=== PATIENT | male | born 1945 | race Caucasian/White ===

== ENCOUNTER → 2017-06-28 06:02 | Outpatient (CLI) | payer MEDICARE, SELFPAY ==
--- NOTE | 2017-06-28 | NM_ITS ---
History and Indications: Hypertension, family history, chest pain, shortness of breath and fatigue. Procedure: Patient exercised on Henri protocol 6 metastases and 30 seconds, resting heart rate was 65 beats per resting blood pressure 156/83, with exercise maximum heart achieved was 1 29 bpm which is equal to 88% of the maximum] heart rate and a blood pressure was 186/75. Test was started due to shortness of breath patient denied any complained of chest pain. Patient has adequate exercise capacity achieved 7mets of workload on treadmill, the blood pressure response to exercise was adequate. Electrocardiogram: Resting echocardiogram showed sinus is is nonspecific ST-T changes, with exercise there is less than 1.[address] segment depression noted from the baseline EKG. The EKG portion of the exercise Myoview is nondiagnostic secondary to baseline abnormal EKG. Cardiac stress and resting SPECT images: Cardiac stress and resting SPECT images were obtained using technetium 99 Myoview 30.9 mCi at stress gated 10.5 mCi at stress, gated SPECT further analysis of segmental wall motion and calculation of the ejection fraction also done. Cardiac stress and resting SPECT images show uniform myocardial activity without segmental perfusion abnormality, computer derived ejection fraction 59% with no obvious regional wall motion abnormality, right ventricle is normal size and contractility. Conclusion: 1. The EKG portion of the exercise Myoview is negative for ischemia. Patient has adequate exercise capacity achieved 7mets of workload on treadmill, the blood pressure response to exercise was adequate, there was no exercise-induced chest discomfort. 2. No obvious scintigraphic evidence of reversible ischemia seen, computer derived ejection fraction is 59% with no obvious regional wall motion abnormality, right ventricle is normal size and contractility. 3. Normal exercise Myoview study.
== END ==
PROVIDERS: Family Provider Family Medicine; PCP Family Medicine; Visit Provider Family Medicine
DX: R07.9 Chest pain, unspecified (principal); R06.02 Shortness of breath
CPT/HCPCS: 78452; 93017; A9502

== ENCOUNTER → 2017-11-12 08:03 | Outpatient (CLI) | payer MEDICARE, SELFPAY ==
--- NOTE | 2017-11-12 08:09 | XR_ITS ---
XR shoulder RT min 2V HISTORY: ITS.REASON: RT SHOULDER PAIN ORDERING PHYSICIAN: Lalito Yepez MD PATIENT AGE: 72 years Comparison: None FINDINGS: There are osteoarthritic changes of the acromioclavicular joint with calcification along the superior aspect of the AC joint. Mild hypertrophic changes are present along the inferior aspect of the AC joint which could be causing some impingement. Glenohumeral joint has an unremarkable appearance. No fracture or dislocation. IMPRESSION: Osteoarthritis of the acromioclavicular joint with mild subacromial stenosis
== END ==
PROVIDERS: PCP Family Medicine; Visit Provider Family Medicine
DX: M25.511 Pain in right shoulder (principal)
CPT/HCPCS: 73030

== ENCOUNTER 2017-11-22 09:00 | Outpatient (RCR) | payer MEDICARE, SELFPAY ==
--- NOTE | 2017-11-16 13:57 | HMH.OTOPEV ---
OT Inpatient Evaluation Rehab OT Outpatient Eval Start: 11/16/17 13:34 Freq: Status: Active Protocol: Document 11/16/17 13:35 TFRY (Rec: 11/16/17 13:57 TFRY [id number]) Electronically Signed By Deidra Welch, OT 11/16/17 13:35 Outpatient Therapy Subjective History Subjective History THIS IS A 72 YEAR OLD RIGHT HANDED MALE REFERRED TO OCCUPATIONAL THERAPY FOR IMPINGEMENT SYNDROME RIGHT SHOULDER. PATIENT REPORTS THAT HIS SHOULDER STARTED HURTING ON 10/04/17 BUT DOESN'T KNOW EXACTLY WHAT HE DID. PMHX: GOUT, ARTHRITIS, HIGH BLOOD PRESSURE. Chief Complaint Pain Symptom Type Sharp Symptoms Relieved By Rest/Positioning Symptoms Aggravated By Physical Activity Prior Functional Limitations None Current Functional Limitations Lifting Sleeping Symptom Description Activity Dependent Level of pain today (0-10) 2 Pain scale - at its best (0-10) 0 Pain scale - at its worst (0-10) 4 Shoulder/Elbow Eval Shoulder Objective Measurements Palpation Tenderness tenderness shoulder exam standard right Shoulder Palpation Findings Tenderness Shoulder Palpation Overall Comment TENDERNESS POSTERIOR RTC Shoulder ROM Right Shoulder ROM Limitations Pain Shoulder Abduction Active Range of 70 Motion (degrees) Shoulder Flexion Active Range of Motion 110 (degrees) Query Text: Shoulder External Rotation Active Range 45 of Motion (degrees) Shoulder Internal Rotation Active Range 45 of Motion (degrees) Shoulder Extension Active Range of 30 Motion (degrees) pain with active ROM shoulder exam right standard decreased ROM shoulder exam standard right Shoulder MMT Shoulder Abduction Strength Grade 3+ Fair+ Shoulder Extension Strength Grade 3+ Fair+ Shoulder Flexion Strength Grade 4- Good- Shoulder External Rotation Strength 3 Fair Grade Shoulder Internal Rotation Strength 3 Fair Grade Shoulder Special Tests impingement sign present shoulder exam right standard Shoulder Empty Can (Supraspinatus) Test Positive Right Shoulder Curtis-Hima Impingement Negative Right Test Elbow Objective Measurements OT Outpatient Assessment Impairments Problems/Impairments Palpation Tenderness Impaired Range of Motion Impaired S
== END 2017-11-22 09:01 | disposition home or self-care (01) ==
LOC: OT 09:00
PROVIDERS: Visit Provider Family Medicine
DX: M75.41 Impingement syndrome of right shoulder (principal)
CPT/HCPCS: 97014; 97033; 97110; 97165; G0283

== ENCOUNTER → 2018-07-31 13:40 | Outpatient (CLI) | payer MEDICARE, SELFPAY ==
[2018-07-31 14:39] LABS: Erythrocyte Sedimentation Rate 14 mm/hr (0-20)
[2018-07-31 16:16] LABS: Uric Acid 6.6 mg/dL (2.6-7.2)
== END ==
PROVIDERS: Visit Provider Family Medicine
DX: E79.0 Hyperuricemia without signs of inflammatory arthritis and tophaceous disease (principal)
CPT/HCPCS: 36415; 84550; 85651

== ENCOUNTER → 2019-02-12 14:02 | Outpatient (CLI) | payer MEDICARE, SELFPAY ==
--- NOTE | 2019-02-12 14:03 | MR_ITS ---
PROCEDURE: MR LUMBAR SPINE WO CON CLINICAL INDICATION: SPINAL STENOSIS OF LUMBAR REGION, UNSPECIFIED WHETHER NEUROG Low back pain, left leg pain numbness and tingling COMPARISON: AUTOMATIC CENTRIFUGAL STATION OPERATOR/O MRI-L-SPINE W/O from 10/01/2014 ENDOCRINOLOGIST/O MRI-C-SPINE W/O from 10/01/2014 TECHNIQUE: Standard multiplanar multiecho sequences are performed without contrast. 3-D MIP and myelographic images are also rendered and reviewed FINDINGS: There is normal alignment. The spinal cord ends at the L1-L2 level. T11-T12: Mild degenerative disc disease. T12-L1: Mild degenerative disc disease. L1-L2: Mild degenerative disc disease with minimal bulging disc and tiny central disc protrusion very slightly eccentric toward the left without impingement. There is facet and ligamentum hypertrophy with mild bilateral lateral recess and foraminal narrowing. L2-L3: Degenerate disc disease with bulging disc along with severe facet and ligamentum hypertrophy with severe bilateral lateral recess narrowing and moderate right foraminal narrowing and moderate to severe left foraminal narrowing for there is canal stenosis at this level at 10 mm. L3-L4: Postsurgical changes with posterior fusion. There canal stenosis at 10 mm. There is 3 mm anterolisthesis of L3 and there is severe facet and ligamentum hypertrophy with severe bilateral foraminal narrowing there is moderate bilateral lateral recess narrowing. L4-5: Bulging disc with degenerative disc disease along with facet and ligamentum hypertrophy with severe bilateral foraminal narrowing. L5-S1: Facet ligamentum hypertrophy with mild bilateral foraminal narrowing. No disc herniation evident. IMPRESSION: 1. There is multilevel degenerative disc disease with facet and ligamentum hypertrophy with lateral recess and foraminal narrowing.. Please see above for detailed description at each level 2. L1-L2: Mild degenerative disc disease with minimal bulging disc and tiny central disc protrusion very slightly eccentric toward the left without impingement. There is facet and ligamentum hypertrophy with mild bilateral lateral recess and foraminal narrowing. 3. L2-L3: Degenerate disc disease with bulging disc along with severe facet and ligamentum hypertrophy with severe bilateral lateral recess narrowing and moderate right foraminal narrowing and moderate to severe left foraminal narrowing for there is canal stenosis at this level at 10 mm. 4. L3-L4: Postsurgical changes with posterior fusion. There canal stenosis at 10 mm. There is 3 mm anterolisthesis of L3 and there is severe facet and ligamentum hypertrophy with severe bilateral foraminal narrowing there is moderate bilateral lateral recess narrowing. 5. L4-5: Bulging disc with degenerative disc disease along with facet and ligamentum hypertrophy with severe bilateral foraminal narrowing. 6. L5-S1: Facet ligamentum hypertrophy with mild bilateral foraminal narrowing. 7. No disc herniation evident. Dictated by: Dayron Ortiz MD 02/13/2019 09:35 Electronically signed by Dayron Ortiz MD in [facility] 02/13/2019 09:35
== END ==
PROVIDERS: PCP Family Medicine; Visit Provider Family Medicine
DX: M48.061 Spinal stenosis, lumbar region without neurogenic claudication (principal)
CPT/HCPCS: 72148; 76376

== ENCOUNTER → 2019-08-14 13:01 | Outpatient (CLI) | payer MEDICARE, SELFPAY ==
--- NOTE | 2019-08-14 13:06 | CT_ITS ---
PROCEDURE: CT LUMBAR SPINE WO CON CLINICAL HISTORY: LOW BACK PAIN Low back pain radiating down left hip and left leg, prior lumbar fusion COMPARISON: MR LUMBAR SPINE WO CON from 02/12/2019 TECHNIQUE: Axial images obtained with sagittal and coronal reformats. All CT scans at the facility use one or more dose reduction, viz: automated exposure control, ma/kV adjustment per patient size (including targeted exams where dose is matched to indication, i.e. head), or iterative reconstruction technique. FINDINGS: There is normal alignment. No fracture or dislocation is evident. There is multilevel lumbar spondylosis. T10-T11: Small right paracentral ventral osteophyte. T11-T12: Degenerate disc disease with ventral osteophyte. T12-L1: Degenerate disc disease. L1-L2: Ventral osteophytes. Degenerative disc disease with small right paracentral disc osteophyte complex and mild right lateral recess narrowing. L2-L3: Degenerative disc disease with bulging disc along with facet ligamentum hypertrophy with bilateral lateral recess and foraminal narrowing L3-L4: Degenerative disc disease with bulging disc. Postsurgical changes with 2 mm anterolisthesis of L3. Prominent facet hypertrophic changes are present with oblique screws directed through the facet joints at L3-L4 on both right and left side. There is bony hypertrophy with lateral recess and foraminal narrowing with borderline narrowing of the canal. L4-5: Degenerative disc disease with broad-based bulging disc with facet ligamentum hypertrophy with bilateral foraminal narrowing. L5-S1: Degenerative disc disease with bulging disc with facet and ligamentum hypertrophy. There may be a small central disc protrusion. Bilateral foraminal narrowing. IMPRESSION: Abnormal CT of the lumbosacral spine. Multilevel lumbar spondylosis with degenerative disc disease, bulging disc, facet ligamentum hypertrophy with lateral recess and foraminal narrowing. Postsurgical changes at L3-L4. Please see above for detailed description at each level. Dictated by: Dayron Ortiz MD 08/15/2019 12:46 Electronically signed by Dayron Ortiz MD in [place] 08/15/2019 12:46
== END ==
PROVIDERS: PCP Family Medicine; Visit Provider Neurological Surgery
DX: M54.5 Low back pain (principal)
CPT/HCPCS: 72131

== ENCOUNTER → 2019-08-20 10:45 | Outpatient (CLI) | payer MEDICARE, SELFPAY ==
--- NOTE | 2019-08-20 10:48 | US_ITS ---
PROCEDURE: US KIDNEY CLINICAL INDICATION: HYPERTENSION COMPARISON: No exams were available for comparison FINDINGS: Both kidneys are of normal size and echogenicity. The right kidney measures 10 centimeters x 4.9 centimeters. The left kidney measures 11 centimeters X 5.5 centimeters and displays an upper pole 10 millimeter cyst. There is normal bilateral renal doppler signal. The spleen measures 12.4 centimeters x 4.7 centimeters x 11.5 centimeters IMPRESSION: Small right renal cyst Dictated by: Kuldip Stewart 08/20/2019 12:11 Electronically signed by Kuldip Stewart in [facility] 08/20/2019 12:11
== END ==
PROVIDERS: PCP Family Medicine; Visit Provider Family Medicine
DX: I10 Essential (primary) hypertension (principal)
CPT/HCPCS: 76770

== ENCOUNTER 2019-12-21 06:53 | Emergency (ER) | payer MEDICARE, SELFPAY ==
[2019-12-21 06:55] VITALS: BP 151/66; PULSE 104; RESP 16; TEMP 36.7; O2SAT 98; BMI 27.3
[2019-12-21 07:27] LABS: Microscopic, Urine URINE MICROSCOPIC (MICROSCOPIC)
--- NOTE | 2019-12-21 07:29 | CA_ITS ---
APPROVED REPORT Left Lower Extremity Venous Study for Venous Competence. Ed Transporter: CT Indications pain, lle burning Vein Imaging CFV (L): compressive, spontaneous, phasic, augmentation SFJ (L): compressive, spontaneous, phasic, augmentation FEM (L): compressive, spontaneous, phasic, augmentation POP (L): compressive, spontaneous, phasic, augmentation DFV (L): compressive, spontaneous, phasic, augmentation PTV (L): compressive, spontaneous, phasic, augmentation GSV (L): compressive, spontaneous, phasic, augmentation SSV (L): compressive, spontaneous, phasic, augmentation Peroneals (L):compressive, spontaneous, phasic, augmentation GAS (L): compressive, spontaneous, phasic, augmentation Findings LLE negative for DVT/SVT. Vessels fully compressible. Conclusion LLE negative for DVT/SVT. Vessels fully compressible. Electronically signed by : Dayron Ortiz MD 12/22/2019 13:35:49
--- NOTE | 2019-12-21 07:30 | PC.NURSE ---
call placed to resp. to call in cardiovascular specialist
--- NOTE | 2019-12-21 07:31 | HMH.EDGENADL ---
ED Disposition Condition on Discharge: Good - Critical Care Critical Care Time: No <Jewel Angel Filed: 12/21/19 07:58> Condition on Discharge: Good - Critical Care Critical Care Time: No <Jewel Benjamin Filed: 12/21/19 10:42> Clinical Impression: Acute urinary retention, Left leg pain Disposition: Still a Patient Instructions: DI for Urinary Retention in Men Referrals: Ta Santiago MD [Primary Care Provider] - Timothy Nguyen MD [Staff Physician] - Attestation: On 12/21/19, the high probability of a clinically significant, sudden or life threatening deterioration of the following system(s) required my full and direct attention, intervention and personal management. The time I documented below is in addition to time spent performing reported procedures but includes the following listed in this critical care notation. Medical Decision Making - Louis Inquiry Pt receiving controlled substance: No - Lab Data Result diagrams: 12/21/19 07:33 12/21/19 07:33 <Jewel Angel Last Filed: 12/21/19 07:58> - Medical Records Medical records reviewed: Yes: I reviewed the patient's medical records. - Lab Data Result diagrams: 12/21/19 07:33 12/21/19 07:33 - US Data US Images: Lower Extremity ED US Reviewed: Yes: I have reviewed the patient's US results, I have viewed radiologist's interpretation - Reevaluation(s) Time: 10:40 <Jewel Benjamin - Last Filed: 12/21/19 10:42> Vital Signs: 12/21/19 06:55 12/21/19 08:06 12/21/19 09:00 Temperature 98.1 F Temperature Source Oral Pulse Rate [Radial] 104 H 83 92 H Respiratory Rate 16 Blood Pressure [Right Arm] 151/66 H 134/76 163/76 H Blood Pressure Mean [Right Arm] 94 95 105 Blood Pressure Position [Right Arm] Sitting Sitting Sitting 02 Sat by Pulse Oximetry 98 Oxygen Delivery Method Room Air - Lab Data Lab Results 12/21/19 07:20: Urine Color Yellow, Urine Appearance Clear, Urine pH 6.5, Ur Specific [place] 1.015, Urine Protein Negative, Urine Glucose (UA) Negative, Urine Ketones Negative, Urine Blood Trace-l, Urine Nitrate Negative, Urine Bilirubin Negative, Urine Urobilinogen 0.2, Ur Leukocyte Esterase Negative, Urine RBC 3-5, Urine WBC Occasional, Ur Squamous Epith Cells Occasional, Urine Bacteria None 12/21/19 07:33: WBC 9.5, RBC 3.77 L, Hgb 11.5 L, Hct 34.8 L, MCV 92.5, MCH 30.6, MCHC 33.1, RDW 13.8, Plt Count 318, MPV 7.8, Neut % (Auto) 78.4, Lymph % (Auto) 14.4, [place] % (Auto) 5.6, Eos % (Auto) 1.1, Baso % (Auto) 0.4, Neut # (Auto) 7.4, Lymph # (Auto) 1.4, [place] # (Auto) 0.5, Eos # (Auto) 0.1, Baso # (Auto) 0.0 12/21/19 07:33: Sodium 135 L, Potassium 4.5, Chloride 99, Carbon Dioxide 26, Anion Gap 14.5, BUN 24 H, Creatinine 1.20, Estimated Creat Clear 67, Estimated GFR 59, Est GFR ( Amer) 71, Glucose 108 H, Calcium 9.3, Total Bilirubin 0.5, AST 22, ALT 14, Alkaline Phosphatase 111, Total Protein 7.3, Albumin 4.2, Globulin 3.1, Albumin/Globulin Ratio 1.4 Orders (Tests/Meds): ED MEDICATIONS Discontinued Medications Generic Name Dose Route Start Last Admin Trade Name Freq PRN Reason Stop Dose Admin Cyclobenzaprine HCl 10 mg 12/21/19 08:27 12/21/19 08:28 Cyclobenzaprine 10mg Tablet PO 12/21/19 08:28 10 mg ONCE ONE Administration Oxycodone/Acetaminophen 1 each 12/21/19 08:27 12/21/19 08:28 Oxycodone 7.5mg W/Apap 325mg Tablet PO 12/21/19 08:28 1 each ONCE ONE Administration - US Data Findings Narrative: no evidence of DVT (Jewel Benjamin) - Reevaluation(s) Reevaluation #1: Patient has no evidence of DVT. On reevaluation he is feeling better. Repeat examination is normal. There is no evidence of spinal cord compression. I do believe symptoms are consistent with paresthesias. Patient needs to follow-up with surgeon as prescribed. Given strict return precautions. Verbalized understanding. (Jewel Benjamin) Medical Decision Narrative: 8:00 PM: A
[2019-12-21 07:34] LABS: Appearance,Urine CLEAR (Clear); Bilirubin,Urine Negative (Negative); Blood, Urine TRACE-L (Negative); Color,Urine YELLOW (Yellow); Glucose,Urine (UA) Negative (Negative); Ketones,Urine Negative (Negative); Leukocyte Esterase,Urine Negative (Negative); Nitrate,Urine Negative (Negative); PH,Urine 6.5 (5.0-8.5); Protein,Urine Negative (Negative); Specific Gravity, Urine 1.015 (1.005-1.030); Urobilinogen,Urine 0.2 EU/dl (0.2)
[2019-12-21 07:42] LABS: Squamous Epithelial Cell,Urine Occasional #/hpf (0-5); WBC,Urine Occasional #/hpf (0-3)
[2019-12-21 07:45] LABS: Basophils % 0.4 % (0.1-2.0); Eosinophils # 0.1 K/mm3 (0.0-0.4); Eosinophils % 1.1 % (0.1-12.0); Hematocrit 34.8 % (42.0-52.0); Hemoglobin 11.5 g/dL (14.1-18.0); Lymphocytes # 1.4 K/mm3 (0.7-4.5); Lymphocytes % 14.4 % (10-50); Mean Corpuscular HGB Conc 33.1 g/dL (31.8-35.4); Mean Corpuscular Hemoglobin 30.6 pg (27.0-31.2); Mean Corpuscular Volume 92.5 fl (80-94); Mean Platelet Volume 7.8 fl (7.4-10.4); Monocytes # 0.5 K/mm3 (0.1-1.0); Monocytes % 5.6 % (1.7-9.3); Neutrophils # 7.4 K/mm3 (1.8-7.8); Neutrophils % 78.4 % (37.0-80.0); Platelet Count 318 K/mm3 (142-424); Red Blood Count 3.77 M/mm3 (4.60-6.20); Red Cell Distribution Width 13.8 % (11.5-17.5); White Blood Count 9.5 K/mm3 (4.8-10.8)
[2019-12-21 07:46] LABS: Chloride 99 mmol/L (98-107); Sodium 135 mmol/L (136-145)
[2019-12-21 07:49] LABS: Alanine Aminotransferase 14 U/L (12-78); Albumin Level 4.2 g/dl (3.5-5.0); Albumin/Globulin Ratio 1.4 (1.1-1.8); Alkaline Phosphatase 111 U/L (38-126); Aspartate Amino Transferase 22 U/L (17-59); Bilirubin,Total 0.5 mg/dl (0.2-1.3); Blood Urea Nitrogen 24 mg/dl (9-20); Calcium 9.3 mg/dl (8.4-10.2); Carbon Dioxide 26 mmol/L (22.0-30.0); Creatinine Clearance Estimated 67 mL/min (50-200); Estimated Glomerular Filt Rate 59 ml/min (>60); GFR (African American) 71 ML/MIN (>60); Globulin 3.1 g/dL (1.3-3.2); Glucose 108 mg/dl (74-100); Total Protein,Serum 7.3 g/dl (6.3-8.2)
[2019-12-21 07:52] LABS: Anion Gap 14.5 mEq/L (5-15); Potassium 4.5 mmoL/L (3.5-5.1)
--- NOTE | 2019-12-21 08:00 | PC.NURSE ---
pt and updated on plan of care
[2019-12-21 08:06] VITALS: BP 134/76; PULSE 83
[2019-12-21 09:00] VITALS: BP 163/76; PULSE 92
--- NOTE | 2019-12-21 09:30 | PC.NURSE ---
called resp regarding status of vascular surgery physician. states I'm going to call them again
--- NOTE | 2019-12-21 09:41 | PC.NURSE ---
house builder called regarding master automotive glass technician and possible time when they will come in for pt exam
--- NOTE | 2019-12-21 09:43 | PC.NURSE ---
[employer] called to page sharepoint solutions architect for Respiratory to do a venous doppler, they stated no one is sharepoint solutions architect. I spoke with respiratory who stated Eliza has been called and is on her way. Yumiko in ER notified.
--- NOTE | 2019-12-21 09:46 | PC.NURSE ---
return call from boiler house operator states tech is on their way
[2019-12-21 10:00] VITALS: BP 155/80; PULSE 75; RESP 20; O2SAT 96
--- NOTE | 2019-12-21 10:16 | PC.NURSE ---
fernandez bag changed to leg bag. instructions given on cath care and draining urinary bag. pt and updated on plan for vascular. pt continues to c/o pain back and lt lower leg. fernandez output 1200cc
--- NOTE | 2019-12-21 10:19 | PC.NURSE ---
vascular at bedside
[2019-12-21 11:01] VITALS: BP 122/74; PULSE 88; RESP 16; TEMP 36.6; O2SAT 98
== END 2019-12-21 11:03 | disposition still patient (30) ==
PROVIDERS: Emergency Provider Emergency Medicine; PCP Family Medicine
DX: R33.0 Drug induced retention of urine (principal); M79.605 Pain in left leg; I10 Essential (primary) hypertension; Z79.899 Other long term (current) drug therapy
CPT/HCPCS: 80053; 81001; 85025; 93971; 99283

== ENCOUNTER → 2020-02-03 09:52 | Outpatient (CLI) | payer MEDICARE, SELFPAY ==
[2020-02-03 11:19] LABS: Prostate Specific Ag Screen 0.8 ng/ml (0.0-4.0)
== END ==
PROVIDERS: Visit Provider Urology
DX: Z12.5 Encounter for screening for malignant neoplasm of prostate (principal)
CPT/HCPCS: 36415; G0103

== ENCOUNTER 2020-03-26 12:52 | Outpatient (RCR) | payer MEDICARE, SELFPAY | END 2020-03-26 12:55 | disposition home or self-care (01) | LOC: PT 12:52 | PROVIDERS: PCP Family Medicine; Visit Provider Family Medicine | DX: M54.5 Low back pain (principal); Z98.1 Arthrodesis status | CPT/HCPCS: 97010; 97014; 97033; 97035; 97110; 97163; G0283 ==

== ENCOUNTER → 2020-07-30 15:14 | Outpatient (CLI) | payer MEDICARE, SELFPAY ==
[2020-07-30 15:22] LABS: Adenovirus F 40/41, stool Not Detected (NotDetected); Astrovirus Not Detected (NotDetected); Campylobacter Not Detected (NotDetected); Clostridium Difficile A/B, PCR Not Detected (NotDetected); Cryptosporidium Not Detected (NotDetected); Cyclospora Cayetanesis Not Detected (NotDetected); Entamoeba histolytica Not Detected (NotDetected); Enteroaggregative E coli Not Detected (NotDetected); Enteropathogenic E coli Not Detected (NotDetected); Enterotoxigenic E coli Not Detected (NotDetected); Giardia lamblia Not Detected (NotDetected); Norovirus Not Detected (NotDetected); Plesimonas Shigalloides, PCR Not Detected (NotDetected); Rotavirus A Not Detected (NotDetected); Salmonella, PCR Not Detected (NotDetected); Sapovirus Not Detected (NotDetected); Shiga-like toxin E coli Not Detected (NotDetected); Shigella Enterovasive E coli Not Detected (NotDetected); Vibrio Cholerae Not Detected (NotDetected); Vibrio, PCR Not Detected (NotDetected); Yersinia Entercolitica, PCR Not Detected (NotDetected)
== END ==
PROVIDERS: Visit Provider Family Medicine
DX: R19.7 Diarrhea, unspecified (principal)
CPT/HCPCS: 87506

== ENCOUNTER 2020-08-04 10:00 | Outpatient (RCR) | payer MEDICARE, SELFPAY | END 2020-08-04 10:05 | disposition home or self-care (01) | LOC: PT 10:00 | PROVIDERS: PCP Family Medicine; Visit Provider Orthopaedic Surgery | DX: M25.562 Pain in left knee (principal); Z96.652 Presence of left artificial knee joint | CPT/HCPCS: 97010; 97014; 97016; 97110; 97140; 97163; 97164; 97760; G0283 ==

== ENCOUNTER → 2020-08-05 10:27 | Outpatient (CLI) | payer MEDICARE, SELFPAY ==
--- NOTE | 2020-08-05 | CA_ITS ---
APPROVED REPORT Accounts Receivable Accountant: ENRIQUE Laterality: Bilateral Study Quality: Good Risk Factors Hypertension: Hyperlipidemia previous smoker Doppler Spectral Velocity Analysis ECA (R) 211.40/14.10 cm/s ECA (L) 125.10/16.30 cm/s dICA (R) 90.50/32.20 cm/s dICA (L) 93.70/32.10 cm/s Emanuel (R) 90.50/30.70 cm/s Emanuel (L) 95.00/25.70 cm/s pICA (R) 84.50/26.20 cm/s pICA (L) 61.60/18.00 cm/s dCCA (R) 83.10/17.20 cm/s dCCA (L) 88.30/18.70 cm/s pCCA (R) 119.10/12.00 cm/s pCCA (L) 88.30/18.70 cm/s Vert (R) 68.80/21.70 cm/s Vert (L) 70.60/9.00 cm/s ICA/CCA 1.09 ICA/CCA 1.08 Findings Duplex evaluation demonstrates stenosis of the right proximal internal carotid artery <20% with PSV <140 cm/sec, EDV <100 cm/sec, and IC/CC Ratio <4.0. Duplex evaluation demonstrates stenosis of the left proximal internal carotid artery <20% with PSV <140 cm/sec, EDV <100 cm/sec, and IC/CC Ratio <4.0. Duplex evaluation demonstrates antegrade flow of the bilateral Vertebral Arteries. Conclusion Duplex evaluation demonstrates stenosis of the right proximal internal carotid artery <20% with PSV <140 cm/sec, EDV <100 cm/sec, and IC/CC Ratio <4.0. Duplex evaluation demonstrates stenosis of the left proximal internal carotid artery <20% with PSV <140 cm/sec, EDV <100 cm/sec, and IC/CC Ratio <4.0. Duplex evaluation demonstrates antegrade flow of the bilateral Vertebral Arteries. Electronically signed by : Dayron Ortiz MD 08/05/2020 15:19:07
== END ==
PROVIDERS: PCP Family Medicine; Visit Provider Family Medicine
DX: R42 Dizziness and giddiness (principal)
CPT/HCPCS: 93880

== ENCOUNTER → 2020-09-01 07:42 | Outpatient (CLI) | payer MEDICARE, SELFPAY ==
--- NOTE | 2020-09-01 07:43 | CA_ITS ---
APPROVED REPORT Podiatry Teacher: Sharon Haywood RVT Study Quality: Good Indications: HTN Risk Factors Hypertension Hyperlipidemia Renal Artery Doppler Origin (R) 105.5/ cm/sec Proximal (R) 131.5/ cm/sec Mid (R) 122.3/ cm/sec Distal (R) 158.2/ cm/sec Renal Aorta Ratio (R) 0.95 Segmental A. (R) 49.9/12.5 cm/sec RI: 0.74 Segmental A. Sup (R) 43.7/8.0 cm/sec Segmental A. Mid (R) 43.7/14.3 cm/sec Segmental A. Inf (R) 49.9/12.5 cm/sec Origin (L) 154.6/ cm/sec Proximal (L) 127.1/ cm/sec Mid (L) 148.2/ cm/sec Distal (L) 165.0/ cm/sec Renal Aorta Ratio (L) 0.99 Segmental A. (L) 62.1/20.0 cm/sec RI: 0.67 Segmental A. Sup (L) 52.5/17.2 cm/sec Segmental A. Mid (L) 25.8/8.6 cm/sec Segmental A. Inf (L) 62.1/20.0 cm/sec Renal Measurements Kidney Size (R) 10.9x7.5 cm Cortical Thickness (R) 1.5 cm Kidney Size (L) 11.2x7.9 cm Cortical Thickness (L) 1.7 cm Findings Study suggests no evidence of stenosis of the bilateral renal arteries. Conclusion Study suggests no evidence of stenosis of the bilateral renal arteries. Electronically signed by : Dayron Ortiz MD 09/01/2020 11:49:23
== END ==
PROVIDERS: PCP Family Medicine; Visit Provider Physician Assistant
DX: G47.33 Obstructive sleep apnea (adult) (pediatric) (principal); I10 Essential (primary) hypertension; R06.00 Dyspnea, unspecified; R07.89 Other chest pain; R40.0 Somnolence; R94.31 Abnormal electrocardiogram [ECG] [EKG]; Z87.891 Personal history of nicotine dependence
CPT/HCPCS: 93976

== ENCOUNTER → 2020-09-03 06:47 | Outpatient (CLI) | payer MEDICARE, SELFPAY ==
--- NOTE | 2020-09-03 06:47 | CA_ITS ---
APPROVED REPORT Exam: Pharmacologic Technologist: Anabel Harvey, Ht: 5 ft 11 in Wt: 186 lbs BSA: 2.04 m2 HR: 61 bpm BP: 146/74 mmHg Rhythm: Sinus rhythm Medical History Medical History: HTN Medications: Amlodipine,,,,, Gabapentin,,,,, Allopurinol,,,,, Vit D3,,,,, Magnesium,,,,, Cardiac Risk Factors: HTN Stress Test Details Test: LEXISCAN HR Resting HR: 61 bpm Max Heart Rate (APMHR): 144.146166 bpm Max HR Achieved: 77 bpm Target HR (85% APMHR): 122.427874 bpm % of APMHR: 53.47 Recovery HR: 69 bpm BP Resting BP: 146/74 mmHg Max BP: 146/74 mmHg Recovery BP: 124.0/74.0 mmHg ECG Resting ECG: Sinus rhythm Clinical Exercise duration: 04:00 min Highest Stage Achieved: Stress ECG Conclusion During lexiscan pt experinced shortness of breath during recovery, resolved during recovery. Occasional PAC and occasional PVC noted. Less than 1.5mm ST depression. Images to follow. Electronically signed by : Mark Padgett, 09/03/2020 10:54:16
--- NOTE | 2020-09-03 06:47 | NM_ITS ---
APPROVED REPORT Exam: Nuclear Stress Test Indication: HTN, C.P., SOB, FATIGUE Patient Location: Outpatient Stress Tech: Dianne Keenan [place] Tech:Karly AmadoKEO RT(R)(N) Ht: 5 ft 11 in Wt: 190 lbs HR: 61 bpm BP: 146/74 mmHg BSA: 2.06 m2 BMI: 26.4 History: HTN, C.P., SOB, FATIGUE Procedure: Patient received a 0.4 mg of intravenous Lexiscan, resting heart rate 61 bpm, resting blood pressure 146/74 mmHg, with Lexiscan maximum heart rate achived was 76 bpm which is % of the maximum predicted heart rate and blood pressure was 135/66 mmHg. With Lexiscan, patient denied any complaint of chest pain. Cardiac Stress and Resting SPECT Images: Cardiac Stress and Resting SPECT images were obtained using technetium 99m Myoview 31.2 mCi stress and 10.54 mCi at rest. Ejection fraction: 53% Normal wall motion. No fixed or reversible defects. Conclusion: EF 53%, lower limits of normal No evidence of ischemia or infarction. Electronically signed by : Dayron Ortiz MD 09/03/2020 14:38:32
== END ==
PROVIDERS: PCP Family Medicine; Visit Provider Physician Assistant
DX: G47.33 Obstructive sleep apnea (adult) (pediatric) (principal); I10 Essential (primary) hypertension; R06.00 Dyspnea, unspecified; R07.89 Other chest pain; R40.0 Somnolence; R94.31 Abnormal electrocardiogram [ECG] [EKG]; Z87.891 Personal history of nicotine dependence
CPT/HCPCS: 78452; 93017; 93306; A9502; J2785

== ENCOUNTER → 2020-10-04 08:40 | Outpatient (CLI) | payer MEDICARE, SELFPAY | PROVIDERS: PCP Family Medicine; Visit Provider Family Medicine | DX: Z20.822 Contact with and (suspected) exposure to COVID-19 (principal) | CPT/HCPCS: U0003 ==

== ENCOUNTER → 2020-12-07 10:14 | Outpatient (CLI) | payer MEDICARE, SELFPAY | PROVIDERS: PCP Family Medicine; Visit Provider Family Medicine | DX: I49.9 Cardiac arrhythmia, unspecified (principal) | CPT/HCPCS: 93225; 93226 ==

== ENCOUNTER → 2021-02-03 09:28 | Outpatient (CLI) | payer MEDICARE, SELFPAY ==
[2021-02-03 11:16] LABS: Prostate Specific Ag Screen 0.8 ng/ml (0.0-4.0)
== END ==
PROVIDERS: Visit Provider Urology
DX: Z12.5 Encounter for screening for malignant neoplasm of prostate (principal)
CPT/HCPCS: 36415; G0103

== ENCOUNTER → 2021-06-06 10:46 | Outpatient (CLI) | payer MEDICARE, SELFPAY ==
--- NOTE | 2021-06-06 11:01 | ECG_ITS ---
APPROVED REPORT Exam: Resting ECG HR:60 bpm ECG Measurements Heart Rate 60 AXES NV 129 P 34 QRSd 94 QRS 31 QT 394 T 33 QTc 395 Conclusion SINUS RHYTHM WITH OCCASIONAL ECTOPIC PREMATURE COMPLEXES BORDERLINE ECG UNCONFIRMED REPORT Electronically signed by : Karl Monet MD 06/06/2021 15:57:39
== END ==
PROVIDERS: PCP Family Medicine; Visit Provider Family Medicine
DX: I49.9 Cardiac arrhythmia, unspecified (principal)
CPT/HCPCS: 93005

== ENCOUNTER → 2021-09-13 09:31 | Outpatient (CLI) | payer MEDICARE, SELFPAY ==
[2021-09-13 10:01] LABS: Basophils # 0.1 K/mm3 (0-0.2); Basophils % 0.9 % (0.1-2.0); Eosinophils # 0.1 K/mm3 (0.0-0.4); Eosinophils % 1.8 % (0.1-12.0); Hemoglobin 14.4 g/dL (14.1-18.0); Lymphocytes # 2.1 K/mm3 (0.7-4.5); Lymphocytes % 26.7 % (10-50); Mean Corpuscular HGB Conc 33.4 g/dL (31.8-35.4); Mean Corpuscular Volume 89.7 fl (80-94); Mean Platelet Volume 8.1 fl (7.4-10.4); Monocytes # 0.7 K/mm3 (0.1-1.0); Monocytes % 8.4 % (1.7-9.3); Neutrophils # 4.8 K/mm3 (1.8-7.8); Neutrophils % 62.2 % (37.0-80.0); Platelet Count 214 K/mm3 (142-424); Red Blood Count 4.79 M/mm3 (4.60-6.20); Red Cell Distribution Width 13.9 % (11.5-17.5); White Blood Count 7.8 K/mm3 (4.8-10.8)
[2021-09-13 10:38] LABS: Chloride 107 mmol/L (98-107); Potassium 4.7 mmoL/L (3.5-5.1); Sodium 140 mmol/L (136-145)
[2021-09-13 10:40] LABS: Alanine Aminotransferase 29 U/L (12-78); Bilirubin,Unconjugated 0.2 mg/dL (0.0-1.1); Blood Urea Nitrogen 23 mg/dl (9-20); Estimated Glomerular Filt Rate 54 ml/min (>60); GFR (African American) 65 ML/MIN (>60)
[2021-09-13 10:41] LABS: Albumin Level 4.7 g/dl (3.5-5.0); Alkaline Phosphatase 77 U/L (38-126); Anion Gap 13.7 mEq/L (5-15); Aspartate Amino Transferase 33 U/L (17-59); Bilirubin,Direct 0.4 mg/dl (0.0-0.4); Bilirubin,Indirect 0.1 mg/dL (0.0-0.9); Bilirubin,Total 0.5 mg/dl (0.2-1.3); Calcium 9.5 mg/dl (8.4-10.2); Carbon Dioxide 24 mmol/L (22.0-30.0); Chol/HDL Ratio 4.6 (1-3.5); Cholesterol 218 mg/dl (140-200); Glucose 103 mg/dl (74-100); HDL Cholesterol 47 mg/dl (40-60); Total Protein,Serum 7.5 g/dl (6.3-8.2); Triglycerides 131 mg/dl (30-150); VLDL Cholesterol 26 mg/dL (0-40)
[2021-09-13 10:52] LABS: Direct LDL Cholesterol 132.39 mg/dL (100-129)
[2021-09-13 11:10] LABS: Thyroid Stimulating Hormone 2.95 uIU/mL (0.465-4.68)
[2021-09-13 11:20] LABS: Free T4 (Free Thyroxine) 0.81 ng/dl (0.78-2.19)
== END ==
PROVIDERS: PCP Family Medicine; Visit Provider Nurse Practitioner Family
DX: E78.5 Hyperlipidemia, unspecified (principal); I10 Essential (primary) hypertension; I49.1 Atrial premature depolarization; R07.89 Other chest pain
CPT/HCPCS: 36415; 80048; 80061; 80076; 84439; 84443; 85025

== ENCOUNTER → 2022-09-27 12:26 | Outpatient (CLI) | payer MEDICARE, SELFPAY ==
--- NOTE | 2022-09-27 | CA_ITS ---
APPROVED REPORT Exam: Pharmacologic Technologist: Anabel Harvey, Ht: 5 ft 11 in Wt: 199 lbs BSA: 2.10 m2 HR: 55 bpm BP: 147/66 mmHg Rhythm: SINUS BRADYCARDIA Medical History Medical History: HTN, Smoking Medications: Amlodipine,,,,, Omeprazole,,,,, Allopurinol,,,,, TAMSULOSIN,,,,, Allergies: TOLMETIN Cardiac Risk Factors: HTN, Smoking Stress Test Details Test: LEXISCAN HR Resting HR: 54 bpm Max Heart Rate (APMHR): 142 bpm Max HR Achieved: 87 bpm Target HR (85% APMHR): 121 bpm % of APMHR: 61 Recovery HR: 72 bpm BP Resting BP: 147/66 mmHg Max BP: 147/66 mmHg Recovery BP: 142.0/75.0 mmHg ECG Resting ECG: SINUS BRADYCARDIA, T WAVE ABN IN INFERIOR LEADS Stress ECG: NO CHANGE Arrhythmia: PACs, PVCs Clinical Exercise duration: 04:01 min Highest Stage Achieved: Stress ECG Conclusion PT HAD SOA, HEAD DISCOMFORT, MILD STOMACH DISCOMFORT, AND MILD LEG DISCOMFORT NO CP FREQUENT PACS RARE PVC NO SIGNIFICANT ST CHANGES CONCLUSION NON-DIAGNOSTIC LEXISCAN STRESS DUE TO BASELINE ABNORMALITIES MYOVIEW IMAGES REPORTED SEPARATELY Test Summary REST 06:08 . . 54 . 147/ 66 . . Stage 1 01:00 . . 73 . . . . Stage 2 01:00 . . 80 . 145/ 57 . . Stage 3 01:00 . . 74 . 141/ 66 . . Stage 4 01:00 . . 65 . 139/ 65 . . Stage 4 01:01 . . 65 . 139/ 65 . Stop exercise at 04:01 RECOVERY 01:00 . . 72 . . . . RECOVERY 02:00 . . 66 . . . . RECOVERY 03:00 . . 69 . 135/ 71 . . RECOVERY 04:00 . . 75 . 142/ 75 . . RECOVERY 04:07 . . 67 . 142/ 75 . . Electronically signed by : Swapna Fitzpatrick, 09/30/2022 15:17:47
--- NOTE | 2022-09-27 12:27 | NM_ITS ---
APPROVED REPORT Exam: Nuclear Stress Test Indication: DYSRHYTHMIA, HYPERLIPIDEMIA, FM HX, C.P., SOB Patient Location: Outpatient Stress Tech: Anabel Harvey [place] Tech:KEO Guardado RT(R)(N) Ht: 5 ft 10 in Wt: 200 lbs HR: 54 bpm BP: 147/66 mmHg BSA: 2.09 m2 Rhythm: NSR TID: 0.91 BMI: 28.6 History: DYSRHYTHMIA, HYPERLIPIDEMIA, FM HX, C.P., SOB Procedure: Patient received 0.4 mg of intravenous Lexiscan, resting heart rate 54 bpm, resting blood pressure 147/66 mmHg, with Lexiscan maximum heart rate achieved was 80 bpm which is % of the maximum predicted heart rate and blood pressure was 145/77 mmHg. With Lexiscan, patient denied any complaint of chest pain. Cardiac Stress and Resting SPECT Images: Cardiac Stress and Resting SPECT images were obtained using technetium 99m Myoview 32.6 mCi stress and 10.46 mCi at rest. This is a technically difficult study due to body habitus and significant soft tissue overlap with the cardiac border. This is especially noted in the supine stress imaging. This may significantly affect the diagnostic interpretation of the study findings. Resting and stress imaging in supine position demonstrate a large-sized, moderate, predominantly reversible perfusion defect in the anterior, inferior, and inferolateral LV tapia, as well as in the LV apical region. These findings are no longer visualized with prone stress imaging. Findings are suggestive of soft tissue and diaphragmatic attenuation, but true perfusion defects cannot be entirely ruled out due to the above-mentioned technical limitations. Gated imaging demonstrates low-normal global LV systolic function. There is mild hypokinesis of the inferior LV wall. LVEF is calculated at 51%. Conclusion: Technically difficult study due to body habitus and significant soft tissue overlap with the cardiac border. This is especially noted in the supine stress imaging. This may significantly affect the diagnostic interpretation of the study findings. Resting and stress imaging in supine position demonstrate a large-sized, moderate, predominantly reversible perfusion defect in the anterior, inferior, and inferolateral LV tapia, as well as in the LV apical region. These findings are no longer visualized with prone stress imaging. Findings are suggestive of soft tissue and diaphragmatic attenuation, but true perfusion defects cannot be entirely ruled out due to the above-mentioned technical limitations. Gated imaging demonstrates low-normal global LV systolic function. There is mild hypokinesis of the inferior LV wall. LVEF is calculated at 51%. Due to technically limited evaluation, further testing is recommended if clinical suspicion for coronary ischemia is still present. Electronically signed by : Swapna Fitzpatrick, 09/30/2022 15:24:59
== END ==
PROVIDERS: PCP Family Medicine; Visit Provider Nurse Practitioner
DX: R07.89 Other chest pain (principal)
CPT/HCPCS: 78452; 93017; A9502; J2785

== ENCOUNTER → 2022-10-05 14:18 | Outpatient (CLI) | payer MEDICARE, SELFPAY ==
--- NOTE | 2022-10-05 14:20 | CA_ITS ---
APPROVED REPORT EXAM: Comprehensive 2D, Doppler, and color-flow Echocardiogram Battery Container Inspector: Kirsten Pavon RDCS Ht: 5 ft 11 in Wt: 199lbs BSA: 2.10 BP: 143/61 mmHg Indications: SOA ABN EKG PAC CP 2D Dimensions LVOT 2.08 cm (M/F) 1.5-2.5 M-Mode Dimensions RVDd 2.59 cm (0.9-2.6) LA Diam 3.99 cm (1.9-4.0) LVDd 4.48 cm (3.5-5.7) Ao Diam 3.50 cm (2.0-3.7) LVDs 3.37 cm (3.5-5.7) IVSd 1.29 cm (0.6-1.1) PWd 1.00 cm (0.6-1.1) EF (Teich) 49.30% FS 24.80% EDV (Teich) 91.50 mL ESV (Teich) 46.40 mL LV Diastology E Decel Time 260.00 (160-240 msec) E/A Ratio 0.8 MED E' 5.50 (< 7 cm/sec) E'/MED E' Ratio 13.35 (>14) LAT E' 6.80 (<10 cm/sec) E/LAT E' Ratio 10.79 (>14) Aortic Valve LVOT Max 130.00 (70-110 cm/s) LVOT VTI 26.35 cm AoV Peak Pardeep. 204.00 (50-130 cm/s) AO Peak GR. 16.60 mmHg AO Mean GR. 8.30 (<5 mmHg) AO VTI 37.72 (18-25 cm) COLLINS (VTI) 2.37 (2.5-4.5 cm2) Mitral Valve MV E Max Pardeep. 73.00 (40-130 cm/s) MV A Velocity 97.00 (40-130 cm/s) E/A Ratio 0.76 MV Decel. Time 260.00 (160-240 ms) MV PHT 76.00 ms Left Ventricle The left ventricle is normal size. The left ventricular systolic function is normal. The left ventricular ejection fraction is within the normal range. There is increased LV wall thickness. There is normal LV segmental wall motion. The left ventricular diastolic function is normal. LVEF is 55%. Right Ventricle The right ventricle is normal size. The right ventricular systolic function is normal. Atria Left atrium is mildly dilated. Right atrium is mildly dilated. There is no Doppler evidence of interatrial shunt. Aortic Valve The aortic valve is mildly thickened. There is no aortic valvular stenosis. Trace aortic regurgitation. Mitral Valve The mitral valve is mildly thickened. No evidence of mitral valve stenosis. Mild mitral regurgitation. Tricuspid Valve The tricuspid valve leaflets are thin and pliable. Trace tricuspid regurgitation. TR spectral Doppler is not performed to evaluate RVSP. Pulmonic Valve The pulmonary valve is normal in structure. Trace pulmonic regurgitation. Great Vessels The aortic root is normal in size. IVC is normal in size and collapses >50% with inspiration. Pericardium There is no pericardial effusion. Conclusion Normal biventricular systolic function. No significant valvular disease. Electronically signed by : Swapna Fitzpatrick, 10/07/2022 16:11:33
== END ==
PROVIDERS: PCP Internal Medicine; Visit Provider Nurse Practitioner
DX: I49.1 Atrial premature depolarization (principal)
CPT/HCPCS: 93306

== ENCOUNTER 2022-11-06 07:44 | Day surgery (SDC) | payer MEDICARE, SELFPAY ==
[2022-11-06] VITALS (11 sets, daily range): BP systolic 138–176; BP diastolic 75–92; PULSE 53–65; RESP 17–20; O2SAT 90–100; BMI 28.3
--- NOTE | 2022-11-06 07:08 | IR_ITS ---
APPROVED REPORT Patient Location: Outpatient News Librarian: KEO Diehl RT (R) PROCEDURES Selective coronary angiogram Drug-eluting stent deployment to the proximal mid and distal dominant right coronary in a contiguous manner INDICATION High risk abnormal Myoview, Coronary artery disease, Angina pectoris Informed consent was obtained prior to the procedure. COMPLICATIONS None Estimated Blood Loss: Less than 10 mls TECHNIQUE One percent lidocaine used to anesthetize the right anterior aspect of the wrist. The right radial artery was accessed via the Seldinger technique. A 6 Georgian sheath was placed in the right radial artery. 2.5 mg of Verapamil, 800 mcg of nitroglycerin, 1mg Lidocaine and 5000 U Heparin were given through the arterial sheath. The papa catheter was also used to perform selective coronary angiogram. At the end of the diagnostic angiogram therapeutic heparin was administered giving a therapeutic ACT and the guide catheter was placed in the right coronary followed by Choice PT extra-support wire. A 4 mm x 38 mm [place] frontier stent was deployed at 14 jonathon reducing the stenosis. I was not satisfied with the distal stepdown therefore an additional 3.5 x 26 mm Mitch frontier stent was then deployed at 18 jonathon with the balloon pulled back and deployed at 24 jonathon to mesh the 2 stents. This also had a significant stepdown which did not respond to 800 mcg of intracoronary nitroglycerin. A 3 mm x 22 mm Mitch frontier stent was placed distal to the second stent yet still overlapping the stent and deployed at 18 jonathon. The balloon was brought back and deployed at 24 jonahton to mesh the 2 stents together. RODRICK-3 flow was present before and after the procedure. Within the procedure the apparatus was removed the sheath was removed and hemostasis was achieved using TR banding patient was transferred to the postop holding in stable condition ANGIOGRAPHIC RESULTS The left main artery Has an ostial 30 to 40% stenosis and a distal 30% stenosis The left anterior descending artery Has proximal 20 and 30% stenoses with a mid vessel 70% stenosis along a tortuous bend and a 2.5 mm segment. The circumflex artery Is a nondominant vessel and has proximal 30% stenoses with mid vessel tandem 50% stenoses supplying a large obtuse marginal artery The right coronary artery Is a large dominant vessel and has proximal 40 to 50% stenoses with a mid vessel concentric 70 to 80% stenosis with distal 30 and 40% stenoses The MALDONADO ventriculogram reveals Not performed The left ventricular end-diastolic pressure Not measured IMPRESSION Severe dominant right coronary disease as described above Successful stenting of the proximal mid and distal dominant right coronary artery reducing severe disease to less than 10% with 3 contiguous drug-eluting stents Persistent moderate disease in the left main artery Persistent moderate to severe disease in the mid LAD Persistent moderate disease in the circumflex artery PLAN 1. Plavix 75 mg daily plus aspirin 81 mg daily 2. LDL less than 55 to be achieved with high intensity statin 3. Avoidance of tobacco products 4. Cardiac rehabilitation 5. May be reasonable to repeat Myoview in 6 weeks to determine if anterior ischemia persist. Should patient continue to experience angina pectoris he can be brought back to the Database Administration Project Manager and undergo stenting of the mid LAD. I believe the circumflex artery and left main artery can be managed medically at this point Electronically signed by : Mark Padgett MD 11/06/2022 10:05:01
[2022-11-06 08:43] LABS: Basophils % 0.6 % (0.1-2.0); Eosinophils # 0.2 K/mm3 (0.0-0.4); Eosinophils % 2.8 % (0.1-12.0); Hematocrit 42.5 % (42.0-52.0); Hemoglobin 13.5 g/dL (14.1-18.0); Lymphocytes # 1.7 K/mm3 (0.7-4.5); Lymphocytes % 25.1 % (10-50); Mean Corpuscular HGB Conc 31.6 g/dL (31.8-35.4); Mean Corpuscular Hemoglobin 25.9 pg (27.0-31.2); Mean Corpuscular Volume 81.8 fl (80-94); Mean Platelet Volume 9.1 fl (7.4-10.4); Monocytes # 0.5 K/mm3 (0.1-1.0); Monocytes % 7.8 % (1.7-9.3); Neutrophils # 4.3 K/mm3 (1.8-7.8); Neutrophils % 63.8 % (37.0-80.0); Platelet Count 188 K/mm3 (142-424); Red Cell Distribution Width 16.6 % (11.5-17.5); White Blood Count 6.8 K/mm3 (4.8-10.8)
[2022-11-06 08:48] LABS: Anion Gap 16.3 mEq/L (5-15); Blood Urea Nitrogen 18 mg/dl (9-20); Calcium 8.8 mg/dl (8.4-10.2); Carbon Dioxide 25 mmol/L (22.0-30.0); Chloride 106 mmol/L (98-107); Creatinine Clearance Estimated 55 mL/min (50-200); Estimated Glomerular Filt Rate 49 ml/min (>60); GFR (African American) 59 ML/MIN (>60); Glucose 99 mg/dl (74-100); Potassium 4.3 mmoL/L (3.5-5.1); Sodium 143 mmol/L (136-145)
--- NOTE | 2022-11-06 13:06 | HMH.PHACL ---
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: Derick Figueroa has received discharge medication counseling on the following medications: -ASPIRIN (ANTIPLATELET, BLEED/BRUISE RISK/LOCATION/APPEARANCE, DAILY, CAN TAKE WITH FOOD FOR UPSET STOMACH, BUMP HEAD = GO TO ER TO RULE OUT HEAD BLEED) -ATORVASTATIN (FOR CHOLESTEROL, TAKE AT BEDTIME, WATCH FOR MUSCLE PAIN/WEAKNESS) -BISOPROLOL (FOR BLOOD PRESSURE, DAILY DIZZINESS, LIGHTHEADEDNESS, SLOWED HEART RATE, LOW BP, FATIGUE POSSIBLE) -PLAVIX (ANTIPLATELET, BLEED/BRUISE RISK/LOCATION/APPEARANCE, DAILY, BUMP HEAD = GO TO ER TO RULE OUT HEAD BLEED) -NO CECIL/ARB PER MD PER ADILIA IN JUNIOR PROJECT MANAGER. PATIENT VERBALIZED NO QUESTIONS AT THIS TIME.
[2022-11-06 13:10] LABS: CATHL Activated Clotting Time 394 SEC (74-125)
== END 2022-11-06 13:19 | disposition home or self-care (01) ==
PROVIDERS: PCP Family Medicine; Visit Provider Internal Medicine
DX: I10 Essential (primary) hypertension (principal); I25.118 Atherosclerotic heart disease of native coronary artery with other forms of angina pectoris; I49.3 Ventricular premature depolarization; R06.00 Dyspnea, unspecified; R07.89 Other chest pain; R94.31 Abnormal electrocardiogram [ECG] [EKG]; R94.39 Abnormal result of other cardiovascular function study
CPT/HCPCS: 80048; 85025; 85347; 92928; 93454; 99152; C1725; C1769; C1876; C9600; J1644; Q9967

== ENCOUNTER 2022-12-05 19:04 | Emergency (ER) | payer MEDICARE, SELFPAY ==
[2022-12-05 19:10] VITALS: BP 141/87; PULSE 61; RESP 17; TEMP 36.6; O2SAT 98; BMI 27.9
--- NOTE | 2022-12-05 19:42 | EXP.UTC ---
Discharge Plan Disposition Patient Disposition: Home, Self-Care Condition: Good Prescriptions Prescriptions: New benzonatate 100 mg capsule 100 mg PO TID PRN (Reason: cough) Qty: 30 0RF azithromycin [Zithromax Z-Asif] 250 mg tablet See Rx Instructions .ROUTE .COMPLEX 5 Days Qty: 6 0RF Rx Instructions: For 250 mg dose pack: take 500 mg today (day 1), then 250 mg for 4 days (days 2-5) guaifenesin [Mucinex] 600 mg tablet extended release 12hr 600 mg PO BID PRN (Reason: cough/congestion) Qty: 20 0RF methylprednisolone [Medrol (Asif)] 4 mg tablets,dose pack See Rx Instructions .Route .COMPLEX 6 Days Qty: 21 0RF Rx Instructions: taper pack; No Action omeprazole 40 mg capsule,delayed release(DR/EC) 40 mg PO DAILY tamsulosin 0.4 mg capsule 0.4 mg PO DAILY amlodipine 5 mg tablet 5 mg PO QDAY bisoprolol fumarate 10 mg tablet 10 mg PO DAILY Qty: 90 3RF atorvastatin 40 mg Tablet 40 mg PO HS Qty: 30 6RF clopidogrel [Plavix] 75 mg Tablet 75 mg PO DAILY Qty: 30 6RF aspirin 81 mg Tablet,Chewable 81 mg PO DAILY Qty: 30 6RF Referrals Follow up/Referrals: Ta Santiago MD [Primary Care Provider] - See instructions Activity Restrictions/Add. Instructions Additional Instructions/Restrictions: *Monitor Temp, Over the counter Motrin or Tylenol as directed/as needed Tylenol every 4 hours and Motrin every 6 hours (as long as your family doctor has told you that you can take it) for fever or pain. and straight to ER if unable to lower temp less than 101.0 after medication given *Warm salt water gargles may help to soothe the throat *Throat Lozenges? *Warm fluids like tea with honey may help to soothe the throat? *Sleep elevated *Humidifier/Vaporizer Start antibiotic today. Be sure to complete entire prescription even if feeling better Monitor temp. Tylenol every 4 hours as needed and / or ibuprofen every 6 hours as needed ( As long as your primary care physician has told you that it ok to take both. For fever/aches/pains ER if no less than 101 despite Tylenol or Motrin Humidifier/vaporizer or hot steamy shower Mucinex during the day for your cough and cough suppressant only at night. Be sure to drink lots of water. it *Tessalon Perles will not cause drowsiness but use at bedtime to help stop cough so that you may get some rest. Your throat swab was sent for culture. Those results are typically sent to your primary care. Be sure to follow up in 2-3 days with your family doctor/primary care physician if no improvement so they can review those result and treat if necessary. If you don?t have a primary care doctor, I recommend you get one but in the mean time, you will have to return to a walk in clinic Follow up IMMEDIATELY for new or worsening symptoms or no Noticeable improvement over the next 48-72 hours. 911 for difficulty breathing or swallowing Clinical Impressions Clinical Impression: Pharyngitis Qualifiers: Pharyngitis/tonsillitis etiology: unspecified etiology Qualified Code(s): J02.9 - Acute pharyngitis, unspecified Instructions Patient Instructions: Sore Throat, Cough Discharge ED Provider: Marcia Juarez [facility] General Stated complaint: nadira, cough Mode of Arrival: Ambulatory Source of Information: Patient Limitations: No Limitations Time Seen by Provider: 12/05/22 19:42 Description of Symptoms (Recalled from Triage Doc. by RN): PATIENT C/O COUGH AND CONGESTION X 3 DAYS HEENT Symptoms (Recalled from RN notes): Yes Resp Symptoms (Recalled from RN notes): Yes Skin Symptoms (Recalled from RN notes): No MS Symptoms (Recalled from RN notes): No Functional Status (Recalled from RN notes): WNL History of Present Illness Provider Complaint: Patient states that he has been having sore throat, cough, nasal congestion and drainage in the back of his throat for the last
[2022-12-05 19:57] LABS: UTC Strep Screen (Rapid) Negative (Negative)
[2022-12-05 20:05] VITALS: BP 141/87; PULSE 61; RESP 17; TEMP 36.6; O2SAT 98
== END 2022-12-05 20:07 | disposition home or self-care (01) ==
PROVIDERS: Emergency Provider Nurse Practitioner; PCP Family Medicine
DX: J02.9 Acute pharyngitis, unspecified (principal); R05.9 Cough, unspecified; R09.81 Nasal congestion; I25.10 Atherosclerotic heart disease of native coronary artery without angina pectoris; I10 Essential (primary) hypertension; G47.33 Obstructive sleep apnea (adult) (pediatric); Z87.891 Personal history of nicotine dependence
CPT/HCPCS: 87880; 99204; 99212; G0463

== ENCOUNTER → 2022-12-25 06:24 | Outpatient (CLI) | payer MEDICARE, SELFPAY ==
--- NOTE | 2022-12-25 06:52 | NM_ITS ---
APPROVED REPORT Exam: Nuclear Stress Test Indication: CAD, 3 STENTS, HTN, HYPERLIPIDEMIA, FM HX, C.P., SOB Patient Location: Outpatient Stress Tech: Magaly Garcia [place] Tech:Agustina Arroyo KEO RT (R)(N)(M) Ht: 5 ft 11 in Wt: 198 lbs HR: 49 bpm BP: 159/61 mmHg BSA: 2.10 m2 Rhythm: NSR TID: 0.95 BMI: 27.6 History: CAD, 3 STENTS, HTN, HYPERLIPIDEMIA, FM HX, C.P., SOB Procedure: Patient received 0.4 mg of intravenous Lexiscan, resting heart rate 49 bpm, resting blood pressure 159/61 mmHg, with Lexiscan maximum heart rate achieved was 69 bpm which is % of the maximum predicted heart rate and blood pressure was 130/65 mmHg. With Lexiscan, patient denied any complaint of chest pain. Cardiac Stress and Resting SPECT Images: Cardiac Stress and Resting SPECT images were obtained using technetium 99m Myoview 31.8 mCi stress and 10.68 mCi at rest. Raw images demonstrate diaphragmatic overlap with the inferior border of the LV wall. Resting and stress imaging in supine and prone positions demonstrate a medium sized, moderate, reversible perfusion defect in the mid to distal anterior LV wall involving the LV apex. Gated imaging demonstrates low-normal V global and regional LV systolic function. LVEF is calculated at 51%. Conclusion: Diaphragmatic attenuation is present. Medium sized, moderate, reversible perfusion defect in the mid to distal anterior LV wall involving the LV apex. Findings are suggestive of reversible ischemia. Gated imaging demonstrates low-normal V global and regional LV systolic function. LVEF is calculated at 51%. Electronically signed by : Swapna Fitzpatrick MD 12/28/2022 12:24:26
--- NOTE | 2022-12-25 10:08 | CA_ITS ---
APPROVED REPORT Exam: Pharmacologic Technologist: Magaly Garcia Ht: 5 ft 10 in Wt: 198 lbs BSA: 2.08 m2 HR: 48 bpm BP: 159/61 mmHg Rhythm: NSR Indications: Chest pain, Shortness of Breath Medical History Medications: Amlodipine,,,,, Omeprazole,,,,, Aspirin,,,,, Atorvastatin,,,,, TAMSULOSIN,,,,, CloPIdogrel,,,,, BisOPROLOL,,,,, Stress Test Details Test: LEXISCAN HR Resting HR: 50 bpm Max Heart Rate (APMHR): 142 bpm Max HR Achieved: 74 bpm Target HR (85% APMHR): 121 bpm % of APMHR: 52 Recovery HR: 73 bpm BP Resting BP: 159.0/61.0 mmHg Max BP: 159.0/61.0 mmHg Recovery BP: 144.0/63.0 mmHg ECG Resting ECG: Sinus bradycardia, PACs Stress ECG: No significant ST changes Arrhythmia: PACs Clinical Exercise duration: 04:04 min Highest Stage Achieved: Exercise capacity: 1.0 METs Stress ECG Conclusion Symptoms: Lightheaded, dyspnea, stomach cramps Arrjythmias/Ectopy: PAC's ST-T Changes: No significant ST changes Conclusion: Unremarkable Lexiscan stress test. Myoview images are reported separately. Test Summary REST . . . . . . . Resting REST 24:41 . . 50 . 159/ 61 . . Stage 1 . . . . . . . Myoview Injected Stage 1 01:00 . . 51 . . . . Stage 2 01:00 . . 64 . 130/ 65 . . Stage 3 01:00 . . 56 . 136/ 70 . . Stage 4 01:00 . . 52 . 141/ 64 . . Stage 4 01:04 . . 62 . 141/ 64 . Stop exercise at 04:04 RECOVERY 01:00 . . 61 . 139/ 65 . . RECOVERY 02:00 . . 62 . 139/ 65 . . RECOVERY 03:00 . . 57 . 139/ 63 . . RECOVERY 04:00 . . 56 . 139/ 63 . . RECOVERY 05:00 . . 50 . 144/ 63 . . RECOVERY 05:26 . . 55 . 144/ 63 . . Electronically signed by : Swapna Fitzpatrick MD 12/28/2022 12:21:27
== END ==
PROVIDERS: PCP Family Medicine; Visit Provider Nurse Practitioner
DX: I25.10 Atherosclerotic heart disease of native coronary artery without angina pectoris (principal); R06.00 Dyspnea, unspecified
CPT/HCPCS: 78452; 93017; A9502; J2785

== ENCOUNTER 2023-01-05 07:51 | Day surgery (SDC) | payer MEDICARE, SELFPAY ==
[2023-01-05] VITALS (14 sets, daily range): BP systolic 145–176; BP diastolic 74–92; PULSE 54–75; RESP 16–20; O2SAT 92–99; BMI 28.8
--- NOTE | 2023-01-05 07:04 | IR_ITS ---
APPROVED REPORT Patient Location: Outpatient PROCEDURES Selective coronary angiogram Intravascular ultrasound to the LAD and left main artery Drug-eluting stent deployment to the ostial proximal mid left main artery Drug-eluting stent deployment to the proximal and mid LAD INDICATION Coronary artery disease, High risk abnormal Myoview, IVUS guidance for complex intervention Informed consent was obtained prior to the procedure. COMPLICATIONS None Estimated Blood Loss: Less than 10 mls TECHNIQUE One percent lidocaine used to anesthetize the right anterior aspect of the wrist. The right radial artery was accessed via the Seldinger technique. A 6 Macedonian sheath was placed in the right radial artery. 2.5 mg of Verapamil, 800 mcg of nitroglycerin, 1mg Lidocaine and 5000 U Heparin were given through the arterial sheath. The papa catheter was also used to perform selective coronary angiography. At the end the diagnostic angiogram therapeutic heparin was administered giving a therapeutic ACT and the guide catheter was placed in the left main artery followed by Choice PT extra-support wire being placed on the LAD. Intravascular ultrasound probe was advanced which demonstrated an MLA less than 6.5 in the ostial left main artery as well as an MLA less than 4 mm??? in the proximal LAD. The IVUS catheter would not advance beyond the proximal LAD due to stenosis and severe calcification. At this point the IVUS catheter was removed and a 3.5 x 38 mm Mitch frontier stent was placed in the ostial left main artery extending into the proximal to mid LAD. This was deployed at 16 jonathon. Following this an additional 3 mm x 12 mm Mitch frontier stent was then placed distal to the LAD stent and deployed at 20 jonathon. The balloon was brought back deployed at 24 jonathon to mesh the 2 stents together. Intravascular ultrasound probe was advanced which demonstrated undersizing of the left main artery with excellent apposition and stent expansion throughout the proximal LAD. The tip of the Choice PT wire was bent and would not accept an additional balloon therefore a BMW wire was placed into the left main artery and LAD. 4 mm balloon was used to dilate the ostial left main artery out of the concern of the wire going through a side strut. Following this a 4 mm x 12 mm [place] frontier stent was deployed at 24 jonathon in the ostial proximal left main artery further post dilating and reducing the stenosis. There were excellent angiographic results. Within the procedure the apparatus was removed the sheath was removed and hemostasis was achieved using TR banding patient was transferred to the postop putting a stable addition ANGIOGRAPHIC RESULTS The left main artery Has an ostial 50% stenosis The left anterior descending artery Has a proximal calcified greater than 70% stenosis which extends throughout the entire proximal segment and into the midportion where there is an additional 70% calcified stenosis. The circumflex artery Is nondominant and has an ostial 30 to 40% stenosis followed by an additional proximal 20 to 30% stenosis with a 40% tandem stenosis in the large second obtuse marginal artery The right coronary artery Large and dominant and has a 10 to 20% stenosis in the proximal segment immediately proximal to the stent. Proximal mid and distal stent is widely patent with excellent sizing and excellent distal transitioning into the vessel. The MALDONADO ventriculogram reveals Not performed The left ventricular end-diastolic pressure Not measured IMPRESSION Severe ostial left main disease as described above Severe stenosis in the proximal mid LAD as described above Successful stenting the ostial proximal mid distal left main artery which extended into the proximal and mid LAD reducing multiple stenoses to less th
[2023-01-05 08:15] LABS: Basophils # 0.1 K/mm3 (0-0.2); Basophils % 0.7 % (0.1-2.0); Eosinophils # 0.3 K/mm3 (0.0-0.4); Eosinophils % 3.5 % (0.1-12.0); Hematocrit 40.5 % (42.0-52.0); Hemoglobin 13.7 g/dL (14.1-18.0); Lymphocytes # 2.3 K/mm3 (0.7-4.5); Lymphocytes % 27.1 % (10-50); Mean Corpuscular HGB Conc 33.9 g/dL (31.8-35.4); Mean Corpuscular Volume 82.7 fl (80-94); Monocytes # 0.6 K/mm3 (0.1-1.0); Monocytes % 7.6 % (1.7-9.3); Neutrophils # 5.1 K/mm3 (1.8-7.8); Platelet Count 198 K/mm3 (142-424); Red Cell Distribution Width 15.3 % (11.5-17.5); White Blood Count 8.4 K/mm3 (4.8-10.8)
[2023-01-05 08:28] LABS: Anion Gap 14.3 mEq/L (5-15); Blood Urea Nitrogen 17 mg/dl (9-20); Calcium 8.7 mg/dl (8.4-10.2); Carbon Dioxide 25 mmol/L (22.0-30.0); Chloride 106 mmol/L (98-107); Creatinine Clearance Estimated 56 mL/min (50-200); Estimated Glomerular Filt Rate 49 ml/min (>60); GFR (African American) 59 ML/MIN (>60); Glucose 99 mg/dl (74-100); Potassium 4.3 mmoL/L (3.5-5.1); Sodium 141 mmol/L (136-145)
[2023-01-05 12:15] LABS: CATHL Activated Clotting Time 297 SEC (74-125)
== END 2023-01-05 13:55 | disposition home or self-care (01) ==
PROVIDERS: PCP Family Medicine; Visit Provider Internal Medicine
DX: I25.10 Atherosclerotic heart disease of native coronary artery without angina pectoris (principal); I49.3 Ventricular premature depolarization; R94.30 Abnormal result of cardiovascular function study, unspecified; R94.31 Abnormal electrocardiogram [ECG] [EKG]; Z79.899 Other long term (current) drug therapy; Z79.01 Long term (current) use of anticoagulants; I10 Essential (primary) hypertension; Z87.891 Personal history of nicotine dependence
CPT/HCPCS: 80048; 85025; 85347; 92928; 92978; 92979; 93454; 99152; 99153; C1725; C1769; C1876; C9600; J1644; Q9967

== ENCOUNTER → 2023-01-08 09:31 | Outpatient (CLI) | payer MEDICARE, SELFPAY ==
[2023-01-08 09:51] LABS: Basophils # 0.1 K/mm3 (0-0.2); Basophils % 0.7 % (0.1-2.0); Eosinophils # 0.2 K/mm3 (0.0-0.4); Eosinophils % 2.3 % (0.1-12.0); Hematocrit 41.9 % (42.0-52.0); Hemoglobin 13.8 g/dL (14.1-18.0); Lymphocytes % 21.7 % (10-50); Mean Corpuscular Hemoglobin 27.7 pg (27.0-31.2); Mean Platelet Volume 8.8 fl (7.4-10.4); Monocytes # 0.9 K/mm3 (0.1-1.0); Monocytes % 9.3 % (1.7-9.3); Neutrophils # 6.1 K/mm3 (1.8-7.8); Platelet Count 201 K/mm3 (142-424); Red Blood Count 4.98 M/mm3 (4.60-6.20); Red Cell Distribution Width 15.3 % (11.5-17.5); White Blood Count 9.3 K/mm3 (4.8-10.8)
[2023-01-08 10:49] LABS: Chloride 105 mmol/L (98-107)
[2023-01-08 10:50] LABS: Potassium 4.8 mmoL/L (3.5-5.1); Sodium 141 mmol/L (136-145)
[2023-01-08 10:53] LABS: Anion Gap 12.8 mEq/L (5-15); Blood Urea Nitrogen 18 mg/dl (9-20); Carbon Dioxide 28 mmol/L (22.0-30.0); Estimated Glomerular Filt Rate 45 ml/min (>60); GFR (African American) 55 ML/MIN (>60); Glucose 98 mg/dl (74-100)
== END ==
PROVIDERS: PCP Family Medicine; Visit Provider Internal Medicine
DX: I25.10 Atherosclerotic heart disease of native coronary artery without angina pectoris (principal); Z95.5 Presence of coronary angioplasty implant and graft
CPT/HCPCS: 36415; 80048; 85025

== ENCOUNTER → 2023-01-11 09:53 | Outpatient (CLI) | payer MEDICARE, SELFPAY | PROVIDERS: PCP Family Medicine; Visit Provider Physician Assistant | DX: I25.10 Atherosclerotic heart disease of native coronary artery without angina pectoris (principal); I49.3 Ventricular premature depolarization; R00.2 Palpitations; R42 Dizziness and giddiness; R94.31 Abnormal electrocardiogram [ECG] [EKG]; Z87.891 Personal history of nicotine dependence | CPT/HCPCS: 93270 ==

== ENCOUNTER 2023-05-06 14:16 | Emergency (ER) | payer MEDICARE, SELFPAY ==
--- NOTE | 2023-05-06 15:41 | EXP.UTC ---
Discharge Plan Disposition Patient Disposition: Home, Self-Care Condition: Good Prescriptions Prescriptions: New azithromycin [Zithromax] 250 mg tablet 250 mg PO UD DOSE PK Qty: 6 0RF Rx Instructions: Take two (2) tablets today, then one (1) tablet days #2 thru #5 benzonatate 100 mg capsule 100 mg PO TIDP PRN (Reason: Cough) Qty: 30 0RF methylprednisolone 4 mg Tablets,Dose Pack 4 mg PO DIRECTED 6 Days Qty: 21 0RF Rx Instructions: Take 1 pack as directed for 6 days No Action omeprazole 40 mg capsule,delayed release(DR/EC) 40 mg PO DAILY tamsulosin 0.4 mg capsule 0.4 mg PO DAILY Eliquis 2.5 mg tablet 2.5 mg PO BID Qty: 60 3RF amlodipine 5 mg tablet 5 mg PO BID Qty: 60 11RF bisoprolol fumarate 10 mg tablet 10 mg PO DAILY Qty: 90 3RF atorvastatin 40 mg tablet 40 mg PO HS Qty: 90 3RF clopidogrel [Plavix] 75 mg tablet 75 mg PO DAILY Qty: 90 3RF aspirin 81 mg Tablet,Chewable 81 mg PO DAILY Qty: 30 6RF Referrals Follow up/Referrals: Ta Santiago MD [Primary Care Provider] - See instructions Activity Restrictions/Add. Instructions Additional Instructions/Restrictions: Drink plenty of fluids. Take tylenol or ibuprofen for pain or fever. Take the medications as directed. Follow up with your regular doctor. GO TO THE ER FOR ANY WORSENING SYMPTOMS Clinical Impressions Clinical Impression: Sinusitis Instructions Patient Instructions: Sinusitis, DI for Sinusitis Discharge ED Provider: Allen Mckeon [facility] General Stated complaint: sinus pressure, cough, body aches Time Seen by Provider: 05/06/23 15:41 History of Present Illness Provider Complaint: He states that for the past 2 days he has had worsening sinus congestion, sinus drainage, cough and malaise. He gets sinus infections this time of year and that is what he thinks is going on now. He denies any known sick contacts. Related Data Home Medications Medication Instructions Recorded Confirmed omeprazole 40 mg capsule,delayed 40 mg PO DAILY STOMACH 09/21/22 03/05/23 release tamsulosin 0.4 mg capsule 0.4 mg PO DAILY PROSTATE 07/27/23 01/08/24 Previous Rx's Medication Instructions Recorded aspirin 81 mg chewable tablet 81 mg PO DAILY #30 tabs 11/06/22 bisoprolol fumarate 10 mg tablet 10 mg PO DAILY #90 tabs 12/06/22 amlodipine 5 mg tablet 5 mg PO BID #60 tabs 01/11/23 atorvastatin 40 mg tablet 40 mg PO HS #90 tabs 02/27/23 apixaban 2.5 mg tablet (Eliquis) 2.5 mg PO BID #60 tabs 03/05/23 clopidogrel 75 mg tablet (Plavix) 75 mg PO DAILY #90 tabs 03/15/23 azithromycin 250 mg tablet 250 mg PO UD DOSE PK #6 tabs 05/06/23 (Zithromax) benzonatate 100 mg capsule 100 mg PO TIDP PRN Cough #30 caps 05/06/23 methylprednisolone 4 mg tablets in 4 mg PO DIRECTED 6 days #21 tabs 05/06/23 a dose pack Allergies Allergy/AdvReac Type Severity Reaction Status Date / Time tolmetin [TOLMETIN] Allergy Intermediate Verified 05/06/23 16:05 [facility] Disclaimer: The information contained in this section may have been updated after the patient was seen, as this information can be updated by other users. 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 Smoking Status: Former smoker tobacco type: cigarettes alcohol intake: never counseling provided: none substance use type: denies use current occupational status: disabled Travel in the last 8 weeks: Inside the [facility] [facility] household members: spouse and other housing: house caffeine: Yes ROS Obtained: Yes All systems reviewed & no additional complaints except as documented Constitutional Constitutional: Reports poor appetite Eyes Eyes: Reports system reviewed and no additional complaints, except as documented ENT Ears, Nose, Mouth, and Throat: Reports as per HPI Cardiovascular Cardiovascular: Reports system reviewed and no additional complaints, except as documented and Denies chest pain Respiratory Respiratory: Denies shortness of breath, Reports chest congestion, Reports cough, Denies stridor and Denies wheezing Gastrointestinal Gastrointestingal: Reports system reviewed and no additional complaints, except as documented; Denies abdominal pain, diarrhea or vomiting Musculoskeletal Musculoskeletal: Reports system reviewed and no additional complaints, except as documented and Denies arthralgias Integumentary/Breasts Skin/Breast: Reports system reviewed and no additional complaints, except as documented and Denies rash Neurologic Neurologic: Denies paresthesias Allergic/Immunologic Allergic/Immunologic: Denies wheezing Physical Exam General General appearance: alert and in no apparent distress Eye Eye exam: Present normal appearance, PERRL and EOMI ENT ENT exam: Present mucous membranes moist and normal external ear exam Expanded ENT Exam External ear exam: Present normal external inspection TM/Canal exam: Bilateral TM: erythema and bulging Nose exam: Absent sinus tenderness Nasal speculum exam: Bilateral: normal Mouth exam: Present normal external inspection; Absent drooling Teeth exam: Present normal inspection Throat exam: Present tonsillar erythema and tonsillomegaly Neck Neck exam: Present normal inspection, full ROM and trachea midline; Absent tenderness, lymphadenopathy or thyromegaly Chest Chest inspection: Present normal inspection and symmetric chest wall rise; Absent tenderness or rash Respiratory Respiratory exam: Present normal lung sounds bilaterally; Absent respiratory distress, wheezes, stridor or accessory muscle use Cardiovascular Cardiovascular exam: Present regular rate, normal rhythm and normal heart sounds Abdominal Exam Abdominal exam: Present soft; Absent distention, tenderness, guarding, rebound or rigidity Extremities Exam Extremities exam: Present normal inspection, full ROM and normal capillary refill; Absent tenderness or calf tenderness Back Exam Back exam: Present normal inspection and full ROM; Absent tenderness Neurological Exam Neurological exam: Present alert and oriented X3 Psychiatric Psychiatric exam: Present normal affect and normal mood Skin Skin exam: Present warm, dry, intact and normal color Lymphatic Lymphatic Findings: no adenopathy Medical Decision Making Medical Records Medical records reviewed: No I reviewed the patient's medical records. Louis Inquiry Pt receiving controlled substance: No
[2023-05-06 15:50] VITALS: BP 156/78; PULSE 65; RESP 18; TEMP 36.4; O2SAT 95; BMI 29.1
[2023-05-06 16:05] LABS: UTC Strep Screen (Rapid) Negative (Negative)
[2023-05-06 16:06] LABS: UTC Influenza A Antigen Negative (Negative); UTC Influenza B Antigen Negative (Negative)
[2023-05-06 16:41] VITALS: BP 156/78; PULSE 65; RESP 18; TEMP 36.4; O2SAT 94
== END 2023-05-06 16:40 | disposition home or self-care (01) ==
PROVIDERS: Emergency Provider Nurse Practitioner Family; PCP Family Medicine
DX: J01.90 Acute sinusitis, unspecified (principal); R05.9 Cough, unspecified; R53.81 Other malaise; E78.5 Hyperlipidemia, unspecified; I48.0 Paroxysmal atrial fibrillation; I25.10 Atherosclerotic heart disease of native coronary artery without angina pectoris; G47.33 Obstructive sleep apnea (adult) (pediatric); I10 Essential (primary) hypertension; Z87.891 Personal history of nicotine dependence
CPT/HCPCS: 87804; 87880; 99212; 99214; G0463

== ENCOUNTER 2023-07-03 08:05 | Emergency (ER) | payer MEDICARE, SELFPAY ==
[2023-07-03 08:15] VITALS: BP 164/79; PULSE 65; RESP 18; TEMP 36.8; O2SAT 97; BMI 27.9
--- NOTE | 2023-07-03 08:25 | ED_ITS ---
Discharge Plan Disposition Patient Disposition: Home, Self-Care Condition: Good Prescriptions Prescriptions: New colchicine 0.6 mg capsule 0.6 mg PO DIRECTED Qty: 3 0RF Rx Instructions: Take 2 Capsules (1.2mg) now and wait one hour and take take 1 capsule (0.6mg) cephalexin 500 mg tablet 500 mg PO QID 7 Days Qty: 28 0RF No Action omeprazole 40 mg capsule,delayed release(DR/EC) 40 mg PO DAILY tamsulosin 0.4 mg capsule 0.4 mg PO DAILY Eliquis 2.5 mg tablet 2.5 mg PO BID Qty: 60 3RF nitroglycerin 0.4 mg tablet, sublingual 0.4 mg sublingual Q5-15M PRN (Reason: chest pain) Qty: 30 1RF Rx Instructions: do not exceed 3 doses per episode amlodipine 5 mg tablet 5 mg PO BID Qty: 60 11RF atorvastatin 40 mg tablet 40 mg PO HS Qty: 90 3RF clopidogrel [Plavix] 75 mg tablet 75 mg PO DAILY Qty: 90 3RF Referrals Follow up/Referrals: Ta Santiago MD [Primary Care Provider] - See instructions Activity Restrictions/Add. Instructions Additional Instructions/Restrictions: Follow up with your Family Doctor if no improvement or any worsening of symptoms Take medication as prescribed Over the counter Motrin if you can take it for pain and if you need something else you can take Tylenol Straight to ER if any life threatening symptoms Clinical Impressions Clinical Impression: Pain in wrist Qualifiers: Laterality: right Qualified Code(s): M25.531 - Pain in right wrist Instructions Patient Instructions: DI for Cellulitis -- Adult, DI for Pseudogout, Colchicine, Cephalexin Discharge ED Provider: Marcia Juarez [facility] General Stated complaint: bee sting in right hand Mode of Arrival: Ambulatory Source of Information: Patient Limitations: No Limitations Time Seen by Provider: 07/03/23 08:26 Description of Symptoms (Recalled from Triage Doc. by RN): Pt has a bee sting on right hand that happened sunday. HEENT Symptoms (Recalled from RN notes): No Resp Symptoms (Recalled from RN notes): No Skin Symptoms (Recalled from RN notes): Yes MS Symptoms (Recalled from RN notes): No Functional Status (Recalled from RN notes): n/a History of Present Illness Provider Complaint: Patient states that he was stung by something last Sunday on his right middle finger States it has been sore and yesterday he had a Colonoscopy and they put an IV in the top of his hand but today his right wrist is sore and hurts when he moves it and it is swollen Related Data Home Medications Medication Instructions Recorded Confirmed omeprazole 40 mg capsule,delayed 40 mg PO DAILY STOMACH 09/21/22 07/03/23 release tamsulosin 0.4 mg capsule 0.4 mg PO DAILY PROSTATE 09/21/22 07/03/23 Previous Rx's Medication Instructions Recorded amlodipine 5 mg tablet 5 mg PO BID #60 tabs 01/11/23 atorvastatin 40 mg tablet 40 mg PO HS #90 tabs 02/27/23 apixaban 2.5 mg tablet (Eliquis) 2.5 mg PO BID #60 tabs 03/05/23 clopidogrel 75 mg tablet (Plavix) 75 mg PO DAILY #90 tabs 03/15/23 nitroglycerin 0.4 mg sublingual 0.4 mg sublingual Q5-15M PRN chest 06/04/23 tablet pain #30 tabs cephalexin 500 mg tablet 500 mg PO QID 7 days #28 tabs 07/03/23 colchicine 0.6 mg capsule 0.6 mg PO DIRECTED #3 caps 07/03/23 Allergies Allergy/AdvReac Type Severity Reaction Status Date / Time tolmetin [TOLMETIN] Allergy Intermediate Verified 07/03/23 08:23 Worker's Comp Is this a Worker's Comp case?: No [facility] Disclaimer: The information contained in this section may have been updated after the patient was seen, as this information can be updated by other users. 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 Smoking Status: Former smoker tobacco type: cigarettes alcohol intake: never counseling provided: none substance use type: denies use current occupational status: disabled Travel in the last 8 weeks: [place] the [place] household members: spouse and other housing: house caffeine: Yes ROS Obtained: Yes All systems reviewed & no additional complaints except as documented and Yes Systems reviewed as appropriate & no additional complaints except as documented Constitutional Constitutional: Reports system reviewed and no additional complaints, except as documented and Reports as per HPI Cardiovascular Cardiovascular: Reports system reviewed and no additional complaints, except as documented and Reports as per HPI Respiratory Respiratory: Reports system reviewed and no additional complaints, except as documented and Reports as per HPI Gastrointestinal Gastrointestingal: Reports system reviewed and no additional complaints, except as documented and as per HPI Musculoskeletal Musculoskeletal: Reports system reviewed and no additional complaints, except as documented, Reports as per HPI and Reports other (pain and swelling in right wrist and hand was stung by something last week) Physical Exam General General appearance: alert and in no apparent distress Respiratory Respiratory exam: Present normal lung sounds bilaterally; Absent respiratory distress or wheezes Cardiovascular Cardiovascular exam: Present regular rate, normal rhythm and normal heart sounds Abdominal Exam Abdominal exam: Present soft and normal bowel sounds; Absent distention or tenderness Expanded Upper Extremity Exam Right: Hand L/R back image: 2 1. reports stung by something last week, pain with movement and swelling L/R Arms Top View: 2 1. swelling noted with mild redness and warmth noted on wrist area, pain with movement Neurological Exam Neurological exam: Present alert, oriented X3 and normal gait Medical Decision Making Louis Inquiry Pt receiving controlled substance: No Louis was queried for this patient: No Vital Signs: 07/03/23 08:15 Temperature 98.2 F Temperature Source Oral Pulse Rate [Right Radial] 65 Respiratory Rate 18 Blood Pressure [Right Arm] 164/79 H Blood Pressure Mean [Right Arm] 107 Blood Pressure Source [Right Arm] Automatic Cuff Blood Pressure Position [Right Arm] Sitting 02 Sat by Pulse Oximetry 97 Oxygen Delivery Method Room Air Medical Decision Narrative: Patient had xray ordered patient uric back and 7.5 recommended waiting for xray and patient declined states he doesnt want to wait to get xray he is just wanting to go home Patient refused xray Patient not wanting to have any more labwork or xrays done will cover for Pseudogout and cellulitis and have him follow up with PCP
--- NOTE | 2023-07-03 08:36 | PC.NURSE ---
sent blood to lab
[2023-07-03 09:05] LABS: Uric Acid 7.5 mg/dl (3.5-8.5)
--- NOTE | 2023-07-03 09:15 | PC.NURSE ---
Pt didn't want to wait so we cancelled xray.
[2023-07-03 09:33] VITALS: BP 164/79; PULSE 65; RESP 18; TEMP 36.8; O2SAT 97
== END 2023-07-03 09:33 | disposition home or self-care (01) ==
PROVIDERS: Emergency Provider Nurse Practitioner; PCP Family Medicine
DX: M25.531 Pain in right wrist (principal); R22.31 Localized swelling, mass and lump, right upper limb
CPT/HCPCS: 84550; 99212; 99214; G0463

== ENCOUNTER 2023-10-26 11:40 | Outpatient (CLI) | payer MEDICARE, SELFPAY ==
--- NOTE | 2023-10-26 12:01 | ECG_ITS ---
APPROVED REPORT Exam: Resting ECG HR:57 bpm ECG Measurements Heart Rate 57 AXES [place] 132 P 57 QRSd 95 QRS 53 QT 426 T 16 QTc 419 Conclusion SINUS BRADYCARDIA WITH MARKED SINUS ARRHYTHMIA BORDERLINE ECG UNCONFIRMED REPORT Electronically signed by : Karl Monet MD 10/26/2023 16:27:17
--- OUTSIDE RECORDS SUMMARY | 2023-10-30 12:00 | XMS_ITS ---
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 Name Role Phone Maikol Santiago Primary Care Provider ALLERGIES Allergen (clinical drug ingredient) Drug/Non Drug Allergy documented on EMR Reaction Allergy Type Onset Date Status tolmetin Tolmetin rash, itchy Drug Allergy Activ e RESULTS Component Value Reference Range Notes P-Comprehensive Metabolic Pa nayeli (CMP) (Not yet reviewed by provider) Interpretation: Performing Lab: Notes/Report: Test performed by [facility], [address] , [address], [place] [address] Sy Calderon MD, Drapery Operator CLIA: [id number] Sodium 139 135-145 mmol/L Potassium 4.5 3.5-5.3 mmol/L Chloride 107 97-108 mmol/L CO2 22 22-32 mmol/L Glucose 98 65-99 mg/dL BUN 20 8-23 mg/dL Creatinine 1.51 0.70-1.30 mg/dL Calcium 8.5 8.6-10.4 mg/dL eGFR by Creatinine 47 >59 mL/min/1.73m2 Protein 6.6 6.0-8.3 g/dL Albumin 4.2 3.5-5.3 g/dL Alkaline Phosphatase 80 40-129 IU/L ALT (SGPT) 16 <5-55 IU/L AST (SGOT) 17 <5-46 IU/L Bilirubin, Total 0.4 <0.2-1.2 mg/dL A/G Ratio 1.8 1.1-2.5 EKG (Not yet reviewed by pro vider) Interpretation: Performing Lab: Notes/Report: REASON FOR VISIT 4 month checkup, Needs labs MEDICATIONS Medication SIG (Take, Route, Frequency, Duration) Notes Start Date End Date Status Bisoprolol Fumarate 10 MG 1 tablet Orall y Once a day Active Clopidogrel Bisulfate 75 MG 1 tablet Orally Once a day for 30 day(s) Not-Taking Atorvastatin Calcium 40 MG 1 tab(s) Orally once a day Active Tamsulosin HCl 0.4 MG 1 cap(s) orally on ce a day for 30 day(s) Active Omeprazole 40 MG 1 cap(s) orally once a day for 90 days Active traMADol HCl 50 MG 1 tab(s) orally thre e times a day as needed 03/01/2022 Active Aspirin 81 81 MG 1 tablet Orally Once a day for 30 day(s) Active amLODIPine Besylate 5 MG 1 tablet Orally Two times a day Active VITAL SIGNS Weight 201.0 lbs 10/26/2023 Blood pressure systolic 132 mm Hg 10/26/19 24 Blood pressure diastolic 72 mm Hg 024 Heart Rate 56 /min 10/26/2023 Height 71 in 10/26/2023 BMI 28.03 kg/m2 10/26/2023 Encounters Encounter Location Date Provider Diagnosis [facility] [facility] [facility] [address] [place] [id number] 10/26/2023 Maikol Santiago Cardiac dysrhythmia, unspecified I49.9 ; Benign prostatic hyperplasia with lower urinary tract symptoms N40.1 and Coronary artery disease involving chitina coronary artery of chitina heart without angina pectoris I25.10 ASSESSMENTS Encounter Date Diagnosis Assessment Notes Treatment Notes Treatment Clinical Notes 10/26/2023 Cardiac dysrhythmia, unspecified (ICD-10 - I49.9) 10/26/2023 Benign prostatic hyperplasia with lower urinary tract symptoms (ICD-10 - N40.1) 10/26/2023 Coronary artery disease involving chitina coronary artery of chitina heart without angina pectoris (ICD-10 - I25.10) PLAN OF TREATMENT Medication Medication Name Sig Start Date Stop Date Notes Aspirin 81 81 MG 1 tablet Orally Once a day for 30 day(s) Pending Test Test Name Order Date EKG 10/26/2023 P-Comprehensive Metabolic Panel (CMP) Next Appt Details Follow Up: 3 Months, Reason: Provider Name:Maikol Meyer , 01/18/2024 10:45:00 AM, [address] [facility], [address], [place], [phone], Progress Notes * Examination Category Sub-Category Detail Notes General Examination HEENT: unremarkable Heart: irreg, frequent ecto pics, 68 Lungs: clear to auscultatio n Abdomen: soft and nontender, no organomegaly or masses Extremities: trace leg edema General Appearance: NAD Skin: normal, no rash Neurologic Exam: No change in exam Neck: supple, no lymphaden opathy Oral cavity: no lesions, mucosa m oist and WNL, no erythema Peripheral pulses: normal Back: mild dorsal kyphosis , surgical scar LS Chest: normal shape and exp ansion History and Physical Notes * HPI (History of Present Illness) Category Sub-Category Detail Notes Cardiology Short of Breath Chest Pain Palpitations Dizziness
--- OUTSIDE RECORDS SUMMARY | 2023-10-30 12:00 | XMS_ITS ---
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
--- OUTSIDE RECORDS SUMMARY | 2023-10-30 12:01 | XMS_ITS | Patient Health Record ---
Author Organization [facility] Address [address] [place] [id number] Care Team Providers Care Branch Billing Payroll Clerk Name Role Phone Maikol Santiago Primary Care Provider Kailey Eleanor Unavailable [phone] ALLERGIES Allergen (clinical drug ingredient) Drug/Non Drug Allergy documented on EMR Reaction Allergy Type Onset Date Status tolmetin Tolmetin rash, itchy Drug Allergy Activ e RESULTS Component Value Reference Range Notes P-Comprehensive Metabolic Pa nayeli (CMP) Reviewed date:11/20/2022 01:30:58 PM Interpretation:Cr 1.36, gfr 53 Performing Lab: Notes/Report: Test performed by [facility] [address] [place] [address] , [address], [place] [address] Sy Calderon MD, Isotope Technician CLIA: [id number] Sodium 143 135-145 mEq/L Potassium 3.9 3.5-5.3 mEq/L Chloride 108 97-108 mEq/L CO2 25 22-32 mEq/L Glucose 82 65-99 mg/dL BUN 15 8-23 mg/dL Creatinine 1.36 0.70-1.30 mg/dL Calcium 8.6 8.6-10.4 mg/dL eGFR by Creatinine 53 >59 mL/min/1.73m2 Protein 6.9 6.0-8.3 g/dL Albumin 4.6 3.5-5.3 g/dL Alkaline Phosphatase 83 40-129 IU/L ALT (SGPT) 17 <5-55 IU/L AST (SGOT) 14 <5-46 IU/L Bilirubin, Total 0.5 <0.2-1.2 mg/dL A/G Ratio 2.0 1.1-2.5 mg/dL P-Basic Metabolic Panel (BMP ) Reviewed date:02/13/2023 08:58:08 AM Interpretation:Egfr 59 Performing Lab: Notes/Report: Test performed by [facility] [address] [place] [address] , [address], [place] [address] Sy Calderon MD, Isotope Technician CLIA: [id number] Sodium 143 135-145 mEq/L Potassium 4.5 3.5-5.3 mEq/L Chloride 106 97-108 mEq/L CO2 28 22-32 mEq/L Glucose 94 65-99 mg/dL BUN 16 8-23 mg/dL Creatinine 1.24 0.70-1.30 mg/dL Calcium 9.0 8.6-10.4 mg/dL eGFR by Creatinine 59 >59 mL/min/1.73m2 P-Surgical Pathology Reviewed date:04/20/2023 08:37:00 AM Interpretation:Regressing keratoacanthoma, margins free Performing Lab: Notes/Report: Surgical Pathology View Report Patient Name: NILSON LONGORIA Age-Sex-: 78y M 1945 Procedure Date: 04/16/2023 Accession Date: 04/17/2023 Pt Acct#: Report Date: 04/18/2023 Location: OFFICE Physician(s): Juan Santiago MD P A T H O L O G Y R E P O R T DIAGNOSIS: Skin, left ear, shave biopsy: Regressing keratoacanthoma, margins free. Melissa Malik MD electronically signed 04/18/2023 03:29 PM Gross Description: Received in formalin labeled Nilson Longoria L ear lesion and consists of a white- scott skin shave measuring 1.3 x 0.8 x 0.7 cm. Centrally located on the skin surface is a scott-haro, raised and irregular lesion measuring 0.9 cm in greatest dimension. The lesion is at the margin. Eccentrically located on the lesion is a dark brown, raised, scaly area measuring 0.4 cm in greatest dimension. The base is inked blue. The specimen is sectioned and totally submitted in cassettes 1A-1B. 1A, 04/26; 1B, 03/29. ([id number],[id number]) Grossing services provided by [facility], [facility], d/b/a [address] [place], [address] Robin Manzo MD, Isotope Technician. Microscopic Description: There is a crateriform lesion filled with keratin. The epithelium is atrophic and inflamed, consistent with a regressing keratoacanthoma. Clinical History: Unsp malig neoplasm skin/ left ear and external auric canal (C44.209); suspicious skin lesion left ear Time of Collection of Tissue: 9:00 Time of Immersion of Tissue in Fixative: 9:00 Specimen List: Left ear Unless specified otherwise above, the quality of the H and E and any other stains performed is satisfactory, and any internal or external positive and negative controls react appropriately. End of Report Technical services provided by [facility], [facility], d/b/a [address] , [place] [address] Robin Manzo MD, Isotope Technician. Case reviewed and diagnosis rendered at [facility], [facility], d/b/a [address] , [place] [address] Robin Manzo MD, Isotope Technician. CONFIDENTIAL P-Comprehensive Metabolic Pa nayeli (CMP) Reviewed date:06/26/2023 09:16:53 AM Interpretation:creat 1.47, Ca 8.4, gfr 48 Performing Lab: Notes/Report: Test performed by [facility], [address] , [address], [place] [address] Sy Calderon MD, Isotope Technician CLIA: [id number] Sodium 140 135-145 mEq/L Potassium 4.4 3.5-5.3 mEq/L Chloride 106 97-108 mEq/L CO2 23 22-32 mEq/L Glucose 93 65-99 mg/dL BUN 18 8-23 mg/dL Creatinine 1.47 0.70-1.30 mg/dL Calcium 8.4 8.6-10.4 mg/dL eGFR by Creatinine 48 >59 mL/min/1.73m2 Protein 7.0 6.0-8.3 g/dL Albumin 4.4 3.5-5.3 g/dL Alkaline Phosphatase 93 40-129 IU/L ALT (SGPT) 17 <5-55 IU/L AST (SGOT) 23 <5-46 IU/L Bilirubin, Total 0.4 <0.2-1.2 mg/dL A/G Ratio 1.7 1.1-2.5 mg/dL P-Comprehensive Metabolic Pa nayeli (CMP) (Not yet reviewed by provider) Interpretation: Performing Lab: Notes/Report: Test performed by [facility], [address] , [address], [place] [address] Sy Calderon MD, Isotope Technician CLIA: [id number] Sodium 139 135-145 mmol/L Potassium 4.5 3.5-5.3 [...] by pro vider) Interpretation: Performing Lab: Notes/Report: MEDICATIONS Medication SIG (Take, Route, Frequency, Duration) Notes Start Date End Date Status Bisoprolol Fumarate 10 MG 1 tablet Orall y Once a day Active Clopidogrel Bisulfate 75 MG 1 tablet Orally Once a day for 30 day(s) Not-Taking Atorvastatin Calcium 40 MG 1 tab(s) Orally once a day Active traMADol HCl 50 MG 1 tab(s) orally thre e times a day as needed 03/01/2022 Active Tamsulosin HCl 0.4 MG 1 cap(s) orally on ce a day for 30 day(s) Active Omeprazole 40 MG 1 cap(s) orally once a day for 90 days Active Aspirin 81 81 MG 1 tablet Orally Once a day for 30 day(s) Active amLODIPine Besylate 5 MG 1 tablet Orally Two times a day Active IMMUNIZATIONS Vaccine Route Administration Date Status Comme nts COVID 19 Pfizer IM Intramuscular 03/30/2020 Administered COVID 19 Pfizer IM Intramuscular 04/28/2020 Administered Fluzone High Dose (65yr and older) IM Intramuscular 11/19/2019 Administered Fluzone High Dose (65yr and older) Unknown 12/02/2020 Administered Fluzone High Dose (65yr and older) IM Intramuscular 11/16/2022 Administered Fluzone PF Quad (6-35 months) Unknown 11/11/2021 Administered Hep A- Pediatric Unknown 07/05/2017 Administered Hepatitis A (adult) IM Intramuscular 01/23/2018 Administer ed PNEUMOVAX 23 VACCINE Unknown 12/21/2016 Administered PNEUMOVAX 23 VACCINE IM Intramuscular 06/18/2017 Administe red Prevnar (PCV13) Unknown 12/16/2015 Administered Shingrix IM Intramuscular 11/19/2019 Administered Tetanus Tdap-Adacel (over 7yrs) IM Intramuscular 08/28/2007 Administered xAdministration of injection SC Subcutaneous 06/23/2008 Administered this was faxed to the office on 06-23-08 by the [facility] will have scaned in pt. docs. xAdministration of injection Unknown 11/19/2019 Administered xFlu shot-36 months and older Unknown 12/27/2015 Administered SOCIAL HISTORY Sex Assigned At : Social History Observation Description Sex Assigned At Unknown PROBLEMS Problem Type ICD Code Onset Dates Problem Status W/U Status Risk SNOMED Code Notes Problem Essential hypertension (I10) Active confirmed 42564517 Problem Degenerative disc disease, lumbar (M51.36) Active confirmed 03320107 Problem Hyperuricemia (E79.0) Active confirmed 95495105 Problem Mixed hyperlipidemia (E78.2) Active confirmed 275867221 Problem Other chronic pain (G89.29) Active confirmed 07484413 Problem Renal insufficiency (N28.9) Active confirmed 512963670 Problem Chronic GERD (K21.9) Active confirmed 230806443 Problem 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) Active confirmed 14912195 Problem Status post lumbar spinal fusion (Z98.1) Active confirmed 47333813877134 Problem Cardiac dysrhythmia, unspecified (I49.9) Active confirmed 252512406 Problem Benign prostatic hyperplasia with lower urinary tract symptoms (N40.1) Active confirmed 340613107 Problem 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) Active confirmed 4695245927075 Problem Spinal stenosis of lumbar region, unspecified whether neurogenic claudication present (M48.061) Active confirmed 66785373 Problem Foot drop, left (M21.372) Active confirmed 695461406617112 Problem 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) Active confirmed 745592906164946 Problem Gastroesophageal reflux disease with esophagitis without hemorrhage (K21.00) Active confirmed 807478980 Problem Low back pain, unspecified (M54.50) Active confirmed Low back pain (427942167) Problem Basal cell carcinoma (BCC) of left pinna (C44.219) Active confirmed 497628093 Problem 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) Active confirmed 101355498 VITAL SIGNS Heart Rate 56 /min 10/26/2023 Blood pressure diastolic 72 mm Hg 10/26/2023 Height 71 in 10/26/2023 Blood pressure systolic 132 mm Hg 10/26/2023 Weight 201.0 lbs 10/26/2023 BMI 28.03 kg/m2 10/26/2023 Encounters Encounter Location Date Provider Diagnosis [facility] [address] [place], [place] [id number] 11/06/2022 Maikol Santiago [facility] [address] [facility] [address] [place], [place] [id number] 11/16/2022 Maikol Santiago Encounter for immunization Z23 ; Coronary artery disease involving sycuan coronary artery of sycuan heart without angina pectoris I25.10 ; Low back pain, unspecified M54.50 and Status post lumbar spinal fusion Z98.1 [facility] [address] [facility] [address] [place], [place] [id number] 11/20/2022 Maikol Santiago [facility] [address] [facility] [address] [place], [place] [id number] 02/12/2023 Maikol Santiago Essential hypertensi on I10 ; Renal insufficiency N28.9 ; Other chronic pain G89.29 ; Status post lumbar spinal fusion Z98.1 and Status post left knee replacement Z96.652 [facility] [address] [facility] [address] [place], [place] [id number] 02/13/2023 Maikol Santiago [facility] [address] [facility] [address] [place], [place] [id number] 03/26/2023 Maikol Santiago Essential hypertensi on I10 ; Coronary artery disease involving sycuan coronary artery of sycuan heart without angina pectoris I25.10 ; Low back pain, unspecified M54.50 ; Spinal stenosis of lumbar region, unspecified whether neurogenic claudication present M48.061 ; Cardiac dysrhythmia, unspecified I49.9 ; Basal cell carcinoma (BCC) of left pinna C44.219 and Chronic GERD K21.9 [facility] [address] [facility] [address] [place], [place] [id number] 04/16/2023 Makiol Santiago Keratoacanthoma L85. 8 [facility] [address] [place], [place] [id number] 04/19/2023 Eleanor Bonner Keratoacanthoma L85. 8 [facility] [address] [facility] [address] [place] [id number] 04/20/2023 Maikol Santiago [facility] [address] [place] [id number] 04/23/2023 Maikol Santiago Keratoacanthoma L85. 8 [facility] [address] [place], [place] [id number] 06/25/2023 Maikol Santiago Essential hypertensi on I10 ; Renal insufficiency N28.9 ; Other chronic pain G89.29 ; Spinal stenosis of lumbar region, unspecified whether neurogenic claudication present M48.061 ; Radiculopathy due to lumbar intervertebral disc disorder M51.16 and Chronic GERD K21.9 [facility] [address] [facility] [address] [place] [id number] 06/26/2023 Maikol Santiago [facility] [address] [facility] [address] [place], [place] [id number] 10/26/2023 Maikol Santiago Cardiac dysrhythmia, unspecified I49.9 ; Benign prostatic hyperplasia with lower urinary tract symptoms N40.1 and Coronary artery disease involving sycuan coronary artery of sycuan heart without angina pectoris I25.10 ASSESSMENTS Encounter Date Diagnosis Assessment Notes Treatment Notes Treatment Clinical Notes 11/16/2022 Encounter for immunization (ICD-10 - Z23) 11/16/2022 Coronary artery disease involving sycuan coronary artery of sycuan heart without angina pectoris (ICD-10 - I25.10) 02/12/2023 Essential hypertensi on (ICD-10 - I10) 02/12/2023 Renal insufficiency (ICD-10 - N28.9) 03/26/2023 Essential hypertensi on (ICD-10 - I10) 03/26/2023 Coronary artery disease involving sycuan coronary artery of sycuan heart without angina pectoris (ICD-10 - I25.10) 04/19/2023 Keratoacanthoma (ICD-10 - L85.8) Sutures were not removed today. Dr. Yepez examined as well and wound is still not healed. Will have him come back on Sunday for suture removal. 04/23/2023 Keratoacanthoma (ICD-10 - L85.8) 06/25/2023 Essential hypertensi on (ICD-10 - I10) continue current therapy 06/25/2023 Renal insufficiency (ICD-10 - N28.9) 10/26/2023 Cardiac dysrhythmia, unspecified (ICD-10 - I49.9) 10/26/2023 Benign prostatic hyperplasia with lower urinary tract symptoms (ICD-10 - N40.1) 04/16/2023 Keratoacanthoma (ICD-10 - L85.8) 10/26/2023 Coronary artery disease involving sycuan coronary artery of sycuan heart without angina pectoris (ICD-10 - I25.10) 06/25/2023 Other chronic pain (ICD-10 - G89.29) 11/16/2022 Low back pain, unspecified (ICD-10 - M54.50) 03/26/2023 Low back pain, unspecified (ICD-10 - M54.50) 02/12/2023 Other chronic pain (ICD-10 - G89.29) 11/16/2022 Status post lumbar spinal fusion (ICD-10 - Z98.1) 02/12/2023 Status post lumbar spinal fusion (ICD-10 - Z98.1) 03/26/2023 Spinal stenosis of lumbar region, unspecified whether neurogenic claudication present (ICD-10 - M48.061) 06/25/2023 Spinal stenosis of lumbar region, unspecified whether neurogenic claudication present (ICD-10 - M48.061) 06/25/2023 Radiculopathy due to lumbar intervertebral disc disorder (ICD-10 - M51.16) 02/12/2023 Status post left kne e replacement (ICD-10 - Z96.652) 03/26/2023 Cardiac dysrhythmia, unspecified (ICD-10 - I49.9) 06/25/2023 Chronic GERD (ICD-10 - K21.9) 03/26/2023 Basal cell carcinoma (BCC) of left pinna (ICD-10 - C44.219) 03/26/2023 Chronic GERD (ICD-10 - K21.9) PLAN OF TREATMENT Pending Test Test Name Order Date EKG 10/26/2023 P-Comprehensive Metabolic Panel (CMP) Next Appt Details Provider Name:Maikol Forman Mitch er, 01/18/2024 10:45:00 AM, [address], [address], [place], [place], [id number], Insurance Providers Payer Name Payer Address Payer Phone Subscriber Number Group Number Insured Name Patient Relationship to Insured Coverage Start Date Coverage End Date MEDICARE PART B [address] [address] [place] [address] [id number] Nilson LONGORIA Self - patient is the insured [facility] [employer] [address] [place] [id number] Nilson LONGORIA Self - patient is the insured MEDICATIONS ADMINISTERED Medication Instructions Date of Administration Dosage Notes Dexamethasone 08/16/2016 1 mL MEDICAL (GENERAL) HISTORY Medical History History ICD Code Esophageal reflux 06/28/17 [facility]te GXT, neg Hepatitis A, 06/2017 [employer] Gout COVID #1 vaccine 03/30/2020 covid vaccine x2 - april 2020 < 20% carotid stenosis bilaterally 09/01/2020 < 20% bilateral carotid stenosi s 09/01/2020 No renal artery stenosis COVID 19 Booster, Pfizer 2020 Flu shot 12/02/2020 Surgical History Surgery Date(Month/Year) EGD, Dr. Arita 06/05/22 Right Eye Cataract/Lens Removal 06/09/19 Left Eye Cataract Removal 06/22/2022 Right eye cataract removal Dr Munroe Left Knee replacement 04/2020 back surgery- scar tissue removed 03/2020 back surgery - 11/2019 Colonoscopy, Dr. Arita. Tubular adenom a 07/05/2018 Carpal tunnel release, left, Dr. Jayde roque 08/30/2017 kidney stone removal - Dr. Damian cook 10/20/14 Carpal tunnel release - R wrist - Dr. Milly Neff 05/2016 knee surgery 11/09/10 back surgery 01/29/08 right ear drum neck surgery- disc Hospitalization History Reason Date(Month/Year) neck surgery [facility] scalp laceration 08-20-07 [facility] dehydration 03/24 to 03/25/08 L2 to iliac fusion, Dr. Mark Kumar
--- OUTSIDE RECORDS SUMMARY | 2023-10-30 12:01 | XMS_ITS ---
Author Organization [facility] Address [address] [place] [phone] Care Team Providers Care Ditch Digger Name Role Phone Maikol Santiago Primary Care Provider [phone] ALLERGIES Allergen (clinical drug ingredient) Drug/Non Drug Allergy documented on EMR Reaction Allergy Type Onset Date Status tolmetin Tolmetin rash, itchy Drug Allergy Activ e RESULTS Component Value Reference Range Notes P-Comprehensive Metabolic Pa nayeli (CMP) Reviewed date:06/26/2023 09:16:53 AM Interpretation:creat 1.47, Ca 8.4, gfr 48 Performing Lab: Notes/Report: Test performed by [facility] [address] [place] [address] , [address], [place] [address] Sy Calderon MD, Cargo Service Supervisor CLIA: [id number] Sodium 140 135-145 mEq/L Potassium 4.4 3.5-5.3 [...] <0.2-1.2 mg/dL A/G Ratio 1.7 1.1-2.5 mg/dL REASON FOR VISIT 2 Month Follow Up, Needs labs MEDICATIONS Medication SIG (Take, Route, Frequency, Duration) Notes Start Date End Date Status Omeprazole 40 MG 1 cap(s) orally once a day for 90 days Active Bisoprolol Fumarate 10 MG 1 tablet Orall y Once a day Active Atorvastatin Calcium 40 MG 1 tab(s) Oral ly once a day Active Tamsulosin HCl 0.4 MG 1 cap(s) orally on ce a day for 30 day(s) Active traMADol HCl 50 MG 1 tab(s) orally thre e times a day as needed 03/01/2022 Active amLODIPine Besylate 5 MG 1 tablet Orally Two times a day Active Aspirin 81 81 MG 1 tablet Orally Once a day for 30 day(s) Active Clopidogrel Bisulfate 75 MG 1 tablet Ora lly Once a day for 30 day(s) Active VITAL SIGNS Weight 205.0 lbs 06/25/2023 Blood pressure systolic 140 mm Hg 06/25/19 24 Blood pressure diastolic 72 mm Hg 024 Heart Rate 50 /min 06/25/2023 Height 71 in 06/25/2023 BMI 28.59 kg/m2 06/25/2023 Encounters Encounter Location Date Provider Diagnosis [facility] [address] [facility] [address] [id number] 06/25/2023 Maikol Santiago Essential hypertensi on I10 ; Renal insufficiency N28.9 ; Other chronic pain G89.29 ; Spinal stenosis of lumbar region, unspecified whether neurogenic claudication present M48.061 ; Radiculopathy due to lumbar intervertebral disc disorder M51.16 and Chronic GERD K21.9 ASSESSMENTS Encounter Date Diagnosis Assessment Notes Treatment Notes Treatment Clinical Notes 06/25/2023 Essential hypertension (ICD-10 - I10) continue current therapy 06/25/2023 Renal insufficiency (ICD-10 - N28.9) 06/25/2023 Other chronic pain (ICD-10 - G89.29) 06/25/2023 Spinal stenosis of lumbar region, unspecified whether neurogenic claudication present (ICD-10 - M48.061) 06/25/2023 Radiculopathy due to lumbar intervertebral disc disorder (ICD-10 - M51.16) 06/25/2023 Chronic GERD (ICD-10 - K21.9) PLAN OF TREATMENT Treatment Notes Assessment Notes Essential hypertension continue current therapy Next Appt Details Follow Up: 4 Months, Reason: Provider Name:Maikol Dickson Mitch er, 01/18/2024 10:45:00 AM, [address], [address], [place], [place], [id number], Progress Notes * Examination Category Sub-Category Detail Notes General Examination HEENT: unremarkable Heart: RSR, frequent ectopi cs, 60 Lungs: clear to auscultatio n Abdomen: soft [...] Sub-Category Detail Notes Cardiology Short of Breath with exertion Chest Pain Palpitations skipped heart beat Dizziness Fatigue
== END 2023-10-26 23:59 | disposition home or self-care (01) ==
PROVIDERS: PCP Family Medicine; Visit Provider Family Medicine
DX: I49.9 Cardiac arrhythmia, unspecified (principal)
CPT/HCPCS: 93005

== ENCOUNTER 2023-12-04 09:51 | Outpatient (CLI) | payer MEDICARE, SELFPAY ==
[2023-12-04 10:27] LABS: Basophils # 0.1 K/mm3 (0-0.2); Basophils % 0.9 % (0.1-2.0); Eosinophils # 0.2 K/mm3 (0.0-0.4); Eosinophils % 2.7 % (0.1-12.0); Hematocrit 32.7 % (42.0-52.0); Hemoglobin 10.4 g/dL (14.1-18.0); Lymphocytes # 1.6 K/mm3 (0.7-4.5); Lymphocytes % 24.2 % (10-50); Mean Corpuscular HGB Conc 31.7 g/dL (31.8-35.4); Mean Corpuscular Hemoglobin 23.4 pg (27.0-31.2); Mean Corpuscular Volume 73.9 fl (80-94); Monocytes # 0.6 K/mm3 (0.1-1.0); Monocytes % 9.4 % (1.7-9.3); Neutrophils # 4.2 K/mm3 (1.8-7.8); Neutrophils % 62.8 % (37.0-80.0); Platelet Count 222 K/mm3 (142-424); Red Blood Count 4.42 M/mm3 (4.60-6.20); Red Cell Distribution Width 17.1 % (11.5-17.5); White Blood Count 6.6 K/mm3 (4.8-10.8)
[2023-12-04 10:38] LABS: Albumin Level 4.3 g/dl (3.5-5.0); Chloride 106 mmol/L (98-107); Potassium 4.4 mmoL/L (3.5-5.1); Sodium 140 mmol/L (136-145)
[2023-12-04 10:41] LABS: Alanine Aminotransferase 30 U/L (12-78); Alkaline Phosphatase 77 U/L (38-126); Anion Gap 13.4 mEq/L (5-15); Aspartate Amino Transferase 28 U/L (17-59); Bilirubin,Direct 0.1 mg/dl (0.0-0.4); Bilirubin,Indirect 0.6 mg/dL (0.0-0.9); Bilirubin,Total 0.7 mg/dl (0.2-1.3); Bilirubin,Unconjugated 0.5 mg/dL (0.0-1.1); Blood Urea Nitrogen 18 mg/dl (9-20); Carbon Dioxide 25 mmol/L (22.0-30.0); Estimated Glomerular Filt Rate 49 ml/min (>60); GFR (African American) 59 ML/MIN (>60); Total Protein,Serum 6.9 g/dl (6.3-8.2)
[2023-12-04 10:42] LABS: Calcium 8.9 mg/dl (8.4-10.2); Glucose 97 mg/dl (74-100)
[2023-12-04 10:59] LABS: Free T4 (Free Thyroxine) 0.87 ng/dl (0.78-2.19)
[2023-12-04 11:12] LABS: Thyroid Stimulating Hormone 2.58 uIU/mL (0.465-4.68)
== END 2023-12-04 23:59 | disposition home or self-care (01) ==
LOC: LAB 09:53
PROVIDERS: PCP Family Medicine; Visit Provider Nurse Practitioner
DX: K21.9 Gastro-esophageal reflux disease without esophagitis (principal); E78.2 Mixed hyperlipidemia; I48.0 Paroxysmal atrial fibrillation; I25.10 Atherosclerotic heart disease of native coronary artery without angina pectoris; I49.3 Ventricular premature depolarization; R06.00 Dyspnea, unspecified; R07.89 Other chest pain; R94.31 Abnormal electrocardiogram [ECG] [EKG]; G47.33 Obstructive sleep apnea (adult) (pediatric); I10 Essential (primary) hypertension; Z87.891 Personal history of nicotine dependence
CPT/HCPCS: 36415; 80048; 80076; 84439; 84443; 85025; 93270

== ENCOUNTER 2023-12-12 08:17 | Outpatient (CLI) | payer MEDICARE, SELFPAY ==
[2023-12-12 14:31] LABS: PHA INR Fingerstick 1.8 (0.9-1.1)
== END 2023-12-13 08:29 | disposition home or self-care (01) ==
LOC: ACC 08:19
PROVIDERS: PCP Family Medicine; Visit Provider Nurse Practitioner
DX: Z79.01 Long term (current) use of anticoagulants (principal); I48.91 Unspecified atrial fibrillation
CPT/HCPCS: 85610; 99211; G0463

== ENCOUNTER 2023-12-17 07:15 | Outpatient (CLI) | payer MEDICARE, SELFPAY ==
--- NOTE | 2023-12-17 | CA_ITS ---
APPROVED REPORT Exam: Pharmacologic Technologist: Magaly Garcia Ht: 5 ft 10 in Wt: 203 lbs BSA: 2.10 m2 HR: 58 bpm BP: 145/49 mmHg Indications: Chest pain, dyspnea Medical History Medications: Amlodipine,,,,, Omeprazole,,,,, Aspirin,,,,, Allopurinol,,,,, TAMSULOSIN,,,,, Nitroglycerin,,,,, Stress Test Details Test: LEXISCAN HR Resting HR: 57 bpm Max Heart Rate (APMHR): 141 bpm Max HR Achieved: 88 bpm Target HR (85% APMHR): 120 bpm % of APMHR: 62 Recovery HR: 68 bpm BP Resting BP: 145.0/49.0 mmHg Max BP: 146.0/45.0 mmHg Recovery BP: 135.0/74.0 mmHg ECG Resting ECG: NSR, T-wave changes Stress ECG: No significant ST changes Arrhythmia: PACs, PVCs Clinical Exercise duration: 04:00 min Highest Stage Achieved: Exercise capacity: 1.0 METs Stress ECG Conclusion Symptoms: Dizzy, nausea Arrhythmias/Ectopy: Occasional PAC/PVC. ST changes: None Conclusion: Unremarkable Lexiscan stress test. Myoview images are reported separately. Test Summary REST . . . . . . . Resting REST 10:02 . . 57 . 145/ 49 . . Stage 1 . . . . . . . Myoview Injected Stage 1 01:00 . . 79 . . . . Stage 2 01:00 . . 72 . 142/ 41 . . Stage 3 01:00 . . 70 . 146/ 45 . . Stage 4 01:00 . . 65 . 144/ 62 . Stop exercise at 04:00 RECOVERY 01:00 . . 68 . 142/ 66 . . RECOVERY 02:00 . . 63 . 142/ 66 . . RECOVERY 02:53 . . 65 . 135/ 74 . . Electronically signed by : Swapna Fitzpatrick MD 12/17/2023 13:28:30
--- NOTE | 2023-12-17 07:15 | CA_ITS ---
APPROVED REPORT EXAM: Comprehensive 2D, Doppler, and color-flow Echocardiogram Powder Room Attendant: Holly Olson, ALYSON, RVS Ht: 5 ft 10 in Wt: 203lbs BSA: 2.10 BP: 154/67 mmHg Indications: Afib, CAD, CP, ROQUE, HTN, HLD, Smoker, MAHAJAN 2D Dimensions IVSd 1.28 cm LVEF (Visual) 52.90 % PWd 1.31 cm LA Volume 71.50 mL LVDd 5.29 cm LA Volume Index 34.00 mL/m2 (M/F) 16-34 LVDs 3.84 cm EF AP4 53.30 % Aortic Root 3.74 cm GL Strain -19.6 % Left Atrium 3.11 cm RVID Base (AP4) 3.05 cm (M/F) 2.5-4.1 LVOT 2.06 cm (M/F) 1.5-2.5 M-Mode Dimensions RVDd 1.40 cm (0.9-2.6) LVDd 5.29 cm (3.5-5.7) Ao Diam 3.09 cm (2.0-3.7) LVDs 3.67 cm (3.5-5.7) IVSd 1.48 cm (0.6-1.1) PWd 1.02 cm (0.6-1.1) EF (Teich) 55.60% EPSs 0.80 cm FS 28.60% EDV (Teich) 128.40 mL ESV (Teich) 57.00 mL LV Diastology E Decel Time 222 (160-240 msec) E/A Ratio 1.16 MED E' 8.0 (>= 7 cm/sec) MED A' 9.60 cm/s E'/MED E' Ratio 13.75 (<= 14) LAT E' 7.2 (>= 10 cm/sec) LAT A' 10.20 cm/s E/LAT E' Ratio 15.28 (<= 14) Aortic Valve LVOT Max 90.0 (70-110 cm/s) COLLINS Index 0.79 cm2/m2 LVOT VTI 20.62 cm AoV Peak Pardeep. 183.0 (50-130 cm/s) AO Peak GR. 13.20 mmHg AO Mean GR. 6.70 (<5 mmHg) AO VTI 41.8 (18-25 cm) COLLINS (VTI) 1.65 (2.5-4.5 cm2) Mitral Valve MV E Max Pardeep. 110.0 (40-130 cm/s) MV A Velocity 95.0 (40-130 cm/s) E/A Ratio 1.16 MV Decel. Time 222 (160-240 ms) MV Mean Gr. 1.50 (<2mmHg) Tricuspid Valve TR P. Velocity 273.00 cm/s RAP Estimate 10.00 mmHg RVSP 39.80 mmHg Left Ventricle The left ventricle is normal size. The left ventricular systolic function is normal. The left ventricular ejection fraction is within the normal range. There is increased LV wall thickness. There is normal LV segmental wall motion. The left ventricular diastolic function is normal. LVEF is 55%. Right Ventricle The right ventricle is normal size. The right ventricular systolic function is normal. Atria Left atrium is mildly dilated. Right atrium is mildly dilated. There is no Doppler evidence of interatrial shunt. Aortic Valve The aortic valve is mildly thickened. There is no aortic valvular stenosis. No aortic regurgitation is present. Mitral Valve The mitral valve leaflets are mildly thickened. No evidence of mitral valve stenosis. Mild mitral regurgitation. Tricuspid Valve Tricuspid valve is grossly normal in structure and function. Mild tricuspid regurgitation. RVSP is 30-35 mmHg. Pulmonic Valve The pulmonary valve is normal in structure. Trace pulmonic regurgitation. Great Vessels The aortic root is normal in size. The ascending aorta is not well-visualized. IVC is normal in size and collapses >50% with inspiration. Pericardium There is no pericardial effusion. Other Information Study Quality: Fair Conclusion Normal biventricular systolic function. Mild biatrial dilation. Mild MR, mild TR. Electronically signed by : Swapna Fitzpatrick MD 12/23/2023 00:03:16
--- NOTE | 2023-12-17 07:15 | NM_ITS ---
APPROVED REPORT Exam: Nuclear Stress Test Indication: Chest pain, SOB, Palpitations, Fatigue, HTN, Family history, CAD Patient Location: Outpatient Stress Tech: Magaly Garcia [place] Tech:Margarita Travis, ARRT, RT (R)(N) Ht: 5 ft 10 in Wt: 200 lbs HR: 57 bpm BP: 145/59 mmHg BSA: 2.09 m2 Rhythm: NSR TID: 1.10 BMI: 28.6 History: Chest pain, SOB, Palpitations, Fatigue, HTN, Family history, CAD Procedure: Patient received 0.4 mg of intravenous Lexiscan, resting heart rate 57 bpm, resting blood pressure 145/49 mmHg, with Lexiscan maximum heart rate achieved was 88 bpm which is % of the maximum predicted heart rate and blood pressure was 146/45 mmHg. With Lexiscan, patient denied any complaint of chest pain. Cardiac Stress and Resting SPECT Images: Cardiac Stress and Resting SPECT images were obtained using technetium 99m Myoview 25.2 mCi stress and 8.42 mCi at rest. Resting and stress imaging in supine and prone positions demonstrate a small sized, moderate, reversible perfusion defect in the basal inferior and lateral LV tapia. Gated imaging demonstrates normal global and regional LV systolic function. LVEF is calculated at 53%. Conclusion: Small sized, moderate, reversible perfusion defect in the basal inferior and lateral LV tapia. Findings are suggestive of reversible ischemia. Gated imaging demonstrates normal global and regional LV systolic function. LVEF is calculated at 53%. Electronically signed by : Swapna Fitzpatrick MD 12/17/2023 13:31:31
[2023-12-17] MEDS: REGADENOSON 0.4MG/5ML SYRINGE 0.4 MG IV (09:14)
[2023-12-17] MEDS: SODIUM CHLORIDE 0.9% 10ML SYR (RAD ONLY) 10 ML IV ×2 (09:14)
[2023-12-17] MEDS: ISOTOPE MYOVIEW (PER STUDY) 1 DOSE IV (09:14)
[2023-12-17 13:10] LABS: PHA INR Fingerstick 2.6 (0.9-1.1)
== END 2023-12-17 14:41 ==
LOC: RAD 07:15
PROVIDERS: PCP Family Medicine; Visit Provider Nurse Practitioner
DX: I25.10 Atherosclerotic heart disease of native coronary artery without angina pectoris (principal); R07.89 Other chest pain; R94.31 Abnormal electrocardiogram [ECG] [EKG]; R06.00 Dyspnea, unspecified
CPT/HCPCS: 78452; 85610; 93017; 93018; 93306; A9502; G0463; J2785

== ENCOUNTER 2023-12-19 08:53 | Emergency (ER) | payer MEDICARE, SELFPAY ==
[2023-12-19 09:09] VITALS: BP 154/73; PULSE 65; RESP 20; TEMP 36.6; O2SAT 98; BMI 29.1
--- NOTE | 2023-12-19 09:13 | ED_ITS ---
Discharge Plan Disposition Patient Disposition: Home, Self-Care Condition: Good Prescriptions Prescriptions: New azithromycin 250 mg tablet 250 mg PO DIRECTED Qty: 6 0RF Rx Instructions: Take two (2) tablets on day #1, then one (1) tablet day #2 thru #5 No Action omeprazole 40 mg capsule,delayed release(DR/EC) 40 mg PO DAILY tamsulosin 0.4 mg capsule 0.4 mg PO DAILY nitroglycerin 0.4 mg tablet, sublingual 0.4 mg sublingual Q5-15M PRN (Reason: chest pain) Qty: 30 1RF Rx Instructions: do not exceed 3 doses per episode amlodipine 5 mg tablet 5 mg PO DAILY allopurinol 300 mg tablet 300 mg PO DAILY aspirin [Adult Low Dose Aspirin] 81 mg tablet,delayed release (DR/EC) 81 mg PO DAILY Qty: 30 2RF Referrals Follow up/Referrals: Ta Santiago MD [Primary Care Provider] - See instructions Activity Restrictions/Add. Instructions Additional Instructions/Restrictions: Start antibiotic today. Be sure to complete entire prescription even if feeling better Tylenol and ibuprofen as needed for pain or fever Humidifier/vaporizer/hot steamy shower Follow-up with primary care tomorrow. Follow-up immediately in the ER of the [facility] for new or worsening symptoms or no noticeable improvement over the next 48-72 hours. Stop smoking Clinical Impressions Clinical Impression: Pneumonia Instructions Patient Instructions: Pneumonia-Adult Print Language Print Language: [place] Discharge ED Provider: Trish ([facility] [place] General Stated complaint: chest congestion, cough Mode of Arrival: Ambulatory Source of Information: Patient Time Seen by Provider: 12/19/23 09:06 Description of Symptoms (Recalled from Triage Doc. by RN): HACKING COUGH/CONGESTION HEENT Symptoms (Recalled from RN notes): Yes Resp Symptoms (Recalled from RN notes): Yes Skin Symptoms (Recalled from RN notes): No MS Symptoms (Recalled from RN notes): No Functional Status (Recalled from RN notes): WNL History of Present Illness Provider Complaint: 78-year-old male presents for complaints of coughing up thick chunky green/brown sputum and chest congestion for over 3 weeks and not getting any better. Related Data Home Medications ?Medication ?Instructions ?Recorded ?Confirmed omeprazole 40 mg capsule,delayed 40 mg PO DAILY STOMACH 09/21/22 12/04/23 release tamsulosin 0.4 mg capsule 0.4 mg PO DAILY PROSTATE 09/21/22 12/04/23 allopurinol 300 mg tablet 300 mg PO DAILY 12/04/23 12/04/23 amlodipine 5 mg tablet 5 mg PO DAILY 12/04/23 12/04/23 Previous Rx's ?Medication ?Instructions ?Recorded nitroglycerin 0.4 mg sublingual 0.4 mg sublingual Q5-15M PRN chest 06/04/23 tablet pain #30 tabs aspirin 81 mg tablet,delayed 81 mg PO DAILY #30 tabs 12/04/23 release (Adult Low Dose Aspirin) azithromycin 250 mg tablet 250 mg PO DIRECTED #6 tabs 12/19/23 Allergies Allergy/AdvReac Type Severity Reaction Status Date / Time tolmetin [TOLMETIN] Allergy Intermediate Verified 12/04/23 08:57 Worker's Comp Is this a Worker's Comp case?: No [facility] Disclaimer: The information contained in this section may have been updated after the patient was seen, as this information can be updated by other users. 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) Smoking Status: Former smoker tobacco type: cigarettes alcohol intake: never counseling provided: none substance use type: denies use current occupational status: disabled Travel in the last 8 weeks: Inside the [place] household members: spouse and other housing: house caffeine: Yes ROS Obtained: Yes Systems reviewed as appropriate & no additional complaints except as documented Cardiovascular Cardiovascular: Reports dyspnea Respiratory Respiratory: Reports system reviewed and no additional complaints, except as documented, Reports as per HPI, Reports shortness of breath, Reports change in phlegm color, Reports chest congestion, Reports cough, Reports dyspnea and Reports cough with sputum production Physical Exam General General appearance: alert and in no apparent distress ENT ENT exam: Present normal exam, normal oropharynx and mucous membranes moist Respiratory Respiratory exam: Present other Expanded Respiratory Exam Location: Right: rhonchi and decreased breath sounds Cardiovascular Cardiovascular exam: Present regular rate and normal rhythm Neurological Exam Neurological exam: Present alert and oriented X3 Medical Decision Making Medical Records Medical records reviewed: Yes I reviewed the patient's medical records. Screening: Per USPSTF and CDC recommendations, given the [facility], it is our hospital?s policy to screen for HIV and viral Hepatitis for all patients aged 18 and over and those with ongoing risk factors. Louis Inquiry Pt receiving controlled substance: No Louis was queried for this patient: No Vital Signs: 12/19/23 09:09 Temperature 97.9 F Temperature Source Oral Pulse Rate [Left Brachial] 65 Respiratory Rate 20 Blood Pressure [Left Arm] 154/73 H Blood Pressure Mean [Left Arm] 100 02 Sat by Pulse Oximetry 98
[2023-12-19 09:26] VITALS: BP 154/73; PULSE 65; RESP 20; TEMP 36.6
== END 2023-12-19 09:27 | disposition home or self-care (01) ==
PROVIDERS: Emergency Provider Nurse Practitioner Family; PCP Family Medicine
DX: J18.9 Pneumonia, unspecified organism (principal)
CPT/HCPCS: 99213; G0381

== ENCOUNTER 2023-12-27 11:01 | Inpatient (IN) | payer MEDICARE, SELFPAY ==
[2023-12-27] VITALS (27 sets, daily range): BP systolic 103–145; BP diastolic 47–76; PULSE 65–88; RESP 12–20; TEMP 36.1–37.1; O2SAT 91–100; BMI 28.7; BMI 28.5
--- NOTE | 2023-12-27 11:04 | ECG_ITS ---
APPROVED REPORT Exam: Resting ECG HR:61 bpm ECG Measurements Heart Rate 61 AXES OK 152 P 64 QRSd 90 QRS 57 QT 413 T 68 QTc 417 Conclusion SINUS RHYTHM MODERATE ST DEPRESSION [0.05+ mV ST DEPRESSION] ABNORMAL ECG UNCONFIRMED REPORT Electronically signed by : NANCY COTTER, 12/29/2023 00:48:13
--- NOTE | 2023-12-27 11:08 | PC.NURSE ---
Dr. Durbin at [facility] for pt eval
--- NOTE | 2023-12-27 11:20 | CT_ITS ---
PROCEDURE INFORMATION: Exam: CTA Abdomen and Pelvis With Contrast Exam date and time: 12/27/2023 12:12 PM Age: 78 years old Clinical indication: Other: Melena; Additional info: Gib, melena, history of ulcer TECHNIQUE: Imaging protocol: Computed tomographic angiography of the abdomen and pelvis with contrast. Exam focused on the arteries. 3D rendering (Not supervised by radiologist): MIP and/or 3D reconstructed images were created by the technologist. Radiation optimization: All CT scans at this facility use at least one of these dose optimization techniques: automated exposure control; mA and/or kV adjustment per patient size (includes targeted exams where dose is matched to clinical indication); or iterative reconstruction. Contrast material: [id number]; Contrast volume: 80 ml; Contrast route: INTRAVENOUS (IV); COMPARISON: US CA RENAL ARTERY DUPLEX 09/01/2020 7:53 AM FINDINGS: Lungs: Emphysematous change is noted and streaky atelectasis is noted at the lung bases. Aorta: The abdominal aorta is normal in course and caliber, fairly heavily calcified. Celiac trunk and mesenteric arteries: No occlusion or significant stenosis. Renal arteries: There is heavy atheromatous calcification at the origin of the left renal artery a likely modicum of stenosis. The right renal artery is duplicated. Right iliac arteries: No occlusion or significant stenosis. Left iliac arteries: No occlusion or significant stenosis. Liver: There is a 4 mm vague enhancing lesion in the right hepatic dome. Suggest MRI of the abdomen with and without intravenous contrast further assess. Gallbladder and biliary ducts: The gallbladder is partially contracted. Pancreas: Unremarkable. No mass. No ductal dilation. Spleen: A small calcified granuloma is noted in the spleen. Adrenal glands: Unremarkable. No mass. Kidneys and ureters: The kidneys enhance symmetrically and there is no hydronephrosis. Multifocal renal cortical scarring is present. A 3 mm nonobstructing calculus is noted in the lateral right renal midportion. An 11 mm cortical cystic lesion is noted in the anterior left midportion. Stomach and bowel: There is no evidence for small bowel obstruction. Stool and gas are scattered throughout the colon. In Appendix: No evidence of appendicitis. Intraperitoneal space: Unremarkable. No free air. No significant fluid collection. Lymph nodes: Precaval/peripancreatic lymphadenopathy measuring up to 11 mm in maximum short axis dimension is noted, nonspecific. Urinary bladder: Unremarkable. No mass. Reproductive: Unremarkable as visualized. Bones/joints: Degenerative and postsurgical changes are noted lumbar spine extensive fixation hardware including pedicle screws and vertical rods as well as sacroiliac fixation screws. Soft tissues: Unremarkable. Other findings: No extravasation of contrast is identified to indicate active hemorrhage. IMPRESSION: No evidence for active gastrointestinal hemorrhage. 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 Suspect left renal artery stenosis at the origin. Vague 4 mm enhancing lesion near the right hepatic dome for which MRI of the abdomen with and without intravenous contrast is suggested to further assess. Renal cortical scarring and nonobstructing right nephrolithiasis. Left renal cyst which no further imaging follow-up is necessary. Nonspecific/indeterminate mild precaval/peripancreatic lymphadenopathy requiring clinical correlation. COPD.
--- NOTE | 2023-12-27 11:22 | XR_ITS ---
PROCEDURE INFORMATION: Exam: XR Chest Exam date and time: 12/27/2023 11:24 AM Age: 78 years old Clinical indication: Shortness of breath; Other: Chest pain, not specified; Additional info: briana HILARIO TECHNIQUE: Imaging protocol: Radiologic exam of the chest. Views: 1 view. COMPARISON: CR SHOULDCMRT XR shoulder RT min 2V 11/12/2017 8:11 AM FINDINGS: Lungs: No consolidation. Pleural spaces: Unremarkable. No pleural effusion. No pneumothorax. Heart/Mediastinum: Unremarkable. No cardiomegaly. Diaphragm: There is elevation of the left hemidiaphragm. Bones/joints: Degenerative changes are noted in the bones. Cervical fixation hardware is partially imaged. IMPRESSION: No acute cardiopulmonary disease.
--- NOTE | 2023-12-27 11:28 | ED_ITS ---
Discharge Plan Disposition Patient Disposition: Admitted Chief Complaint: GI Bleed Clinical Impressions Clinical Impression: ABLA (acute blood loss anemia), Gastrointestinal hemorrhage Discharge ED Provider: Melchor Durbin General Adult HPI General Chief complaint: GI Bleed Stated complaint: Chest Pain Time Seen by Provider: 12/27/23 11:05 Mode of Arrival: Wheelchair Source of Information: Patient and Spouse Limitations: No Limitations Description of Symptoms (Recalled from ER Triage Doc. by RN): pt reports black stools x1wk. He also c/o weakness, nausea, near syncope, shakiness and chest pain last night. pt denies any pain at this time. pt states the pain was around 1930, stabbing going all the way accross his chest into his shoulder blades. pt reports taking plavix and coumadin for stents/a fib. pt also reports a hx of 4 polyps removed and an ulcer last year. History of Present Illness HPI narrative: Please note that above description of symptoms, in this electronic medical record under categorization of recalled from ER triage doctor by RN are reflective of an initial nursing assessment, however, is not reflective of my full history and physical exam that was personally taken and clarified. Consequentially, this preceding description of symptoms, which may include the patient's categorized chief complaint in the EMR, do not reflect my personal clinical impression, and the ultimate description of history of present illness and patient stated complaints should be deferred to this section of the note. Unless stated otherwise or congruent with this section of the note, additional signs, symptoms, or incongruence should be interpreted as inaccurate with my clinical impression. Related Data Home Medications ?Medication ?Instructions ?Recorded ?Confirmed omeprazole 40 mg capsule,delayed 40 mg PO DAILY STOMACH 09/21/22 12/04/23 release tamsulosin 0.4 mg capsule 0.4 mg PO DAILY PROSTATE 09/21/22 12/04/23 allopurinol 300 mg tablet 300 mg PO DAILY 12/04/23 12/04/23 amlodipine 5 mg tablet 5 mg PO DAILY 12/04/23 12/04/23 warfarin 5 mg tablet 2.5 mg PO MOWEFR 12/27/23 12/27/23 warfarin 5 mg tablet 5 mg PO SUTUTHSA 12/27/23 12/27/23 Previous Rx's ?Medication ?Instructions ?Recorded nitroglycerin 0.4 mg sublingual 0.4 mg sublingual Q5-15M PRN chest 04/08/24 tablet pain #30 tabs aspirin 81 mg tablet,delayed 81 mg PO DAILY #30 tabs 12/04/23 release (Adult Low Dose Aspirin) azithromycin 250 mg tablet 250 mg PO DIRECTED #6 tabs 12/19/23 Allergies Allergy/AdvReac Type Severity Reaction Status Date / Time tolmetin [TOLMETIN] Allergy Intermediate Unknown Verified 12/27/23 11:35 [facility] Disclaimer: The information contained in this section may have been updated after the patient was seen, as this information can be updated by other users. 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) Smoking Status: Former smoker tobacco type: cigarettes alcohol intake: never counseling provided: none substance use type: denies use current occupational status: disabled Travel in the last 8 weeks: Inside the [place] household members: spouse and other housing: house caffeine: Yes Other Medical History Have you received the Flu Vaccine for this season: Yes Have you received the Pneumonia Vaccine: Yes ROS Obtained: Yes All systems reviewed & no additional complaints except as documented Physical Exam General General appearance: alert Head Head exam: atraumatic and normocephalic Eye Eye exam: Present normal appearance, PERRL and EOMI Neck Neck exam: Present normal inspection, full ROM and trachea midline Respiratory Respiratory exam: Absent respiratory distress, wheezes, stridor, accessory muscle use or prolonged expiratory phase Cardiovascular Cardiovascular exam: Present other (Pulses equal symmetric in upper and lower extremities) Abdominal Exam Abdominal exam: Present soft; Absent distention, tenderness or pulsatile mass Extremities Exam Extremities exam: Absent edema Neurological Exam Neurological exam: Present alert, oriented X3 and CN II-XII intact; Absent motor sensory deficit Skin Skin exam: Present warm and dry; Absent diaphoresis or erythema Medical Decision Making Medical Records Medical records reviewed: Yes I reviewed the patient's medical records. Screening: Per USPSTF and CDC recommendations, given the prevalence of disease in our region, it is our hospital?s policy to screen for HIV and viral Hepatitis for all patients aged 18 and over and those with ongoing risk factors. Louis Inquiry Pt receiving controlled substance: No Louis was queried for this patient: No Vital Signs: 12/27/23 11:15 12/27/23 11:30 12/27/23 12:31 Temperature 97.8 F Temperature Source Oral Pulse Rate 66 82 Pulse Rate [Left] 65 Respiratory Rate 12 12 12 Blood Pressure 103/51 L 127/47 L Blood Pressure [Right Arm] 116/47 L Blood Pressure Mean 66 Blood Pressure Mean [Right Arm] 70 Blood Pressure Source [Right Arm] Automatic Cuff Blood Pressure Position [Right Arm] Sitting 02 Sat by Pulse Oximetry 100 97 99 Oxygen Delivery Method Room Air Room Air Room Air Lab Data Lab Results 12/27/23 11:04: WBC 10.8, RBC 2.66 L, Hgb 6.1 L*, Hct 19.3 L*, MCV 72.6 L, MCH 23.0 L, MCHC 31.6 L, RDW 17.8 H, Plt Count 299, MPV 8.2, Neut % (Auto) 73.7, Lymph % (Auto) 18.9, [place] % (Auto) 6.3, Eos % (Auto) 0.8, Baso % (Auto) 0.4, N eut # (Auto) 7.9 H, Lymph # (Auto) 2.1, [place] # (Auto) 0.7, Eos # (Auto) 0.1, Baso # (Auto) 0.0, PT 40.6 H, INR 4.18 H, APTT 47.5 H, Sodium 141, Potassium 4.3, Chloride 111 H, Carbon Dioxide 20 L, Anion Gap 14.3, BUN 38 H, Creatinine 1.40 H, Estimated Creat Clear 55, Estimated GFR 49 L, Est GFR ( Amer) 59, Glucose 132 H, Calcium 8.1 L, Total Bilirubin 0.5, AST 26, ALT 22, Alkaline Phosphatase 57, Troponin I < 0.01, NT-Pro-B Natriuret Pep 231, Total Protein 5.7 L, Albumin 3.5, Globulin 2.2, Albumin/Globulin Ratio 1.6, Lipase 78, TSH 2.74, Thyroxine (T4) 7.1 12/27/23 11:34: Lactate 1.2, Blood Type A Positive, Antibody Screen Negative 12/27/23 11:04 12/27/23 11:04 Orders (Tests/Meds): ED MEDICATIONS Generic Name Dose Route Start Last Admin Trade Name Deepak PRN Reason Stop Dose Admin Prothrombin Complex Concent ( 200 mls @ 504 mls/hr 12/27/23 13:00 Human) 3,000 unit/ Prothrombin IV 12/27/23 13:23 Complex Concent (Human) 150 ONCE ONE unit/ Miscellaneous Calcium Gluconate/Sodium Chloride 2 gm in 100 mls @ 50 mls/hr 12/27/23 12:55 Calcium Gluconate 2,000mg/100ml Nacl Premix IV 12/27/23 14:54 ONCE ONE Sodium Chloride 250 mls @ 25 mls/hr 12/27/23 13:00 Sod Chlor 0.9% 250ml Bag IV 12/28/23 12:59 .Q10H CEDRICK Sodium Chloride 250 mls @ 25 mls/hr 12/27/23 13:15 Sod Chlor 0.9% 250ml Bag IV 12/28/23 13:14 .Q10H CEDRICK Phytonadione 10 mg/ Sodium 51 mls @ 102 mls/hr 12/27/23 13:15 Chloride IV 12/27/23 13:44 ONCE ONE Sodium Chloride 10 ml 12/27/23 11:35 Sodium Chloride 0.9% 10ml Vial IV 01/26/24 11:34 NEEDED PRN dilute protonix Discontinued Medications Generic Name Dose Route Start Last Admin Trade Name Deepak PRN Reason Stop Dose Admin Phytonadione 10 mg/ Sodium 51 mls @ 102 mls/hr 12/27/23 13:15 Chloride SUBCUT 12/27/23 13:44 ONCE ONE Iopamidol 80 ml 12/27/23 12:28 12/27/23 12:35 Iopamidol-370 (76%);100ml Bottle IV 12/27/23 12:29 80 ml ONCE ONE Administration Ondansetron HCl 4 mg 12/27/23 12:14 12/27/23 12:15 Ondansetron 4mg/2ml Vial IV 12/27/23 12:15 4 mg ONCE ONE Administration Pantoprazole Sodium 40 mg 12/27/23 11:35 12/27/23 11:42 Pantoprazole 40mg Vial IV 12/27/23 11:36 40 mg ONCE ONE Administration Sodium Chloride 50 ml 12/27/23 12:28 12/27/23 12:34 0.9 % Sodium Chloride 50 Ml Vial IV 12/27/23 12:29 50 ml ONCE ONE Administration Sodium Chloride 10 ml 12/27/23 12:28 12/27/23 12:35 Sodium Chloride 0.9% 10ml Syr (Rad Only) IV 12/27/23 12:29 10 ml ONCE ONE Administration ORDERS Category Date Time Status Transfuse RBC's [Red Blood Cells] Stat BBK 12/27/23 11:34 Results Type and Screen Stat BBK 12/27/23 11:[address] angio abdomen pelvis Stat Cat Scan 12/27/23 11:20 Completed CXR --portable [XR chest portable] Stat Exams 12/27/23 11:22 Completed Complete Blood Count Auto Diff Stat Lab 12/27/23 11:04 Completed Comprehensive Metabolic Panel Stat Lab 12/27/23 11:04 Completed HIV (1&2) Antibody Rapid Stat Lab 12/27/23 11:04 Received Hep C Ab with Reflex to RNA Stat Lab 12/27/23 11:04 Received Lactic Acid Stat Lab 12/27/23 11:34 Completed Lipase Stat Lab 12/27/23 11:04 Completed NT Pro Brain Natriuretic Pep. Stat Lab 12/27/23 11:04 Completed PT INR [Prothrombin Time INR] Stat Lab 12/27/23 11:04 Completed PTT [Activated Partial Thrombo Time] Stat Lab 12/27/23 11:04 Completed T4 (Thyroxine) Stat Lab 12/27/23 11:04 Completed TSH [Thyroid Stimulating Hormone] Stat Lab 12/27/23 11:04 Completed Troponin I Q3H Lab 12/27/23 14:30 Ordered Troponin I Q3H Lab 12/27/23 17:30 Ordered Troponin I Stat Lab 12/27/23 11:04 Completed Medical Decision Narrative: 78-year-old male history of hypertension, hyperlipidemia, paroxysmal A-fib on Coumadin, CAD status post stenting on clopidogrel presenting with weakness, intermittent chest pains with exertion and dark stools. Patient states this has been going on for about a week. Had an abnormal colonoscopy about a year ago, also has a history of gastric ulcer disease. Taking omeprazole daily. States that he has been short of breath with exertion. Exertion also brings on intermittent chest pains that are left of sternum, do not radiate. No diaphoresis, syncope, but he does feel lightheaded when exerting himself and has had times where he thought he was going to syncopized, but was able to sit down. History was obtained via conversation with patient. On arrival, patient hemodynamically stable, alert, oriented x4, appropriate, GCS 15, moving all extremities spontaneously, pupils equal and reactive to light. Full physical exam performed and significant for 78-year-old male who appears pale. In no acute distress. He is nontachycardic, but his blood pressure is relatively low for someone with a history of hypertension at 116/47. Abdomen is soft, nontender, nondistended. No flank tenderness. Cardiac exam without murmurs gallops or rubs, lungs are clear bilaterally. Differential includes acute blood loss anemia/symptomatic anemia, peptic ulcer disease, AVM, malignancy, polyp, ACS, [place], among others. Patient placed on continuous cardiac monitoring and continuous pulse ox with initial blood pressure 116/47, heart rate 65, saturation 100% on room air. Independent interpretation of EKG shows sinus rhythm 61 beats a minute with ST depressions in V3 and V4, no reciprocal change. [place] 152, QRS 90, QTc 417 with normal axis. Patient was given anticoagulation reversal with PCC given 4 g hemoglobin drop in about 3 weeks, fluids, Zofran, Protonix for symptomatic management and correction of underlying abnormalities. Workup independently interpreted and significant for hemoglobin 6.1 down from 10.4. Normal white count and platelet count. Coags concerning for elevated PTT 47 and INR 4.2. While getting patient into CT scanner, he syncopized, vomited. Maintained pulses the entire time. Within a minute he was speaking, following commands. I feel this was likely outbound sales representative of vasovagal versus orthostatic syncope given patient's current clinical condition. On independent interpretation of imaging, large volume gastric contents, average 15 Hounsfield units. Based on this, unlikely to be blood. See radiology read for full review of final results. 4 units of blood were crossed, 2 to be transfused here. Patient also received 2 g of calcium gluconate given borderline low calcium on labs. Gastroenterology consulted and case was discussed, recommended admission, reversal, transfusion, and urgent scope. These interventions already ordered and pending. Given patient presentation, workup, history, this most likely represents acute blood loss anemia in the setting of anticoagulation. Because patient high risk for clinical decompensation, deemed appropriate for inpatient admission. Results were relayed to patient who voiced understanding and patient was agreeable to inpatient admission and management. Patient was admitted to the hospital for further definitive management. Machine Bookkeeper disclaimer Much of this encounter note is an electronic shipping weigher spoken language to printed text. Electronic shipping weigher of the spoken language may permit errors. Although I have reviewed the note, some errors may still exist. Critical Care Critical Care Time Critical Care Time: Yes (GI) Attestation: On 12/27/23, the high probability of a clinically significant, sudden or life threatening deterioration of the following system(s) required my full and direct attention, intervention and personal management. The time I documented below is in addition to time spent performing reported procedures but includes the following listed in this critical care notation. Total Time Total Critical Care Time: 60
[2023-12-27 11:35] LABS: Basophils % 0.4 % (0.1-2.0); Eosinophils # 0.1 K/mm3 (0.0-0.4); Eosinophils % 0.8 % (0.1-12.0); Lymphocytes # 2.1 K/mm3 (0.7-4.5); Lymphocytes % 18.9 % (10-50); Mean Corpuscular HGB Conc 31.6 g/dL (31.8-35.4); Mean Corpuscular Volume 72.6 fl (80-94); Mean Platelet Volume 8.2 fl (7.4-10.4); Monocytes # 0.7 K/mm3 (0.1-1.0); Monocytes % 6.3 % (1.7-9.3); Neutrophils # 7.9 K/mm3 (1.8-7.8); Neutrophils % 73.7 % (37.0-80.0); Platelet Count 299 K/mm3 (142-424); Red Blood Count 2.66 M/mm3 (4.60-6.20); Red Cell Distribution Width 17.8 % (11.5-17.5); White Blood Count 10.8 K/mm3 (4.8-10.8)
[2023-12-27 11:37] LABS: Hemoglobin 6.1 g/dL (14.1-18.0)
--- NOTE | 2023-12-27 11:37 | PC.NURSE ---
CRITICAL H&H RECEIVED FROM [facility] IN LAB 6.03/16.3. PT NAME AND R/V. DR LÓPEZ NOTIFIED
[2023-12-27 11:38] LABS: Alanine Aminotransferase 22 U/L (12-78); Albumin Level 3.5 g/dl (3.5-5.0); Albumin/Globulin Ratio 1.6 (1.1-1.8); Alkaline Phosphatase 57 U/L (38-126); Anion Gap 14.3 mEq/L (5-15); Aspartate Amino Transferase 26 U/L (17-59); Bilirubin,Total 0.5 mg/dl (0.2-1.3); Blood Urea Nitrogen 38 mg/dl (9-20); Calcium 8.1 mg/dl (8.4-10.2); Carbon Dioxide 20 mmol/L (22.0-30.0); Chloride 111 mmol/L (98-107); Creatinine Clearance Estimated 55 mL/min (50-200); Estimated Glomerular Filt Rate 49 ml/min (>60); GFR (African American) 59 ML/MIN (>60); Globulin 2.2 g/dL (1.3-3.2); Glucose 132 mg/dl (74-100); Hematocrit 19.3 % (42.0-52.0); Lipase 78 U/L (23-300); Potassium 4.3 mmoL/L (3.5-5.1); Sodium 141 mmol/L (136-145); Total Protein,Serum 5.7 g/dl (6.3-8.2)
[2023-12-27] MEDS: PANTOPRAZOLE 40MG VIAL 40 MG IV (11:42)
[2023-12-27 11:48] LABS: Activated Partial Thrombo Time 47.5 seconds (22.8-30.6); INR 4.18 (0.9-1.1); Prothrombin Time 40.6 seconds (10.1-12.5)
[2023-12-27 11:51] LABS: NT Pro Brain Natriuretic Pep. 231 pg/mL (0-450)
[2023-12-27 11:54] LABS: Lactic Acid 1.2 mmol/L (0.7-2.1)
--- NOTE | 2023-12-27 11:54 | PC.NURSE ---
PT TO CT
--- NOTE | 2023-12-27 11:54 | PC.NURSE ---
PT gone to CT via [facility]
[2023-12-27 11:55] LABS: T4 (Thyroxine) 7.1 ug/dl (5.53-11.0)
[2023-12-27 11:57] LABS: Troponin I < 0.01 ng/ml (0.00-0.034)
[2023-12-27 12:09] LABS: Thyroid Stimulating Hormone 2.74 uIU/mL (0.465-4.68)
[2023-12-27] MEDS: ONDANSETRON 4MG/2ML VIAL 4 MG IV (12:15)
[2023-12-27] MEDS: 0.9 % SODIUM CHLORIDE 50 ML VIAL IV (12:34)
[2023-12-27] MEDS: SODIUM CHLORIDE 0.9% 10ML SYR (RAD ONLY) 10 ML IV (12:35)
[2023-12-27] MEDS: IOPAMIDOL-370 (76%);100ML BOTTLE 80 ML IV (12:35)
--- NOTE | 2023-12-27 12:49 | PC.NURSE ---
Dr. Santos pagemimi
--- NOTE | 2023-12-27 12:59 | PC.NURSE ---
DR LÓPEZ SPEAKING WITH DR BISHOP FOR ADMISSION
--- NOTE | 2023-12-27 13:09 | PC.NURSE ---
Report called to Jose ALTAMIRANO
--- NOTE | 2023-12-27 13:09 | PC.NURSE ---
REEL HOOKER NOTIFIED OF ADMISSION
[2023-12-27] MEDS: PHYTONADIONE 10 MG in 0.9 % SODIUM CHLORIDE 50 ML 102 MG IV (13:55)
[2023-12-27] MEDS: CALCIUM GLUC IN NACL, ISO-OSM 2 GM/100 ML BAG IV (14:14)
--- NOTE | 2023-12-27 14:50 | EXP.HP ---
History of Present Illness *Admission Date: 12/27/23 *Reason for visit:: GI bleed *History of present illness: 78-year-old male history of hypertension, hyperlipidemia, paroxysmal A-fib on Coumadin, CAD status post stenting on clopidogrel presenting with weakness, intermittent chest pains with exertion and dark stools. Patient states this has been going on for about a week. Had an abnormal colonoscopy about a year ago, also has a history of gastric ulcer disease. Taking omeprazole daily. States that he has been short of breath with exertion. Exertion also brings on intermittent chest pains that are left of sternum, do not radiate. No diaphoresis, syncope, but he does feel lightheaded when exerting himself and has had times where he thought he was going to syncopized, but was able to sit down. History was obtained via conversation with patient. On arrival, patient hemodynamically stable, alert, oriented x4, appropriate, GCS 15, moving all extremities spontaneously, pupils equal and reactive to light. Full physical exam performed and significant for 78-year-old male who appears pale. In no acute distress. He is nontachycardic, but his blood pressure is relatively low for someone with a history of hypertension at 116/47. Abdomen is soft, nontender, nondistended. No flank tenderness. Cardiac exam without murmurs gallops or rubs, lungs are clear bilaterally. Differential includes acute blood loss anemia/symptomatic anemia, peptic ulcer disease, AVM, malignancy, polyp, ACS, [place], among others. Patient placed on continuous cardiac monitoring and continuous pulse ox with initial blood pressure 116/47, heart rate 65, saturation 100% on room air. Independent interpretation of EKG shows sinus rhythm 61 beats a minute with ST depressions in V3 and V4, no reciprocal change. OH 152, QRS 90, QTc 417 with normal axis. Patient was given anticoagulation reversal with PCC given 4 g hemoglobin drop in about 3 weeks, fluids, Zofran, Protonix for symptomatic management and correction of underlying abnormalities. Workup independently interpreted and significant for hemoglobin 6.1 down from 10.4. Normal white count and platelet count. Coags concerning for elevated PTT 47 and INR 4.2. While getting patient into CT scanner, he syncopized, vomited. Maintained pulses the entire time. Within a minute he was speaking, following commands. 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 On independent interpretation of imaging, large volume gastric contents, average 15 Hounsfield units. Based on this, unlikely to be blood. See radiology read for full review of final results. 4 units of blood were crossed, 2 to be transfused here. Patient also received 2 g of calcium gluconate given borderline low calcium on labs. Gastroenterology consulted and case was discussed, recommended admission, reversal, transfusion, and urgent scope. These interventions already ordered and pending. Given patient presentation, workup, history, this most likely represents acute blood loss anemia in the setting of anticoagulation. Because patient high risk for clinical decompensation, deemed appropriate for inpatient admission. Results were relayed to patient who voiced understanding and patient was agreeable to inpatient admission and management. Patient was admitted to the hospital for further definitive management. (above as per ER physician) Further to above, patient states he has noticed dark stool for the past 1.5 - [address] [facility] Disclaimer: The information contained in this section may have been updated after the patient was seen, as this information can be updated by other users. Medical History HLD (hyperlipidemia) PAF (paroxysmal atrial fibrillation) Palpitations Abnormal result of cardiovascular function study CAD (coronary artery disease) Equivocal stress test Dizziness Daytime somnolence Dyspnea Chest pain ROQUE (obstructive sleep apnea) HTN (hypertension) Ex-smoker Surgical History History of cataract surgery History of esophagogastroduodenoscopy (EGD) History of colonoscopy History of carpal tunnel release H/O cardiac catheterization H/O neck surgery History of back surgery History of knee replacement Family History Other Cancer Social History Smoking Status: Former smoker tobacco type: cigarettes alcohol intake: never counseling provided: none substance use type: denies use current occupational status: disabled Travel in the last 8 weeks: Inside the [place] household members: spouse and other housing: house caffeine: Yes Other Medical History Have you received the Flu Vaccine for this season: Yes Have you received the Pneumonia Vaccine: Yes Review of Systems Constitutional Constitutional: Reports fatigue, Reports headache(s), Reports poor appetite, Reports lethargy, Reports malaise and Reports weakness Eyes Eyes: Denies blurry vision and Denies diplopia ENT Ears, Nose, Mouth, and Throat: Reports headache(s), Denies nasal congestion, Denies sore throat and Reports vertigo *Cardiovascular Cardiovascular: Reports chest pain, Reports dyspnea and Denies leg edema *Respiratory Respiratory: Denies cough, Reports dyspnea and Denies wheezing *Gastrointestinal Gastrointestinal: Reports abdominal pain, Reports melena, Reports nausea and Reports vomiting *Genitourinary Genitourinary: Denies difficulty urinating and Denies dysuria *Musculoskeletal Musculoskeletal: Denies arthralgias and Reports muscle weakness *Neurologic Neurologic: Reports headache(s), Reports vertigo and Reports weakness Endocrine Endocrine: Reports fatigue Allergic/Immunologic Allergic/Immunologic: Denies wheezing Meds Home Medications and Allergies Home Medications ?Medication ?Instructions ?Recorded ?Confirmed ?Type omeprazole 40 mg capsule,delayed 40 mg PO DAILY 09/21/22 12/27/23 History release tamsulosin 0.4 mg capsule 0.4 mg PO HS 09/21/22 12/27/23 History nitroglycerin 0.4 mg sublingual 0.4 mg sublingual Q5-15M PRN chest 06/04/23 12/27/23 Rx tablet pain #30 tabs allopurinol 300 mg tablet 300 mg PO DAILY 12/04/23 12/27/23 History amlodipine 5 mg tablet 5 mg PO BID 12/04/23 12/27/23 History aspirin 81 mg tablet,delayed 81 mg PO DAILY #30 tabs 12/04/23 12/27/23 Rx release (Adult Low Dose Aspirin) warfarin 5 mg tablet 2.5 mg PO MOWEFR 12/27/23 12/27/23 History warfarin 5 mg tablet 5 mg PO SUTUTHSA 12/27/23 12/27/23 History New Prescriptions to Start Prescriptions: Allergies Allergy/AdvReac Type Severity Reaction Status Date / Time tolmetin [TOLMETIN] Allergy Intermediate Unknown Verified 12/27/23 11:35 allergy reaction Exam Data for Last 24 hours Vital signs and Labs for Last 24 Hours: Temp Pulse Resp BP Pulse Ox O2 Del Method 97 F L 81 20 122/63 97 Room Air 12/27/23 13:51 12/27/23 13:51 12/27/23 13:51 12/27/23 13:51 12/27/23 13:51 12/27/23 14:07 Laboratory Results - last 24 hr 12/27/23 11:04: WBC 10.8, RBC 2.66 L, Hgb 6.1 L*, Hct 19.3 L*, MCV 72.6 L, MCH 23.0 L, MCHC 31.6 L, RDW 17.8 H, Plt Count 299, MPV 8.2, Neut % (Auto) 73.7, Lymph % (Auto) 18.9, [place] % (Auto) 6.3, Eos % (Auto) 0.8, Baso % (Auto) 0.4, Neut # (Auto) 7.9 H, Lymph # (Auto) 2.1, [place] # (Auto) 0.7, Eos # (Auto) 0.1, Baso # (Auto) 0.0, PT 40.6 H, INR 4.18 H, APTT 47.5 H, Sodium 141, Potassium 4.3, Chloride 111 H, Carbon Dioxide 20 L, Anion Gap 14.3, BUN 38 H, Creatinine 1.40 H, Estimated Creat Clear 55, Estimated GFR 49 L, Est GFR ( Amer) 59, Glucose 132 H, Calcium 8.1 L, Total Bilirubin 0.5, AST 26, ALT 22, Alkaline Phosphatase 57, Troponin I < 0.01, NT-Pro-B Natriuret Pep 231, Total Protein 5.7 L, Albumin 3.5, Globulin 2.2, Albumin/Globulin Ratio 1.6, Lipase 78, TSH 2.74, Thyroxine (T4) 7.1 12/27/23 11:34: Lactate 1.2, Blood Type A Positive, Antibody Screen Negative, Crossmatch (AHG) See Detail 12/27/23 14:24: Blood Type Confirm A Positive I & O for Last 24 hours: Intake & Output 12/25/23 12/26/23 12/27/23 12/28/23 11:59 11:59 11:59 11:59 Weight 200 lb 199 lb 5 oz Constitutional Constitutional: no acute distress *Routine HEENT Exam Head: Present normocephalic and atraumatic Eye: Present EOMI and PERRL ENT: Present mucous membranes dry *Routine Neck Exam Neck: Present supple and full ROM *Routine Respiratory Exam Respiratory: Present CTA bilaterally *Routine Cardiovascular Exam Cardiovascular: Present RRR *Routine Abdominal Exam Abdominal: Present soft, normoactive bowel sounds and tenderness (diffuse tenderness but worse in the bilateral lower quadrants, there are multiple ecchymotic areas on the abdomen) *Routine Rectal Exam Rectal:: deferred *Routine Genitalia Exam Genitalia:: deferred *Routine Extremities Exam Extremities: Absent cyanosis, clubbing or edema *Routine Skin Exam Skin: Present intact and pallor; Absent erythema *Routine Neurological Exam Neurological: Present alert and oriented X3 H&P: Result Impressions Abdominal/Pelvic CT No evidence for active gastrointestinal hemorrhage. 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 Suspect left renal artery stenosis at the origin. Vague 4 mm enhancing lesion near the right hepatic dome for which MRI of the abdomen with and without intravenous contrast is suggested to further assess. Renal cortical scarring and nonobstructing right nephrolithiasis. Left renal cyst which no further imaging follow-up is necessary. Nonspecific/indeterminate mild precaval/peripancreatic lymphadenopathy requiring clinical correlation. COPD. CXR - nothing acute Assessment and Plan *Assessment and plan (1) ABLA (acute blood loss anemia): Status: Acute Category: Medical Code(s): D62 - Acute posthemorrhagic anemia (2) GI bleed: Status: Acute Category: Medical Code(s): K92.2 - Gastrointestinal hemorrhage, unspecified (3) Atypical chest pain: Status: Acute Category: Medical Code(s): R07.89 - Other chest pain (4) HLD (hyperlipidemia): Status: Acute Qualifiers: Hyperlipidemia type: mixed hyperlipidemia Qualified Code(s): E78.2 - Mixed hyperlipidemia Category: Medical Code(s): E78.5 - Hyperlipidemia, unspecified (5) PAF (paroxysmal atrial fibrillation): Status: Acute Category: Medical Code(s): I48.0 - Paroxysmal atrial fibrillation (6) CAD (coronary artery disease): Status: Acute Qualifiers: Associated angina: without angina Coronary Disease-Associated Artery/Lesion type: [place] artery [place] vs. transplanted heart: [place] heart Qualified Code(s): I25.10 - Atherosclerotic heart disease of [place] coronary artery without angina pectoris Category: Medical Code(s): I25.10 - Atherosclerotic heart disease of [place] coronary artery without angina pectoris (7) Dizziness: Status: Chronic Category: Medical Code(s): R42 - Dizziness and giddiness (8) HTN (hypertension): Status: Chronic Qualifiers: Hypertension type: primary hypertension Qualified Code(s): I10 - Essential (primary) hypertension Category: Medical Code(s): I10 - Essential (primary) hypertension (9) ROQUE (obstructive sleep apnea): Status: Chronic Category: Medical Code(s): G47.33 - Obstructive sleep apnea (adult) (pediatric) Plan Patient has had type and cross for blood transfusion. GI and cardiology have been consulted. Will discuss further care with Dr. Santiago.
--- NOTE | 2023-12-27 14:58 | P.CONCA_ITS ---
History of Present Illness History of Present Illness Consult date: 12/27/23 Requesting physician: Ta Santiago Consult reason: known to you Chief complaint: weakness, diarrhea History of present illness: 78-year-old white male established patient of our office with history of multivessel CAD and atrial fibrillation on DAPT and recently started on Coumadin 2 weeks ago. Presented to the ED with worsening weakness shortness of breath and syncopal episodes associated with dark black diarrhea. Patient diagnosed with GI bleed, hemoglobin down from 10-6. In the ER he was given vitamin K and has 2 unit transfusion ordered. Recent stress test shows small mild area of reversible ischemia and ECHO was unremarkable. [facility] Disclaimer: The information contained in this section may have been updated after the patient was seen, as this information can be updated by other users. Medical History HLD (hyperlipidemia) PAF (paroxysmal atrial fibrillation) Palpitations Abnormal result of cardiovascular function study CAD (coronary artery disease) Equivocal stress test Dizziness Daytime somnolence Dyspnea Chest pain ROQUE (obstructive sleep apnea) HTN (hypertension) Ex-smoker Surgical History History of cataract surgery History of esophagogastroduodenoscopy (EGD) History of colonoscopy History of carpal tunnel release H/O cardiac catheterization H/O neck surgery History of back surgery History of knee replacement Family History Other Cancer Social History Smoking Status: Former smoker tobacco type: cigarettes alcohol intake: never counseling provided: none substance use type: denies use current occupational status: disabled Travel in the last 8 weeks: Inside the [place] household members: spouse and other housing: house caffeine: Yes Review of Systems Constitutional Constitutional: Reports fatigue and Reports weakness Eyes Eyes: Denies loss of vision ENT Ears, Nose, Mouth, and Throat: Denies hearing loss and Denies vertigo *Cardiovascular Cardiovascular: Denies chest pain, Denies dyspnea and Denies syncope *Respiratory Respiratory: Denies cough and Denies dyspnea *Gastrointestinal Gastrointestinal: Reports change in stool character, Denies nausea and Denies vomiting *Genitourinary Genitourinary: Denies difficulty urinating *Musculoskeletal Musculoskeletal: Denies muscle weakness Integumentary/Breasts Skin/Breast: Denies changing lesions *Neurologic Neurologic: Denies loss of vision, Denies syncope, Denies vertigo and Reports weakness Endocrine Endocrine: Reports fatigue Exam Data for Last 24 hours Vital signs and Labs for Last 24 Hours: Temp Pulse Resp BP Pulse Ox O2 Del Method 97 F L 81 20 122/63 97 Room Air 12/27/23 13:51 12/27/23 13:51 12/27/23 13:51 12/27/23 13:51 12/27/23 13:51 12/27/23 14:07 Laboratory Results - last 24 hr 12/27/23 11:04: WBC 10.8, RBC 2.66 L, Hgb 6.1 L*, Hct 19.3 L*, MCV 72.6 L, MCH 23.0 L, MCHC 31.6 L, RDW 17.8 H, Plt Count 299, MPV 8.2, Neut % (Auto) 73.7, Lymph % (Auto) 18.9, [place] % (Auto) 6.3, Eos % (Auto) 0.8, Baso % (Auto) 0.4, Neut # (Auto) 7.9 H, Lymph # (Auto) 2.1, [place] # (Auto) 0.7, Eos # (Auto) 0.1, Baso # (Auto) 0.0, PT 40.6 H, INR 4.18 H, APTT 47.5 H, Sodium 141, Potassium 4.3, Chloride 111 H, Carbon Dioxide 20 L, Anion Gap 14.3, BUN 38 H, Creatinine 1.40 H, Estimated Creat Clear 55, Estimated GFR 49 L, Est GFR ( Amer) 59, Glucose 132 H, Calcium 8.1 L, Total Bilirubin 0.5, AST 26, ALT 22, Alkaline Phosphatase 57, Troponin I < 0.01, NT-Pro-B Natriuret Pep 231, Total Protein 5.7 L, Albumin 3.5, Globulin 2.2, Albumin/Globulin Ratio 1.6, Lipase 78, TSH 2.74, Thyroxine (T4) 7.1 12/27/23 11:34: Lactate 1.2, Blood Type A Positive, Antibody Screen Negative, Crossmatch (AHG) See Detail 12/27/23 14:24: Blood Type Confirm A Positive I & O for Last 24 hours: Intake & Output 12/24/23 12/25/23 12/26/23 12/27/23 23:59 23:59 23:59 23:59 Weight 199 lb 5 oz Constitutional Constitutional: no acute distress and cooperative Comments: pale *Routine HEENT Exam Eye: Present PERRL *Routine Respiratory Exam Respiratory: Present CTA bilaterally; Absent accessory muscle use, wheezes or crackles *Routine Cardiovascular Exam Cardiovascular: Present RRR, Normal S1 and Normal S2; Absent murmur, gallop or rubs *Routine Abdominal Exam Abdominal: Present soft; Absent tenderness *Routine Extremities Exam Extremities: Present pulses intact; Absent cyanosis or edema *Routine Skin Exam Skin: Present intact; Absent erythema or wounds *Routine Neurological Exam Neurological: Present alert and oriented X3 Routine Psychiatric Exam Psychiatric: Present cooperative Meds Home Medications and Allergies Home Medications ?Medication ?Instructions ?Recorded ?Confirmed ?Type omeprazole 40 mg capsule,delayed 40 mg PO DAILY 09/21/22 12/27/23 History release tamsulosin 0.4 mg capsule 0.4 mg PO HS 09/21/22 12/27/23 History nitroglycerin 0.4 mg sublingual 0.4 mg sublingual Q5-15M PRN chest 06/04/23 12/27/23 Rx tablet pain #30 tabs allopurinol 300 mg tablet 300 mg PO DAILY 12/04/23 12/27/23 History amlodipine 5 mg tablet 5 mg PO BID 12/04/23 12/27/23 History aspirin 81 mg tablet,delayed 81 mg PO DAILY #30 tabs 12/04/23 12/27/23 Rx release (Adult Low Dose Aspirin) warfarin 5 mg tablet 2.5 mg PO MOWEFR 12/27/23 12/27/23 History warfarin 5 mg tablet 5 mg PO SUTUTHSA 12/27/23 12/27/23 History New Prescriptions to Start Prescriptions: Allergies Allergy/AdvReac Type Severity Reaction Status Date / Time tolmetin [TOLMETIN] Allergy Intermediate Unknown Verified 12/27/23 11:35 allergy reaction Assessment and Plan *Assessment and plan (1) ABLA (acute blood loss anemia): Status: Acute Category: Medical Code(s): D62 - Acute posthemorrhagic anemia (2) PAF (paroxysmal atrial fibrillation): Status: Acute Category: Medical Code(s): I48.0 - Paroxysmal atrial fibrillation (3) CAD (coronary artery disease): Status: Acute Qualifiers: Coronary Disease-Associated Artery/Lesion type: [place] artery [place] vs. transplanted heart: [place] heart Associated angina: without angina Qualified Code(s): I25.10 - Atherosclerotic heart disease of [place] coronary artery without angina pectoris Category: Medical Code(s): I25.10 - Atherosclerotic heart disease of [place] coronary artery without angina pectoris Plan Acute blood loss anemia -Complicated by recent addition of warfarin for atrial fibrillation -Vitamin K reversal given -Transfusion ordered -GI consult pending CAD -Status post drug-eluting stents to RCA, LAD, left circumflex 1 year ago - CCS = 0 -Continue aspirin, beta-pasha, statin -Recent stress test showed small mild area of reversible ischemia -Recent echo showed normal LV function Paroxysmal atrial fibrillation -Rare and mild on prior heart monitor patient is predominantly sinus rhythm -Hold OAC secondary to acute GI bleed -resume per GI recommendation
[2023-12-27 14:59] LABS: HIV (1&2) Antibody Rapid NONREACTIVE (NONREACTIVE)
--- NOTE | 2023-12-27 15:11 | HMH.PHAINT1 ---
Pharmacy Intervention Comments: Home medication list verified using list from outpatient pharmacy, office and pt interview
[2023-12-27 15:29] LABS: Troponin I < 0.01 ng/ml (0.00-0.034)
--- NOTE | 2023-12-27 15:46 | PC.NURSE ---
[employer] mixed by ADARSH Berg and delivered to ADARSH Altamirano by ADARSH Bolaños
[2023-12-27] MEDS: HUM PROTHROMBIN CPLX IV (15:54)
[2023-12-27] MEDS: [UNRECOGNIZED DRUG - OTHER] IV (15:54)
--- NOTE | 2023-12-27 17:05 | P.CONS_ITS ---
History of Present Illness *Admission Date: 12/27/23 *History of present illness: Mr. Khalil is a 78-year-old gentleman who presents with acute GI bleed on warfarin. Spoke with ED Dr. Durbin and Coumadin reversed because of melanotic stools. He does have a history of gastric ulcers. He does take omeprazole daily. Hemoglobin and hematocrit were 6.1 and 19.3. Warfarin was reversed. Patient also had large amount of old bloody emesis. He reports no abdominal pain or use of NSAIDs. The patient is on Coumadin because of the paroxysmal atrial fibrillation. He also has coronary stents. 78-year-old male history of hypertension, hyperlipidemia, paroxysmal A-fib on Coumadin, CAD status post stenting on clopidogrel presenting with weakness, intermittent chest pains with exertion and dark stools. Patient states this has been going on for about a week. Had an abnormal colonoscopy about a year ago, also has a history of gastric ulcer disease. Taking omeprazole daily. States that he has been short of breath with exertion. Exertion also brings on intermittent chest pains that are left of sternum, do not radiate. No diaphoresis, syncope, but he does feel lightheaded when exerting himself and has had times where he thought he was going to syncopized, but was able to sit down. History was obtained via conversation with patient. On arrival, patient hemodynamically stable, alert, oriented x4, appropriate, GCS 15, moving all extremities spontaneously, pupils equal and reactive to light. Full physical exam performed and significant for 78-year-old male who appears pale. In no acute distress. He is nontachycardic, but his blood pressure is relatively low for someone with a history of hypertension at 116/47. Abdomen is soft, nontender, nondistended. No flank tenderness. Cardiac exam without murmurs gallops or rubs, lungs are clear bilaterally. Differential includes acute blood loss anemia/symptomatic anemia, peptic ulcer disease, AVM, malignancy, polyp, ACS, ND, among others. Patient placed on continuous cardiac monitoring and continuous pulse ox with initial blood pressure 116/47, heart rate 65, saturation 100% on room air. Independent interpretation of EKG shows sinus rhythm 61 beats a minute with ST depressions in V3 and V4, no reciprocal change. IN 152, QRS 90, QTc 417 with normal axis. Patient was given anticoagulation reversal with PCC given 4 g hemoglobin drop in about 3 weeks, fluids, Zofran, Protonix for symptomatic management and correction of underlying abnormalities. Workup independently interpreted and significant for hemoglobin 6.1 down from 10.4. Normal white count and platelet count. Coags concerning for elevated PTT 47 and INR 4.2. While getting patient into CT scanner, he syncopized, vomited. Maintained pulses the entire time. Within a minute he was speaking, following commands. I feel this was likely signs sales representative of vasovagal versus orthostatic syncope given patient's current clinical condition. On independent interpretation of imaging, large volume gastric contents, average 15 Hounsfield units. Based on this, unlikely to be blood. See radiology read for full review of final results. 4 units of blood were crossed, 2 to be transfused here. Patient also received 2 g of calcium gluconate given borderline low calcium on labs. Gastroenterology consulted and case was discussed, recommended admission, reversal, transfusion, and urgent scope. These interventions already ordered and pending. Given patient presentation, workup, history, this most likely represents acute blood loss anemia in the setting of anticoagulation. Because patient high risk for clinical decompensation, deemed appropriate for inpatient admission. Results were relayed to patient who voiced understanding and patient was agreeable to inpatient admission and management. Patient was admitted to the hospital for further definitive management. (above as per ER physician) Further to above, patient states he has noticed dark stool for the past 1.5 - 2 weeks. [facility] Disclaimer: The information contained in this section may have been updated after the patient was seen, as this information can be updated by other users. Medical History HLD (hyperlipidemia) PAF (paroxysmal atrial fibrillation) Palpitations Abnormal result of cardiovascular function study CAD (coronary artery disease) Equivocal stress test Dizziness Daytime somnolence Dyspnea Chest pain ROQUE (obstructive sleep apnea) HTN (hypertension) Ex-smoker Surgical History History of cataract surgery History of esophagogastroduodenoscopy (EGD) History of colonoscopy History of carpal tunnel release H/O cardiac catheterization H/O neck surgery History of back surgery History of knee replacement Family History Other Cancer Social History Smoking Status: Former smoker tobacco type: cigarettes alcohol intake: never counseling provided: none substance use type: denies use current occupational status: disabled Travel in the last 8 weeks: [place] the [place] household members: spouse and other housing: house caffeine: Yes Review of Systems Constitutional Constitutional: Reports headache(s) and Reports weakness Eyes Eyes: Denies loss of vision ENT Ears, Nose, Mouth, and Throat: Reports headache(s) and Denies vertigo *Cardiovascular Cardiovascular: Denies syncope *Neurologic Neurologic: Reports headache(s), Denies loss of vision, Denies syncope, Denies vertigo and Reports weakness Meds Home Medications and Allergies Home Medications ?Medication ?Instructions ?Recorded ?Confirmed ?Type omeprazole 40 mg capsule,delayed 40 mg PO DAILY 09/21/22 12/27/23 History release tamsulosin 0.4 mg capsule 0.4 mg PO HS 09/21/22 12/27/23 History nitroglycerin 0.4 mg sublingual 0.4 mg sublingual Q5-15M PRN chest 06/04/23 12/27/23 Rx tablet pain #30 tabs allopurinol 300 mg tablet 300 mg PO DAILY 12/04/23 12/27/23 History amlodipine 5 mg tablet 5 mg PO BID 12/04/23 12/27/23 History aspirin 81 mg tablet,delayed 81 mg PO DAILY #30 tabs 12/04/23 12/27/23 Rx release (Adult Low Dose Aspirin) warfarin 5 mg tablet 2.5 mg PO MOWEFR 12/27/23 12/27/23 History warfarin 5 mg tablet 5 mg PO SUTUTHSA 12/27/23 12/27/23 History New Prescriptions to Start Prescriptions: Allergies Allergy/AdvReac Type Severity Reaction Status Date / Time tolmetin [TOLMETIN] Allergy Intermediate Unknown Verified 12/27/23 11:35 allergy reaction Exam (Inpt) Vital signs and Labs for Last 24 Hours: Temp Pulse Resp BP Pulse Ox O2 Del Method 97.9 F 83 16 139/66 98 Room Air 12/27/23 16:55 12/27/23 16:55 12/27/23 16:55 12/27/23 16:55 12/27/23 16:55 12/27/23 16:09 Laboratory Results - last 24 hr 12/27/23 11:04: WBC 10.8, RBC 2.66 L, Hgb 6.1 L*, Hct 19.3 L*, MCV 72.6 L, MCH 23.0 L, MCHC 31.6 L, RDW 17.8 H, Plt Count 299, MPV 8.2, Neut % (Auto) 73.7, Lymph % (Auto) 18.9, [place] % (Auto) 6.3, Eos % (Auto) 0.8, Baso % (Auto) 0.4, N eut # (Auto) 7.9 H, Lymph # (Auto) 2.1, [place] # (Auto) 0.7, Eos # (Auto) 0.1, Baso # (Auto) 0.0, PT 40.6 H, INR 4.18 H, APTT 47.5 H, Sodium 141, Potassium 4.3, Chloride 111 H, Carbon Dioxide 20 L, Anion Gap 14.3, BUN 38 H, Creatinine 1.40 H, Estimated Creat Clear 55, Estimated GFR 49 L, Est GFR ( Amer) 59, Glucose 132 H, Calcium 8.1 L, Total Bilirubin 0.5, AST 26, ALT 22, Alkaline Phosphatase 57, Troponin I < 0.01, NT-Pro-B Natriuret Pep 231, Total Protein 5.7 L, Albumin 3.5, Globulin 2.2, Albumin/Globulin Ratio 1.6, Lipase 78, TSH 2.74, Thyroxine (T4) 7.1, HIV 1&2 Antibody Rapid Nonreactive 12/27/23 11:34: Lactate 1.2, Blood Type A Positive, Antibody Screen Negative, Crossmatch (AHG) See Detail 12/27/23 14:24: Troponin I < 0.01, Blood Type Confirm A Positive I & O for Labs for Last 24 Hours: Intake & Output 12/24/23 12/25/23 12/26/23 12/27/23 23:59 23:59 23:59 23:59 Intake Total 0 / 0 Balance 0 / 0 Weight 199 lb 5 oz Results Labs 12/27/23 11:04 12/27/23 11:04 Labs: Laboratory Results - last 24 hr 12/27/23 11:04: WBC 10.8, RBC 2.66 L, Hgb 6.1 L*, Hct 19.3 L*, MCV 72.6 L, MCH 23.0 L, MCHC 31.6 L, RDW 17.8 H, Plt Count 299, MPV 8.2, Neut % (Auto) 73.7, Lymph % (Auto) 18.9, [place] % (Auto) 6.3, Eos % (Auto) 0.8, Baso % (Auto) 0.4, N eut # (Auto) 7.9 H, Lymph # (Auto) 2.1, [place] # (Auto) 0.7, Eos # (Auto) 0.1, Baso # (Auto) 0.0, PT 40.6 H, INR 4.18 H, APTT 47.5 H, Sodium 141, Potassium 4.3, Chloride 111 H, Carbon Dioxide 20 L, Anion Gap 14.3, BUN 38 H, Creatinine 1.40 H, Estimated Creat Clear 55, Estimated GFR 49 L, Est GFR ( Amer) 59, Glucose 132 H, Calcium 8.1 L, Total Bilirubin 0.5, AST 26, ALT 22, Alkaline Phosphatase 57, Troponin I < 0.01, NT-Pro-B Natriuret Pep 231, Total Protein 5.7 L, Albumin 3.5, Globulin 2.2, Albumin/Globulin Ratio 1.6, Lipase 78, TSH 2.74, Thyroxine (T4) 7.1, HIV 1&2 Antibody Rapid Nonreactive 12/27/23 11:34: Lactate 1.2, Blood Type A Positive, Antibody Screen Negative, Crossmatch (AHG) See Detail 12/27/23 14:24: Troponin I < 0.01, Blood Type Confirm A Positive Assessment and Plan *Assessment and plan (1) Acute upper GI bleed: Status: Acute Category: Medical Code(s): K92.2 - Gastrointestinal hemorrhage, unspecified (2) Profound anemia: Status: Acute Category: Medical Code(s): D64.9 - Anemia, unspecified (3) Atrial fibrillation: Status: Acute Category: Medical Code(s): I48.91 - Unspecified atrial fibrillation Plan 1. Profound upper GI bleed. The patient is stable. I did discuss reversing Coumadin and stabilizing patient with blood products now prior to endoscopy. As long as he remains stable, will plan EGD in the morning. In terms of anticoagulation in the future and his risk, I would strongly consider the Watchman procedure for this patient. The Watchman Left Atrial Appendage Closure provides a new option for patients with non-valvular atrial fibrillation who may require an alternative to long-term use of blood thinners. This is especially important in persons that have acute or chronic GI bleeding which is greatly exacerbated by the use of blood thinners (anticoagulation).
[2023-12-27 18:32] LABS: Troponin I < 0.01 ng/ml (0.00-0.034)
[2023-12-27] MEDS: TAMSULOSIN 0.4MG CAPSULE 0.4 MG PO (21:32)
[2023-12-28] VITALS (34 sets, daily range): BP systolic 94–157; BP diastolic 36–88; PULSE 58–95; RESP 14–18; TEMP 36.3–37.1; O2SAT 91–100; BMI 28.5
[2023-12-28 02:00] LABS: Hematocrit 22.6 % (42.0-52.0)
[2023-12-28 02:02] LABS: Hemoglobin 7.3 g/dL (14.1-18.0)
--- NOTE | 2023-12-28 05:29 | PC.NURSE ---
Pt A&OX4 and has tolerated room air. Lung sounds clear and bowel sounds active. Pt received two units of PRBC and tolerated well. H/h rechecked at 0330. HGB was 7.3 and provider was notified. He stated he would hold off on given more blood at this time. Pt has been npo since midnight. Family has remained at bedside throughout the night. No complaints at this time, call light within reach.
[2023-12-28 06:43] LABS: Basophils # 0.1 K/mm3 (0-0.2); Basophils % 0.6 % (0.1-2.0); Eosinophils # 0.1 K/mm3 (0.0-0.4); Eosinophils % 1.3 % (0.1-12.0); Hematocrit 23.1 % (42.0-52.0); Hemoglobin 7.5 g/dL (14.1-18.0); Lymphocytes # 1.5 K/mm3 (0.7-4.5); Lymphocytes % 16.9 % (10-50); Mean Corpuscular HGB Conc 32.5 g/dL (31.8-35.4); Mean Corpuscular Hemoglobin 25.1 pg (27.0-31.2); Mean Corpuscular Volume 77.2 fl (80-94); Mean Platelet Volume 8.4 fl (7.4-10.4); Monocytes # 0.6 K/mm3 (0.1-1.0); Monocytes % 6.8 % (1.7-9.3); Neutrophils # 6.6 K/mm3 (1.8-7.8); Neutrophils % 74.4 % (37.0-80.0); Platelet Count 229 K/mm3 (142-424); Red Blood Count 2.99 M/mm3 (4.60-6.20); Red Cell Distribution Width 18.8 % (11.5-17.5); White Blood Count 8.9 K/mm3 (4.8-10.8)
[2023-12-28 07:02] LABS: Alanine Aminotransferase 22 U/L (12-78); Albumin Level 3.2 g/dl (3.5-5.0); Albumin/Globulin Ratio 1.5 (1.1-1.8); Alkaline Phosphatase 48 U/L (38-126); Anion Gap 9.3 mEq/L (5-15); Aspartate Amino Transferase 25 U/L (17-59); Bilirubin,Total 0.8 mg/dl (0.2-1.3); Blood Urea Nitrogen 29 mg/dl (9-20); Carbon Dioxide 21 mmol/L (22.0-30.0); Chloride 112 mmol/L (98-107); Creatinine Clearance Estimated 59 mL/min (50-200); Estimated Glomerular Filt Rate 53 ml/min (>60); GFR (African American) 64 ML/MIN (>60); Globulin 2.2 g/dL (1.3-3.2); Glucose 89 mg/dl (74-100); Potassium 4.3 mmoL/L (3.5-5.1); Sodium 138 mmol/L (136-145); Total Protein,Serum 5.4 g/dl (6.3-8.2)
--- NOTE | 2023-12-28 07:40 | HMH.PROCNOTE ---
[facility] Procedure Note Date: 12/28/23 Time: 07:40 Procedure Note:: Upper Endoscopy Procedure Report: Esophagogastroduodenoscopy with cold biopsies and Endo Clip placement Endoscopost: Natanael Arita II, MD Referring Physician: Dickson Santiago MD Date of Procedure: December 28, 2023 Equipment: Olympus GIF 190 standard upper endoscope Sedation: MAC sedation Indications: Mr. Figueroa is a 78-year-old gentleman with melanotic stools and upper GI bleed. He does have a prior history of gastric ulcers. Yesterday he had a large amount of old bloody emesis. His hemoglobin and hematocrit were 6.1 and 19.3. He is on warfarin that was reversed. He is on this Coumadin for paroxysmal atrial fibrillation (and coronary stents). He reports no abdominal pain or use of NSAIDs. He has had no heartburn or reflux and does take omeprazole daily. Procedure: Prior to the procedure, a history and physical exam was performed, and patient's medications and allergies were reviewed. The risks, benefits and alternatives of the sedation and procedure were discussed with the patient. All questions were answered and informed consent was obtained. The patient was brought to the procedure room. Patient identification and proposed procedure were verified by the physician and the nurse. The patient was placed in a left lateral decubitus position and the scope was passed under direct vision. Throughout the procedure, the patient's blood pressure, pulse, and oxygen saturations were monitored continuously. The upper GI endoscopy was accomplished without difficulty. The patient tolerated the procedure well. Findings: The scope was passed directly into the upper esophagus and advanced to the third portion of the duodenum. The post bulbar duodenum and duodenal bulb were normal with normal mucosa and conniventes. The scope was withdrawn through a normal duodenal bulb and pylorus into the stomach. There was very mild linear reactive gastropathy of the prepyloric antrum. The body and fundus were grossly normal. Careful inspection showed no ulcerations, erosions, AVMs or other etiology of bleeding. Cold biopsies were taken from the incisura. Upon retroflexion there was a very small 1 to 2 cm hiatal hernia. The scope was then withdrawn into the esophagus. There was an ulcerated lesion just proximal to the GE junction that was carefully inspected. There was some moderate surrounding edema with some mucosal sloughing and brown pigmentation in the base of the ulcer and this was approximately 9 to 10 mm in diameter. The appearance is most consistent with pill induced esophagitis (rather than reflux esophagitis) because of depth and surrounding edema. I did close this ulceration with a single Endo Clip to provide hemostasis. There was no evidence of reflux esophagitis or Koch's. The remainder of the esophageal mucosa was normal. Impression: 1. Distal esophageal ulceration (1 to 2 cm proximal to squamocolumnar junction) status post single Endo Clip placement for closure of ulcer 2. Very small sliding hiatal hernia 3. Minimal prepyloric reactive gastropathy Plan: I would continue PPI therapy. This distal esophageal ulcer could be pill induced but there is nothing on his list (i.e. potassium chloride, doxycycline, NSAIDs or Fosamax) which would cause pill induced esophagitis. Because of the risk of inciting bleeding, I did not biopsy the ulcer because of potential risk of bleeding and rather closed the ulcer with a single Endo Clip. I will likely bring him back in 8 weeks to examine area for healing but also take biopsies. Additionally, I would consider the Watchman procedure because of the potential of future risk of acute or chronic gastrointestinal bleeding. The Watchman Left Atrial Appendage Closure provides a new option for patients with non-valvular atrial fibrillation who may require an alternative to long-term use of blood thinners. This is especially important in persons that have acute or chronic GI bleeding which is greatly exacerbated by the use of blood thinners (anticoagulation). He will discuss this with Dr. Mark Padgett M.D.
--- NOTE | 2023-12-28 08:35 | EXP.ACUTE.PN ---
Subjective *Date: 12/28/23 *Time: 09:41 Interval history: Patient had EGD this am. He had an esophageal ulcer with endoclip placement. He is awake and wants to try to eat. He states his abdominal pain has improved. He is still having dark stools. Medical Exam Vital signs and Labs for Last 24 Hours: Vital Signs Temp Pulse Pulse Resp BP BP Pulse Ox 12/28/23 08:10 97.6 F 63 16 148/67 H 91 L 12/28/23 07:55 97.6 F 73 16 134/70 93 L 12/28/23 07:51 71 18 102/51 L 92 L 12/28/23 07:31 64 18 100/48 L 92 L 12/28/23 07:31 97.4 F L 64 18 94/51 L 91 L 12/28/23 07:15 12/28/23 07:00 12/28/23 05:00 12/28/23 04:00 98.0 F 85 18 138/81 98 12/28/23 03:00 12/28/23 01:00 12/28/23 00:22 70 16 128/57 L 93 L 12/27/23 23:22 97.6 F 72 18 125/66 96 12/27/23 23:10 98.1 F 69 14 129/60 97 12/27/23 23:00 12/27/23 22:10 69 16 131/60 98 12/27/23 21:55 97.3 F L 66 18 133/54 L 95 12/27/23 21:40 97.6 F 71 16 126/59 L 95 12/27/23 21:21 97.9 F 75 18 126/59 L 97 12/27/23 21:16 97.9 F 76 16 121/60 96 12/27/23 21:15 98.1 F 72 16 124/58 L 97 12/27/23 21:10 98.3 F 18 119/50 L 98 12/27/23 21:00 12/27/23 20:44 98.3 F 68 16 118/59 L 99 12/27/23 20:00 12/27/23 20:00 98.8 F 70 18 134/61 97 12/27/23 19:45 97.4 F L 71 16 134/76 99 12/27/23 19:05 97.9 F 86 18 134/76 92 L 12/27/23 18:05 97.8 F 77 17 145/58 H 96 12/27/23 17:50 97.8 F 88 17 135/67 99 12/27/23 17:35 97.8 F 83 16 135/61 99 12/27/23 17:28 12/27/23 17:20 97.8 F 79 16 125/60 98 12/27/23 17:15 97.8 F 76 16 132/59 L 91 L 12/27/23 17:10 97.8 F 82 16 122/74 94 L 12/27/23 17:05 97.9 F 83 16 126/51 L 98 12/27/23 16:55 97.9 F 83 16 139/66 98 12/27/23 16:09 12/27/23 16:00 97.9 F 78 19 134/68 98 12/27/23 14:07 12/27/23 13:51 97 F L 81 20 122/63 97 12/27/23 13:50 12/27/23 13:22 97.9 F 80 18 122/63 12/27/23 12:31 82 12 127/47 L 99 12/27/23 11:30 66 12 103/51 L 97 12/27/23 11:15 97.8 F 65 12 116/47 L 100 O2 Del Method O2 Flow Rate 12/28/23 08:10 Room Air 12/28/23 07:55 Room Air 12/28/23 07:51 Room Air 12/28/23 07:31 Room Air 12/28/23 07:31 Room Air 12/28/23 07:15 Nasal Cannula 5 12/28/23 07:00 Room Air 12/28/23 05:00 Room Air 12/28/23 04:00 Room Air 12/28/23 03:00 Room Air 12/28/23 01:00 Room Air 12/28/23 00:22 12/27/23 23:22 12/27/23 23:10 12/27/23 23:00 Room Air 12/27/23 22:10 12/27/23 21:55 12/27/23 21:40 12/27/23 21:21 12/27/23 21:16 12/27/23 21:15 12/27/23 21:10 12/27/23 21:00 Room Air 12/27/23 20:44 12/27/23 20:00 Room Air 12/27/23 20:00 Room Air 12/27/23 19:45 12/27/23 19:05 12/27/23 18:05 12/27/23 17:50 12/27/23 17:35 12/27/23 17:28 Room Air 12/27/23 17:20 12/27/23 17:15 12/27/23 17:10 12/27/23 17:05 12/27/23 16:55 12/27/23 16:09 Room Air 12/27/23 16:00 12/27/23 14:07 Room Air 12/27/23 13:51 Room Air 12/27/23 13:50 Room Air 12/27/23 13:22 Room Air 12/27/23 12:31 Room Air 12/27/23 11:30 Room Air 12/27/23 11:15 Room Air Intake and Output 12/27/23 12/28/23 12/28/23 19:59 03:59 11:59 Intake Total 790 / 1240 450 / 1240 Output Total 0 / 0 0 / 0 Balance 790 / 1240 450 / 1240 0 / 1240 Intake: Intake, Oral Amount 540 / 740 200 / 740 Intake (Blood Product) Amt 250 / 500 250 / 500 Red Blood Cells Unit 250 / 250 [id number] Red Blood Cells Unit 250 / 250 [id number] Output: Output, Urine Amount 0 / 0 0 / 0 Other: Number of Voids 0 Number of Unmeasured Voids 1 1 Number of Bowel Movements 1 Weight 199 lb 5 oz 199 lb 5.013 oz Patient Weight 12/28/23 11:59 Weight 199 lb 5.013 oz Laboratory Results - last 24 hr 12/27/23 11:04: WBC 10.8, RBC 2.66 L, Hgb 6.1 L*, Hct 19.3 L*, MCV 72.6 L, MCH 23.0 L, MCHC 31.6 L, RDW 17.8 H, Plt Count 299, MPV 8.2, Neut % (Auto) 73.7, Lymph % (Auto) 18.9, [place] % (Auto) 6.3, Eos % (Auto) 0.8, Baso % (Auto) 0.4, Neut # (Auto) 7.9 H, Lymph # (Auto) 2.1, [place] # (Auto) 0.7, Eos # (Auto) 0.1, Baso # (Auto) 0.0, PT 40.6 H, INR 4.18 H, APTT 47.5 H, Sodium 141, Potassium 4.3, Chloride 111 H, Carbon Dioxide 20 L, Anion Gap 14.3, BUN 38 H, Creatinine 1.40 H, Estimated Creat Clear 55, Estimated GFR 49 L, Est GFR ( Amer) 59, Glucose 132 H, Calcium 8.1 L, Total Bilirubin 0.5, AST 26, ALT 22, Alkaline Phosphatase 57, Troponin I < 0.01, NT-Pro-B Natriuret Pep 231, Total Protein 5.7 L, Albumin 3.5, Globulin 2.2, Albumin/Globulin Ratio 1.6, Lipase 78, TSH 2.74, Thyroxine (T4) 7.1, HIV 1&2 Antibody Rapid Nonreactive 12/27/23 11:34: Lactate 1.2, Blood Type A Positive, Antibody Screen Negative, Crossmatch (AHG) See Detail 12/27/23 14:24: Troponin I < 0.01, Blood Type Confirm A Positive 12/27/23 17:26: Troponin I < 0.01 12/28/23 01:35: Hgb 7.3 L D, Hct 22.6 L 12/28/23 06:03: WBC 8.9, RBC 2.99 L, Hgb 7.5 L, Hct 23.1 L, MCV 77.2 L, MCH 25.1 L, MCHC 32.5, RDW 18.8 H, Plt Count 229, MPV 8.4, Neut % (Auto) 74.4, Lymph % (Auto) 16.9, [place] % (Auto) 6.8, Eos % (Auto) 1.3, Baso % (Auto) 0.6, Neut # (Auto) 6.6, Lymph # (Auto) 1.5, [place] # (Auto) 0.6, Eos # (Auto) 0.1, Baso # (Auto) 0.1, Sodium 138, Potassium 4.3, Chloride 112 H, Carbon Dioxide 21 L, Anion Gap 9.3, BUN 29 H, Creatinine 1.30 H, Estimated Creat Clear 59, Estimated GFR 53 L, Est GFR ( Amer) 64, Glucose 89 D, Calcium 8.0 L, Total Bilirubin 0.8, AST 25, ALT 22, Alkaline Phosphatase 48, Total Protein 5.4 L, Albumin 3.2 L, Globulin 2.2, Albumin/Globulin Ratio 1.5 I & O for Labs for Last 24 Hours: Intake & Output 12/25/23 12/26/23 12/27/23 12/28/23 11:59 11:59 11:59 11:59 Intake Total 1240 / 1240 Output Total 0 / 0 Balance 1240 / 1240 Weight 200 lb 199 lb 5.013 oz Constitutional: Present no acute distress Respiratory: Present CTA bilaterally Cardiac: Present Reg Rate and Rhythm GI: Present soft; Absent distention or tenderness Extremities: Present edema (trace LE) Skin: Present intact and ecchymosis (on abdomen) Neuro: Present alert, awake and oriented x 3 Assessment and Plan *Assessment and plan (1) ABLA (acute blood loss anemia): Status: Acute Category: Medical Code(s): D62 - Acute posthemorrhagic anemia (2) GI bleed: Status: Acute Category: Medical Code(s): K92.2 - Gastrointestinal hemorrhage, unspecified (3) Esophageal ulcer: Status: Acute Category: Medical Code(s): K22.10 - Ulcer of esophagus without bleeding (4) Atypical chest pain: Status: Acute Category: Medical Code(s): R07.89 - Other chest pain (5) HLD (hyperlipidemia): Status: Acute Qualifiers: Hyperlipidemia type: mixed hyperlipidemia Qualified Code(s): E78.2 - Mixed hyperlipidemia Category: Medical Code(s): E78.5 - Hyperlipidemia, unspecified (6) PAF (paroxysmal atrial fibrillation): Status: Acute Category: Medical Code(s): I48.0 - Paroxysmal atrial fibrillation (7) CAD (coronary artery disease): Status: Acute Qualifiers: Associated angina: without angina Coronary Disease-Associated Artery/Lesion type: [place] artery [place] vs. transplanted heart: [place] heart Qualified Code(s): I25.10 - Atherosclerotic heart disease of [place] coronary artery without angina pectoris Category: Medical Code(s): I25.10 - Atherosclerotic heart disease of [place] coronary artery without angina pectoris (8) Dizziness: Status: Chronic Category: Medical Code(s): R42 - Dizziness and giddiness (9) HTN (hypertension): Status: Chronic Qualifiers: Hypertension type: primary hypertension Qualified Code(s): I10 - Essential (primary) hypertension Category: Medical Code(s): I10 - Essential (primary) hypertension (10) ROQUE (obstructive sleep apnea): Status: Chronic Category: Medical Code(s): G47.33 - Obstructive sleep apnea (adult) (pediatric) Plan Has received 2 units of blood. H&H is still low. GI recommends a PPI, advance diet as tolerated, and to consider the Watchman procedure because of the potential of future risk of acute or chronic gastrointestinal bleeding. Will discuss this with cardiology.
[2023-12-28] MEDS: AMLODIPINE 5MG TABLET 5 MG PO (08:56)
[2023-12-28 09:15] LABS: HCV Ab Non Reactive (Non Reactive)
[2023-12-28] MEDS: PANTOPRAZOLE 40MG TABLET 40 MG PO (10:49)
[2023-12-28] MEDS: SUCRALFATE 1GM/10ML SUSP UDC 1 GM PO ×3 (10:49→20:21)
--- NOTE | 2023-12-28 11:22 | EXP.ANES.CKL ---
[facility] Disclaimer: The information contained in this section may have been updated after the patient was seen, as this information can be updated by other users. Medical History HLD (hyperlipidemia) PAF (paroxysmal atrial fibrillation) Palpitations Abnormal result of cardiovascular function study CAD (coronary artery disease) Equivocal stress test Dizziness Daytime somnolence Dyspnea Chest pain ROQUE (obstructive sleep apnea) HTN (hypertension) Ex-smoker Surgical History History of cataract surgery History of esophagogastroduodenoscopy (EGD) History of colonoscopy History of carpal tunnel release H/O cardiac catheterization H/O neck surgery History of back surgery History of knee replacement Family History Other Cancer Social History Smoking Status: Former smoker tobacco type: cigarettes alcohol intake: never counseling provided: none substance use type: denies use current occupational status: disabled Travel in the last 8 weeks: [place] the [place] household members: spouse and other housing: house caffeine: Yes [facility] Anesthesia Checklist Patient Identification Patient Identification: Arm Band Structural Data Admitted From: Inpatient Planned Operative Procedure/s: EGD Consent for Planned Operative Procedure(s) Verified: Yes Verified Documents: Surgical Consent and History and Physical NPO Status Verified Time NPO: 00:00 Additional verifications Anesthesia Reactions: No Hx Blood Transfusions: No Blood Transfusion Reaction: No Airway Assessment Mallampati Score:: Class II C-Spine Mobility Assessed: Yes TMJ Mobility Assessed: Yes Neurological Assessment Level of Consciousness: Awake, Alert and Appropriate Anesthesia Plan Anesthesia Risk discussed: Yes Anesthesia Plan: Verified ASA Class: III Anesthesia Type: MAC
--- NOTE | 2023-12-28 13:35 | P.PN_ITS ---
Subjective Subjective Date: 12/28/23 Time: 09:30 Interval history: EGD revealed esophageal ulcer with Endo Clip placement. Will need repeat scope in 8 weeks. Patient reports improvement in his symptoms. Exam Data for Last 24 hours Vital signs and Labs for Last 24 Hours: Temp Pulse Resp BP Pulse Ox O2 Del Method O2 Flow Rate 97.9 F 66 17 119/80 95 Room Air 5 12/28/23 13:10 12/28/23 13:10 12/28/23 13:10 12/28/23 13:10 12/28/23 13:10 12/28/23 12:17 12/28/23 07:15 Laboratory Results - last 24 hr 12/27/23 11:04: Hepatitis C Antibody Non reactive, HIV 1&2 Antibody Rapid Nonreactive 12/27/23 11:34: Blood Type A Positive, Antibody Screen Negative, Crossmatch (AHG) See Detail 12/27/23 14:24: Troponin I < 0.01, Blood Type Confirm A Positive 12/27/23 17:26: Troponin I < 0.01 12/28/23 01:35: Hgb 7.3 L D, Hct 22.6 L 12/28/23 06:03: WBC 8.9, RBC 2.99 L, Hgb 7.5 L, Hct 23.1 L, MCV 77.2 L, MCH 25.1 L, MCHC 32.5, RDW 18.8 H, Plt Count 229, MPV 8.4, Neut % (Auto) 74.4, Lymph % (Auto) 16.9, [place] % (Auto) 6.8, Eos % (Auto) 1.3, Baso % (Auto) 0.6, Neut # (Auto) 6.6, Lymph # (Auto) 1.5, [place] # (Auto) 0.6, Eos # (Auto) 0.1, Baso # (Auto) 0.1, Sodium 138, Potassium 4.3, Chloride 112 H, Carbon Dioxide 21 L, Anion Gap 9.3, BUN 29 H, Creatinine 1.30 H, Estimated Creat Clear 59, Estimated GFR 53 L, Est GFR ( Amer) 64, Glucose 89 D, Calcium 8.0 L, Total Bilirubin 0.8, AST 25, ALT 22, Alkaline Phosphatase 48, Total Protein 5.4 L, Albumin 3.2 L, Globulin 2.2, Albumin/Globulin Ratio 1.5 Temp Pulse Resp BP Pulse Ox O2 Del Method 97 F L 81 20 122/63 97 Room Air 12/27/23 13:51 12/27/23 13:51 12/27/23 13:51 12/27/23 13:51 12/27/23 13:51 12/27/23 14:07 Laboratory Results - last 24 hr 12/27/23 11:04: WBC 10.8, RBC 2.66 L, Hgb 6.1 L*, Hct 19.3 L*, MCV 72.6 L, MCH 23.0 L, MCHC 31.6 L, RDW 17.8 H, Plt Count 299, MPV 8.2, Neut % (Auto) 73.7, Lymph % (Auto) 18.9, [place] % (Auto) 6.3, Eos % (Auto) 0.8, Baso % (Auto) 0.4, Neut # (Auto) 7.9 H, Lymph # (Auto) 2.1, [place] # (Auto) 0.7, Eos # (Auto) 0.1, Baso # (Auto) 0.0, PT 40.6 H, INR 4.18 H, APTT 47.5 H, Sodium 141, Potassium 4.3, Chloride 111 H, Carbon Dioxide 20 L, Anion Gap 14.3, BUN 38 H, Creatinine 1.40 H, Estimated Creat Clear 55, Estimated GFR 49 L, Est GFR ( Amer) 59, Glucose 132 H, Calcium 8.1 L, Total Bilirubin 0.5, AST 26, ALT 22, Alkaline Phosphatase 57, Troponin I < 0.01, NT-Pro-B Natriuret Pep 231, Total Protein 5.7 L, Albumin 3.5, Globulin 2.2, Albumin/Globulin Ratio 1.6, Lipase 78, TSH 2.74, Thyroxine (T4) 7.1 12/27/23 11:34: Lactate 1.2, Blood Type A Positive, Antibody Screen Negative, Crossmatch (AHG) See Detail 12/27/23 14:24: Blood Type Confirm A Positive I & O for Last 24 hours: Intake & Output 12/25/23 12/26/23 12/27/23 12/28/23 23:59 23:59 23:59 23:59 Intake Total 1040 / 1240 690 / 690 Output Total 0 / 0 0 / 0 Balance 1040 / 1240 690 / 690 Weight 199 lb 5 oz 199 lb 5.013 oz Intake & Output 12/24/23 12/25/23 12/26/23 12/27/23 23:59 23:59 23:59 23:59 Weight 199 lb 5 oz Constitutional Constitutional: no acute distress and cooperative Comments: pale *Routine HEENT Exam Eye: Present PERRL *Routine Respiratory Exam Respiratory: Present CTA bilaterally; Absent accessory muscle use, wheezes or crackles *Routine Cardiovascular Exam Cardiovascular: Present RRR, Normal S1 and Normal S2; Absent murmur, gallop or rubs *Routine Abdominal Exam Abdominal: Present soft; Absent tenderness *Routine Extremities Exam Extremities: Present pulses intact; Absent cyanosis or edema *Routine Skin Exam Skin: Present intact; Absent erythema or wounds *Routine Neurological Exam Neurological: Present alert and oriented X3 Routine Psychiatric Exam Psychiatric: Present cooperative Progress Note: A&P Assessment and plan (1) ABLA (acute blood loss anemia): Status: Acute (2) GI bleed: Status: Acute (3) Esophageal ulcer: Status: Acute (4) Atypical chest pain: Status: Acute (5) HLD (hyperlipidemia): Status: Acute (6) PAF (paroxysmal atrial fibrillation): Status: Acute (7) CAD (coronary artery disease): Status: Acute (8) Dizziness: Status: Chronic (9) HTN (hypertension): Status: Chronic (10) ROQUE (obstructive sleep apnea): Status: Chronic Assessment and Plan Assessment and Plan for All Diagnoses:: Acute blood loss anemia -Complicated by recent addition of warfarin for atrial fibrillation -Vitamin K reversal given -Transfusion ordered -EGD -esophageal ulcer, Endo Clip placed. Patient needs to remain off anticoagulation. Repeat scope in 8 weeks. Outpatient referral for Watchman procedure. CAD -Status post drug-eluting stents to RCA, LAD, left circumflex 1 year ago - CCS = 0 -Continue aspirin, beta-pasha, statin -Recent stress test showed small mild area of reversible ischemia -Recent echo showed normal LV function Paroxysmal atrial fibrillation -Rare and mild on prior heart monitor patient is predominantly sinus rhythm -Hold OAC secondary to acute GI bleed. -Patient will remain off Coumadin at this time. We discussed risk benefit and stroke prophylaxis versus GI bleeding. He is agreeable to referral for watchman placement at as an outpatient. *Pt is CV stable for DC home. Only med changes is DC of Coumadin. Pt needs OP referral to Dr. Hogan at for Watchman procedure. Pt already has appt to see us in office next week on 01/02. Will sign off, thank you.
[2023-12-28 17:09] LABS: Hematocrit 28.3 % (42.0-52.0)
[2023-12-28 17:11] LABS: Hemoglobin 9.5 g/dL (14.1-18.0)
[2023-12-28] MEDS: TAMSULOSIN 0.4MG CAPSULE 0.4 MG PO (20:21)
[2023-12-29 04:00] VITALS: BP 141/71; PULSE 70; RESP 16; TEMP 36.7; O2SAT 97; BMI 28.5
[2023-12-29] MEDS: SUCRALFATE 1GM/10ML SUSP UDC 1 GM PO ×2 (05:50→10:54)
[2023-12-29 06:51] LABS: Prothrombin Time 11.2 seconds (10.1-12.5)
[2023-12-29 08:00] VITALS: BP 148/59; PULSE 70; RESP 18; TEMP 36.6; O2SAT 96
[2023-12-29] MEDS: PANTOPRAZOLE 40MG TABLET 40 MG PO (08:01)
[2023-12-29] MEDS: AMLODIPINE 5MG TABLET 5 MG PO (08:01)
[2023-12-29 09:31] LABS: Hematocrit 29.5 % (42.0-52.0); Hemoglobin 9.5 g/dL (14.1-18.0)
--- NOTE | 2023-12-29 11:34 | EXP.ACUTE.PN ---
Subjective *Date: 12/29/23 *Time: 11:34 Interval history: Clinically stable. Received 2 units PRBC for a total of 4 units this admission. Hgb is 9.5 and same as yesterday. Will discharge to home. No aspirin or warfarin at this time. Follow-up with Dr. Santiago, Dr. Arita, Cardiology. He is to notify us odf any evidence of blood in stool or vomitus. Medical Exam Vital signs and Labs for Last 24 Hours: Vital Signs Temp Pulse Pulse Resp BP BP Pulse Ox 12/29/23 10:48 12/29/23 08:39 12/29/23 08:00 12/29/23 08:00 97.9 F 70 18 148/59 H 96 12/29/23 06:53 12/29/23 05:00 12/29/23 04:00 98.0 F 70 16 141/71 H 97 12/29/23 03:00 12/29/23 01:00 12/28/23 23:49 98.7 F 68 14 114/60 97 12/28/23 23:00 12/28/23 21:00 12/28/23 20:00 12/28/23 20:00 98.0 F 66 14 142/48 H 97 12/28/23 17:49 12/28/23 16:05 98 F 62 17 141/62 H 95 12/28/23 16:05 98 F 62 17 141/62 H 95 12/28/23 16:00 98.3 F 64 15 128/72 95 12/28/23 15:05 98 F 58 L 17 139/61 92 L 12/28/23 14:05 97.8 F 63 17 140/71 98 12/28/23 13:45 97.8 F 64 17 157/61 H 96 12/28/23 13:38 12/28/23 13:30 97.5 F L 67 17 140/67 94 L 12/28/23 13:15 97.5 F L 69 17 141/76 H 96 12/28/23 13:10 97.9 F 66 17 119/80 95 12/28/23 13:05 97.9 F 65 17 134/77 96 12/28/23 13:00 97.5 F L 58 L 17 132/63 94 L 12/28/23 12:50 97.5 F L 68 17 144/88 H 96 12/28/23 12:25 97.8 F 61 17 122/70 95 12/28/23 12:17 O2 Del Method 12/29/23 10:48 Room Air 12/29/23 08:39 Room Air 12/29/23 08:00 Room Air 12/29/23 08:00 Room Air 12/29/23 06:53 Room Air 12/29/23 05:00 Room Air 12/29/23 04:00 Room Air 12/29/23 03:00 Room Air 12/29/23 01:00 Room Air 12/28/23 23:49 Room Air 12/28/23 23:00 Room Air 12/28/23 21:00 Room Air 12/28/23 20:00 Room Air 12/28/23 20:00 Room Air 12/28/23 17:49 Room Air 12/28/23 16:05 12/28/23 16:05 12/28/23 16:00 Room Air 12/28/23 15:05 12/28/23 14:05 12/28/23 13:45 12/28/23 13:38 Room Air 12/28/23 13:30 12/28/23 13:15 12/28/23 13:10 12/28/23 13:05 12/28/23 13:00 12/28/23 12:50 12/28/23 12:25 12/28/23 12:17 Room Air Intake and Output 12/28/23 12/29/23 12/29/23 19:59 03:59 11:59 Intake Total 1530 / 2100 300 / 2100 270 / 2100 Output Total 0 / 0 0 / 0 0 / 0 Balance 1530 / 2100 300 / 2100 270 / 2100 Intake: Intake, Oral Amount 1030 / 1600 300 / 1600 270 / 1600 Intake (Blood Product) Amt 500 / 500 Red Blood Cells Unit 250 / 250 [id number] Red Blood Cells Unit 250 / 250 [id number] Output: Output, Urine Amount 0 / 0 0 / 0 0 / 0 Other: Number of Unmeasured Voids 1 1 1 Number of Bowel Movements 1 1 Weight 199 lb 5.013 oz Patient Weight 12/29/23 11:59 Weight 199 lb 5.013 oz Laboratory Results - last 24 hr 12/27/23 11:34: Blood Type A Positive, Antibody Screen Negative, Crossmatch (AHG) See Detail 12/28/23 16:56: Hgb 9.5 L D, Hct 28.3 L 12/29/23 06:28: Hgb 9.5 L, Hct 29.5 L, PT 11.2, INR 1.00 I & O for Labs for Last 24 Hours: Intake & Output 12/26/23 12/27/23 12/28/23 12/29/23 11:59 11:59 11:59 11:59 Intake Total 1480 / 1480 2099 Output Total 0 / 0 0 / 0 Balance 1480 / 1480 2099 Weight 200 lb 199 lb 5.013 oz 199 lb 5.013 oz Head: Present atraumatic Eyes: Present as per HPI ENT: Present normal exam Neck: Present normal inspection Respiratory: Present CTA bilaterally; Absent respiratory distress Cardiac: Present Reg Rate and Rhythm (ectopics are noted) GI: Present soft and normal bowel sounds; Absent distention, tenderness, guarding, rebound or rigidity Rectal (male): Present deferred (male): Present deferred Extremities: Present edema (trace) Skin: Present intact; Absent pallor Neuro: Present alert, awake and oriented x 3 Assessment and Plan *Assessment and plan (1) Esophageal ulcer: Status: Acute Category: Medical Code(s): K22.10 - Ulcer of esophagus without bleeding (2) Acute upper GI bleed: Status: Acute Category: Medical Code(s): K92.2 - Gastrointestinal hemorrhage, unspecified (3) Profound anemia: Status: Acute Category: Medical Code(s): D64.9 - Anemia, unspecified (4) PVCs (premature ventricular contractions): Status: Acute Category: Medical Code(s): I49.3 - Ventricular premature depolarization (5) Premature atrial contractions: Status: Acute Category: Medical Code(s): I49.1 - Atrial premature depolarization (6) Abnormal EKG: Status: Chronic Category: Medical Code(s): R94.31 - Abnormal electrocardiogram [ECG] [EKG] (7) PAF (paroxysmal atrial fibrillation): Status: Acute Category: Medical Code(s): I48.0 - Paroxysmal atrial fibrillation (8) Palpitations: Status: Acute Category: Medical Code(s): R00.2 - Palpitations (9) CAD (coronary artery disease): Status: Acute Qualifiers: Coronary Disease-Associated Artery/Lesion type: [place] artery [place] vs. transplanted heart: [place] heart Associated angina: without angina Qualified Code(s): I25.10 - Atherosclerotic heart disease of [place] coronary artery without angina pectoris Category: Medical Code(s): I25.10 - Atherosclerotic heart disease of [place] coronary artery without angina pectoris (10) ROQUE (obstructive sleep apnea): Status: Chronic Category: Medical Code(s): G47.33 - Obstructive sleep apnea (adult) (pediatric) (11) HTN (hypertension): Status: Chronic Qualifiers: Hypertension type: primary hypertension Qualified Code(s): I10 - Essential (primary) hypertension Category: Medical Code(s): I10 - Essential (primary) hypertension (12) Ex-smoker: Status: Acute Category: Social Hx Code(s): Z87.891 - Personal history of nicotine dependence Plan See medication list. Schedule follow-ups. GI plans follow-up EGD with possible biopsy. Watchman procedure is recommended in lieu of anticoagulants.
--- NOTE | 2023-12-31 14:19 | CARE MANAGER ---
Contacted patient related to hospital discharge. He states he feels better. He has called and made his follow up appointments and has his medications. Denies questions or concerns at this time.
--- NOTE | 2023-12-31 21:37 | P.DS_ITS ---
General Admission date:: 12/27/23 Discharge date: 12/29/23 HPI HPI HPI: 78-year-old male history of hypertension, hyperlipidemia, paroxysmal A-fib on Coumadin, CAD status post stenting on clopidogrel presenting with weakness, intermittent chest pains with exertion and dark stools. Patient states this has been going on for about a week. Had an abnormal colonoscopy about a year ago, also has a history of gastric ulcer disease. Taking omeprazole daily. States that he has been short of breath with exertion. Exertion also brings on intermittent chest pains that are left of sternum, do not radiate. No diap horesis, syncope, but he does feel lightheaded when exerting himself and has had times where he thought he was going to syncopized, but was able to sit down. History was obtained via conversation with patient. On arrival, patient hemodynamically stable, alert, oriented x4, appropriate, GCS 15, moving all extremities spontaneously, pupils equal and reactive to light. Full physical exam performed and significant for 78-year-old male who appears pale. In no acute distress. He is nontachycardic, but his blood pressure is relatively low for someone with a history of hypertension at 116/47. Abdomen is soft, nontender, nondistended. No flank tenderness. Cardiac exam without murmurs gallops or rubs, lungs are clear bilaterally. Differential includes acute blood loss anemia/symptomatic anemia, peptic ulcer disease, AVM, malignancy, polyp, ACS, OR, among others. Patient placed on continuous cardiac monitoring and continuous pulse ox with initial blood pressure 116/47, heart rate 65, saturation 100% on room air. Independent interpretation of EKG shows sinus rhythm 61 beats a minute with ST depressions in V3 and V4, no reciprocal change. SD 152, QRS 90, QTc 417 with normal axis. Patient was given anticoagulation reversal with PCC given 4 g hemoglobin drop in about 3 weeks, fluids, Zofran, Protonix for symptomatic management and correction of underlying abnormalities. Workup independently interpreted and significant for hemoglobin 6.1 down from 10.4. Normal white count and platelet count. Coags concerning for elevated PTT 47 and INR 4.2. While getting patient into CT scanner, he syncopized, vomited. Maintained pulses the entire time. Within a minute he was speaking, following commands. 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 On independent interpretation of imaging, large volume gastric contents, average 15 Hounsfield units. Based on this, unlikely to be blood. See radiology read for full review of final results. 4 units of blood were crossed, 2 to be transfused here. Patient also received 2 g of calcium gluconate given borderline low calcium on labs. Gastroenterology consulted and case was discussed, recommended admission, reversal, transfusion, and urgent scope. These interventions already ordered and pending. Given patient presentation, workup, history, this most likely represents acute blood loss anemia in the setting of anticoagulation. Because patient high risk for clinical decompensation, deemed appropriate for inpatient admission. Results were relayed to patient who voiced understanding and patient was agreeable to inpatient admission and management. Patient was admitted to the hospital for further definitive management. (above as per ER physician) Further to above, patient states he has noticed dark stool for the past 1.5 - 2 weeks. Hospital Course Hospital Course Hospital Course: The patient's abdominal and pelvic CT showed possible left renal artery stenosis, a vague 4 mm enhancing lesion near the right hepatic dome for which an MRI of the abdomen with and without contrast is suggested, renal cortical scarring and nonobstructing right nephrolithiasis, and nonspecific mild precaval/peripancreatic lymphadenopathy. His chest x-ray showed nothing acute. The patient was typed and crossed for blood transfusion and GI and cardiology were both consulted. He was initially transfused with 2 units of packed red blood cells. He was given vitamin K for reversal of his Coumadin. He was seen by GI who wanted to perform an EGD. The EGD revealed a distal esophageal ulceration and Dr. Arita placed a single Endo Clip for closure of the ulcer. It also showed a very small sliding hiatal hernia and minimal prepyloric reactive gastropathy. Dr. Arita recommended PPI therapy. Because of the risk of inciting bleeding, he did not biopsy the ulcer and will likely bring the patient back in 8 weeks to examine the area for healing and also take biopsies. He also recommended considering a Watchman procedure because of the potential future risk of acute or chronic gastrointestinal bleeding with anticoagulants. The patient tolerated the procedure well. He was able to eat, but did have to be transfused with 2 more units of packed red blood cells. Cardiology will make the patient an outpatient referral for Watchman procedure. He will remain off of his Coumadin. His H&H improved and he was stable to be discharged home. Exam Data for Last 24 hours Vital signs and Labs for Last 24 Hours: Temp Pulse Resp BP Pulse Ox O2 Del Method O2 Flow Rate 97.9 F 70 18 148/59 H 96 Room Air 5 12/29/23 08:00 12/29/23 08:00 12/29/23 08:00 12/29/23 08:00 12/29/23 08:00 12/29/23 12:59 12/28/23 07:15 I & O for Last 24 hours: Intake & Output 12/29/23 12/30/23 12/31/23 01/01/24 11:59 10:59 11:59 11:59 Intake Total 2099 Output Total 0 / 0 Balance 2099 Weight 199 lb 5.013 oz Narrative: Constitutional Constitutional: no acute distress *Routine HEENT Exam Head: Present normocephalic and atraumatic Eye: Present EOMI and PERRL ENT: Present mucous membranes dry *Routine Neck Exam Neck: Present supple and full ROM *Routine Respiratory Exam Respiratory: Present CTA bilaterally *Routine Cardiovascular Exam Cardiovascular: Present RRR *Routine Abdominal Exam Abdominal: Present soft, normoactive bowel sounds and tenderness (diffuse tenderness but worse in the bilateral lower quadrants, there are multiple ecchymotic areas on the abdomen) *Routine Rectal Exam Rectal:: deferred *Routine Genitalia Exam Genitalia:: deferred *Routine Extremities Exam Extremities: Absent cyanosis, clubbing or edema *Routine Skin Exam Skin: Present intact and pallor; Absent erythema *Routine Neurological Exam Neurological: Present alert and oriented X3 DS: Diagnosis Discharge Diagnosis (1) Esophageal ulcer: Status: Acute Code(s): K22.10 - Ulcer of esophagus without bleeding (2) Acute upper GI bleed: Status: Acute Code(s): K92.2 - Gastrointestinal hemorrhage, unspecified (3) Profound anemia: Status: Acute Code(s): D64.9 - Anemia, unspecified (4) PVCs (premature ventricular contractions): Status: Acute Code(s): I49.3 - Ventricular premature depolarization (5) Premature atrial contractions: Status: Acute Code(s): I49.1 - Atrial premature depolarization (6) Abnormal EKG: Status: Chronic Code(s): R94.31 - Abnormal electrocardiogram [ECG] [EKG] (7) PAF (paroxysmal atrial fibrillation): Status: Acute Code(s): I48.0 - Paroxysmal atrial fibrillation (8) Palpitations: Status: Acute Code(s): R00.2 - Palpitations (9) CAD (coronary artery disease): Status: Acute Code(s): I25.10 - Atherosclerotic heart disease of [place] coronary artery without angina pectoris Qualifiers: Coronary Disease-Associated Artery/Lesion type: [place] artery [place] vs. transplanted heart: [place] heart Associated angina: without angina Qualified Code(s): I25.10 - Atherosclerotic heart disease of [place] coronary artery without angina pectoris (10) ROQUE (obstructive sleep apnea): Status: Chronic Code(s): G47.33 - Obstructive sleep apnea (adult) (pediatric) (11) HTN (hypertension): Status: Chronic Code(s): I10 - Essential (primary) hypertension Qualifiers: Hypertension type: primary hypertension Qualified Code(s): I10 - Essential (primary) hypertension (12) Ex-smoker: Status: Acute Code(s): Z87.891 - Personal history of nicotine dependence Meds Home Medications and Allergies Home Medications ?Medication ?Instructions ?Recorded ?Confirmed ?Type omeprazole 40 mg capsule,delayed 40 mg PO DAILY 09/21/22 12/27/23 History release tamsulosin 0.4 mg capsule 0.4 mg PO HS 09/21/22 12/27/23 History nitroglycerin 0.4 mg sublingual 0.4 mg sublingual Q5-15M PRN chest 06/04/23 12/27/23 Rx tablet pain #30 tabs allopurinol 300 mg tablet 300 mg PO DAILY 12/04/23 12/27/23 History amlodipine 5 mg tablet 5 mg PO BID 12/04/23 12/27/23 History ferrous gluconate 324 mg (37.5 mg 324 mg PO DAILY #100 tabs 12/29/23 Rx iron) tablet sucralfate 100 mg/mL oral 1 g (10 mL) PO ACHS GI ulcer #500 12/29/23 Rx suspension mL New Prescriptions to Start Prescriptions: ferrous gluconate Ta Santiago sucralfate Ta Santiago Allergies Allergy/AdvReac Type Severity Reaction Status Date / Time tolmetin [TOLMETIN] Allergy Intermediate Unknown Verified 12/27/23 11:35 allergy reaction Discharge Plan Disposition Patient Disposition: Home, Self-Care Discharge Order Discharge Orders: Discharge Order (Routine); Ordered 12/29/23 Ordered By: Ta Santiago Follow up Plan Follow up with: Natanael Arita II, MD [Staff Physician] - Enter time for follow up (Repeat EGD in 8 weeks) Ta Santiago MD [Primary Care Provider] - 01/10/24 Prescriptions/Medication Reconciliation: New sucralfate 100 mg/mL Suspension 1 g PO ACHS Qty: 500 2RF ferrous gluconate 324 mg (37.5 mg iron) tablet 324 mg PO DAILY Qty: 100 3RF Continued omeprazole 40 mg capsule,delayed release(DR/EC) 40 mg PO DAILY tamsulosin 0.4 mg capsule 0.4 mg PO HS nitroglycerin 0.4 mg tablet, sublingual 0.4 mg sublingual Q5-15M PRN (Reason: chest pain) Qty: 30 1RF Rx Instructions: do not exceed 3 doses per episode amlodipine 5 mg tablet 5 mg PO BID allopurinol 300 mg tablet 300 mg PO DAILY Discontinued aspirin [Adult Low Dose Aspirin] 81 mg tablet,delayed release (DR/EC) 81 mg PO DAILY Qty: 30 2RF warfarin 5 mg Tablet 2.5 mg PO MOWEFR warfarin 5 mg Table[facility] Problem Reconciliation Problems Reviewed?: Yes Patient Discharge Instructions ACTIVITY: Limited activity DIET: advance to your usual diet Patient Instructions: Anemia, Gastrointestinal Bleeding, DI for Esophageal Ulcer Print Language: [place] Providers Primary Care Provider: Ta Santiago Admit Provider: Ta Santiago Attending Provider: Ta Santiago
== END 2023-12-29 14:08 | disposition home or self-care (01) | DRG 381 ==
LOC: ER 11:16 → 2ND 13:06
PROVIDERS: Internal Medicine Gastroenterology; Admitting Provider Family Medicine; Emergency Provider Emergency Medicine; PCP Family Medicine; Visit Provider Family Medicine
PROC: 0DJ08ZZ Inspection of Upper Intestinal Tract, Via Natural or Artificial Opening Endoscopic (ICD-10-PCS; CPT 43235; principal; 2023-12-28 07:00)
DX: K22.11 Ulcer of esophagus with bleeding (principal); D62 Acute posthemorrhagic anemia; I48.91 Unspecified atrial fibrillation; R07.89 Other chest pain; E78.2 Mixed hyperlipidemia; I48.0 Paroxysmal atrial fibrillation; I25.10 Atherosclerotic heart disease of native coronary artery without angina pectoris; R42 Dizziness and giddiness; I10 Essential (primary) hypertension; I49.3 Ventricular premature depolarization; I49.1 Atrial premature depolarization; G47.33 Obstructive sleep apnea (adult) (pediatric)
CPT/HCPCS: 43255; 43239; 36415; 71045; 74174; 80053; 83605; 83690; 83880; 84436; 84443; 84484; 85014; 85018; 85025; 85610; 85730; 86803; 86850; 87389; 88305; 93005; 99291; J2405; J3430; J7168; P9016; Q9967

== ENCOUNTER 2024-01-03 09:08 | Outpatient (CLI) | payer MEDICARE, SELFPAY ==
[2024-01-03 09:33] LABS: Basophils # 0.1 K/mm3 (0-0.2); Basophils % 1.1 % (0.1-2.0); Eosinophils # 0.2 K/mm3 (0.0-0.4); Eosinophils % 2.7 % (0.1-12.0); Hematocrit 31.5 % (42.0-52.0); Hemoglobin 10.4 g/dL (14.1-18.0); Lymphocytes # 1.5 K/mm3 (0.7-4.5); Lymphocytes % 20.9 % (10-50); Mean Corpuscular Hemoglobin 26.6 pg (27.0-31.2); Mean Corpuscular Volume 80.7 fl (80-94); Mean Platelet Volume 8.1 fl (7.4-10.4); Monocytes # 0.6 K/mm3 (0.1-1.0); Monocytes % 8.7 % (1.7-9.3); Neutrophils # 4.8 K/mm3 (1.8-7.8); Neutrophils % 66.7 % (37.0-80.0); Platelet Count 276 K/mm3 (142-424); Red Cell Distribution Width 18.4 % (11.5-17.5); White Blood Count 7.3 K/mm3 (4.8-10.8)
[2024-01-03 10:01] LABS: Anion Gap 12.1 mEq/L (5-15); Blood Urea Nitrogen 17 mg/dl (9-20); Calcium 8.4 mg/dl (8.4-10.2); Carbon Dioxide 23 mmol/L (22.0-30.0); Chloride 109 mmol/L (98-107); Estimated Glomerular Filt Rate 49 ml/min (>60); GFR (African American) 59 ML/MIN (>60); Glucose 86 mg/dl (74-100); Potassium 4.1 mmoL/L (3.5-5.1); Sodium 140 mmol/L (136-145)
[2024-01-03 17:06] LABS: Alanine Aminotransferase 25 U/L (12-78); Albumin Level 3.9 g/dl (3.5-5.0); Alkaline Phosphatase 63 U/L (38-126); Aspartate Amino Transferase 28 U/L (17-59); Bilirubin,Direct 0.3 mg/dl (0.0-0.4); Bilirubin,Indirect 0.5 mg/dL (0.0-0.9); Bilirubin,Total 0.8 mg/dl (0.2-1.3); Bilirubin,Unconjugated 0.4 mg/dL (0.0-1.1); Chol/HDL Ratio 3.7 (1-3.5); Cholesterol 154 mg/dl (140-200); HDL Cholesterol 42 mg/dl (40-60); Total Protein,Serum 6.1 g/dl (6.3-8.2); Triglycerides 85 mg/dl (30-150); VLDL Cholesterol 17 mg/dL (0-40)
[2024-01-03 17:17] LABS: Direct LDL Cholesterol 102.17 mg/dL (100-129)
== END 2024-01-03 23:59 | disposition home or self-care (01) ==
PROVIDERS: PCP Family Medicine; Visit Provider Nurse Practitioner
DX: E78.2 Mixed hyperlipidemia (principal); I10 Essential (primary) hypertension; E78.5 Hyperlipidemia, unspecified
CPT/HCPCS: 36415; 80048; 80061; 80076; 85025

== ENCOUNTER 2024-02-21 12:22 | Emergency (ER) | payer MEDICARE, SELFPAY ==
[2024-02-21 13:45] VITALS: BP 163/62; PULSE 68; RESP 18; TEMP 36.6; O2SAT 95; BMI 28.7
--- NOTE | 2024-02-21 14:12 | EXP.UTC ---
Discharge Plan Disposition Patient Disposition: Home, Self-Care Condition: Good Prescriptions Prescriptions: New benzonatate 100 mg capsule 100 mg PO TID PRN (Reason: cough) Qty: 30 0RF azithromycin [Zithromax Z-Asif] 250 mg tablet See Rx Instructions .ROUTE .COMPLEX 5 Days Qty: 6 0RF Rx Instructions: For 250 mg dose pack: take 500 mg today (day 1), then 250 mg for 4 days (days 2-5) No Action omeprazole 40 mg capsule,delayed release(DR/EC) 40 mg PO DAILY tamsulosin 0.4 mg capsule 0.4 mg PO HS nitroglycerin 0.4 mg tablet, sublingual 0.4 mg sublingual Q5-15M PRN (Reason: chest pain) Qty: 30 1RF Rx Instructions: do not exceed 3 doses per episode allopurinol 300 mg tablet 300 mg PO DAILY amlodipine 5 mg tablet 5 mg PO ONCE sucralfate 100 mg/mL Suspension 1 g PO ACHS Qty: 500 2RF ferrous gluconate 324 mg (37.5 mg iron) tablet 324 mg PO DAILY Qty: 100 3RF Referrals Follow up/Referrals: Ta Santiago MD [Primary Care Provider] - See instructions Activity Restrictions/Add. Instructions Additional Instructions/Restrictions: *Monitor Temp, Over the counter Motrin or Tylenol as directed/as needed Tylenol every 4 hours and Motrin every 6 hours (as long as your family doctor has told you that you can take it) for fever or pain. and straight to ER if unable to lower temp less than 101.0 after medication given *Warm salt water gargles may help to soothe the throat *Throat Lozenges? *Warm fluids like tea with honey may help to soothe the throat? *Sleep elevated *Humidifier/Vaporizer Take medication as prescribed Follow up IMMEDIATELY for new or worsening symptoms or no Noticeable improvement over the next 48-72 hours. 911 for difficulty breathing or swallowing Clinical Impressions Clinical Impression: Sinusitis Instructions Patient Instructions: DI for Sinusitis, Sinusitis Print Language Print Language: Turkmen Discharge ED Provider: Marcia Juarez [facility] [place] HPI General Stated complaint: congestion cough Mode of Arrival: Ambulatory Source of Information: Patient Limitations: No Limitations Time Seen by Provider: 02/21/24 14:12 Description of Symptoms (Recalled from Triage Doc. by RN): PATIENT C/O CONGESTION AND COUGH X 3 DAYS HEENT Symptoms (Recalled from RN notes): Yes Resp Symptoms (Recalled from RN notes): Yes Skin Symptoms (Recalled from RN notes): No MS Symptoms (Recalled from RN notes): No Functional Status (Recalled from RN notes): WNL History of Present Illness Provider Complaint: Patient states that he has been having sinus congestion and cough for over a week States that today the pressure behind his eyes felt worse so he came in to get checked Related Data Home Medications ?Medication ?Instructions ?Recorded ?Confirmed omeprazole 40 mg capsule,delayed 40 mg PO DAILY 09/21/22 01/03/24 release tamsulosin 0.4 mg capsule 0.4 mg PO HS 09/21/22 01/03/24 allopurinol 300 mg tablet 300 mg PO DAILY 12/04/23 01/03/24 amlodipine 5 mg tablet 5 mg PO ONCE 01/03/24 01/03/24 Previous Rx's ?Medication ?Instructions ?Recorded nitroglycerin 0.4 mg sublingual 0.4 mg sublingual Q5-15M PRN chest 06/04/23 tablet pain #30 tabs ferrous gluconate 324 mg (37.5 mg 324 mg PO DAILY #100 tabs 12/29/23 iron) tablet sucralfate 100 mg/mL oral 1 g (10 mL) PO ACHS GI ulcer #500 12/29/23 suspension mL azithromycin 250 mg tablet See Rx Instructions PO .COMPLEX 5 02/21/24 (Zithromax Z-Asif) days #6 tabs benzonatate 100 mg capsule 100 mg PO TID PRN cough #30 caps 02/21/24 Allergies Allergy/AdvReac Type Severity Reaction Status Date / Time tolmetin (TOLMETIN) Allergy Intermediate Unknown Verified 01/03/24 08:33 allergy reaction Worker's Comp Is this a Worker's Comp case?: No [facility] Disclaimer: The information contained in this section may have been updated after the patient was seen, as this information can be updated by other users. Medical History Atrial fibrillation Pneumonia Pain in wrist Sinusitis Typical angina Atypical chest pain Left leg pain Acute urinary retention HLD (hyperlipidemia) PAF (paroxysmal atrial fibrillation) Palpitations Abnormal result of cardiovascular function study CAD (coronary artery disease) Dizziness Daytime somnolence Dyspnea Chest pain ROQUE (obstructive sleep apnea) HTN (hypertension) Ex-smoker Surgical History History of cataract surgery History of esophagogastroduodenoscopy (EGD) History of colonoscopy History of carpal tunnel release H/O cardiac catheterization H/O neck surgery History of back surgery History of knee replacement Family History Other Cancer Social History Smoking Status: Former smoker tobacco type: cigarettes alcohol intake: never counseling provided: none substance use type: denies use current occupational status: disabled Travel in the last 8 weeks: Inside the [place] household members: spouse and other housing: house caffeine: Yes Have you lived/traveled outside US in past 30 days?: No Contact w/someone who lives/traveled outside US past 30 days?: No Exposure to someone with infectious disease in past 14 days?: No Do you have a fever (greater than 100.4 F or 38 C)?: No Have you tested positive for COVID-19: No Exposed to someone with COVID-19 in past 14 days?: No Do you have a sore throat?: No Do you have a cough?: No Do you have any weakness?: No Do you have any diarrhea?: No Are you experiencing any unusual bleeding?: No Do you have any muscle aches/pain?: Yes Do you have any abdominal pain?: No Are you experiencing loss of taste or smell?: No ROS Obtained: Yes All systems reviewed & no additional complaints except as documented and Yes Systems reviewed as appropriate & no additional complaints except as documented Constitutional Constitutional: Reports system reviewed and no additional complaints, except as documented and Reports as per HPI ENT Ears, Nose, Mouth, and Throat: Reports system reviewed and no additional complaints, except as documented, Reports as per HPI, Reports sinus pain and Reports sinus pressure Cardiovascular Cardiovascular: Reports system reviewed and no additional complaints, except as documented and Reports as per HPI Respiratory Respiratory: Reports system reviewed and no additional complaints, except as documented, Reports as per HPI and Reports cough Physical Exam General General appearance: alert and in no apparent distress Expanded ENT Exam Nose exam: Present sinus tenderness Throat exam: Present other (PND noted) Respiratory Respiratory exam: Present normal lung sounds bilaterally; Absent respiratory distress or wheezes Cardiovascular Cardiovascular exam: Present regular rate, normal rhythm and normal heart sounds Abdominal Exam Abdominal exam: Present soft and normal bowel sounds; Absent distention or tenderness Neurological Exam Neurological exam: Present alert, oriented X3 and normal gait Medical Decision Making Medical Records Screening: Per USPSTF and CDC recommendations, given the prevalence of disease in our region, it is our hospital?s policy to screen for HIV and viral Hepatitis for all patients aged 18 and over and those with ongoing risk factors. Louis Inquiry Pt receiving controlled substance: No Louis was queried for this patient: No Vital Signs: 02/21/24 13:45 Temperature 97.8 F Temperature Source Oral Pulse Rate [Left Brachial] 68 Respiratory Rate 18 Blood Pressure [Left Arm] 163/62 H Blood Pressure Mean [Left Arm] 95 Blood Pressure Source [Left Arm] Automatic Cuff Blood Pressure Position [Left Arm] Sitting 02 Sat by Pulse Oximetry 95 Oxygen Delivery Method Room Air Medical Decision Narrative: Patient states that he has take azithromycin in the past without complcations or reaction
[2024-02-21 14:16] VITALS: BP 163/62; PULSE 68; RESP 18; TEMP 36.6; O2SAT 95
== END 2024-02-21 14:22 | disposition home or self-care (01) ==
PROVIDERS: Emergency Provider Nurse Practitioner; PCP Family Medicine
DX: J01.90 Acute sinusitis, unspecified (principal)
CPT/HCPCS: 99213; G0381

== ENCOUNTER 2024-03-18 15:06 | Outpatient (CLI) | payer MEDICARE, SELFPAY ==
[2024-03-18 16:09] LABS: Anion Gap 18.1 mEq/L (5-15); Blood Urea Nitrogen 22 mg/dl (9-20); Carbon Dioxide 24 mmol/L (22.0-30.0); Chloride 106 mmol/L (98-107); Estimated Glomerular Filt Rate 39 ml/min (>60); GFR (African American) 47 ML/MIN (>60); Glucose 107 mg/dl (74-100); Potassium 4.1 mmoL/L (3.5-5.1); Sodium 144 mmol/L (136-145)
[2024-03-18 16:21] LABS: Basophils # 0.1 K/mm3 (0-0.2); Basophils % 0.6 % (0.1-2.0); Eosinophils # 0.1 K/mm3 (0.0-0.4); Eosinophils % 1.4 % (0.1-12.0); Hemoglobin 12.3 g/dL (14.1-18.0); Lymphocytes # 1.6 K/mm3 (0.7-4.5); Lymphocytes % 20.9 % (10-50); Mean Corpuscular HGB Conc 31.5 g/dL (31.8-35.4); Mean Corpuscular Hemoglobin 25.6 pg (27.0-31.2); Mean Corpuscular Volume 81.1 fl (80-94); Mean Platelet Volume 10.7 fl (7.4-10.4); Monocytes % 12.3 % (1.7-9.3); Neutrophils # 4.9 K/mm3 (1.8-7.8); Neutrophils % 63.9 % (37.0-80.0); Platelet Count 212 K/mm3 (142-424); Red Blood Count 4.81 M/mm3 (4.60-6.20); Red Cell Distribution Width 15.7 % (11.5-17.5); White Blood Count 7.7 K/mm3 (4.8-10.8)
== END 2024-03-18 23:59 | disposition home or self-care (01) ==
LOC: LAB 15:07
PROVIDERS: PCP Family Medicine; Visit Provider Nurse Practitioner
DX: D64.9 Anemia, unspecified (principal)
CPT/HCPCS: 36415; 80048; 85025

== ENCOUNTER 2024-03-20 07:51 | Day surgery (SDC) | payer MEDICARE, SELFPAY ==
[2024-03-20 08:19] VITALS: BP 131/79; PULSE 63; RESP 17; TEMP 36.8; O2SAT 97
[2024-03-20] MEDS: LACTATED RINGERS 1000ML 1,000 ML 50 ML IV (08:25)
[2024-03-20 08:33] VITALS: O2SAT 97
--- NOTE | 2024-03-20 08:36 | P.HP_ITS ---
History of Present Illness *Admission Date: 03/20/24 *Reason for visit:: Distal esophageal ulcer *History of present illness: Mr. Khalil is a 78-year-old gentleman who is here for diagnostic EGD. The patient did have an urgent EGD and early December 2023 and there was a lower esophageal ulcer proximal to the GE junction. Because of the risk of bleeding biopsies were not obtained but this was not typical of reflux esophagitis. I did place an Endo Clip with closer of the ulcer and he had no further bleeding. The examination is deemed medically necessary for diagnostic EGD with biopsies of the distal esophagus. The patient has been seen, interviewed and examined prior to the procedure by both myself and the anesthesia provider. [facility] Disclaimer: The information contained in this section may have been updated after the patient was seen, as this information can be updated by other users. Medical History Atrial fibrillation Pneumonia Pain in wrist Sinusitis Typical angina Atypical chest pain Left leg pain Acute urinary retention HLD (hyperlipidemia) PAF (paroxysmal atrial fibrillation) Palpitations Abnormal result of cardiovascular function study CAD (coronary artery disease) Dizziness Daytime somnolence Dyspnea Chest pain ROQUE (obstructive sleep apnea) HTN (hypertension) Ex-smoker Surgical History History of cataract surgery History of esophagogastroduodenoscopy (EGD) History of colonoscopy History of carpal tunnel release H/O cardiac catheterization H/O neck surgery History of back surgery History of knee replacement Family History Other Cancer Social History Smoking Status: Former smoker tobacco type: cigarettes alcohol intake: current alcohol intake frequency: holidays/special occasions only counseling provided: none substance use type: denies use current occupational status: retired and disabled Travel in the last 8 weeks: None household members: spouse and other housing: house caffeine: Yes Have you lived/traveled outside US in past 30 days?: No Contact w/someone who lives/traveled outside US past 30 days?: No Exposure to someone with infectious disease in past 14 days?: No Do you have a fever (greater than 100.4 F or 38 C)?: No Have you tested positive for COVID-19: No Exposed to someone with COVID-19 in past 14 days?: No Do you have a sore throat?: No Do you have a cough?: No Do you have any weakness?: No Do you have any diarrhea?: No Are you experiencing any unusual bleeding?: No Do you have any muscle aches/pain?: No Do you have any abdominal pain?: No Are you experiencing loss of taste or smell?: No Other Medical History Have you received the Flu Vaccine for this season: No Have you received the Pneumonia Vaccine: Yes Review of Systems Review of Systems Review of systems (narrative): Negative *Cardiovascular Comments: Negative *Gastrointestinal Comments: Negative *Genitourinary Comments: Negative *Musculoskeletal Comments: Negative *Neurologic Comments: Negative Meds Home Medications and Allergies Home Medications ?Medication ?Instructions ?Recorded ?Confirmed ?Type tamsulosin 0.4 mg capsule 0.4 mg PO HS 09/21/22 03/20/24 History nitroglycerin 0.4 mg sublingual 0.4 mg sublingual Q5-15M PRN chest 06/04/23 03/20/24 Rx tablet pain #30 tabs amlodipine 5 mg tablet 5 mg PO ONCE 01/03/24 03/20/24 History aspirin 81 mg tablet,delayed 81 mg PO DAILY 03/18/24 03/20/24 History release clopidogrel 75 mg tablet 75 mg PO DAILY 03/18/24 03/20/24 History ferrous gluconate 324 mg (38 mg 324 mg PO DAILY 03/18/24 03/20/24 History iron) tablet pantoprazole 40 mg tablet,delayed 40 mg PO DAILY 03/18/24 03/20/24 History release New Prescriptions to Start Prescriptions: Allergies Allergy/AdvReac Type Severity Reaction Status Date / Time tolmetin (TOLMETIN) Allergy Intermediate Unknown Verified 03/20/24 08:05 allergy reaction Exam Data for Last 24 hours Vital signs and Labs for Last 24 Hours: Temp Pulse Resp BP Pulse Ox O2 Del Method O2 Flow Rate 98.3 F 63 17 131/79 97 Nasal Cannula 5 03/20/24 08:19 03/20/24 08:19 03/20/24 08:19 03/20/24 08:19 03/20/24 08:19 03/20/24 08:33 03/20/24 08:33 I & O for Last 24 hours: Intake & Output 01/2003/18/24 03/19/24 03/20/24 23:59 23:59 23:59 23:59 Weight 5 lb 10 oz *Routine HEENT Exam Head: Present normocephalic Eye: Present EOMI and PERRL ENT: Present mucous membranes moist *Routine Neck Exam Neck: Present supple *Routine Respiratory Exam Respiratory: Present CTA bilaterally *Routine Cardiovascular Exam Cardiovascular: Present RRR *Routine Abdominal Exam Abdominal: Present soft and normoactive bowel sounds; Absent tenderness *Routine Rectal Exam Rectal:: deferred *Routine Genitalia Exam Genitalia:: deferred *Routine Extremities Exam Extremities: Absent cyanosis, clubbing or edema *Routine Skin Exam Skin: Present warm; Absent rash *Routine Neurological Exam Neurological: Present alert and oriented X3 Assessment and Plan *Assessment and plan (1) Esophageal ulcer: Status: Acute Qualifiers: Esophageal ulcer bleeding: with bleeding Qualified Code(s): K22.11 - Ulcer of esophagus with bleeding Category: Medical Code(s): K22.10 - Ulcer of esophagus without bleeding Plan A/P: 1. Distal esophageal ulcer is the preprocedural diagnosis. The patient will be anesthetized/sedated using MAC sedation. The patient has been seen and examined. Cardiac and lung assessment prior to the examination is stable. Proceed with planned diagnostic EGD with biopsies
--- NOTE | 2024-03-20 08:38 | P.PNANES_ITS ---
[facility] Disclaimer: The information contained in this section may have been updated after the patient was seen, as this information can be updated by other users. Medical History Atrial fibrillation Pneumonia Pain in wrist Sinusitis Typical angina Atypical chest pain Left leg pain Acute urinary retention HLD (hyperlipidemia) PAF (paroxysmal atrial fibrillation) Palpitations Abnormal result of cardiovascular function study CAD (coronary artery disease) Dizziness Daytime somnolence Dyspnea Chest pain ROQUE (obstructive sleep apnea) HTN (hypertension) Ex-smoker Surgical History History of cataract surgery History of esophagogastroduodenoscopy (EGD) History of colonoscopy History of carpal tunnel release H/O cardiac catheterization H/O neck surgery History of back surgery History of knee replacement Family History Other Cancer Social History Smoking Status: Former smoker tobacco type: cigarettes alcohol intake: current alcohol intake frequency: holidays/special occasions only counseling provided: none substance use type: denies use current occupational status: retired and disabled Travel in the last 8 weeks: None household members: spouse and other housing: house caffeine: Yes Have you lived/traveled outside US in past 30 days?: No Contact w/someone who lives/traveled outside US past 30 days?: No Exposure to someone with infectious disease in past 14 days?: No Do you have a fever (greater than 100.4 F or 38 C)?: No Have you tested positive for COVID-19: No Exposed to someone with COVID-19 in past 14 days?: No Do you have a sore throat?: No Do you have a cough?: No Do you have any weakness?: No Do you have any diarrhea?: No Are you experiencing any unusual bleeding?: No Do you have any muscle aches/pain?: No Do you have any abdominal pain?: No Are you experiencing loss of taste or smell?: No [facility] Anesthesia Checklist Patient Identification Patient Identification: Arm Band Structural Data Admitted From: Home Planned Operative Procedure/s: EGD Consent for Planned Operative Procedure(s) Verified: Yes Verified Documents: Surgical Consent and History and Physical NPO Status Verified Time NPO: 00:00 Additional verifications Anesthesia Reactions: No Hx Blood Transfusions: No Blood Transfusion Reaction: No Airway Assessment Mallampati Score:: Class II C-Spine Mobility Assessed: Yes TMJ Mobility Assessed: Yes Dentition: Good Dentition Neurological Assessment Level of Consciousness: Awake, Alert and Appropriate Anesthesia Plan Anesthesia Risk discussed: Yes Anesthesia Plan: Verified ASA Class: III Anesthesia Type: MAC
--- NOTE | 2024-03-20 08:40 | HMH.PROCNOTE ---
[facility] Procedure Note Date: 03/20/24 Time: 08:47 Procedure Note:: Upper Endoscopy Procedure Report: Esophagogastroduodenoscopy with cold biopsies Endoscopost: Natanael Arita II, MD Referring Physician: Dickson Santiago MD Date of Procedure: March 20, 2024 Equipment: Olympus GIF 190 standard upper endoscope Sedation: MAC sedation Indications: Mr. Figueroa is a 78-year-old gentleman who was hospitalized in early December 2023 and had melanotic stools with GI bleeding. He was on Coumadin for atrial fibrillation. His upper endoscopy showed a distal esophageal ulcer proximal to the squamocolumnar junction. An Endo Clip was placed for closure of the ulcer. Biopsies were not obtained because of bleeding risk and the patient had been on Coumadin. He is now on omeprazole daily. I did recommend consideration of the Watchman procedure to allow him to come off of anticoagulation. He did have the Watchman procedure on 03/11/2024. He will be on anticoagulation for 6 months after the watchman. He did note 1 episode of darker stools since starting back on anticoagulation but this has resolved. He feels well. EGD is performed to reevaluate and take biopsies if ulcer not healing. The patient is taking the omeprazole. He reports no heartburn, reflux or dysphagia. He has had no hematemesis. Procedure: Prior to the procedure, a history and physical exam was performed, and patient's medications and allergies were reviewed. The risks, benefits and alternatives of the sedation and procedure were discussed with the patient. All questions were answered and informed consent was obtained. The patient was brought to the procedure room. Patient identification and proposed procedure were verified by the physician and the nurse. The patient was placed in a left lateral decubitus position and the scope was passed under direct vision. Throughout the procedure, the patient's blood pressure, pulse, and oxygen saturations were monitored continuously. The upper GI endoscopy was accomplished without difficulty. The patient tolerated the procedure well. Findings: The scope was passed directly into the upper esophagus and advanced to the third portion of the duodenum. The post bulbar duodenum and duodenal bulb were normal with normal mucosa and conniventes. The scope was withdrawn through a normal duodenal bulb and pylorus into the stomach. There was some very mild reactive gastropathy of the antrum. The body and fundus of the stomach were normal. Upon retroflexion there was a very small sliding 1 to 2 cm hiatal hernia. The scope was then withdrawn into the esophagus. The squamocolumnar junction and distal esophagus were examined carefully. There was complete healing and resolution with regeneration of the squamous mucosa and no evidence of any distal esophageal ulcer. There was no evidence of reflux esophagitis, esophageal ulcer, Koch's esophagus or strictures. There was a serrated Z-line but no mucosal abnormalities. Biopsies were taken at the Z-line. The remainder of the esophageal mucosa was normal. Impression: 1. Resolution/complete healing and regeneration of mucosa of prior distal esophageal ulcer 2. Small sliding hiatal hernia 3. Very mild prepyloric antral gastropathy Plan: The patient is doing well and has low risk with anticoagulation. The Watchman procedure will allow him to come off of anticoagulation. His hemoglobin and hematocrit are markedly improved from labs on 03/18/2024 and hemoglobin hematocrit were 12.3 and 39.0 (from 7.3 and 22.6 on 12/28/2023).
[2024-03-20 08:50] VITALS: BP 121/72; PULSE 68; RESP 16; TEMP 36.3; O2SAT 91
[2024-03-20 09:00] VITALS: BP 123/68; PULSE 68; RESP 16; O2SAT 94
[2024-03-20 09:10] VITALS: BP 127/71; PULSE 64; RESP 16; O2SAT 95
[2024-03-20 09:20] VITALS: BP 133/78; PULSE 63; RESP 16; O2SAT 96
== END 2024-03-20 09:36 | disposition home or self-care (01) ==
PROVIDERS: PCP Family Medicine; Visit Provider Internal Medicine Gastroenterology
PROC: 0DJ08ZZ Inspection of Upper Intestinal Tract, Via Natural or Artificial Opening Endoscopic (ICD-10-PCS; CPT 43239; principal; 2024-03-20 08:30)
DX: K22.11 Ulcer of esophagus with bleeding (principal); K44.9 Diaphragmatic hernia without obstruction or gangrene; K31.9 Disease of stomach and duodenum, unspecified
CPT/HCPCS: 43239; 88305; J7120

== ENCOUNTER 2024-03-27 09:06 | Outpatient (CLI) | payer MEDICARE, SELFPAY ==
[2024-03-27 09:48] LABS: Anion Gap 15.3 mEq/L (5-15); Blood Urea Nitrogen 21 mg/dl (9-20); Calcium 8.8 mg/dl (8.4-10.2); Carbon Dioxide 24 mmol/L (22.0-30.0); Chloride 108 mmol/L (98-107); Estimated Glomerular Filt Rate 39 ml/min (>60); GFR (African American) 47 ML/MIN (>60); Glucose 99 mg/dl (74-100); Potassium 4.3 mmoL/L (3.5-5.1); Sodium 143 mmol/L (136-145)
== END 2024-03-27 23:59 | disposition home or self-care (01) ==
LOC: LAB 09:07
PROVIDERS: PCP Family Medicine; Visit Provider Nurse Practitioner
DX: I10 Essential (primary) hypertension (principal)
CPT/HCPCS: 36415; 80048

== ENCOUNTER 2024-03-31 10:07 | Outpatient (CLI) | payer MEDICARE, SELFPAY ==
[2024-03-31 10:37] LABS: Basophils # 0.1 K/mm3 (0-0.2); Basophils % 0.6 % (0.1-2.0); Eosinophils # 0.1 K/mm3 (0.0-0.4); Eosinophils % 1.2 % (0.1-12.0); Hematocrit 38.4 % (42.0-52.0); Hemoglobin 12.1 g/dL (14.1-18.0); Lymphocytes # 2.1 K/mm3 (0.7-4.5); Mean Corpuscular HGB Conc 31.5 g/dL (31.8-35.4); Mean Corpuscular Hemoglobin 25.2 pg (27.0-31.2); Mean Platelet Volume 9.9 fl (7.4-10.4); Monocytes # 1.2 K/mm3 (0.1-1.0); Monocytes % 10.2 % (1.7-9.3); Neutrophils # 8.1 K/mm3 (1.8-7.8); Neutrophils % 69.5 % (37.0-80.0); Platelet Count 304 K/mm3 (142-424); Red Cell Distribution Width 15.6 % (11.5-17.5); White Blood Count 11.7 K/mm3 (4.8-10.8)
[2024-03-31 10:55] LABS: Alanine Aminotransferase 22 U/L (12-78); Albumin Level 4.5 g/dl (3.5-5.0); Alkaline Phosphatase 80 U/L (38-126); Anion Gap 15.3 mEq/L (5-15); Aspartate Amino Transferase 27 U/L (17-59); Bilirubin,Direct 0.1 mg/dl (0.0-0.4); Bilirubin,Indirect 0.3 mg/dL (0.0-0.9); Bilirubin,Total 0.4 mg/dl (0.2-1.3); Bilirubin,Unconjugated 0.3 mg/dL (0.0-1.1); Blood Urea Nitrogen 23 mg/dl (9-20); Calcium 9.2 mg/dl (8.4-10.2); Carbon Dioxide 26 mmol/L (22.0-30.0); Chloride 107 mmol/L (98-107); Chol/HDL Ratio 3.5 (1-3.5); Cholesterol 173 mg/dl (140-200); Estimated Glomerular Filt Rate 39 ml/min (>60); GFR (African American) 47 ML/MIN (>60); Glucose 88 mg/dl (74-100); HDL Cholesterol 49 mg/dl (40-60); Magnesium 2.1 mg/dl (1.6-2.3); Potassium 4.3 mmoL/L (3.5-5.1); Sodium 144 mmol/L (136-145); Total Protein,Serum 6.9 g/dl (6.3-8.2); Triglycerides 122 mg/dl (30-150); VLDL Cholesterol 24 mg/dL (0-40)
[2024-03-31 11:06] LABS: Direct LDL Cholesterol 89.35 mg/dL (100-129)
[2024-03-31 11:11] LABS: Free T4 (Free Thyroxine) 1.05 ng/dl (0.78-2.19)
[2024-03-31 11:26] LABS: Thyroid Stimulating Hormone 3.76 uIU/mL (0.465-4.68)
== END 2024-03-31 23:59 | disposition home or self-care (01) ==
LOC: LAB 10:10
PROVIDERS: PCP Family Medicine; Visit Provider Nurse Practitioner
DX: Z87.19 Personal history of other diseases of the digestive system (principal); R94.39 Abnormal result of other cardiovascular function study; K22.11 Ulcer of esophagus with bleeding; I49.3 Ventricular premature depolarization; E78.2 Mixed hyperlipidemia; R94.31 Abnormal electrocardiogram [ECG] [EKG]; I48.0 Paroxysmal atrial fibrillation; G47.33 Obstructive sleep apnea (adult) (pediatric); I10 Essential (primary) hypertension; I20.89 Other forms of angina pectoris; R06.00 Dyspnea, unspecified; R07.89 Other chest pain; D62 Acute posthemorrhagic anemia
CPT/HCPCS: 36415; 80048; 80061; 80076; 83735; 84439; 84443; 85025

== ENCOUNTER 2024-04-02 08:16 | Day surgery (SDC) | payer MEDICARE, SELFPAY ==
[2024-04-02] VITALS (11 sets, daily range): BP systolic 129–158; BP diastolic 70–95; PULSE 79–101; RESP 16–20; TEMP 36.1; O2SAT 91–97; BMI 29.4
--- NOTE | 2024-04-02 07:16 | IR_ITS ---
APPROVED REPORT Patient Location: Outpatient Irrigation Laborer: Jasvir Finch, RT (R) PROCEDURES Left heart catheterization Left ventriculogram Selective coronary angiogram Drug-eluting stent deployment to the circumflex artery Drug-eluting stent deployment to the first obtuse marginal artery INDICATION Coronary artery disease, Angina pectoris, Abnormal Myoview Informed consent was obtained prior to the procedure. COMPLICATIONS NONE Estimated Blood Loss: LESS THAN 10 ML TECHNIQUE One percent lidocaine used to anesthetize the right anterior aspect of the wrist. The right radial artery was accessed via the Seldinger technique. A 6 Djiboutian sheath was placed in the right radial artery. 2.5 mg of Verapamil, 800 mcg of nitroglycerin, 1mg Lidocaine and 5000 U Heparin were given through the arterial sheath. The 6 Djiboutian JL 3 guide catheter was also used to perform left heart catheterization, left ventriculogram and selective coronary angiogram. At the end of the diagnostic angiogram therapeutic heparin was administered giving a therapeutic ACT and the guide catheters placed in left main artery followed by wire placed down the LAD and a wire down the circumflex artery. A 2 mm x 12 mm balloon was used to open the struts going into the circumflex artery. Following this a 2.25 x 38 mm Mitch frontier stent was placed into the obtuse marginal artery and deployed at 20 jonathon reducing the stenosis. An additional 2.5 x 26 mm Mitch frontier stent was placed in the ostium of the circumflex artery extending into the obtuse marginal artery and overlapping the for stent and then deployed at 24 jonathon. RODRICK-3 flow was present before and after the procedure. At the end the procedure the apparatus was removed the sheath was removed and hemostasis was achieved and TR banding patient was transferred to the postop holding in stable condition ANGIOGRAPHIC RESULTS The left main artery Has a stent in the ostial segment which extends into the LAD which is widely patent free of in-stent restenosis The left anterior descending artery Has a stent originating from the left main artery and extends into the mid LAD. There is a proximal concentric 20% in-stent restenosis with the stent otherwise being widely patent. 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 Dual antiplatelet therapy 2. Cardiac rehabilitation 3. Avoidance of tobacco products 4. Risk factor modification 5. LDL less than 55 to achieve that high intensity statin Electronically signed by : Mark Padgett MD 04/02/2024 14:04:52
[2024-04-02 08:41] LABS: Basophils # 0.1 K/mm3 (0-0.2); Basophils % 0.5 % (0.1-2.0); Eosinophils # 0.2 K/mm3 (0.0-0.4); Eosinophils % 1.2 % (0.1-12.0); Hematocrit 38.8 % (42.0-52.0); Hemoglobin 12.2 g/dL (14.1-18.0); Lymphocytes # 1.8 K/mm3 (0.7-4.5); Lymphocytes % 13.5 % (10-50); Mean Corpuscular HGB Conc 31.4 g/dL (31.8-35.4); Mean Corpuscular Hemoglobin 25.8 pg (27.0-31.2); Mean Platelet Volume 10.2 fl (7.4-10.4); Monocytes # 1.4 K/mm3 (0.1-1.0); Monocytes % 10.5 % (1.7-9.3); Neutrophils # 9.8 K/mm3 (1.8-7.8); Neutrophils % 73.7 % (37.0-80.0); Platelet Count 319 K/mm3 (142-424); Red Blood Count 4.73 M/mm3 (4.60-6.20); Red Cell Distribution Width 15.6 % (11.5-17.5); White Blood Count 13.4 K/mm3 (4.8-10.8)
[2024-04-02 08:42] LABS: Chloride 105 mmol/L (98-107); Potassium 4.4 mmoL/L (3.5-5.1); Sodium 142 mmol/L (136-145)
[2024-04-02 08:45] LABS: Anion Gap 15.4 mEq/L (5-15); Blood Urea Nitrogen 20 mg/dl (9-20); Calcium 8.9 mg/dl (8.4-10.2); Carbon Dioxide 26 mmol/L (22.0-30.0); Creatinine Clearance Estimated 49 mL/min (50-200); Estimated Glomerular Filt Rate 42 ml/min (>60); GFR (African American) 51 ML/MIN (>60); Glucose 110 mg/dl (74-100)
[2024-04-02] MEDS: NITROGLYCERIN 800MCG/8ML SYR (CATH LAB) 800 MCG IA (11:42)
[2024-04-02] MEDS: LIDOCAINE 1% 10ML MDV 20 ML IJ (11:43)
[2024-04-02] MEDS: HEPARIN 1,000 UNITS/ML 10ML VIAL (CATH LAB) 10000 UNIT IV (11:43)
[2024-04-02] MEDS: VERAPAMIL 2.5MG/ML 2ML VIAL 2.5 MG IV (11:43)
[2024-04-02] MEDS: 0.9 % SODIUM CHLORIDE 500 ML 25 ML IV (11:44)
[2024-04-02] MEDS: HEPARIN 1,000 UNITS/500ML NS (CATH LAB) 3000 UNIT IV (11:44)
[2024-04-02] MEDS: diphenhydrAMINE 50MG/ML VIAL 50 MG IV (11:48)
[2024-04-02] MEDS: FENTANYL 100MCG/2ML VIAL 50 MCG IV (12:42)
[2024-04-02] MEDS: MIDAZOLAM HCL 1MG/ML 5ML VIAL 1 MG IV (12:43)
[2024-04-02] MEDS: IOPAMIDOL-370 (76%);100ML BOTTLE 70 ML IV ×2 (14:17)
[2024-04-02 14:19] LABS: CATHL Activated Clotting Time 282 SEC (74-125)
== END 2024-04-02 16:26 | disposition home or self-care (01) ==
LOC: CATHLAB 08:17
PROVIDERS: PCP Family Medicine; Visit Provider Internal Medicine
DX: I25.118 Atherosclerotic heart disease of native coronary artery with other forms of angina pectoris (principal); I77.1 Stricture of artery; I48.0 Paroxysmal atrial fibrillation; I10 Essential (primary) hypertension; I49.3 Ventricular premature depolarization; R94.39 Abnormal result of other cardiovascular function study; R94.31 Abnormal electrocardiogram [ECG] [EKG]; Z95.5 Presence of coronary angioplasty implant and graft; Z79.899 Other long term (current) drug therapy
CPT/HCPCS: 80048; 85025; 85347; 92928; 92929; 99152; 99153; C1725; C1769; C1874; C9600; C9601; J1200; J1644; J2250; J3010; Q9967

== ENCOUNTER 2024-04-07 10:26 | Outpatient (CLI) | payer MEDICARE, SELFPAY ==
[2024-04-07 10:52] LABS: Basophils # 0.1 K/mm3 (0-0.2); Basophils % 0.9 % (0.1-2.0); Eosinophils # 0.2 K/mm3 (0.0-0.4); Eosinophils % 2.2 % (0.1-12.0); Hematocrit 39.1 % (42.0-52.0); Hemoglobin 11.9 g/dL (14.1-18.0); Lymphocytes % 19.5 % (10-50); Mean Corpuscular HGB Conc 30.4 g/dL (31.8-35.4); Mean Corpuscular Hemoglobin 24.8 pg (27.0-31.2); Mean Corpuscular Volume 81.5 fl (80-94); Mean Platelet Volume 10.3 fl (7.4-10.4); Monocytes % 10.1 % (1.7-9.3); Neutrophils # 6.7 K/mm3 (1.8-7.8); Neutrophils % 66.8 % (37.0-80.0); Platelet Count 321 K/mm3 (142-424); Red Cell Distribution Width 14.7 % (11.5-17.5); White Blood Count 10.1 K/mm3 (4.8-10.8)
[2024-04-07 11:11] LABS: Chloride 107 mmol/L (98-107)
[2024-04-07 11:12] LABS: Sodium 143 mmol/L (136-145)
[2024-04-07 11:14] LABS: Blood Urea Nitrogen 23 mg/dl (9-20); Estimated Glomerular Filt Rate 36 ml/min (>60); GFR (African American) 44 ML/MIN (>60)
[2024-04-07 11:15] LABS: Calcium 8.9 mg/dl (8.4-10.2); Carbon Dioxide 25 mmol/L (22.0-30.0); Glucose 97 mg/dl (74-100)
== END 2024-04-07 23:59 | disposition home or self-care (01) ==
LOC: LAB 10:28
PROVIDERS: PCP Family Medicine; Visit Provider Internal Medicine
DX: Z95.5 Presence of coronary angioplasty implant and graft (principal); I10 Essential (primary) hypertension
CPT/HCPCS: 36415; 80048; 85025

== ENCOUNTER 2024-04-14 08:28 | Inpatient (IN) | payer MEDICARE, SELFPAY ==
[2024-04-14] VITALS (17 sets, daily range): BP systolic 101–146; BP diastolic 75–99; PULSE 60–116; RESP 15–27; TEMP 36.5–36.8; O2SAT 92–98; BMI 31.0
--- NOTE | 2024-04-14 08:24 | ECG_ITS ---
APPROVED REPORT Exam: Resting ECG HR:98 bpm ECG Measurements Heart Rate 98 AXES QRSd 84 QRS 59 QT 314 T 53 QTc 369 Conclusion ATRIAL FIBRILLATION WITH ABERRANT CONDUCTION OR VENTRICULAR PREMATURE COMPLEXES No STEMI Electronically signed by : JAY LITTLEJOHN, 04/14/2024 15:11:55
--- NOTE | 2024-04-14 08:30 | XR_ITS ---
FINAL REPORT CLINICAL HISTORY: chest pain FINDINGS: PA and lateral views of the chest are obtained. There is no prior exam for comparison. The cardiac and mediastinal silhouettes are within normal limits. There are increased interstitial markings with small bilateral pleural effusions. There is bilateral lower lobe atelectasis. The findings are favored to be related to pulmonary edema, interstitial pneumonia not excluded. There is no pneumothorax or acute osseous abnormality. IMPRESSION: Bilateral interstitial opacities with bilateral lower lobe atelectasis and small effusions, favor pulmonary edema but pneumonia not excluded. Reviewed, Interpreted and Dictated by Swetha Ridley MD Transcribed by Nory Sher Authenticated and [facility]
--- NOTE | 2024-04-14 08:31 | ED_ITS ---
Discharge Plan Disposition Patient Disposition: Admitted Prescriptions Prescriptions: No Action tamsulosin 0.4 mg capsule 0.4 mg PO HS nitroglycerin 0.4 mg tablet, sublingual 0.4 mg sublingual Q5-15M PRN (Reason: chest pain) Qty: 30 1RF Rx Instructions: do not exceed 3 doses per episode metoprolol succinate 100 mg tablet extended release 24 hr 50 mg PO BID Qty: 30 3RF clopidogrel 75 mg tablet 75 mg PO DAILY aspirin 81 mg tablet,delayed release (DR/EC) 81 mg PO DAILY Patient Comments: TAKE 1 TABLET BY MOUTH ONCE A DAY pantoprazole 40 mg tablet,delayed release (DR/EC) 40 mg PO DAILY ferrous gluconate 324 mg (38 mg iron) tablet 324 mg PO DAILY Patient Comments: TAKE 1 TABLET BY MOUTH ONCE DAILY atorvastatin [Lipitor] 40 mg Tablet 40 mg PO HS 30 Days Qty: 30 3RF Referrals Follow up/Referrals: Ta Santiago MD [Primary Care Provider] - See instructions Clinical Impressions Clinical Impression: Atrial fibrillation with RVR, Acute CHF, Pulmonary edema, Hypomagnesemia Print Language Print Language: Thai Discharge ED Provider: Donita Shaw General Adult HPI General Chief complaint: Chest Pain Stated complaint: CHEST PAIN Time Seen by Provider: 04/14/24 08:29 History of Present Illness HPI narrative: This patient is an 79-year-old male with a history of CAD status post stenting, prior bleeding esophageal ulcer, hypertension, hyperlipidemia, ROQUE, and atrial fibrillation on metoprolol presenting to the emergency department for evaluation with concern for chest pain and shortness of breath. Patient states that he is intermittently had chest pain and shortness of breath since stents placed 1944, however symptoms started again this morning around 5:30 AM and were severe. He states that he is having pain right in the center of his chest that is nonradiating. He also feels short of breath, which he was not sure if it was related to his heart versus being related to possible anemia if he is having bleeding again. He denies noting any blood in his stools or dark tarry stools. He did not take his medications today prior to arrival. Related Data Home Medications ?Medication ?Instructions ?Recorded ?Confirmed tamsulosin 0.4 mg capsule 0.4 mg PO HS 09/21/22 04/14/24 aspirin 81 mg tablet,delayed 81 mg PO DAILY 03/18/24 04/14/24 release clopidogrel 75 mg tablet 75 mg PO DAILY 03/18/24 04/14/24 ferrous gluconate 324 mg (38 mg 324 mg PO DAILY 03/18/24 04/14/24 iron) tablet pantoprazole 40 mg tablet,delayed 40 mg PO DAILY 03/18/24 04/14/24 release Previous Rx's ?Medication ?Instructions ?Recorded nitroglycerin 0.4 mg sublingual 0.4 mg sublingual Q5-15M PRN chest 06/04/23 tablet pain #30 tabs atorvastatin 40 mg tablet (Lipitor) 40 mg PO HS 30 days #30 tabs 04/02/24 metoprolol succinate 100 mg 50 mg (1/2 x 100 mg) PO BID #30 04/09/24 tablet,extended release 24 hr tabs Allergies Allergy/AdvReac Type Severity Reaction Status Date / Time tolmetin (TOLMETIN) Allergy Intermediate Unknown Verified 04/09/24 13:41 [facility] Disclaimer: The information contained in this section may have been updated after the patient was seen, as this information can be updated by other users. Medical History CAD (coronary artery disease) Dyspnea Atypical angina Atrial fibrillation Pneumonia Pain in wrist Sinusitis Typical angina Atypical chest pain Left leg pain Acute urinary retention HLD (hyperlipidemia) PAF (paroxysmal atrial fibrillation) Palpitations Abnormal result of cardiovascular function study Dizziness Daytime somnolence Chest pain ROQUE (obstructive sleep apnea) HTN (hypertension) Ex-smoker Surgical History History of cataract surgery History of esophagogastroduodenoscopy (EGD) History of colonoscopy History of carpal tunnel release H/O cardiac catheterization H/O neck surgery History of back surgery History of knee replacement Family History Other Cancer Social History Smoking Status: Former smoker tobacco type: cigarettes alcohol intake: current alcohol intake frequency: holidays/special occasions only counseling provided: none substance use type: denies use current occupational status: retired and disabled Travel in the last 8 weeks: Inside the [place] household members: spouse and other housing: house caffeine: Yes Have you lived/traveled outside US in past 30 days?: No Contact w/someone who lives/traveled outside US past 30 days?: No Exposure to someone with infectious disease in past 14 days?: No Do you have a fever (greater than 100.4 F or 38 C)?: No Have you tested positive for COVID-19: No Exposed to someone with COVID-19 in past 14 days?: No Do you have a sore throat?: No Do you have a cough?: No Do you have any weakness?: No Do you have any diarrhea?: No Are you experiencing any unusual bleeding?: No Do you have any muscle aches/pain?: No Do you have any abdominal pain?: No Are you experiencing loss of taste or smell?: No Other Medical History Have you received the Flu Vaccine for this season: No Have you received the Pneumonia Vaccine: Yes ROS Obtained: Yes All systems reviewed & no additional complaints except as documented Physical Exam General General appearance: alert and in no apparent distress Head Head exam: atraumatic and normocephalic Eye Eye exam: Present normal appearance, PERRL and EOMI ENT ENT exam: Present normal exam, normal oropharynx, mucous membranes moist and normal external ear exam Neck Neck exam: Present normal inspection, full ROM and trachea midline; Absent tenderness Chest Chest inspection: Present normal inspection and symmetric chest wall rise; Absent tenderness Respiratory Respiratory exam: Present normal lung sounds bilaterally; Absent respiratory distress, wheezes, stridor or accessory muscle use Cardiovascular Cardiovascular exam: Present regular rate and irregular rhythm Abdominal Exam Abdominal exam: Present soft and tenderness (Epigastric); Absent distention, guarding, rebound or rigidity Extremities Exam Extremities exam: Present normal inspection, full ROM and normal capillary refill; Absent tenderness or edema Back Exam Back exam: Present normal inspection and full ROM; Absent tenderness Neurological Exam Neurological exam: Present alert, oriented X3, CN II-XII intact and normal gait; Absent motor sensory deficit Psychiatric Psychiatric exam: Present normal affect and normal mood Skin Skin exam: Present warm and dry Medical Decision Making Medical Records Medical records reviewed: Yes I reviewed the patient's medical records. Screening: Per USPSTF and CDC recommendations, given the prevalence of disease in our region, it is our hospital?s policy to screen for HIV and viral Hepatitis for all patients aged 18 and over and those with ongoing risk factors. Louis Inquiry Pt receiving controlled substance: No Vital Signs: 04/14/24 08:28 04/14/24 09:00 04/14/24 09:30 Temperature 97.7 F Temperature Source Oral Pulse Rate 68 77 Pulse Rate [Right] 116 H Respiratory Rate 22 17 Blood Pressure 146/86 H 128/89 Blood Pressure [Right Arm] 146/86 H Blood Pressure Mean [Right Arm] 106 Blood Pressure Source [Right Arm] Automatic Cuff 02 Sat by Pulse Oximetry 95 98 95 Oxygen Delivery Method Room Air Room Air Room Air 04/14/24 10:00 04/14/24 10:30 04/14/24 11:00 Temperature Temperature Source Pulse Rate 77 79 71 Pulse Rate [Right] Respiratory Rate 15 22 19 Blood Pressure 132/75 125/99 H 138/87 Blood Pressure [Right Arm] Blood Pressure Mean [Right Arm] Blood Pressure Source [Right Arm] 02 Sat by Pulse Oximetry 95 97 96 Oxygen Delivery Method Room Air Room Air Room Air Lab Data Lab results reviewed: Yes I reviewed the patient's lab results. Lab Results 04/14/24 08:30: WBC 15.9 H, RBC 4.69, Hgb 11.8 L, Hct 37.7 L, MCV 80.4, MCH 25.2 L, MCHC 31.3 L, RDW 15.2, Plt Count 309, MPV 10.3, Neut % (Auto) 77.7, Lymph % (Auto) 12.8, [place] % (Auto) 7.0, Eos % (Auto) 0.8, Baso % (Auto) 0.7, Neut # (Auto) 12.4 H, Lymph # (Auto) 2.0, [place] # (Auto) 1.1 H, Eos # (Auto) 0.1, Baso # (Auto) 0.1, Total Counted 100, Neutrophils % (Manual) 82 H, Band Neutrophils % 1.0, Lymphocytes % (Manual) 7 L, Monocytes % (Manual) 10 H, Platelet Estimate Normal, RBC Morphology Normal, D-Dimer 0.69 H, Sodium 143, Potassium 4.7, Chloride 105, Carbon Dioxide 24, Anion Gap 18.7 H, BUN 24 H, Creatinine 1.60 H, Estimated GFR 42 L, Est GFR ( Amer) 51 L, Glucose 136 H, Lactate 2.1, Calcium 9.5, Magnesium 1.2 L, Total Bilirubin 0.7, AST 24, ALT 22, Alkaline Phosphatase 69, Troponin I < 0.01, NT-Pro-B Natriuret Pep 7410 H, Total Protein 7.5, Albumin 4.6, Globulin 2.9, Albumin/Globulin Ratio 1.6, Lipase 69, TSH 3.53, Thyroxine (T4) 7.3 04/14/24 08:30 04/14/24 08:30 Orders (Tests/Meds): ED MEDICATIONS Generic Name Dose Route Start Last Admin Trade Name Freq PRN Reason Stop Dose Admin Diltiazem HCl 100 mg/ Sodium 100 mls @ 10 mls/hr 04/14/24 10:48 04/14/24 11:14 Chloride IV 05/14/24 10:47 10 mg/hr .Q10H CEDRICK 10 mls/hr Administration Protocol 10 MG/HR Magnesium Sulfate 2 gm in 50 mls @ 50 mls/hr 04/14/24 10:52 04/14/24 11:14 Magnesium Sulfate 2gm/50ml Premix IV 04/14/24 11:51 50 mls/hr ONCE ONE Administration Discontinued Medications Generic Name Dose Route Start Last Admin Trade Name Freq PRN Reason Stop Dose Admin Aspirin 324 mg 04/14/24 08:29 04/14/24 08:51 Aspirin 81mg Chewable Tablet PO 04/14/24 08:30 324 mg ONCE ONE Administration Belladonna Alkaloids 60 ml 04/14/24 08:29 04/14/24 08:51 Belladonna Alkaloids 60 Ml Ml PO 04/14/24 08:30 60 ml ONCE ONE Administration Diltiazem HCl 10 mg 04/14/24 10:16 04/14/24 10:42 Diltiazem 25mg/5ml Vial IV 04/14/24 10:17 10 mg ONCE ONE Administration Metoprolol Succinate 50 mg 04/14/24 08:29 04/14/24 08:51 Metoprolol Succinate Xl 50mg Tablet PO 04/14/24 08:30 50 mg ONCE ONE Administration Pantoprazole Sodium 40 mg 04/14/24 08:29 04/14/24 08:51 Pantoprazole 40mg Tablet PO 04/14/24 08:30 40 mg ONCE ONE Administration ORDERS Category Date Time Status Cardiology Consult [Consult to Cardiology] [CONS] Cons 04/14/24 10:08 Active Routine CXR 2 view (NOT portable) [XR chest 2V] Stat Exams 04/14/24 08:30 Completed POCUS Point of Care (ER Only) Stat Exams 04/14/24 09:51 Completed BNP [NT Pro Brain Natriuretic Pep.] Stat Lab 04/14/24 08:30 Completed Complete Blood Count Auto Diff Stat Lab 04/14/24 08:30 Completed Comprehensive Metabolic Panel Stat Lab 04/14/24 08:30 Completed D-Dimer Stat Lab 04/14/24 08:30 Completed Lactic Acid Stat Lab 04/14/24 08:30 Completed Lipase Stat Lab 04/14/24 08:30 Completed MAG [Magnesium] Stat Lab 04/14/24 08:30 Completed T4 (Thyroxine) Stat Lab 04/14/24 08:30 Completed TSH [Thyroid Stimulating Hormone] Stat Lab 04/14/24 08:30 Completed Trop I [Troponin I] Stat Lab 04/14/24 08:30 Completed Troponin I Q3H Lab 04/14/24 11:30 Received Troponin I Q3H Lab 04/14/24 14:30 Ordered CA echo doppler complete Stat Y 04/14/24 10:15 Completed ECG Data Tracing #1: I reviewed this ECG and interpreted as documented below: Atrial fibrillation with a ventricular of 98 bpm. No acute STEMI. ECG initial impression date: 04/14/24 ECG initial impression time: 08:27 HEART Score History (anamnesis): Slightly suspicious ECG: Non-specific disturbance Age: >65 years Risk factors: Atherosclerosis history Troponin: </= normal limit HEART Score: 5 Medical Decision Narrative: In summary, this patient is a 79-year-old male presenting to the Emergency Department for evaluation of chest pain and shortness of breath. Differential diagnoses considered include but are not limited to ACS, dysrhythmia, CHF, GERD, esophagitis, peptic ulcer, pancreatitis. Ruling out the most morbid conditions drove assessment. It should be noted patient's history includes extensive cardiovascular disease as well as history of bleeding esophageal ulcer which may or may not be at goal therapy. This complicates all aspects of care by increasing patient's risk for morbidity. I reviewed patient's past medical records and noted recent stenting 04/02/[address] Padgett. I also noted EGD 03/20/2024 with resolution/complete healing and regeneration of prior distal esophageal ulcer and small sliding hiatal hernia. On exam, the patient is lying in bed in no acute distress with normal vitals on cardiac telemetry. He is in atrial fibrillation with a heart rate in the 90s. Cardiopulmonary exam is reassuring, abdominal exam demonstrates mild epigastric tenderness to deep palpation but no rebound or guarding. Cannot use PERC criteria to exclude PE given patient's age, but I feel PE is less likely. Workup included CBC, CMP, lipase, lactic acid, Trope, BNP, D-dimer, chest x-ray, EKG. EKG not concerning for STEMI. Patient was given oral aspirin, GI cocktail, pantoprazole. Given the patient has not taken his home metoprolol and his heart rate in the high 90s upon arrival, I did order his home dose. On reassessment, patient actually had worsening in his heart rate after administration of his home metoprolol with heart rate in the 120s to 130s in A- fib with RVR. O2 saturation 91% on room air. I independently interpreted x-ray prior to the radiologist read and noted concerns for pulmonary edema. Please see their read for final interpretation. Labs were obtained that demonstrated elevated BNP, new from prior. He also has mild leukocytosis, nonspecific. BUN and creatinine around his baseline. I did inform bedside POCUS, and I did not note any evidence of right heart strain with limited views. Images not technically adequate, so I did reach out to cardiology to arrange consultation. Patient is not on anticoagulation for A-fib, but he is status post Watchman device (03/11). I feel he benefit from rate control, as his heart rate is in the 120s to 130s, but will await cardiology recommendations given possible acute heart failure. Additionally, labs demonstrated hypomagnesemia, so I ordered IV magnesium repletion. I had an interactive discussion with Carter JONES with cardiology who advised diltiazem drip and formal echo. These were ordered. Patient had good improvement in heart rate and remained hemodynamically stable with this. He tolerated this very well. I also given 40 mg of IV Lasix to help with diuresis given his pulmonary edema. At this time, I feel that he stable for admission given reassuring vital signs and improvement in heart rate. I had an interactive discussion with Dr. Santiago who admitted the patient in stable condition Critical Care Critical Care Time Critical Care Time: Yes Attestation: On 04/14/24, the high probability of a clinically significant, sudden or life threatening deterioration of the following system(s) required my full and direct attention, intervention and personal management. The time I documented below is in addition to time spent performing reported procedures but includes the following listed in this critical care notation. Total Time Total Critical Care Time: 35
[2024-04-14 08:40] LABS: Basophils # 0.1 K/mm3 (0-0.2); Basophils % 0.7 % (0.1-2.0); Eosinophils # 0.1 K/mm3 (0.0-0.4); Eosinophils % 0.8 % (0.1-12.0); Hematocrit 37.7 % (42.0-52.0); Hemoglobin 11.8 g/dL (14.1-18.0); Lymphocytes % 12.8 % (10-50); Mean Corpuscular HGB Conc 31.3 g/dL (31.8-35.4); Mean Corpuscular Hemoglobin 25.2 pg (27.0-31.2); Mean Corpuscular Volume 80.4 fl (80-94); Mean Platelet Volume 10.3 fl (7.4-10.4); Monocytes # 1.1 K/mm3 (0.1-1.0); Neutrophils # 12.4 K/mm3 (1.8-7.8); Neutrophils % 77.7 % (37.0-80.0); Platelet Count 309 K/mm3 (142-424); Red Blood Count 4.69 M/mm3 (4.60-6.20); Red Cell Distribution Width 15.2 % (11.5-17.5); White Blood Count 15.9 K/mm3 (4.8-10.8)
[2024-04-14 08:43] LABS: MANUAL DIFFERENTIAL MANUAL DIFFERENTIAL (MANUAL DIFF)
[2024-04-14 08:50] LABS: Alanine Aminotransferase 22 U/L (12-78); Albumin Level 4.6 g/dl (3.5-5.0); Albumin/Globulin Ratio 1.6 (1.1-1.8); Alkaline Phosphatase 69 U/L (38-126); Anion Gap 18.7 mEq/L (5-15); Aspartate Amino Transferase 24 U/L (17-59); Bilirubin,Total 0.7 mg/dl (0.2-1.3); Blood Urea Nitrogen 24 mg/dl (9-20); Calcium 9.5 mg/dl (8.4-10.2); Carbon Dioxide 24 mmol/L (22.0-30.0); Chloride 105 mmol/L (98-107); Estimated Glomerular Filt Rate 42 ml/min (>60); GFR (African American) 51 ML/MIN (>60); Globulin 2.9 g/dL (1.3-3.2); Glucose 136 mg/dl (74-100); Lipase 69 U/L (23-300); Potassium 4.7 mmoL/L (3.5-5.1); Sodium 143 mmol/L (136-145); Total Protein,Serum 7.5 g/dl (6.3-8.2)
[2024-04-14 08:51] LABS: Lactic Acid 2.1 mmol/L (0.7-2.1)
[2024-04-14] MEDS: METOPROLOL SUCCINATE XL 50MG TABLET 50 MG PO (08:51)
[2024-04-14] MEDS: ASPIRIN 81MG CHEWABLE TABLET 324 MG PO (08:51)
[2024-04-14] MEDS: BELLADONNA ALKALOIDS 60 ML ML PO (08:51)
[2024-04-14] MEDS: PANTOPRAZOLE 40MG TABLET 40 MG PO (08:51)
[2024-04-14 08:55] LABS: D-Dimer 0.69 ug/mL (0.0-0.5)
[2024-04-14 08:59] LABS: NT Pro Brain Natriuretic Pep. 7410 pg/mL (0-450)
[2024-04-14 09:06] LABS: Troponin I < 0.01 ng/ml (0.00-0.034)
[2024-04-14 09:07] LABS: Lymphocytes % 7 % (10-50); Monocytes % 10 % (2-9); Neutrophils % 82 % (42-76); Total Cells Counted 100
[2024-04-14 09:08] LABS: Platelet Estimate Normal; RBC Morphology Normal
--- NOTE | 2024-04-14 10:01 | PC.NURSE ---
Dr. Shaw at [facility]
--- NOTE | 2024-04-14 10:15 | CA_ITS ---
APPROVED REPORT EXAM: Comprehensive 2D, Doppler, and color-flow Echocardiogram Lip Of Shank Cutter: Kirsten Pavon RDCS Ht: 5 ft 9 in Wt: 210lbs BSA: 2.11 BP: 125/99 mmHg Indications: AF,WATCHMAN,CAD 2D Dimensions LA Volume 93.90 mL LA Volume Index 44.176950 mL/m2 (M/F) 16-34 M-Mode Dimensions RVDd 2.50 cm (0.9-2.6) LA Diam 4.02 cm (1.9-4.0) LVDd 5.94 cm (3.5-5.7) LVDs 5.08 cm (3.5-5.7) IVSd 0.64 cm (0.6-1.1) PWd 0.72 cm (0.6-1.1) EF (Teich) 30.20% FS 14.50% EDV (Teich) 175.90 mL ESV (Teich) 122.70 mL Aortic Valve COLLINS Index 1.00 cm2/m2 AoV Peak Pardeep. 103.0 (50-130 cm/s) AO Peak GR. 4.30 mmHg AO Mean GR. 2.20 (<5 mmHg) AO VTI 14.7 (18-25 cm) COLLINS (VTI) 2.17 (2.5-4.5 cm2) Tricuspid Valve TR P. Velocity 281.00 cm/s RAP Estimate 10.00 mmHg RVSP 41.50 mmHg Left Ventricle The left ventricle is normal size. The left ventricular systolic function is moderately to severely reduced. There is increased LV wall thickness. There is moderate to severe global hypokinesis. diastolic function is indeterminate. LVEF is 30%. Right Ventricle The right ventricle is normal size. Right ventricle is mildly hypokinetic. Atria The left atrium is mildly dilated. Right atrium is mildly dilated. There is no Doppler evidence of interatrial shunt. Aortic Valve The aortic valve is mildly thickened. There is no aortic valvular stenosis. Trace aortic regurgitation. Mitral Valve The mitral valve is normal in structure. No evidence of mitral valve stenosis. Trace mitral regurgitation. Tricuspid Valve Tricuspid valve is grossly normal in structure and function. Mild tricuspid regurgitation. RVSP is 20-25 mmHg. Pulmonic Valve The pulmonary valve is normal in structure. Trace pulmonic regurgitation. Great Vessels The aortic root is normal in size. IVC is normal in size and collapses >50% with inspiration. Pericardium There is no pericardial effusion. Other Information Study Quality: Fair Conclusion Moderate to severe reduction global LV systolic function (LVEF 30%). Normal RV size with mildly reduced RV function. Biatrial dilation. Mild TR. Of note, the patient is in A-fib/RVR at the time of image acquisition. Electronically signed by : Swapna Fitzpatrick MD 04/15/2024 11:12:34
[2024-04-14 10:19] LABS: Magnesium 1.2 mg/dl (1.6-2.3)
[2024-04-14 10:37] LABS: T4 (Thyroxine) 7.3 ug/dl (5.53-11.0)
[2024-04-14] MEDS: dilTIAZem 25MG/5ML VIAL 10 MG IV (10:42)
[2024-04-14 10:51] LABS: Thyroid Stimulating Hormone 3.53 uIU/mL (0.465-4.68)
[2024-04-14] MEDS: MAGNESIUM SULFATE IN WATER 2 GM/50 ML PIGGYBACK IV (11:14)
[2024-04-14] MEDS: dilTIAZem HCL 100 MG in 0.9 % SODIUM CHLORIDE 100 ML 10 MG IV (11:14)
--- NOTE | 2024-04-14 11:21 | PC.NURSE ---
pt received lunch tray and is sitting up in bed eating with family at [facility]
--- NOTE | 2024-04-14 11:32 | PC.NURSE ---
PUMPER GAUGER NOTIFIED OF ADMISSION
--- NOTE | 2024-04-14 11:40 | HMH.PHAINT1 ---
Pharmacy Intervention Comments: MEDICATION RECONCILIATION COMPLETED ON PATIENT USING EXTERNAL FILL HISTORY FROM PHARMACY AND LIST FROM CARDIOLOGY OFFICE. -EILEEN BALDERRAMA, FANTASMAD
--- NOTE | 2024-04-14 12:01 | PC.NURSE ---
received report from Eddie ALTAMIRANO
--- NOTE | 2024-04-14 12:05 | PC.NURSE ---
called report to melissa nj
--- NOTE | 2024-04-14 12:09 | PC.NURSE ---
pt going to 2nd floor for admission via WC with ADARSH Shay and family.
[2024-04-14 12:12] LABS: Troponin I < 0.01 ng/ml (0.00-0.034)
--- NOTE | 2024-04-14 12:15 | PC.NURSE ---
PT ARRIVED TO UNIT VIA WHEELCHAIR WITH
[2024-04-14 12:37] LABS: Reflex Lactic Add Lactic Reflex
[2024-04-14 13:28] LABS: Lactic Acid Follow Up (RFLX 1) 1.5 mmol/L (0.7-2.1)
[2024-04-14] MEDS: FUROSEMIDE 40MG/4ML VIAL 40 MG IV (13:56)
--- NOTE | 2024-04-14 14:36 | P.PN_ITS ---
Subjective Subjective Date: 04/14/24 Time: 15:08 Interval history: 79-year-old white male well-established patient of our office with history of multivessel CAD, paroxysmal atrial fibrillation, GI bleeding status post transfusion and Watchman device last year. Patient presented to the office recently with worsening dyspnea on exertion and substernal chest discomfort. He had abnormal stress testing and was sent for left heart cath. Successful stenting of left circumflex last week. Patent stents in LAD and RCA. Patient returns to the emergency room today complaining of ongoing weakness and inability to ambulate from room to room at home associated with shortness of breath chest discomfort and a dry cough. In the emergency room he was found to be in A-fib RVR with rates as high as 140. His proBNP was elevated at 7000 and chest x-ray revealed pulmonary edema. White blood cell count 15.9, D-dimer 0.69. We started IV Cardizem in the emergency room and he was given 1 dose of Lasix and reports mild improvement in symptoms. Exam Data for Last 24 hours Vital signs and Labs for Last 24 Hours: Temp Pulse Resp BP Pulse Ox O2 Del Method 98.2 F 75 20 125/83 96 Room Air 04/14/24 12:04 04/14/24 12:04 04/14/24 12:04 04/14/24 12:04 04/14/24 11:00 04/14/24 13:10 Laboratory Results - last 24 hr 04/14/24 08:30: WBC 15.9 H, RBC 4.69, Hgb 11.8 L, Hct 37.7 L, MCV 80.4, MCH 25.2 L, MCHC 31.3 L, RDW 15.2, Plt Count 309, MPV 10.3, Neut % (Auto) 77.7, Lymph % (Auto) 12.8, [place] % (Auto) 7.0, Eos % (Auto) 0.8, Baso % (Auto) 0.7, Neut # (Auto) 12.4 H, Lymph # (Auto) 2.0, [place] # (Auto) 1.1 H, Eos # (Auto) 0.1, Baso # (Auto) 0.1, Total Counted 100, Neutrophils % (Manual) 82 H, Band Neutrophils % 1 .0, Lymphocytes % (Manual) 7 L, Monocytes % (Manual) 10 H, Platelet Estimate Normal, RBC Morphology Normal, D-Dimer 0.69 H, Sodium 143, Potassium 4.7, Chloride 105, Carbon Dioxide 24, Anion Gap 18.7 H, BUN 24 H, Creatinine 1.60 H, Estimated GFR 42 L, Est GFR ( Amer) 51 L, Glucose 136 H, Lactate 2.1, Calcium 9.5, Magnesium 1.2 L, Total Bilirubin 0.7, AST 24, ALT 22, Alkaline Phosphatase 69, Troponin I < 0.01, NT-Pro-B Natriuret Pep 7410 H, Total Protein 7.5, Albumin 4.6, Globulin 2.9, Albumin/Globulin Ratio 1.6, Lipase 69, TSH 3.53, Thyroxine (T4) 7.3 04/14/24 11:30: Troponin I < 0.01 04/14/24 13:10: Lactate 1.5 I & O for Last 24 hours: Intake & Output 04/11/24 04/12/24 04/13/24 04/14/24 23:59 23:59 23:59 23:59 Intake Total 240 / 240 Balance 240 / 240 Weight 210 lb Constitutional Constitutional: no acute distress and cooperative *Routine HEENT Exam Eye: Present PERRL *Routine Respiratory Exam Respiratory: Present CTA bilaterally; Absent accessory muscle use, wheezes or crackles *Routine Cardiovascular Exam Cardiovascular: Present RRR, Normal S1 and Normal S2; Absent murmur, gallop or rubs *Routine Abdominal Exam Abdominal: Present soft; Absent tenderness *Routine Extremities Exam Extremities: Present pulses intact; Absent cyanosis or edema *Routine Skin Exam Skin: Present intact; Absent erythema or wounds *Routine Neurological Exam Neurological: Present alert and oriented X3 Routine Psychiatric Exam Psychiatric: Present cooperative Progress Note: A&P Assessment and plan (1) Acute CHF: Status: Acute (2) Atrial fibrillation with RVR: Status: Acute (3) Pulmonary edema: Status: Acute (4) Hypomagnesemia: Status: Acute (5) CAD (coronary artery disease): Status: Acute (6) History of GI bleed: Status: Acute Assessment and Plan Assessment and Plan for All Diagnoses:: A-fib RVR - known PAF, typically well controlled, never had DCCV - CHADs-VASC = 4, no OAC due to GI bleeds. He is s/p Watchman 2023 - resume home dose Metoprolol, continue IV Cardizem, keep NPO over night, consider DORIAN/DCCV tomorrow HFpEF - historically normal EF, presented here with MAHAJAN, ProBNP 7k, bilateral pulm edema on CXR - ECHO 12/19: normal bi-v function, mild biatrial dilation, mild MR, mild TR - s/p Lasix IV x1 - add Jardiance - repeat ECHO CAD s/p multiple FERN, last was 04/03/24 - patient states his CP and SOA no better post cath - EKG today - A-fib 98bpm - nml serial Trop - resume home dose DAPT, BB, Statin Leukocytosis with Cough - check for Flu/COVID Elevated D-Dimer with CP and MAHAJAN - check CTA Hx of GI Bleed with Gastric Ulcer s/p transfusion and banding 11/2023 - healed ulcer per EGD 02/2024
[2024-04-14 15:14] LABS: Troponin I < 0.01 ng/ml (0.00-0.034)
--- NOTE | 2024-04-14 15:18 | CT_ITS ---
PROCEDURE INFORMATION: Exam: CTA Chest With Contrast Exam date and time: 04/14/2024 5:58 PM Age: 79 years old Clinical indication: Abnormal findings; Abnormal diagnostic tests; Elevated d-dimer; Additional info: Flanagan, elevated d-dimer TECHNIQUE: Imaging protocol: Computed tomographic angiography of the chest with contrast. Exam focused on the arteries. 3D rendering (Not supervised by radiologist): MIP and/or 3D reconstructed images were created by the technologist. Radiation optimization: All CT scans at this facility use at least one of these dose optimization techniques: automated exposure control; mA and/or kV adjustment per patient size (includes targeted exams where dose is matched to clinical indication); or iterative reconstruction. Contrast material: ISO 370; Contrast volume: 80 ml; Contrast route: INTRAVENOUS (IV); COMPARISON: CR XR CHEST 2V 04/14/2024 8:46 AM FINDINGS: Tubes, catheters and devices: Left atrial occlusion device in place. Pulmonary arteries: No CT angiography evidence of pulmonary embolism. Aorta: There is moderate calcific atherosclerotic disease of the thoracic aorta without aneurysmal dilatation. Lungs: Compressive atelectasis of the lungs. Pleural spaces: Moderate bilateral pleural effusions are present. Heart: Unremarkable. No cardiomegaly. No pericardial effusion. Coronary arteries: Severe three-vessel calcific atherosclerotic disease of the coronary arteries. Lymph nodes: Prominent mediastinal and hilar lymph nodes are likely reactive. Bones/joints: Moderate loss of intervertebral disc space with degenerative changes involving the mid to lower thoracic spine. Soft tissues: Unremarkable. IMPRESSION: 1. Moderate bilateral pleural effusions with compressive atelectasis. 2. No CT angiography evidence of pulmonary embolism.
--- NOTE | 2024-04-14 15:19 | EXP.HP ---
History of Present Illness *Admission Date: 04/14/24 *Reason for visit:: chest pain *History of present illness: Mr. Garcia is an 79-year-old male with a cardiac history of stent placement by Dr. Padgett in 04/02/2024 and placement of a Watchman in March 11, [address] Hogan. He also has a history of GERD, ulcers, anemia, renal insufficiency, hypertension, and chronic atrial fibrillation. Patient and state he has not felt well for the past week. He has not been eating and drinking as usual. He denies nausea and vomiting and diarrhea and no fever. He describes being dizzy when he stands and for the last 3 to 4 days he has been short of breath with intermittent chest pain. He has had no heartburn but has had a lot of gas. He denies any melena or hematochezia or hematemesis. Today the chest pain was worse. He describes it as across his anterior chest as a heaviness radiating and through to the back. He is short of breath with this. He denies any other upper respiratory symptoms. He states he always has palpitations and these have been no worse. Chest x-ray today reveals the following: FINDINGS: PA and lateral views of the chest are obtained. There is no prior exam for comparison. The cardiac and mediastinal silhouettes are within normal limits. There are increased interstitial markings with small bilateral pleural effusions. There is bilateral lower lobe atelectasis. The findings are favored to be related to pulmonary edema, interstitial pneumonia not excluded. There is no pneumothorax or acute osseous abnormality. IMPRESSION: Bilateral interstitial opacities with bilateral lower lobe atelectasis and small effusions, favor pulmonary edema but pneumonia not excluded. note from adm [facility] ER as follows: HEART Score History (anamnesis): Slightly suspicious ECG: Non-specific disturbance Age: >65 years Risk factors: Atherosclerosis history Troponin: </= normal limit HEART Score: 5 Medical Decision Narrative: In summary, this patient is a 79-year-old male presenting to the Emergency Department for evaluation of chest pain and shortness of breath. Differential diagnoses considered include but are not limited to ACS, dysrhythmia, CHF, GERD, esophagitis, peptic ulcer, pancreatitis. Ruling out the most morbid conditions drove assessment. It should be noted patient's history includes extensive cardiovascular disease as well as history of bleeding esophageal ulcer which may or may not be at goal therapy. This complicates all aspects of care by increasing patient's risk for morbidity. I reviewed patient's past medical records and noted recent stenting 04/02/[address] Padgett. I also noted EGD 03/20/2024 with resolution/complete healing and regeneration of prior distal esophageal ulcer and small sliding hiatal hernia. On exam, the patient is lying in bed in no acute distress with normal vitals on cardiac telemetry. He is in atrial fibrillation with a heart rate in the 90s. Cardiopulmonary exam is reassuring, abdominal exam demonstrates mild epigastric tenderness to deep palpation but no rebound or guarding. Cannot use PERC criteria to exclude PE given patient's age, but I feel PE is less likely. Workup included CBC, CMP, lipase, lactic acid, Trope, BNP, D-dimer, chest x-ray, EKG. EKG not concerning for STEMI. Patient was given oral aspirin, GI cocktail, pantoprazole. Given the patient has not taken his home metoprolol and his heart rate in the high 90s upon arrival, I did order his home dose. On reassessment, patient actually had worsening in his heart rate after administration of his home metoprolol with heart rate in the 120s to 130s in A-fib with RVR. O2 saturation 91% on room air. I independently interpreted x-ray prior to the radiologist read and noted concerns for pulmonary edema. Please see their read for final interpretation. Labs were obtained that demonstrated elevated BNP, new from prior. He also has mild leukocytosis, nonspecific. BUN and creatinine around his baseline. I did inform bedside POCUS, and I did not note any evidence of right heart strain with limited views. Images not technically adequate, so I did reach out to cardiology to arrange consultation. Patient is not on anticoagulation for A-fib, but he is status post Watchman device (03/11). I feel he benefit from rate control, as his heart rate is in the 120s to 130s, but will await cardiology recommendations given possible acute heart failure. Additionally, labs demonstrated hypomagnesemia, so I ordered IV magnesium repletion. I had an interactive discussion with Carter JONES with cardiology who advised diltiazem drip and formal echo. These were ordered. Patient had good improvement in heart rate and remained hemodynamically stable with this. He tolerated this very well. I also given 40 mg of IV Lasix to help with diuresis given his pulmonary edema. At this time, I feel that he stable for admission given reassuring vital signs and improvement in heart rate. I had an interactive discussion with Dr. Santiago who admitted the patient in stable condition [facility] Disclaimer: The information contained in this section may have been updated after the patient was seen, as this information can be updated by other users. Medical History CAD (coronary artery disease) Dyspnea Atypical angina Atrial fibrillation Pneumonia Pain in wrist Sinusitis Typical angina Atypical chest pain Left leg pain Acute urinary retention HLD (hyperlipidemia) PAF (paroxysmal atrial fibrillation) Palpitations Abnormal result of cardiovascular function study Dizziness Daytime somnolence Chest pain ROQUE (obstructive sleep apnea) HTN (hypertension) Ex-smoker Surgical History History of cataract surgery History of esophagogastroduodenoscopy (EGD) History of colonoscopy History of carpal tunnel release H/O cardiac catheterization H/O neck surgery History of back surgery History of knee replacement Family History Other Cancer Social History (Updated 04/14/24 @ 12:59 by Laurita Horton RN) Smoking Status: Former smoker tobacco type: cigarettes alcohol intake: never counseling provided: none substance use type: denies use current occupational status: retired and disabled Travel in the last 8 weeks: Inside the [place] household members: spouse and other housing: house caffeine: Yes Have you lived/traveled outside [place] in past 30 days?: No Contact w/someone who lives/traveled outside [place] past 30 days?: No Exposure to someone with infectious disease in past 14 days?: No Do you have a fever (greater than 100.4 F or 38 C)?: No Have you tested positive for COVID-19: No Exposed to someone with COVID-19 in past 14 days?: No Do you have a sore throat?: No Do you have a cough?: No Do you have any weakness?: No Do you have any diarrhea?: No Are you experiencing any unusual bleeding?: No Do you have any muscle aches/pain?: No Do you have any abdominal pain?: No Are you experiencing loss of taste or smell?: No Other Medical History Have you received the Flu Vaccine for this season: Yes Have you received the Pneumonia Vaccine: Yes Review of Systems Constitutional Constitutional: Reports fatigue, Denies fever(s), Reports headache(s), Reports poor appetite and Reports lethargy Eyes Eyes: Denies change in vision ENT Ears, Nose, Mouth, and Throat: Reports dizziness, Reports dry mouth, Denies otalgia, Reports headache(s) and Denies sore throat *Cardiovascular Cardiovascular: Reports chest pain at rest, Reports dyspnea, Denies edema, Reports irregular heart rhythm and Denies leg edema *Respiratory Respiratory: Reports chest congestion, Reports cough and Reports dyspnea *Gastrointestinal Gastrointestinal: Reports abdominal pain (like a hole in his stomach), Reports belching, Reports bloating, Denies change in bowel habits, Denies constipation, Denies dyspepsia, Denies hematochezia, Denies melena, Denies nausea and Denies vomiting *Genitourinary Genitourinary: Denies difficulty urinating *Musculoskeletal Musculoskeletal: Reports arthralgias (back) and Reports back pain *Neurologic Neurologic: Reports dizziness and Reports headache(s) Endocrine Endocrine: Reports fatigue Meds Home Medications and Allergies Home Medications ?Medication ?Instructions ?Recorded ?Confirmed ?Type tamsulosin 0.4 mg capsule 0.4 mg PO HS 09/21/22 04/14/24 History nitroglycerin 0.4 mg sublingual 0.4 mg sublingual Q5-15M PRN chest 06/04/23 04/14/24 Rx tablet pain #30 tabs aspirin 81 mg tablet,delayed 81 mg PO DAILY 03/18/24 04/14/24 History release clopidogrel 75 mg tablet 75 mg PO DAILY 03/18/24 04/14/24 History ferrous gluconate 324 mg (38 mg 324 mg PO DAILY 03/18/24 04/14/24 History iron) tablet pantoprazole 40 mg tablet,delayed 40 mg PO DAILY 03/18/24 04/14/24 History release atorvastatin 40 mg tablet (Lipitor) 40 mg PO HS 30 days #30 tabs 04/02/24 04/14/24 Rx metoprolol succinate 100 mg 50 mg (1/2 x 100 mg) PO BID #30 04/09/24 04/14/24 Rx tablet,extended release 24 hr tabs New Prescriptions to Start Prescriptions: Allergies Allergy/AdvReac Type Severity Reaction Status Date / Time tolmetin (TOLMETIN) Allergy Intermediate Unknown Verified 04/14/24 12:51 allergy reaction Exam Data for Last 24 hours Vital signs and Labs for Last 24 Hours: Temp Pulse Resp BP Pulse Ox O2 Del Method 98.2 F 78 16 101/78 L 93 L Room Air 04/14/24 12:15 04/14/24 14:00 04/14/24 14:00 04/14/24 14:00 04/14/24 14:00 04/14/24 14:00 Laboratory Results - last 24 hr 04/14/24 08:30: WBC 15.9 H, RBC 4.69, Hgb 11.8 L, Hct 37.7 L, MCV 80.4, MCH 25.2 L, MCHC 31.3 L, RDW 15.2, Plt Count 309, MPV 10.3, Neut % (Auto) 77.7, Lymph % (Auto) 12.8, [place] % (Auto) 7.0, Eos % (Auto) 0.8, Baso % (Auto) 0.7, Neut # (Auto) 12.4 H, Lymph # (Auto) 2.0, [place] # (Auto) 1.1 H, Eos # (Auto) 0.1, Baso # (Auto) 0.1, Total Counted 100, Neutrophils % (Manual) 82 H, Band Neutrophils % 1.0, Lymphocytes % (Manual) 7 L, Monocytes % (Manual) 10 H, Platelet Estimate Normal, RBC Morphology Normal, D-Dimer 0.69 H, Sodium 143, Potassium 4.7, Chloride 105, Carbon Dioxide 24, Anion Gap 18.7 H, BUN 24 H, Creatinine 1.60 H, Estimated GFR 42 L, Est GFR ( Amer) 51 L, Glucose 136 H, Lactate 2.1, Calcium 9.5, Magnesium 1.2 L, Total Bilirubin 0.7, AST 24, ALT 22, Alkaline Phosphatase 69, Troponin I < 0.01, NT-Pro-B Natriuret Pep 7410 H, Total Protein 7.5, Albumin 4.6, Globulin 2.9, Albumin/Globulin Ratio 1.6, Lipase 69, TSH 3.53, Thyroxine (T4) 7.3 04/14/24 11:30: Troponin I < 0.01 04/14/24 13:10: Lactate 1.5 04/14/24 14:24: Troponin I < 0.01 I & O for Last 24 hours: Intake & Output 04/12/24 04/13/24 04/14/24 04/15/24 11:59 11:59 11:59 11:59 Intake Total 273.667 / 273.667 Balance 273.667 / 273.667 Weight 210 lb Constitutional Constitutional: no acute distress Comments: Sitting up in the bed with numerous family members present. He appears most comfortable *Routine HEENT Exam Head: Present normocephalic and atraumatic Eye: Present PERRL; Absent conjunctival icterus, scleral injection or conjunctivae pink ENT: Present mucous membranes moist and oropharynx clear *Routine Neck Exam Neck: Present supple; Absent carotid bruit, lymphadenopathy or thyromegaly *Routine Respiratory Exam Respiratory: Present crackles (Few bibasilar crackles) *Routine Cardiovascular Exam Cardiovascular: Present irregular rhythm Comments: Monitor shows atrial fibs with a controlled ventricular response in the 70s *Routine Abdominal Exam Abdominal: Present normoactive bowel sounds, distended and obese; Absent tenderness, rebound or guarding *Routine Rectal Exam Rectal:: deferred *Routine Genitalia Exam Genitalia:: deferred *Routine Extremities Exam Extremities: Present full ROM and pulses intact; Absent edema or calf tenderness *Routine Neurological Exam Neurological: Present alert and oriented X3 Assessment and Plan *Assessment and plan (1) Atrial fibrillation with RVR: Status: Acute Category: Medical Code(s): I48.91 - Unspecified atrial fibrillation (2) Pulmonary edema: Status: Acute Category: Medical Code(s): J81.1 - Chronic pulmonary edema (3) Acute CHF: Status: Acute Category: Medical Code(s): I50.9 - Heart failure, unspecified (4) CAD (coronary artery disease): Status: Acute Qualifiers: Coronary Disease-Associated Artery/Lesion type: [place] artery [place] vs. transplanted heart: [place] heart Associated angina: with stable angina Qualified Code(s): I25.118 - Atherosclerotic heart disease of [place] coronary artery with other forms of angina pectoris Category: Medical Code(s): I25.10 - Atherosclerotic heart disease of [place] coronary artery without angina pectoris (5) Dyspnea: Status: Acute Qualifiers: Dyspnea type: dyspnea on exertion Qualified Code(s): R06.00 - Dyspnea, unspecified Category: Medical Code(s): R06.00 - Dyspnea, unspecified (6) Atypical angina: Status: Acute Category: Medical Code(s): I20.89 - Other forms of angina pectoris (7) History of GI bleed: Status: Acute Category: Medical Code(s): Z87.19 - Personal history of other diseases of the digestive system (8) History of esophageal ulcer: Status: Acute Category: Medical Code(s): Z87.19 - Personal history of other diseases of the digestive system (9) Renal insufficiency: Status: Acute Category: Medical Code(s): N28.9 - Disorder of kidney and ureter, unspecified Plan Patient was started on a Cardizem drip and with controlled ventricular response is nursing is now weaning him from this. He has been seen by Dr. Santiago and cardiology and will follow their directions on cardiac med. Patient has had Lasix but has not yet voided. Troponin I's have been normal thus far. Will continue to monitor.
[2024-04-14] MEDS: EMPAGLIFLOZIN 10MG TABLET 10 MG PO (15:30)
[2024-04-14 16:26] LABS: Coronavirus 19, PCR Not Detected (NotDetected); Influenza A, PCR Not Detected (NotDetected); Influenza B, PCR Not Detected (NotDetected)
--- NOTE | 2024-04-14 17:04 | HMH.ITSTN ---
spoke to nurse in ICU, pt needs second IV and dye house worker will have to bring pt down. they stated they would call us when ready
--- NOTE | 2024-04-14 17:42 | PC.NURSE ---
PT TRANSPORTED TO CT VIA WHEELCHAIR Kavitha CHAVEZ RN
[2024-04-14] MEDS: SODIUM CHLORIDE 0.9% 10ML SYR (RAD ONLY) 10 ML IV (17:58)
[2024-04-14] MEDS: IOPAMIDOL-370 (76%);100ML BOTTLE 80 ML IV (17:58)
[2024-04-14] MEDS: 0.9 % SODIUM CHLORIDE 50 ML VIAL IV (17:58)
[2024-04-15] VITALS (11 sets, daily range): BP systolic 110–140; BP diastolic 69–101; PULSE 57–120; RESP 14–20; TEMP 36.4–36.8; O2SAT 91–97; BMI 29.0
[2024-04-15] MEDS: dilTIAZem HCL 100 MG in 0.9 % SODIUM CHLORIDE 100 ML IV (01:46)
--- NOTE | 2024-04-15 04:30 | PC.NURSE ---
Proivder called due to pt heart rate going into 50s- upper 40s while still on dilt drip. provider stated to stop dilt drip. Dilt drip was stopped, no po given per provider. HR- 65 / still in A-Fib
--- NOTE | 2024-04-15 07:52 | EXP.ACUTE.PN ---
Subjective *Date: 04/15/24 *Time: 14:24 Interval history: Patient states he feels about the same today. He has shortness of breath with minimal exertion. He has continued to have some intermittent anterior chest pain. He did eat all of his dinner last night. Patient is off Cardizem drip. He is n.p.o. currently for cardioversion. CT of chest yesterday was negative for PE. Echo report is pending. Stat labs ordered. Weight loss noted Medical Exam Vital signs and Labs for Last 24 Hours: Vital Signs Temp Pulse Pulse Resp BP BP Pulse Ox 04/15/24 06:30 04/15/24 06:00 71 20 96 04/15/24 06:00 132/101 H 04/15/24 05:00 04/15/24 04:01 129/76 04/15/24 04:00 70 04/15/24 04:00 98.0 F 64 14 97 04/15/24 03:00 04/15/24 02:00 65 93 L 04/15/24 02:00 122/81 04/15/24 02:00 59 L 15 94 L 04/15/24 01:00 04/15/24 00:01 129/93 H 04/15/24 00:01 57 L 17 92 L 04/15/24 00:00 60 04/14/24 23:00 04/14/24 22:06 136/83 04/14/24 22:00 64 22 95 04/14/24 21:00 04/14/24 20:00 70 04/14/24 20:00 67 23 92 L 04/14/24 20:00 133/82 04/14/24 20:00 68 92 L 04/14/24 18:57 04/14/24 18:12 73 18 139/81 93 L 04/14/24 17:05 04/14/24 17:02 78 27 H 128/91 H 97 04/14/24 16:20 04/14/24 16:00 70 04/14/24 16:00 70 18 136/79 94 L 04/14/24 15:39 98.0 F 71 18 143/85 H 94 L 04/14/24 15:05 04/14/24 14:00 78 16 101/78 L 93 L 04/14/24 13:10 04/14/24 12:28 60 04/14/24 12:20 04/14/24 12:15 98.2 F 72 16 131/82 94 L 04/14/24 12:04 98.2 F 75 20 125/83 04/14/24 11:00 71 19 138/87 96 04/14/24 10:30 79 22 125/99 H 97 04/14/24 10:00 77 15 132/75 95 04/14/24 09:30 77 17 128/89 95 04/14/24 09:00 68 146/86 H 98 04/14/24 08:28 97.7 F 116 H 22 146/86 H 95 O2 Del Method O2 Flow Rate 04/15/24 06:30 Room Air 04/15/24 06:00 Room Air 04/15/24 06:00 04/15/24 05:00 Nasal Cannula 2 04/15/24 04:01 04/15/24 04:00 04/15/24 04:00 04/15/24 03:00 Nasal Cannula 2 04/15/24 02:00 Nasal Cannula 2 04/15/24 02:00 04/15/24 02:00 Nasal Cannula 2 04/15/24 01:00 Nasal Cannula 2 04/15/24 00:01 04/15/24 00:01 04/15/24 00:00 04/14/24 23:00 Nasal Cannula 2 04/14/24 22:06 04/14/24 22:00 04/14/24 21:00 Room Air 04/14/24 20:00 04/14/24 20:00 Room Air 04/14/24 20:00 04/14/24 20:00 Room Air 04/14/24 18:57 Room Air 04/14/24 18:12 Room Air 04/14/24 17:05 Room Air 04/14/24 17:02 Room Air 04/14/24 16:20 Room Air 04/14/24 16:00 04/14/24 16:00 Room Air 04/14/24 15:39 Room Air 04/14/24 15:05 Room Air 04/14/24 14:00 Room Air 04/14/24 13:10 Room Air 04/14/24 12:28 04/14/24 12:20 Room Air 04/14/24 12:15 Room Air 04/14/24 12:04 Room Air 04/14/24 11:00 Room Air 04/14/24 10:30 Room Air 04/14/24 10:00 Room Air 04/14/24 09:30 Room Air 04/14/24 09:00 Room Air 04/14/24 08:28 Room Air Intake and Output 04/14/24 04/15/24 04/15/24 19:59 03:59 11:59 Intake Total 633.667 / 633.667 55.833 / 689.500 13.667 / 703.167 Output Total 250 / 250 900 / 1150 700 / 1850 Balance 383.667 / 383.667 -844.167 / -460.500 -686.333 / -1146.833 Intake: Intake, Oral Amount 600 / 600 Intake, Total IV Amount 33.667 / 33.667 55.833 / 89.500 13.667 / 103.167 Output: Output, Urine Amount 250 / 250 900 / 1150 700 / 1850 Other: Weight 196 lb 8 oz Patient Weight 04/15/24 11:59 Weight 196 lb 8 oz Laboratory Results - last 24 hr 04/14/24 08:30: WBC 15.9 H, RBC 4.69, Hgb 11.8 L, Hct 37.7 L, MCV 80.4, MCH 25.2 L, MCHC 31.3 L, RDW 15.2, Plt Count 309, MPV 10.3, Neut % (Auto) 77.7, Lymph % (Auto) 12.8, [place] % (Auto) 7.0, Eos % (Auto) 0.8, Baso % (Auto) 0.7, Neut # (Auto) 12.4 H, Lymph # (Auto) 2.0, [place] # (Auto) 1.1 H, Eos # (Auto) 0.1, Baso # (Auto) 0.1, Total Counted 100, Neutrophils % (Manual) 82 H, Band Neutrophils % 1.0, Lymphocytes % (Manual) 7 L, Monocytes % (Manual) 10 H, Platelet Estimate Normal, RBC Morphology Normal, D-Dimer 0.69 H, Sodium 143, Potassium 4.7, Chloride 105, Carbon Dioxide 24, Anion Gap 18.7 H, BUN 24 H, Creatinine 1.60 H, Estimated GFR 42 L, Est GFR ( Amer) 51 L, Glucose 136 H, Lactate 2.1, Calcium 9.5, Magnesium 1.2 L, Total Bilirubin 0.7, AST 24, ALT 22, Alkaline Phosphatase 69, Troponin I < 0.01, NT-Pro-B Natriuret Pep 7410 H, Total Protein 7.5, Albumin 4.6, Globulin 2.9, Albumin/Globulin Ratio 1.6, Lipase 69, TSH 3.53, Thyroxine (T4) 7.3 04/14/24 11:30: Troponin I < 0.01 04/14/24 13:10: Lactate 1.5 04/14/24 14:24: Troponin I < 0.01 04/14/24 15:30: SARS-CoV-2 (PCR) Not detected, Influenza A Untype (PCR) Not detected, Influenza Type B (PCR) Not detected I & O for Labs for Last 24 Hours: Intake & Output 04/12/24 04/13/24 04/14/24 04/15/24 11:59 11:59 11:59 11:59 Intake Total 703.167 / 703.167 Output Total 1850 / 1850 Balance -1146.833 / -1146.833 Weight 210 lb 196 lb 8 oz Constitutional: Present no acute distress Comment:: Sitting up in the bed watching TV. Appears comfortable. at bedside. Respiratory: Present CTA bilaterally (Anteriorly and posteriorly) Cardiac: Present pedal pulses present; Absent Regular Rhythm (Monitor showing atrial fibs with a controlled ventricular response in the 70s) GI: Present distention (Distention versus large abdomen) and normal bowel sounds; Absent tenderness or guarding Extremities: Absent tenderness, edema or calf tenderness Neuro: Present alert, awake and oriented x 3 Assessment and Plan *Assessment and plan (1) Atrial fibrillation with RVR: Status: Acute Category: Medical Code(s): I48.91 - Unspecified atrial fibrillation (2) Pulmonary edema: Status: Acute Category: Medical Code(s): J81.1 - Chronic pulmonary edema (3) Acute CHF: Status: Acute Category: Medical Code(s): I50.9 - Heart failure, unspecified (4) CAD (coronary artery disease): Status: Acute Qualifiers: Associated angina: with stable angina Coronary Disease-Associated Artery/Lesion type: [place] artery [place] vs. transplanted heart: [place] heart Qualified Code(s): I25.118 - Atherosclerotic heart disease of [place] coronary artery with other forms of angina pectoris Category: Medical Code(s): I25.10 - Atherosclerotic heart disease of [place] coronary artery without angina pectoris (5) Dyspnea: Status: Acute Qualifiers: Dyspnea type: dyspnea on exertion Qualified Code(s): R06.00 - Dyspnea, unspecified Category: Medical Code(s): R06.00 - Dyspnea, unspecified (6) Atypical angina: Status: Acute Category: Medical Code(s): I20.89 - Other forms of angina pectoris (7) History of GI bleed: Status: Acute Category: Medical Code(s): Z87.19 - Personal history of other diseases of the digestive system (8) History of esophageal ulcer: Status: Acute Category: Medical Code(s): Z87.19 - Personal history of other diseases of the digestive system (9) Renal insufficiency: Status: Acute Category: Medical Code(s): N28.9 - Disorder of kidney and ureter, unspecified Plan Plan is for cardioversion today with possible DORIAN.
[2024-04-15] MEDS: EMPAGLIFLOZIN 10MG TABLET 10 MG PO (08:58)
[2024-04-15 09:07] LABS: MANUAL DIFFERENTIAL MANUAL DIFFERENTIAL (MANUAL DIFF)
[2024-04-15 09:09] LABS: Basophils # 0.1 K/mm3 (0-0.2); Basophils % 0.7 % (0.1-2.0); Eosinophils # 0.2 K/mm3 (0.0-0.4); Eosinophils % 1.5 % (0.1-12.0); Hematocrit 33.7 % (42.0-52.0); Hemoglobin 10.7 g/dL (14.1-18.0); Lymphocytes # 1.8 K/mm3 (0.7-4.5); Lymphocytes % 16.8 % (10-50); Mean Corpuscular HGB Conc 31.8 g/dL (31.8-35.4); Mean Corpuscular Hemoglobin 24.8 pg (27.0-31.2); Mean Platelet Volume 10.1 fl (7.4-10.4); Monocytes # 0.9 K/mm3 (0.1-1.0); Monocytes % 8.4 % (1.7-9.3); Neutrophils # 7.6 K/mm3 (1.8-7.8); Neutrophils % 71.7 % (37.0-80.0); Platelet Count 298 K/mm3 (142-424); Red Blood Count 4.32 M/mm3 (4.60-6.20); Red Cell Distribution Width 15.1 % (11.5-17.5); White Blood Count 10.7 K/mm3 (4.8-10.8)
[2024-04-15 09:20] LABS: Magnesium 2.4 mg/dl (1.6-2.3)
[2024-04-15] MEDS: CLOPIDOGREL 75MG TAB 75 MG PO (10:09)
[2024-04-15] MEDS: METOPROLOL TARTRATE 50MG TABLET 100 MG PO ×2 (10:09→21:53)
[2024-04-15] MEDS: ASPIRIN EC 81MG TABLET 81 MG PO (10:09)
[2024-04-15 11:42] LABS: Eosinophils % 4 % (0-3); Lymphocytes % 19 % (10-50); Monocytes % 6 % (2-9); Neutrophils % 70 % (42-76); Total Cells Counted 100
[2024-04-15 11:43] LABS: Platelet Estimate Normal; RBC Morphology Normal
--- NOTE | 2024-04-15 12:38 | P.PN_ITS ---
Subjective Subjective Date: 04/15/24 Time: 09:30 Principal diagnosis: HFpEF, A-fib RVR Interval history: Patient diuresed 1700 mL since admission. He remains in A-fib but with controlled ventricular response off Cardizem drip. 2D echo returned today showing EF 30% which is a new diagnosis compared with normal EF in November. Exam Data for Last 24 hours Vital signs and Labs for Last 24 Hours: Temp Pulse Resp BP Pulse Ox O2 Del Method O2 Flow Rate 97.7 F 68 20 124/85 96 Room Air 2 04/15/24 12:00 04/15/24 12:00 04/15/24 12:00 04/15/24 12:00 04/15/24 12:00 04/15/24 12:00 04/15/24 05:00 Laboratory Results - last 24 hr 04/14/24 13:10: Lactate 1.5 04/14/24 14:24: Troponin I < 0.01 04/14/24 15:30: SARS-CoV-2 (PCR) Not detected, Influenza A Untype (PCR) Not detected, Influenza Type B (PCR) Not detected 04/15/24 09:02: WBC 10.7 D, RBC 4.32 L, Hgb 10.7 L, Hct 33.7 L, MCV 78.0 L, MCH 24.8 L, MCHC 31.8, RDW 15.1, Plt Count 298, MPV 10.1, Neut % (Auto) 71.7, Lymph % (Auto) 16.8, [place] % (Auto) 8.4, Eos % (Auto) 1.5, Baso % (Auto) 0.7, Neut # (Auto) 7.6, Lymph # (Auto) 1.8, [place] # (Auto) 0.9, Eos # (Auto) 0.2, Baso # (Auto) 0.1, Total Counted 100, Neutrophils % (Manual) 70, Lymphocytes % (Manual) 19, Atypical Lymphs % 1.0, Monocytes % (Manual) 6, Eosinophils % (Manual) 4 H, Platelet Estimate Normal, RBC Morphology Normal, Magnesium 2.4 H D I & O for Last 24 hours: Intake & Output 04/12/24 04/13/24 04/14/24 04/15/24 23:59 23:59 23:59 23:59 Intake Total 633.667 / 633.667 69.500 / 69.500 Output Total 1150 / 1150 1325 / 1325 Balance -516.333 / -516.333 -1255.500 / -1255.500 Weight 210 lb 196 lb 8 oz Constitutional Constitutional: no acute distress and cooperative *Routine HEENT Exam Eye: Present PERRL *Routine Respiratory Exam Respiratory: Present CTA bilaterally; Absent accessory muscle use, wheezes or crackles *Routine Cardiovascular Exam Cardiovascular: Present RRR, Normal S1, Normal S2 and irregularly irregular; Absent murmur, gallop or rubs *Routine Abdominal Exam Abdominal: Present soft; Absent tenderness *Routine Extremities Exam Extremities: Present pulses intact; Absent cyanosis or edema *Routine Skin Exam Skin: Present intact; Absent erythema or wounds *Routine Neurological Exam Neurological: Present alert and oriented X3 Routine Psychiatric Exam Psychiatric: Present cooperative Progress Note: A&P Assessment and plan (1) Acute HFrEF (heart failure with reduced ejection fraction): Status: Acute (2) Atrial fibrillation with RVR: Status: Acute (3) CAD (coronary artery disease): Status: Acute (4) History of GI bleed: Status: Acute (5) History of esophageal ulcer: Status: Acute (6) Renal insufficiency: Status: Acute Assessment and Plan Assessment and Plan for All Diagnoses:: Acute HFrEF - new dx this admission with EF 30% ProBNP 7k and moderate bilateral effusions on CT - Reviewed recent C with Dr. Padgett - patent arteries, no indication for repeat LHC - 04/15: Change Lasix to Bumex 2mg BID and continue diuresis until tomorrow. Add Entresto, Aldactone. Continue Farxiga and Metoprolol. Pt agreeable to LifeVest. PAF, RVR - pt is s/p LAAO/Watchman - known A-fib, acute exacerbation on arrival in the setting of SOA and new LHF - now rate controlled and asymptomatic on home meds - Considered DORIAN/DCCV but pt is rate controlled and would have to go back on Eliquis at least 1 mo if we DCCV (even though he's had LAAO). Will readdress as outpatient. CAD - last LH 04/02/24 - stent to LCX. LAD and RCA widely patent - cont home dose DAPT, Statin, BB Hx of GI Bleed with blood transfusion 2023 - H/H stable here - pt off OAC for now Htn - DC home dose Amlodipine - start Entresto and Aldactone for HF 04/15 summary: Pt CV stable/improving. Will try diuresing another 24 hours, start GDMT, and apply LifeVest. Likely home tomorrow.
[2024-04-15] MEDS: SACUBITRIL/VALSARTAN 24-26MG TABLET 1 EACH PO ×2 (14:43→21:54)
[2024-04-15] MEDS: SPIRONOLACTONE 25MG TABLET 25 MG PO (14:43)
[2024-04-15] MEDS: BUMETANIDE 1 MG TABLET 2 MG PO ×2 (14:43→17:08)
[2024-04-15] MEDS: ATORVASTATIN 40MG TABLET 80 MG PO (21:54)
[2024-04-16] VITALS (8 sets, daily range): BP systolic 85–105; BP diastolic 46–65; PULSE 60–100; RESP 16–18; TEMP 36.3–37.1; O2SAT 91–100; BMI 28.6
--- NOTE | 2024-04-16 05:21 | PC.NURSE ---
pt has slept all night. o2 sat 88% while asleep, 2l o2 placed on pt, sats now around 95%, and tolerating well. adequate uop and independent to br. family has been at bs all night.
[2024-04-16] MEDS: BUMETANIDE 1 MG TABLET 2 MG PO (08:28)
[2024-04-16] MEDS: EMPAGLIFLOZIN 10MG TABLET 10 MG PO (08:29)
[2024-04-16] MEDS: CLOPIDOGREL 75MG TAB 75 MG PO (08:29)
[2024-04-16] MEDS: ASPIRIN EC 81MG TABLET 81 MG PO (08:29)
[2024-04-16] MEDS: SPIRONOLACTONE 25MG TABLET 25 MG PO (08:29)
--- NOTE | 2024-04-16 08:29 | P.PN_ITS ---
Subjective *Date: 04/16/24 *Time: 08:29 Interval history: Patient has been up to wash his hair in the sink this morning. He states his shortness of breath has improved but he is very dizzy. Nursing states his blood pressure and heart rate have been low throughout the night and this morning. He still says he has a hollow feeling in his chest but no real pain. Medical Exam Vital signs and Labs for Last 24 Hours: Vital Signs Temp Pulse Pulse Resp BP BP Pulse Ox 04/16/24 07:58 97.4 F L 60 18 105/56 L 95 04/16/24 07:00 04/16/24 05:00 04/16/24 04:00 100 H 04/16/24 04:00 98.7 F 69 16 85/50 L 94 L 04/16/24 03:00 04/16/24 01:00 04/16/24 00:00 90 04/16/24 00:00 97.7 F 75 16 104/49 L 91 L 04/15/24 23:00 04/15/24 21:00 04/15/24 20:00 04/15/24 20:00 100 H 04/15/24 20:00 97.9 F 63 16 123/69 95 04/15/24 18:37 04/15/24 17:00 04/15/24 16:00 98.3 F 75 18 110/73 96 04/15/24 15:00 04/15/24 13:00 04/15/24 12:00 97.7 F 68 20 124/85 96 04/15/24 11:00 04/15/24 10:00 69 19 121/83 92 L 04/15/24 09:00 O2 Del Method O2 Flow Rate 04/16/24 07:58 Room Air 04/16/24 07:00 Room Air 04/16/24 05:00 Nasal Cannula 2 04/16/24 04:00 04/16/24 04:00 Nasal Cannula 2 04/16/24 03:00 Nasal Cannula 2 04/16/24 01:00 Nasal Cannula 2 04/16/24 00:00 04/16/24 00:00 Nasal Cannula 2 04/15/24 23:00 Room Air 04/15/24 21:00 Room Air 04/15/24 20:00 Room Air 04/15/24 20:00 04/15/24 20:00 Room Air 04/15/24 18:37 Room Air 04/15/24 17:00 Room Air 04/15/24 16:00 Room Air 04/15/24 15:00 Room Air 04/15/24 13:00 Room Air 04/15/24 12:00 Room Air 04/15/24 11:00 Room Air 04/15/24 10:00 Room Air 04/15/24 09:00 Room Air Intake and Output 04/15/24 04/16/24 04/16/24 19:59 03:59 11:59 Intake Total 620 / 620 Output Total 300 / 2600 2300 / 2600 0 / 2600 Balance -2299 Intake: Intake, Oral Amount 620 / 620 Output: Output, Urine Amount 300 / 2600 2300 / 2600 0 / 2600 Other: Number of Unmeasured Voids 1 1 Weight 193 lb 9.6 oz Patient Weight 04/16/24 11:59 Weight 193 lb 9.6 oz Laboratory Results - last 24 hr 04/15/24 09:02: WBC 10.7 D, RBC 4.32 L, Hgb 10.7 L, Hct 33.7 L, MCV 78.0 L, MCH 24.8 L, MCHC 31.8, RDW 15.1, Plt Count 298, MPV 10.1, Neut % (Auto) 71.7, Lymph % (Auto) 16.8, [place] % (Auto) 8.4, Eos % (Auto) 1.5, Baso % (Auto) 0.7, Neut # (Auto) 7.6, Lymph # (Auto) 1.8, [place] # (Auto) 0.9, Eos # (Auto) 0.2, Baso # (Auto) 0.1, Total Counted 100, Neutrophils % (Manual) 70, Lymphocytes % (Manual) 19, Atypical Lymphs % 1.0, Monocytes % (Manual) 6, Eosinophils % (Manual) 4 H, Platelet Estimate Normal, RBC Morphology Normal, Magnesium 2.4 H D I & O for Labs for Last 24 Hours: Intake & Output 04/13/24 04/14/24 04/15/24 04/16/24 11:59 11:59 11:59 11:59 Intake Total 703.167 / 703.167 620 / 620 Output Total 2475 / 2475 2600 / 2600 Balance -1771.833 / -1771.833 -1979 / Weight 210 lb 196 lb 8 oz 193 lb 9.6 oz Constitutional: Present no acute distress Respiratory: Present CTA bilaterally (Anteriorly and posteriorly) Cardiac: Present pedal pulses present; Absent Regular Rhythm (Monitor showing atrial fibs with a controlled ventricular response in the 60's) GI: Present distention (Distention versus large abdomen) and normal bowel sounds; Absent tenderness or guarding Extremities: Absent tenderness, edema or calf tenderness Neuro: Present alert, awake and oriented x 3 Assessment and Plan *Assessment and plan (1) Atrial fibrillation with RVR: Status: Acute Category: Medical Code(s): I48.91 - Unspecified atrial fibrillation (2) Pulmonary edema: Status: Acute Category: Medical Code(s): J81.1 - Chronic pulmonary edema (3) Acute CHF: Status: Acute Category: Medical Code(s): I50.9 - Heart failure, unspecified (4) CAD (coronary artery disease): Status: Acute Qualifiers: Coronary Disease-Associated Artery/Lesion type: [place] artery [place] vs. transplanted heart: [place] heart Associated angina: with stable angina Qualified Code(s): I25.118 - Atherosclerotic heart disease of [place] coronary artery with other forms of angina pectoris Category: Medical Code(s): I25.10 - Atherosclerotic heart disease of [place] coronary artery without angina pectoris (5) Dyspnea: Status: Acute Qualifiers: Dyspnea type: dyspnea on exertion Qualified Code(s): R06.00 - Dyspnea, unspecified Category: Medical Code(s): R06.00 - Dyspnea, unspecified (6) Atypical angina: Status: Acute Category: Medical Code(s): I20.89 - Other forms of angina pectoris (7) History of GI bleed: Status: Acute Category: Medical Code(s): Z87.19 - Personal history of other diseases of the digestive system (8) History of esophageal ulcer: Status: Acute Category: Medical Code(s): Z87.19 - Personal history of other diseases of the digestive system (9) Renal insufficiency: Status: Acute Category: Medical Code(s): N28.9 - Disorder of kidney and ureter, unspecified Plan Heart rate has been in the 50s and 60s and blood pressure is low. Will hold cardiac meds until cardiology can see the patient this morning. Will get labs.
[2024-04-16 08:54] LABS: Basophils # 0.1 K/mm3 (0-0.2); Basophils % 0.7 % (0.1-2.0); Eosinophils # 0.2 K/mm3 (0.0-0.4); Eosinophils % 1.6 % (0.1-12.0); Hematocrit 42.2 % (42.0-52.0); Lymphocytes # 2.1 K/mm3 (0.7-4.5); Lymphocytes % 14.1 % (10-50); Mean Corpuscular HGB Conc 31.3 g/dL (31.8-35.4); Mean Corpuscular Hemoglobin 24.4 pg (27.0-31.2); Monocytes # 1.4 K/mm3 (0.1-1.0); Monocytes % 9.4 % (1.7-9.3); Neutrophils # 10.8 K/mm3 (1.8-7.8); Neutrophils % 73.2 % (37.0-80.0); Platelet Count 415 K/mm3 (142-424); Red Blood Count 5.41 M/mm3 (4.60-6.20); Red Cell Distribution Width 15.2 % (11.5-17.5); White Blood Count 14.7 K/mm3 (4.8-10.8)
[2024-04-16 09:06] LABS: Hemoglobin 13.3 g/dL (14.1-18.0)
[2024-04-16 09:08] LABS: Albumin Level 4.6 g/dl (3.5-5.0); Chloride 100 mmol/L (98-107); Potassium 4.5 mmoL/L (3.5-5.1); Sodium 141 mmol/L (136-145)
[2024-04-16 09:11] LABS: Alanine Aminotransferase 22 U/L (12-78); Albumin/Globulin Ratio 1.4 (1.1-1.8); Alkaline Phosphatase 83 U/L (38-126); Anion Gap 18.5 mEq/L (5-15); Aspartate Amino Transferase 30 U/L (17-59); Bilirubin,Total 0.9 mg/dl (0.2-1.3); Blood Urea Nitrogen 41 mg/dl (9-20); Calcium 8.8 mg/dl (8.4-10.2); Carbon Dioxide 27 mmol/L (22.0-30.0); Creatinine Clearance Estimated 32 mL/min (50-200); Estimated Glomerular Filt Rate 27 ml/min (>60); GFR (African American) 33 ML/MIN (>60); Globulin 3.3 g/dL (1.3-3.2); Glucose 152 mg/dl (74-100); Total Protein,Serum 7.9 g/dl (6.3-8.2)
[2024-04-16 09:12] LABS: Magnesium 2.3 mg/dl (1.6-2.3)
[2024-04-16 09:37] LABS: NT Pro Brain Natriuretic Pep. 4570 pg/mL (0-450)
--- NOTE | 2024-04-16 10:14 | PC.NURSE ---
sera vyas at bedside
[2024-04-16] MEDS: 0.9 % SODIUM CHLORIDE 500 ML IV ×2 (10:45→14:00)
--- NOTE | 2024-04-16 10:55 | P.PN_ITS ---
Subjective Subjective Date: 04/16/24 Time: 09:30 Principal diagnosis: HFpEF, A-fib RVR Interval history: Pt diuresed 3.5L since admission but today Cr up to 2.3. Effort of breathing much improved overnight but he feels very week and has a hollow feeling in his stomach. Passed some dark stool which attributes to beats he ate yesterday. Hgb stable (actually increasing). Orthostatics bedside this am: Supine: 104/51 HR 85 Sittin/49 HR 52 Standin/34 HR 49 Exam Data for Last 24 hours Vital signs and Labs for Last 24 Hours: Temp Pulse Resp BP Pulse Ox O2 Del Method O2 Flow Rate 97.4 F L 90 18 105/56 L 95 Room Air 2 04/16/24 07:58 04/16/24 08:00 04/16/24 07:58 04/16/24 07:58 04/16/24 07:58 04/16/24 07:58 04/16/24 05:00 Laboratory Results - last 24 hr 04/15/24 09:02: Total Counted 100, Neutrophils % (Manual) 70, Lymphocytes % (Manual) 19, Atypical Lymphs % 1.0, Monocytes % (Manual) 6, Eosinophils % (Manual) 4 H, Platelet Estimate Normal, RBC Morphology Normal 04/16/24 08:47: WBC 14.7 H D, RBC 5.41 D, Hgb 13.3 L D, Hct 42.2, MCV 78.0 L, MCH 24.4 L, MCHC 31.3 L, RDW 15.2, Plt Count 415 D, MPV 10.0, Neut % (Auto) 73.2, Lymph % (Auto) 14.1, [place] % (Auto) 9.4 H, Eos % (Auto) 1.6, Baso % (Auto) 0.7, Neut # (Auto) 10.8 H, Lymph # (Auto) 2.1, [place] # (Auto) 1.4 H, Eos # (Auto) 0.2, Baso # (Auto) 0.1, Sodium 141, Potassium 4.5, Chloride 100, Carbon Dioxide 27, Anion Gap 18.5 H, BUN 41 H D, Creatinine 2.30 H D, Estimated Creat Clear 32, Estimated GFR 27 L, Est GFR ( Amer) 33 L D, Glucose 152 H, Calcium 8.8, Magnesium 2.3, Total Bilirubin 0.9, AST 30, ALT 22, Alkaline Phosphatase 83, NT-Pro-B Natriuret Pep 4570 H, Total Protein 7.9, Albumin 4.6, Globulin 3.3 H, Albumin/Globulin Ratio 1.4 I & O for Last 24 hours: Intake & Output 04/13/24 04/14/24 04/15/24 04/16/24 23:59 23:59 23:59 23:59 Intake Total 633.667 / 633.667 689.500 / 689.500 480 / 480 Output Total 1150 / 1150 3925 / 3925 0 / 0 Balance -516.333 / -516.333 -3235.500 / -3235.500 480 / 480 Weight 210 lb 196 lb 8 oz 193 lb 9.6 oz Constitutional Constitutional: no acute distress and cooperative Comments: pale *Routine HEENT Exam Eye: Present PERRL *Routine Respiratory Exam Respiratory: Present CTA bilaterally; Absent accessory muscle use, wheezes or crackles *Routine Cardiovascular Exam Cardiovascular: Present RRR, Normal S1 and Normal S2; Absent murmur, gallop or rubs *Routine Abdominal Exam Abdominal: Present soft; Absent tenderness *Routine Extremities Exam Extremities: Present pulses intact; Absent cyanosis or edema *Routine Skin Exam Skin: Present intact; Absent erythema or wounds *Routine Neurological Exam Neurological: Present alert and oriented X3 Comments: near syncope upon standing Routine Psychiatric Exam Psychiatric: Present cooperative Progress Note: A&P Assessment and plan (1) Atrial fibrillation with RVR: Status: Acute (2) Pulmonary edema: Status: Acute (3) Acute CHF: Status: Acute (4) CAD (coronary artery disease): Status: Acute (5) Dyspnea: Status: Acute (6) Atypical angina: Status: Acute (7) History of GI bleed: Status: Acute (8) History of esophageal ulcer: Status: Acute (9) Renal insufficiency: Status: Acute (10) Acute HFrEF (heart failure with reduced ejection fraction): Status: Acute (11) Orthostasis: Status: Acute (12) Dehydration: Status: Acute Assessment and Plan Assessment and Plan for All Diagnoses:: Acute HFrEF - new dx this admission with EF 30% ProBNP 7k and moderate bilateral effusions on CT - Reviewed recent C with Dr. Lorin - patent arteries, no indication for repeat LHC - 04/15: Change Lasix to Bumex 2mg BID and continue diuresis until tomorrow. Add Entresto, Aldactone. Continue Farxiga and Metoprolol. Pt agreeable to LifeVest. - 04/16: SOA resolved but appears dehydrated. Cr up and very orthostatic this am. GDMT on hold. Will give back 500mL NS PAF, RVR - pt is s/p LAAO/Watchman - known A-fib, acute exacerbation on arrival in the setting of SOA and new LHF - now rate controlled and asymptomatic on home meds - Considered DORIAN/DCCV but pt is rate controlled and would have to go back on Eliquis at least 1 mo if we DCCV (even though he's had LAAO). Will readdress as outpatient. - 04/16: Remains in A-fib. Today has SVR 40s-50s. Dehydration/Near Syncope/Orthostasis - Cr up to from 1.6 to 2.3 - Orthostatic vitals: 104/51 85, 78/49 52, 71/31 49 - Hold GDMT, give back 500mL NS CAD - last LH 04/02/24 - stent to LCX. LAD and RCA widely patent - cont home dose DAPT, Statin, BB Hx of GI Bleed with blood transfusion 2023 - H/H stable here - pt off OAC for now Htn - DC home dose Amlodipine - start Entresto and Aldactone for HF 04/16: Pt intolerant to diuresis and GDMT. Med adjustments/plan as above. No DC today.
--- NOTE | 2024-04-16 11:00 | PC.NURSE ---
DR BISHOP AT BEDSIDE
--- NOTE | 2024-04-16 17:02 | PC.NURSE ---
PT IS A&OX4. PT HAS TOLERATED RA WELL THROUGHOUT SHIFT. RESPIRATIONS REGULAR AND UNLABORED. LUNG SOUNDS CLEAR THROUGHOUT. NO COUGH NOTED. NO EDEMA NOTED. PT HAS BEEN A FIB ON THE MONITOR. HAND RN OR LPN EQUAL. ACTIVE BOWEL SOUNDS HEARD IN ALL 4 QUADRANTS. NO BM REPORTED THUS FAR. STATES LAST BM WAS YESTERDAY. PT VOIDS PER BATHROOM INDEPENDENTLY. HAS REMAINED AT BEDSIDE THROUGHOUT SHIFT. SEVERAL FAMILY MEMBERS HAVE VISITED THROUGHOUT THE DAY. PT HAS RECEIVED 2 500ML BOLUS OF NS PER RITA SHERIDAN DUE TO ORTHOSTATIC HYPOTENSION. AFTER LAST BOLUS, PT DENIES DIZZINESS. HAS REPORTED OCCASIONAL HOLE FEELING IN HIS STOMACH WHICH MD HAS BEEN PREVIOUSLY MADE AWARE OF ON ADMISSION. LIFEVEST WAS PLACED ON PT THIS AFTERNOON. VSS. BED IN LOWEST POSITION. CALL LIGHT WITHIN REACH. NO QUESTIONS OR CONCERNS VOICED. +1 PULSES NOTED THROUGHOUT. NO EDEMA NOTED.
[2024-04-16] MEDS: SACUBITRIL/VALSARTAN 24-26MG TABLET 1 EACH PO (22:00)
[2024-04-16] MEDS: ATORVASTATIN 40MG TABLET 80 MG PO (22:00)
[2024-04-16] MEDS: TAMSULOSIN 0.4MG CAPSULE 0.4 MG PO (22:00)
[2024-04-16] MEDS: PANTOPRAZOLE 40MG TABLET 40 MG PO (22:00)
[2024-04-17] VITALS (11 sets, daily range): BP systolic 74–120; BP diastolic 39–86; PULSE 65–147; RESP 16–18; TEMP 36.4–36.9; O2SAT 91–95; BMI 29.2
--- NOTE | 2024-04-17 04:29 | PC.NURSE ---
Addendum entered by Gerri Gruber RN 04/17/24 04:51: Correction: patient is on a cardiac diet, not a clear liquid diet. However, patient still reports drinking adequate fluids. Original Note: Patient is alert and oriented x4. Patient was observed to have eyes closed, respirations even and unlabored on room air, and no apparent distress for the majority of the night. His blood pressures have remained hypotensive this shift. Other vital signs stable. He has been ambulating in his room/to the bathroom independently without difficulties. His has remained at the bedside. Scheduled medications were administered as appropriately per APR. Auscultation of his lungs and bowels were within normal findings; irregular heart rhythm detected on telemetry (afib this shift) and with auscultation. Patient has been tolerating a clear liquid diet adequately well. He continues to report feeling hollow in his abdomen, but he has not had any complaints of pain or nausea this shift. At this time, the patient is resting in bed. No new needs at this time. Call light within reach.
--- NOTE | 2024-04-17 08:31 | EXP.ACUTE.PN ---
Subjective *Date: 04/17/24 *Time: 08:31 Interval history: The patient is feeling a little bit better this morning. He still has some dizzy spells, especially when up. His blood pressure was still in the 90s/50s this morning when checked. Nursing states that his heart rate has ranged from the 60s all the way up to the 130s. He denies any pain and was able to rest and eat. Medical Exam Vital signs and Labs for Last 24 Hours: Vital Signs Temp Pulse Pulse Resp BP Pulse Ox O2 Del Method 04/17/24 08:00 97.5 F L 85 16 98/59 L 93 L Room Air 04/17/24 06:35 Room Air 04/17/24 05:00 Room Air 04/17/24 04:00 98.4 F 70 18 108/51 L 95 Room Air 04/17/24 04:00 80 04/17/24 03:00 Room Air 04/17/24 01:00 Room Air 04/17/24 00:00 80 04/17/24 00:00 97.8 F 78 16 85/50 L 94 L Room Air 04/16/24 23:00 Room Air 04/16/24 21:00 Room Air 04/16/24 20:00 90 17 100 Room Air 04/16/24 20:00 90 04/16/24 20:00 97.5 F L 74 17 90/65 L 100 Room Air 04/16/24 18:34 Room Air 04/16/24 17:00 Room Air 04/16/24 16:00 98.4 F 82 16 102/63 L 95 Room Air 04/16/24 16:00 90 04/16/24 15:10 Room Air 04/16/24 13:05 Room Air 04/16/24 12:00 100 H 04/16/24 11:48 98 F 60 18 93/46 L 97 Room Air 04/16/24 11:05 Room Air 04/16/24 09:05 Room Air Intake and Output 04/16/24 04/17/24 04/17/24 19:59 03:59 11:59 Intake Total 800 / 1100 300 / 1100 Output Total 0 / 0 0 / 0 0 / 0 Balance 800 / 1100 300 / 1100 0 / 1100 Intake: Intake, Oral Amount 300 / 600 300 / 600 Intake, Total IV Amount 500 / 500 0.9 % Sodium Chloride 500 ml @ 500 / 500 500 mls/hr IV .Q1H ONE Rx#: [id number] Output: Output, Urine Amount 0 / 0 0 / 0 0 / 0 Other: Number of Unmeasured Voids 1 Weight 197 lb 11.2 oz Patient Weight 04/17/24 11:59 Weight 197 lb 11.2 oz Laboratory Results - last 24 hr 04/16/24 08:47: WBC 14.7 H D, RBC 5.41 D, Hgb 13.3 L D, Hct 42.2, MCV 78.0 L, MCH 24.4 L, MCHC 31.3 L, RDW 15.2, Plt Count 415 D, MPV 10.0, Neut % (Auto) 73.2, Lymph % (Auto) 14.1, [place] % (Auto) 9.4 H, Eos % (Auto) 1.6, Baso % (Auto) 0.7, Neut # (Auto) 10.8 H, Lymph # (Auto) 2.1, [place] # (Auto) 1.4 H, Eos # (Auto) 0.2, Baso # (Auto) 0.1, Sodium 141, Potassium 4.5, Chloride 100, Carbon Dioxide 27, Anion Gap 18.5 H, BUN 41 H D, Creatinine 2.30 H D, Estimated Creat Clear 32, Estimated GFR 27 L, Est GFR ( Amer) 33 L D, Glucose 152 H, Calcium 8.8, Magnesium 2.3, Total Bilirubin 0.9, AST 30, ALT 22, Alkaline Phosphatase 83, NT-Pro-B Natriuret Pep 4570 H, Total Protein 7.9, Albumin 4.6, Globulin 3.3 H, Albumin/Globulin Ratio 1.4 I & O for Labs for Last 24 Hours: Intake & Output 04/14/24 04/15/24 04/16/24 04/17/24 11:59 11:59 11:59 11:59 Intake Total 703.167 / 040.122 6784 / 1100 1100 / 1100 Output Total 2475 / 2475 2600 / 2600 0 / 0 Balance -1771.833 / -1771.833 -1500 / -1500 1100 / 1100 Weight 210 lb 196 lb 8 oz 193 lb 9.6 oz 197 lb 11.2 oz Constitutional: Present no acute distress Respiratory: Present CTA bilaterally (Anteriorly and posteriorly) Cardiac: Present pedal pulses present; Absent Regular Rhythm (atrial fib with a rate in the 80's) GI: Present distention (Distention versus large abdomen) and normal bowel sounds; Absent tenderness or guarding Extremities: Absent tenderness, edema or calf tenderness Neuro: Present alert, awake and oriented x 3 Assessment and Plan *Assessment and plan (1) Atrial fibrillation with RVR: Status: Acute Category: Medical Code(s): I48.91 - Unspecified atrial fibrillation (2) Pulmonary edema: Status: Acute Category: Medical Code(s): J81.1 - Chronic pulmonary edema (3) Acute CHF: Status: Acute Category: Medical Code(s): I50.9 - Heart failure, unspecified (4) CAD (coronary artery disease): Status: Acute Qualifiers: Coronary Disease-Associated Artery/Lesion type: [place] artery [place] vs. transplanted heart: [place] heart Associated angina: with stable angina Qualified Code(s): I25.118 - Atherosclerotic heart disease of [place] coronary artery with other forms of angina pectoris Category: Medical Code(s): I25.10 - Atherosclerotic heart disease of [place] coronary artery without angina pectoris (5) Dyspnea: Status: Acute Qualifiers: Dyspnea type: dyspnea on exertion Qualified Code(s): R06.00 - Dyspnea, unspecified Category: Medical Code(s): R06.00 - Dyspnea, unspecified (6) Atypical angina: Status: Acute Category: Medical Code(s): I20.89 - Other forms of angina pectoris (7) History of GI bleed: Status: Acute Category: Medical Code(s): Z87.19 - Personal history of other diseases of the digestive system (8) History of esophageal ulcer: Status: Acute Category: Medical Code(s): Z87.19 - Personal history of other diseases of the digestive system (9) Renal insufficiency: Status: Acute Category: Medical Code(s): N28.9 - Disorder of kidney and ureter, unspecified Plan Blood pressure is still low this morning and patient is dizzy upon standing. Will recheck labs this morning. Will continue to hold blood pressure medication until cardiology sees the patient.
--- NOTE | 2024-04-17 09:07 | PC.NURSE ---
Jasvir with cardiology made aware of patients low blood pressures and HR sustaining 130s. New orders entered into APR.
--- NOTE | 2024-04-17 09:08 | XR_ITS ---
FINAL REPORT CLINICAL HISTORY: CHF, COPD COMPARISON: 04/14/2024 FINDINGS: A portable view of the chest was obtained. Cardiac and mediastinal silhouettes are within normal limits. The interstitial opacities seen on the previous exam of 04/14/2024 have resolved. There is no pleural effusion or pneumothorax. IMPRESSION: Interstitial opacities seen on the previous exam have resolved. Reviewed, Interpreted and Dictated by Swetha Ridley MD Transcribed by Elena Baker Authenticated and [facility]
[2024-04-17 09:13] LABS: Basophils # 0.1 K/mm3 (0-0.2); Basophils % 0.6 % (0.1-2.0); Eosinophils # 0.2 K/mm3 (0.0-0.4); Eosinophils % 1.3 % (0.1-12.0); Hematocrit 40.2 % (42.0-52.0); Hemoglobin 12.8 g/dL (14.1-18.0); Lymphocytes # 1.6 K/mm3 (0.7-4.5); Mean Corpuscular HGB Conc 31.8 g/dL (31.8-35.4); Mean Corpuscular Hemoglobin 24.9 pg (27.0-31.2); Mean Corpuscular Volume 78.2 fl (80-94); Mean Platelet Volume 10.2 fl (7.4-10.4); Monocytes # 1.1 K/mm3 (0.1-1.0); Monocytes % 8.3 % (1.7-9.3); Neutrophils # 10.4 K/mm3 (1.8-7.8); Platelet Count 398 K/mm3 (142-424); Red Blood Count 5.14 M/mm3 (4.60-6.20); White Blood Count 13.5 K/mm3 (4.8-10.8)
[2024-04-17 09:27] LABS: Chloride 103 mmol/L (98-107); Potassium 4.1 mmoL/L (3.5-5.1); Sodium 138 mmol/L (136-145)
[2024-04-17 09:30] LABS: Alanine Aminotransferase 23 U/L (12-78); Albumin/Globulin Ratio 1.3 (1.1-1.8); Alkaline Phosphatase 75 U/L (38-126); Anion Gap 14.1 mEq/L (5-15); Aspartate Amino Transferase 27 U/L (17-59); Bilirubin,Total 0.8 mg/dl (0.2-1.3); Blood Urea Nitrogen 44 mg/dl (9-20); Calcium 8.4 mg/dl (8.4-10.2); Carbon Dioxide 25 mmol/L (22.0-30.0); Creatinine Clearance Estimated 32 mL/min (50-200); Estimated Glomerular Filt Rate 27 ml/min (>60); GFR (African American) 33 ML/MIN (>60); Glucose 163 mg/dl (74-100)
[2024-04-17] MEDS: EMPAGLIFLOZIN 10MG TABLET 10 MG PO (09:36)
[2024-04-17] MEDS: ASPIRIN EC 81MG TABLET 81 MG PO (09:36)
[2024-04-17] MEDS: CLOPIDOGREL 75MG TAB 75 MG PO (09:36)
[2024-04-17] MEDS: SACUBITRIL/VALSARTAN 24-26MG TABLET 1 EACH PO ×2 (09:36→21:15)
[2024-04-17] MEDS: DIGOXIN 0.25MG TABLET 250 MCG PO ×3 (09:37→21:15)
--- NOTE | 2024-04-17 10:00 | PC.NURSE ---
Dr Santiago aware of patients HR and BP readings. No new orders given at this time.
[2024-04-17 10:13] LABS: NT Pro Brain Natriuretic Pep. 2310 pg/mL (0-450)
[2024-04-17] MEDS: MIDODRINE HCL 5 MG TABLET PO ×2 (12:01→21:15)
--- NOTE | 2024-04-17 12:35 | P.PN_ITS ---
Subjective Subjective Date: 04/17/24 Time: 09:30 Principal diagnosis: HFpEF, A-fib RVR Interval history: Pt remains orthostatic and weak this morning. Still in A-fib. He did receive Entresto 24-26mg BID today. Exam Data for Last 24 hours Vital signs and Labs for Last 24 Hours: Temp Pulse Resp BP Pulse Ox O2 Del Method O2 Flow Rate 97.5 F L 94 H 16 87/61 L 93 L Room Air 2 04/17/24 08:00 04/17/24 09:37 04/17/24 08:00 04/17/24 09:13 04/17/24 08:00 04/17/24 11:00 04/16/24 05:00 Laboratory Results - last 24 hr 04/17/24 08:50: WBC 13.5 H, RBC 5.14, Hgb 12.8 L, Hct 40.2 L, MCV 78.2 L, MCH 24.9 L, MCHC 31.8, RDW 15.0, Plt Count 398, MPV 10.2, Neut % (Auto) 77.0, Lymph % (Auto) 12.0, [place] % (Auto) 8.3, Eos % (Auto) 1.3, Baso % (Auto) 0.6, Neut # (Auto) 10.4 H, Lymph # (Auto) 1.6, [place] # (Auto) 1.1 H, Eos # (Auto) 0.2, Baso # (Auto) 0.1, Sodium 138, Potassium 4.1, Chloride 103, Carbon Dioxide 25, Anion Gap 14.1, BUN 44 H, Creatinine 2.30 H, Estimated Creat Clear 32, Estimated GFR 27 L, Est GFR ( Amer) 33 L, Glucose 163 H, Calcium 8.4, Total Bilirubin 0.8, AST 27, ALT 23, Alkaline Phosphatase 75, NT-Pro-B Natriuret Pep 2310 H, Total Protein 7.0, Albumin 4.0 D, Globulin 3.0, Albumin/Globulin Ratio 1.3 I & O for Last 24 hours: Intake & Output 04/14/24 04/15/24 04/16/24 04/17/24 23:59 23:59 23:59 23:59 Intake Total 633.667 / 633.667 689.500 / 991.476 2357 / 1580 660 / 660 Output Total 1150 / 1150 3925 / 3925 0 / 0 0 / 0 Balance -516.333 / -516.333 -3235.500 / -3235.500 1280 / 1580 660 / 660 Weight 210 lb 196 lb 8 oz 193 lb 9.6 oz 197 lb 13.838 oz Constitutional Constitutional: no acute distress and cooperative Comments: pale *Routine HEENT Exam Eye: Present PERRL *Routine Respiratory Exam Respiratory: Present CTA bilaterally; Absent accessory muscle use, wheezes or crackles *Routine Cardiovascular Exam Cardiovascular: Present RRR, Normal S1 and Normal S2; Absent murmur, gallop or rubs *Routine Abdominal Exam Abdominal: Present soft; Absent tenderness *Routine Extremities Exam Extremities: Present pulses intact; Absent cyanosis or edema *Routine Skin Exam Skin: Present intact; Absent erythema or wounds *Routine Neurological Exam Neurological: Present alert and oriented X3 Comments: near syncope upon standing Routine Psychiatric Exam Psychiatric: Present cooperative Progress Note: A&P Assessment and plan (1) Orthostasis: Status: Acute (2) Atrial fibrillation with RVR: Status: Acute (3) Pulmonary edema: Status: Acute (4) Acute CHF: Status: Acute (5) CAD (coronary artery disease): Status: Acute (6) Dyspnea: Status: Acute (7) Atypical angina: Status: Acute (8) History of GI bleed: Status: Acute (9) History of esophageal ulcer: Status: Acute (10) Renal insufficiency: Status: Acute (11) Acute HFrEF (heart failure with reduced ejection fraction): Status: Acute (12) Dehydration: Status: Acute Assessment and Plan Assessment and Plan for All Diagnoses:: Acute HFrEF - new dx this admission with EF 30% ProBNP 7k and moderate bilateral effusions on CT - Reviewed recent LHC with Dr. Padgett - patent arteries, no indication for repeat LHC - 04/15: Change Lasix to Bumex 2mg BID and continue diuresis until tomorrow. Add Entresto, Aldactone. Continue Farxiga and Metoprolol. Pt agreeable to LifeVest. - 04/16: SOA resolved but appears dehydrated. Cr up and very orthostatic this am. GDMT on hold. Will give back 500mL NS - 04/17: Remains euvolemic. Unable to tolerate ARNI/BB/MRNA due to hypotension. LifeVest was placed yesterday. PAF, RVR - pt is s/p LAAO/Watchman - known A-fib, acute exacerbation on arrival in the setting of SOA and new LHF - now rate controlled and asymptomatic on home meds - Considered DORIAN/DCCV but pt is rate controlled and would have to go back on Eliquis at least 1 mo if we DCCV (even though he's had LAAO). Will readdress as outpatient. - 04/16: Remains in A-fib. Today has SVR 40s-50s. - 04/16: Rate controlled for the moment but now having to hold Metoprolol due to hypotension and bradycardia. Will try Digoxin 250 q6h Dehydration/Near Syncope/Orthostasis - Cr up to from 1.6 to 2.3 - Orthostatic vitals: 104/51 85, 78/49 52, 71/31 49 - Hold GDMT, give back 500mL NS - 04/16: Orthostatics today: 87/61 147, 74/39 70, 87/51 65. Transient improvement with fluids yesterday. Remains orthostatic after Entresto today. DC Entresto. Start Midodrine 5mg TID. CAD - last [facility] 04/02/24 - stent to LCX. LAD and RCA widely patent - cont home dose DAPT, Statin. BB on hold due to hypotension. Hx of GI Bleed with blood transfusion 2023 - H/H stable here - pt off OAC for now Htn - DC home dose Amlodipine - start Entresto and Aldactone for HF 04/17: Pt intolerant to any GDMT for HF. He remains in euvolemic in rate controlled A-fib. Add Digoxin since we have to DC Metoprolol. Add Midodrine to support symptomatic hypotension
[2024-04-17] MEDS: ATORVASTATIN 40MG TABLET 80 MG PO (21:15)
[2024-04-17] MEDS: PANTOPRAZOLE 40MG TABLET 40 MG PO (21:15)
--- NOTE | 2024-04-17 23:56 | PC.NURSE ---
Patient care transferred to Eloina Ann RN at this time.
[2024-04-18] VITALS: BP 110/66; PULSE 110; PULSE 78; RESP 19; TEMP 37.3; O2SAT 95
[2024-04-18 03:04] VITALS: PULSE 62
[2024-04-18] MEDS: DIGOXIN 0.25MG TABLET 250 MCG PO ×2 (03:04→08:55)
[2024-04-18 04:00] VITALS: BP 108/59; PULSE 100; PULSE 86; RESP 17; TEMP 36.4; O2SAT 96; BMI 29.5
--- NOTE | 2024-04-18 04:59 | PC.NURSE ---
pt has slept most of shift. walked with pt to the br, no complaints of dizziness but did say he felt weak. tele read hr in the 90s-100 but with manual radial pulse check rate was in the 60s.pt currently back in bed resting, cb within reach no needs at this time.
[2024-04-18 08:00] VITALS: BP 107/63; PULSE 100; PULSE 78; RESP 20; TEMP 36.4; O2SAT 95
--- NOTE | 2024-04-18 08:21 | EXP.ACUTE.PN ---
Subjective *Date: 04/18/24 *Time: 09:23 Interval history: Patient is feeling better today. He denies any dizziness or CP. He has been up and about in his room. He ate and slept well. Medical Exam Vital signs and Labs for Last 24 Hours: Vital Signs Temp Pulse Pulse Pulse Pulse Pulse Pulse 04/18/24 06:17 04/18/24 05:00 04/18/24 04:00 100 H 04/18/24 04:00 97.5 F L 86 04/18/24 03:04 62 04/18/24 03:00 04/18/24 01:00 04/18/24 00:00 110 H 04/18/24 00:00 99.1 F 78 04/17/24 23:00 04/17/24 21:15 72 04/17/24 21:15 72 04/17/24 21:00 04/17/24 20:00 04/17/24 20:00 100 H 04/17/24 18:57 04/17/24 17:00 04/17/24 16:00 100 H 04/17/24 16:00 98.3 F 72 04/17/24 15:12 72 04/17/24 15:11 72 04/17/24 15:00 04/17/24 13:00 04/17/24 12:00 120 H 04/17/24 12:00 97.9 F 88 04/17/24 11:00 04/17/24 09:37 94 H 04/17/24 09:37 70 04/17/24 09:13 147 H 70 65 04/17/24 09:00 Resp BP BP BP BP Pulse Ox O2 Del Method 04/18/24 06:17 Nasal Cannula 04/18/24 05:00 Nasal Cannula 04/18/24 04:00 04/18/24 04:00 17 108/59 L 96 Nasal Cannula 04/18/24 03:04 04/18/24 03:00 Nasal Cannula 04/18/24 01:00 Room Air 04/18/24 00:00 04/18/24 00:00 19 110/66 95 Room Air 04/17/24 23:00 Room Air 04/17/24 21:15 04/17/24 21:15 04/17/24 21:00 Room Air 04/17/24 20:00 16 94 L Room Air 04/17/24 20:00 04/17/24 18:57 Room Air 04/17/24 17:00 Room Air 04/17/24 16:00 04/17/24 16:00 18 118/67 93 L Room Air 04/17/24 15:12 04/17/24 15:11 04/17/24 15:00 Room Air 04/17/24 13:00 Room Air 04/17/24 12:00 04/17/24 12:00 18 120/86 91 L Room Air 04/17/24 11:00 Room Air 04/17/24 09:37 Room Air 04/17/24 09:37 04/17/24 09:13 87/61 L 74/39 L 87/51 L 04/17/24 09:00 Room Air O2 Flow Rate 04/18/24 06:17 2 04/18/24 05:00 04/18/24 04:00 04/18/24 04:00 2 04/18/24 03:04 04/18/24 03:00 2 04/18/24 01:00 04/18/24 00:00 04/18/24 00:00 04/17/24 23:00 04/17/24 21:15 04/17/24 21:15 04/17/24 21:00 04/17/24 20:00 04/17/24 20:00 04/17/24 18:57 04/17/24 17:00 04/17/24 16:00 04/17/24 16:00 04/17/24 15:12 04/17/24 15:11 04/17/24 15:00 04/17/24 13:00 04/17/24 12:00 04/17/24 12:00 04/17/24 11:00 04/17/24 09:37 04/17/24 09:37 04/17/24 09:13 04/17/24 09:00 Intake and Output 04/17/24 04/18/24 04/18/24 19:59 03:59 11:59 Intake Total 600 / 600 Output Total 0 / 0 0 / 0 Balance 600 / 600 0 / 600 Intake: Intake, Oral Amount 600 / 600 Output: Output, Urine Amount 0 / 0 0 / 0 Other: Number of Unmeasured Voids 1 Number of Bowel Movements 1 Weight 197 lb 13.838 oz 199 lb 6.4 oz Patient Weight 04/18/24 11:59 Weight 199 lb 6.4 oz Laboratory Results - last 24 hr 04/17/24 08:50: WBC 13.5 H, RBC 5.14, Hgb 12.8 L, Hct 40.2 L, MCV 78.2 L, MCH 24.9 L, MCHC 31.8, RDW 15.0, Plt Count 398, MPV 10.2, Neut % (Auto) 77.0, Lymph % (Auto) 12.0, [place] % (Auto) 8.3, Eos % (Auto) 1.3, Baso % (Auto) 0.6, Neut # (Auto) 10.4 H, Lymph # (Auto) 1.6, [place] # (Auto) 1.1 H, Eos # (Auto) 0.2, Baso # (Auto) 0.1, Sodium 138, Potassium 4.1, Chloride 103, Carbon Dioxide 25, Anion Gap 14.1, BUN 44 H, Creatinine 2.30 H, Estimated Creat Clear 32, Estimated GFR 27 L, Est GFR ( Amer) 33 L, Glucose 163 H, Calcium 8.4, Total Bilirubin 0.8, AST 27, ALT 23, Alkaline Phosphatase 75, NT-Pro-B Natriuret Pep 2310 H, Total Protein 7.0, Albumin 4.0 D, Globulin 3.0, Albumin/Globulin Ratio 1.3 I & O for Labs for Last 24 Hours: Intake & Output 04/15/24 04/16/24 04/17/24 04/18/24 11:59 11:59 11:59 11:59 Intake Total 703.167 / 506.592 3013 / 1100 1460 / 1460 600 / 600 Output Total 2475 / 2475 2600 / 2600 0 / 0 0 / 0 Balance -1771.833 / -1771.833 -1500 / -1500 1460 / 1460 600 / 600 Weight 196 lb 8 oz 193 lb 9.6 oz 197 lb 11.2 oz 199 lb 6.4 oz Constitutional: Present no acute distress Respiratory: Present CTA bilaterally (Anteriorly and posteriorly) Cardiac: Present pedal pulses present; Absent Regular Rhythm (atrial fib with a rate in the 80's) GI: Present distention (Distention versus large abdomen) and normal bowel sounds; Absent tenderness or guarding Extremities: Absent tenderness, edema or calf tenderness Skin: Present intact Neuro: Present alert, awake and oriented x 3 Assessment and Plan *Assessment and plan (1) Atrial fibrillation with RVR: Status: Acute Category: Medical Code(s): I48.91 - Unspecified atrial fibrillation (2) Pulmonary edema: Status: Acute Category: Medical Code(s): J81.1 - Chronic pulmonary edema (3) Acute CHF: Status: Acute Category: Medical Code(s): I50.9 - Heart failure, unspecified (4) CAD (coronary artery disease): Status: Acute Qualifiers: Associated angina: with stable angina Coronary Disease-Associated Artery/Lesion type: [place] artery [place] vs. transplanted heart: [place] heart Qualified Code(s): I25.118 - Atherosclerotic heart disease of [place] coronary artery with other forms of angina pectoris Category: Medical Code(s): I25.10 - Atherosclerotic heart disease of [place] coronary artery without angina pectoris (5) Dyspnea: Status: Acute Qualifiers: Dyspnea type: dyspnea on exertion Qualified Code(s): R06.00 - Dyspnea, unspecified Category: Medical Code(s): R06.00 - Dyspnea, unspecified (6) Atypical angina: Status: Acute Category: Medical Code(s): I20.89 - Other forms of angina pectoris (7) History of GI bleed: Status: Acute Category: Medical Code(s): Z87.19 - Personal history of other diseases of the digestive system (8) History of esophageal ulcer: Status: Acute Category: Medical Code(s): Z87.19 - Personal history of other diseases of the digestive system (9) Renal insufficiency: Status: Acute Category: Medical Code(s): N28.9 - Disorder of kidney and ureter, unspecified Plan BP has improved and dizziness has resolved. Will recheck labs this am. Possible discharge today.
[2024-04-18 08:55] VITALS: PULSE 73
[2024-04-18] MEDS: ASPIRIN EC 81MG TABLET 81 MG PO (08:55)
[2024-04-18] MEDS: MIDODRINE HCL 5 MG TABLET PO (08:55)
[2024-04-18] MEDS: SACUBITRIL/VALSARTAN 24-26MG TABLET 1 EACH PO (08:55)
[2024-04-18] MEDS: EMPAGLIFLOZIN 10MG TABLET 10 MG PO (08:55)
[2024-04-18] MEDS: CLOPIDOGREL 75MG TAB 75 MG PO (08:55)
[2024-04-18 09:13] VITALS: BP 116/63; BP 131/73; BP 132/68; PULSE 65; PULSE 84; PULSE 85
[2024-04-18 09:25] LABS: Basophils # 0.1 K/mm3 (0-0.2); Basophils % 0.9 % (0.1-2.0); Eosinophils # 0.3 K/mm3 (0.0-0.4); Eosinophils % 2.7 % (0.1-12.0); Hemoglobin 12.4 g/dL (14.1-18.0); Lymphocytes % 16.8 % (10-50); Mean Corpuscular Hemoglobin 24.5 pg (27.0-31.2); Mean Corpuscular Volume 78.9 fl (80-94); Monocytes # 1.2 K/mm3 (0.1-1.0); Neutrophils # 8.2 K/mm3 (1.8-7.8); Neutrophils % 68.8 % (37.0-80.0); Platelet Count 362 K/mm3 (142-424); Red Blood Count 5.07 M/mm3 (4.60-6.20); Red Cell Distribution Width 14.9 % (11.5-17.5); White Blood Count 11.8 K/mm3 (4.8-10.8)
[2024-04-18 09:29] LABS: Chloride 106 mmol/L (98-107); Potassium 4.5 mmoL/L (3.5-5.1); Sodium 139 mmol/L (136-145)
[2024-04-18 09:32] LABS: Anion Gap 14.5 mEq/L (5-15); Blood Urea Nitrogen 37 mg/dl (9-20); Carbon Dioxide 23 mmol/L (22.0-30.0); Creatinine Clearance Estimated 40 mL/min (50-200); Estimated Glomerular Filt Rate 34 ml/min (>60); GFR (African American) 41 ML/MIN (>60)
[2024-04-18 09:33] LABS: Calcium 8.2 mg/dl (8.4-10.2); Glucose 153 mg/dl (74-100)
--- NOTE | 2024-04-18 10:40 | EXP.CARD.PN ---
Subjective Subjective Date: 04/18/24 Time: 10:00 Principal diagnosis: HFpEF, A-fib RVR Interval history: Patient feeling much better today. He is ambulatory without dizziness or weakness. Blood pressure improved to 130s, repeat orthostatics this morning are normal. He remains in A-fib but is rate controlled on digoxin. He feels ready for discharge home with LifeVest. Exam Data for Last 24 hours Vital signs and Labs for Last 24 Hours: Temp Pulse Resp BP Pulse Ox O2 Del Method O2 Flow Rate 97.5 F L 84 20 131/73 95 Room Air 2 04/18/24 08:00 04/18/24 09:13 04/18/24 08:00 04/18/24 09:13 04/18/24 08:00 04/18/24 08:00 04/18/24 06:17 Laboratory Results - last 24 hr 04/18/24 09:18: WBC 11.8 H, RBC 5.07, Hgb 12.4 L, Hct 40.0 L, MCV 78.9 L, MCH 24.5 L, MCHC 31.0 L, RDW 14.9, Plt Count 362, MPV 10.0, Neut % (Auto) 68.8, Lymph % (Auto) 16.8, [place] % (Auto) 10.0 H, Eos % (Auto) 2.7, Baso % (Auto) 0.9, Neut # (Auto) 8.2 H, Lymph # (Auto) 2.0, [place] # (Auto) 1.2 H, Eos # (Auto) 0.3, Baso # (Auto) 0.1, Sodium 139, Potassium 4.5, Chloride 106, Carbon Dioxide 23, Anion Gap 14.5, BUN 37 H, Creatinine 1.90 H, Estimated Creat Clear 40, Estimated GFR 34 L, Est GFR ( Amer) 41 L D, Glucose 153 H, Calcium 8.2 L I & O for Last 24 hours: Intake & Output 04/15/24 04/16/24 04/17/24 04/18/24 23:59 23:59 23:59 23:59 Intake Total 689.500 / 950.092 0559 / 1580 1260 / 1260 Output Total 3925 / 3925 0 / 0 0 / 0 0 / 0 Balance -3235.500 / -3235.500 1280 / 1580 1260 / 1260 0 / 0 Weight 196 lb 8 oz 193 lb 9.6 oz 197 lb 13.838 oz 199 lb 6.4 oz Constitutional Constitutional: no acute distress and cooperative *Routine HEENT Exam Eye: Present PERRL *Routine Respiratory Exam Respiratory: Present CTA bilaterally; Absent accessory muscle use, wheezes or crackles *Routine Cardiovascular Exam Cardiovascular: Present RRR, Normal S1 and Normal S2; Absent murmur, gallop or rubs *Routine Abdominal Exam Abdominal: Present soft; Absent tenderness *Routine Extremities Exam Extremities: Present pulses intact; Absent cyanosis or edema *Routine Skin Exam Skin: Present intact; Absent erythema or wounds *Routine Neurological Exam Neurological: Present alert and oriented X3 Routine Psychiatric Exam Psychiatric: Present cooperative Progress Note: A&P Assessment and plan (1) Atrial fibrillation with RVR: Status: Acute (2) Pulmonary edema: Status: Acute (3) Acute CHF: Status: Acute (4) CAD (coronary artery disease): Status: Acute (5) Dyspnea: Status: Acute (6) Atypical angina: Status: Acute (7) History of GI bleed: Status: Acute (8) History of esophageal ulcer: Status: Acute (9) Renal insufficiency: Status: Acute (10) Orthostasis: Status: Acute (11) Acute HFrEF (heart failure with reduced ejection fraction): Status: Acute (12) Dehydration: Status: Acute Assessment and Plan Assessment and Plan for All Diagnoses:: Acute HFrEF - new dx this admission with EF 30% ProBNP 7k and moderate bilateral effusions on CT - Reviewed recent C with Dr. Padgett - patent arteries, no indication for repeat LHC - 04/15: Change Lasix to Bumex 2mg BID and continue diuresis until tomorrow. Add Entresto, Aldactone. Continue Farxiga and Metoprolol. Pt agreeable to LifeVest. - 04/16: SOA resolved but appears dehydrated. Cr up and very orthostatic this am. GDMT on hold. Will give back 500mL NS - 04/17: Remains euvolemic. Unable to tolerate ARNI/BB/MRNA due to hypotension. LifeVest was placed yesterday. - 04/18: Remains euvolemic. ProBNP down from 7k to 2k. CXR - effusion resolved. Tolerating Jardiance but no Entresto/Aldactone due to hypotension. PAF, RVR - pt is s/p LAAO/Watchman - known A-fib, acute exacerbation on arrival in the setting of SOA and new LHF - now rate controlled and asymptomatic on home meds - Considered DORIAN/DCCV but pt is rate controlled and would have to go back on Eliquis at least 1 mo if we DCCV (even though he's had LAAO). Will readdress as outpatient. - 04/16: Remains in A-fib. Today has SVR 40s-50s. - 04/17: Rate controlled for the moment but now having to hold Metoprolol due to hypotension and bradycardia. Will try Digoxin 250 q6h - 04/18: Rate controlled with Digoxin loading dose. Will DC home with renally dosed Digoxin 125mcg daily. Needs Dig level in 1 week and 3 week. Therapeutic goal 0.8-2ng/mL. Toxic >2ng/mL. Dehydration/Near Syncope/Orthostasis - Cr up to from 1.6 to 2.3 - Orthostatic vitals: 104/51 85, 78/49 52, 71/31 49 - Hold GDMT, give back 500mL NS - 04/17: Orthostatics today: 87/61 147, 74/39 70, 87/51 65. Transient improvement with fluids yesterday. Remains orthostatic after Entresto today. DC Entresto. Start Midodrine 5mg TID. - 04/18: Improved. Orthostatics today: 131/73 84, 116/63 65, 132/68 85. Resolved with Midodrine today. CAD - last [facility] 04/02/24 - stent to LCX. LAD and RCA widely patent - review of [facility] images this admission by Dr. Padgett - no further intervention needed - cont home dose DAPT, Statin. BB on hold due to hypotension. Hx of GI Bleed with blood transfusion 2023 - H/H stable here on DAPT - pt off OAC for now due to Watchman Htn - DC home dose Amlodipine and Metoprolol due to hypotension here - Currently requiring Midodrine. Will require close monitoring outpatient. 04/18: Pt feeling much better today on Midodrine and Digoxin. Color improved and he is ambulating without dizziness. BP up to 130s and not orthostatic. He is stable for DC home. I advised patient he needs very close f/u as I expect his BP will continue to change. He is hypertensive on 2 meds at baseline but hypotension requiring Midodrine when euvolemic here. Keep BID BP log and daily weights. LifeVest has been placed. He will need CMP, CBC, proBNP and Digoxin level labs in 1 week and f/u in our office same day. CV DC Meds: Aspirin 81 mg 1 p.o. daily Plavix 75 mg 1 p.o. daily Midodrine 5 mg 1 p.o. 3 times daily with meals Digoxin 125 mcg 1 p.o. daily Atorvastatin 40 mg 1 p.o. nightly
--- NOTE | 2024-04-21 10:43 | SW/DCPLANNER ---
Spoke with patient on the phone. Patient stated that he is weak still. Patient stated that he has appointments but didnt know when they were. I gave patient his follow up appointments and the time and who they were with. Patient stated that he was able to get some of his medicine picked up but 2 of them was too expensive and he was going to call his Dr to see what they can do. Patient stated that he has no concern or questions at this time. Katherine Worley
--- NOTE | 2024-04-21 12:57 | EXP.DC.SUM ---
General Admission date:: 04/14/24 Discharge date: 04/18/24 HPI HPI HPI: Mr. Garcia is an 79-year-old male with a cardiac history of stent placement by Dr. Padgett in 04/02/2024 and placement of a Watchman in March 11, [address] Hogan. He also has a history of GERD, ulcers, anemia, renal insufficiency, hypertension, and chronic atrial fibrillation. Patient and state he has not felt well for the past week. He has not been eating and drinking as usual. He denies nausea and vomiting and diarrhea and no fever. He describes being dizzy when he stands and for the last 3 to 4 days he has been short of breath with intermittent chest pain. He has had no heartburn but has had a lot of gas. He denies any melena or hematochezia or hematemesis. Today the chest pain was worse. He describes it as across his anterior chest as a heaviness radiating and through to the back. He is short of breath with this. He denies any other upper respiratory symptoms. He states he always has palpitations and these have been no worse. Chest x-ray today reveals the following: FINDINGS: PA and lateral views of the chest are obtained. There is no prior exam for comparison. The cardiac and mediastinal silhouettes are within normal limits. There are increased interstitial markings with small bilateral pleural effusions. There is bilateral lower lobe atelectasis. The findings are favored to be related to pulmonary edema, interstitial pneumonia not excluded. There is no pneumothorax or acute osseous abnormality. IMPRESSION: Bilateral interstitial opacities with bilateral lower lobe atelectasis and small effusions, favor pulmonary edema but pneumonia not excluded. note from adm [facility] ER as follows: HEART Score History (anamnesis): Slightly suspicious ECG: Non-specific disturbance Age: >65 years Risk factors: Atherosclerosis history Troponin: </= normal limit HEART Score: 5 Medical Decision Narrative: In summary, this patient is a 79-year-old male presenting to the Emergency Department for evaluation of chest pain and shortness of breath. Differential diagnoses considered include but are not limited to ACS, dysrhythmia, CHF, GERD, esophagitis, peptic ulcer, pancreatitis. Ruling out the most morbid conditions drove assessment. It should be noted patient's history includes extensive cardiovascular disease as well as history of bleeding esophageal ulcer which may or may not be at goal therapy. This complicates all aspects of care by increasing patient's risk for morbidity. I reviewed patient's past medical records and noted recent stenting 04/02/[address] Padgett. I also noted EGD 03/20/2024 with resolution/complete healing and regeneration of prior distal esophageal ulcer and small sliding hiatal hernia. On exam, the patient is lying in bed in no acute distress with normal vitals on cardiac telemetry. He is in atrial fibrillation with a heart rate in the 90s. Cardiopulmonary exam is reassuring, abdominal exam demonstrates mild epigastric tenderness to deep palpation but no rebound or guarding. Cannot use PERC criteria to exclude PE given patient's age, but I feel PE is less likely. Workup included CBC, CMP, lipase, lactic acid, Trope, BNP, D-dimer, chest x-ray, EKG. EKG not concerning for STEMI. Patient was given oral aspirin, GI cocktail, pantoprazole. Given the patient has not taken his home metoprolol and his heart rate in the high 90s upon arrival, I did order his home dose. On reassessment, patient actually had worsening in his heart rate after administration of his home metoprolol with heart rate in the 120s to 130s in A-fib with RVR. O2 saturation 91% on room air. I independently interpreted x-ray prior to the radiologist read and noted concerns for pulmonary edema. Please see their read for final interpretation. Labs were obtained that demonstrated elevated BNP, new from prior. He also has mild leukocytosis, nonspecific. BUN and creatinine around his baseline. I did inform bedside POCUS, and I did not note any evidence of right heart strain with limited views. Images not technically adequate, so I did reach out to cardiology to arrange consultation. Patient is not on anticoagulation for A-fib, but he is status post Watchman device (03/11). I feel he benefit from rate control, as his heart rate is in the 120s to 130s, but will await cardiology recommendations given possible acute heart failure. Additionally, labs demonstrated hypomagnesemia, so I ordered IV magnesium repletion. I had an interactive discussion with Carter JONES with cardiology who advised diltiazem drip and formal echo. These were ordered. Patient had good improvement in heart rate and remained hemodynamically stable with this. He tolerated this very well. I also given 40 mg of IV Lasix to help with diuresis given his pulmonary edema. At this time, I feel that he stable for admission given reassuring vital signs and improvement in heart rate. I had an interactive discussion with Dr. Santiago who admitted the patient in stable condition Hospital Course Hospital Course Hospital Course: On admission patient was started on diltiazem drip. He was seen by cardiology and followed by them throughout his stay. He was placed with a LifeVest for nonischemic cardiomyopathy with ejection fraction of 30%. He also showed moderate bilateral effusions on his CT. He had no pulmonary embolism. Lasix was initially changed to Bumex 2 mg twice daily for diuresis. Entresto and Aldactone were also added. Amlodipine was discontinued. Plan was to diurese him for 24 hours and then started on 1 GDMT with a LifeVest. He was also planned to have cardioversion but with his low EF this was canceled. Blood pressure was noted to be low and he did not feel any better with shortness of breath and dizziness. Cardiac meds were were held. He was felt to be dehydrated with an increase in his creatinine. He was given a bolus of 500 mL of normal saline. Also Flomax was discontinued. Digoxin was initiated for rhythm control without depressing his blood pressure. 04/17/2024 patient remained orthostatic and weak. Cardiac meds were being held but HE had received Entresto twice. The following day he felt much better. He was able to ambulate without dizziness or weakness. Blood pressure had improved. He remained in atrial fib but with a controlled rate on digoxin. From cardiology standpoint he was stable to be discharged home. Patient was instructed to keep a blood pressure log twice daily with daily weights. LifeVest was placed. He was noted to need a CMP, CBC, proBNP, and dig level in 1 week with a follow-up in the cardiology office the same day. Patient discharged home in stable condition with follow-up as above. He was also to follow-up with Dr. Santiago on 04/24/2024. Meds to include digoxin 125 mcg daily, Jardiance 10 mg daily, midodrine 5 mg 3 times daily for low blood pressure and Entresto 24/ twice daily. Exam Data for Last 24 hours Vital signs and Labs for Last 24 Hours: Temp Pulse Resp BP Pulse Ox O2 Del Method O2 Flow Rate 97.5 F L 84 20 131/73 95 Room Air 2 04/18/24 08:00 04/18/24 09:13 04/18/24 08:00 04/18/24 09:13 04/18/24 08:00 04/18/24 11:00 04/18/24 06:17 Narrative: [facility] exam on discharge day: Constitutional: Present no acute distress Respiratory: Present CTA bilaterally (Anteriorly and posteriorly) Cardiac: Present pedal pulses present; Absent Regular Rhythm (atrial fib with a rate in the 80's) GI: Present distention (Distention versus large abdomen) and normal bowel sounds; Absent tenderness or guarding Extremities: Absent tenderness, edema or calf tenderness Skin: Present intact Neuro: Present alert, awake and oriented x 3 Results Data Completed and Pending Completed studies during hospitalization [Text1]: 04/14/2024 ECHO Conclusion Moderate to severe reduction global LV systolic function (LVEF 30%). Normal RV size with mildly reduced RV function. Biatrial dilation. Mild TR. Of note, the patient is in A-fib/RVR at the time of image acquisition. 04/17/24 08:50: WBC 13.5 H, RBC 5.14, Hgb 12.8 L, Hct 40.2 L, MCV 78.2 L, MCH 24.9 L, MCHC 31.8, RDW 15.0, Plt Count 398, MPV 10.2, Neut % (Auto) 77.0, Lymph % (Auto) 12.0, [place] % (Auto) 8.3, Eos % (Auto) 1.3, Baso % (Auto) 0.6, Neut # (Auto) 10.4 H, Lymph # (Auto) 1.6, [place] # (Auto) 1.1 H, Eos # (Auto) 0.2, Baso # (Auto) 0.1, Sodium 138, Potassium 4.1, Chloride 103, Carbon Dioxide 25, Anion Gap 14.1, BUN 44 H, Creatinine 2.30 H, Estimated Creat Clear 32, Estimated GFR 27 L, Est GFR ( Amer) 33 L, Glucose 163 H, Calcium 8.4, Total Bilirubin 0.8, AST 27, ALT 23, Alkaline Phosphatase 75, NT-Pro-B Natriuret Pep 2310 H, Total Protein 7.0, Albumin 4.0 D, Globulin 3.0, Albumin/Globulin Ratio 1.3 DS: Diagnosis Discharge Diagnosis (1) Atrial fibrillation with RVR: Status: Acute Code(s): I48.91 - Unspecified atrial fibrillation (2) Pulmonary edema: Status: Acute Code(s): J81.1 - Chronic pulmonary edema (3) Acute CHF: Status: Acute Code(s): I50.9 - Heart failure, unspecified (4) CAD (coronary artery disease): Status: Acute Code(s): I25.10 - Atherosclerotic heart disease of [place] coronary artery without angina pectoris Qualifiers: Associated angina: with stable angina Coronary Disease-Associated Artery/Lesion type: [place] artery [place] vs. transplanted heart: [place] heart Qualified Code(s): I25.118 - Atherosclerotic heart disease of [place] coronary artery with other forms of angina pectoris (5) Dyspnea: Status: Acute Code(s): R06.00 - Dyspnea, unspecified Qualifiers: Dyspnea type: dyspnea on exertion Qualified Code(s): R06.00 - Dyspnea, unspecified (6) Atypical angina: Status: Acute Code(s): I20.89 - Other forms of angina pectoris (7) History of GI bleed: Status: Acute Code(s): Z87.19 - Personal history of other diseases of the digestive system (8) History of esophageal ulcer: Status: Acute Code(s): Z87.19 - Personal history of other diseases of the digestive system (9) Renal insufficiency: Status: Acute Code(s): N28.9 - Disorder of kidney and ureter, unspecified (10) Orthostasis: Status: Acute Code(s): I95.1 - Orthostatic hypotension (11) Acute HFrEF (heart failure with reduced ejection fraction): Status: Acute Code(s): I50.21 - Acute systolic (congestive) heart failure (12) Dehydration: Status: Acute Code(s): E86.0 - Dehydration Meds Home Medications and Allergies Home Medications ?Medication ?Instructions ?Recorded ?Confirmed ?Type nitroglycerin 0.4 mg sublingual 0.4 mg sublingual Q5-15M PRN chest 06/04/23 04/14/24 Rx tablet pain #30 tabs aspirin 81 mg tablet,delayed 81 mg PO DAILY 03/18/24 04/14/24 History release clopidogrel 75 mg tablet 75 mg PO DAILY 03/18/24 04/14/24 History ferrous gluconate 324 mg (38 mg 324 mg PO DAILY 03/18/24 04/14/24 History iron) tablet pantoprazole 40 mg tablet,delayed 40 mg PO DAILY 03/18/24 04/14/24 History release atorvastatin 40 mg tablet (Lipitor) 40 mg PO HS 30 days #30 tabs 04/02/24 04/14/24 Rx digoxin 125 mcg (0.125 mg) tablet 125 mcg PO DAILY #30 tabs 04/18/24 Rx empagliflozin 10 mg tablet 10 mg PO DAILY #30 tabs 04/18/24 Rx (Jardiance) midodrine 5 mg tablet 5 mg PO TID #90 tabs 04/18/24 Rx sacubitril 24 mg-valsartan 26 mg 1 tab PO BID #60 tabs 04/18/24 Rx tablet (Entresto) New Prescriptions to Start Prescriptions: digoxin Ta Santiago empagliflozin [Jardiance] Ta Santiago midodrine Ta Santiago sacubitril-valsartan [Entresto] Ta Santiago Allergies Allergy/AdvReac Type Severity Reaction Status Date / Time tolmetin (TOLMETIN) Allergy Intermediate Unknown Verified 04/14/24 12:51 allergy reaction Discharge Plan Disposition Patient Disposition: Home, Self-Care Discharge Order Discharge Orders: Discharge Order (Routine); Ordered 04/18/24 Ordered By: Ta Santiago Follow up Plan Follow up with: Jasvir Machado PA [Physician Community Educator] - 05/01/24 10:45 am Ta Santiago MD [Primary Care Provider] - 04/24/24 3:45 pm Prescriptions/Medication Reconciliation: New sacubitril-valsartan [Entresto] 24-26 mg Tablet 1 tab PO BID Qty: 60 3RF midodrine 5 mg Tablet 5 mg PO TID Qty: 90 4RF Jardiance 10 mg Tablet 10 mg PO DAILY Qty: 30 4RF digoxin 125 mcg (0.125 mg) tablet 125 mcg PO DAILY Qty: 30 3RF Continued nitroglycerin 0.4 mg tablet, sublingual 0.4 mg sublingual Q5-15M PRN (Reason: chest pain) Qty: 30 1RF Rx Instructions: do not exceed 3 doses per episode clopidogrel 75 mg tablet 75 mg PO DAILY aspirin 81 mg tablet,delayed release (DR/EC) 81 mg PO DAILY Patient Comments: TAKE 1 TABLET BY MOUTH ONCE A DAY pantoprazole 40 mg tablet,delayed release (DR/EC) 40 mg PO DAILY ferrous gluconate 324 mg (38 mg iron) tablet 324 mg PO DAILY Patient Comments: TAKE 1 TABLET BY MOUTH ONCE DAILY atorvastatin [Lipitor] 40 mg Tablet 40 mg PO HS 30 Days Qty: 30 3RF Discontinued tamsulosin 0.4 mg capsule 0.4 mg PO HS metoprolol succinate 100 mg tablet extended release 24 hr 50 mg PO BID Qty: 30 3RF Problem Reconciliation Problems Reviewed?: Yes Patient Discharge Instructions ACTIVITY: Limited activity Patient Instructions: Heart-Healthy Diet, DI for Heart Failure, DI for Atrial Fibrillation, Heart Healthy Diet Label Reading Tips Print Language: Hebrew Providers Primary Care Provider: Ta Santiago Admit Provider: Ta Santiago Attending Provider: Ta Santiago
== END 2024-04-18 11:30 | disposition home or self-care (01) | DRG 309 ==
LOC: ER 11:25 → ICU 11:53 → 2ND 04-15 12:09
PROVIDERS: Nurse Practitioner Family; Physician Assistant; Admitting Provider Family Medicine; Emergency Provider Emergency Medicine; PCP Family Medicine; Visit Provider Family Medicine
DX: I48.0 Paroxysmal atrial fibrillation (principal); I50.1 Left ventricular failure, unspecified; I25.118 Atherosclerotic heart disease of native coronary artery with other forms of angina pectoris; I11.0 Hypertensive heart disease with heart failure; I50.9 Heart failure, unspecified; I42.9 Cardiomyopathy, unspecified; I95.1 Orthostatic hypotension; G47.33 Obstructive sleep apnea (adult) (pediatric); E78.5 Hyperlipidemia, unspecified; Z79.82 Long term (current) use of aspirin; Z79.02 Long term (current) use of antithrombotics/antiplatelets; Z79.85 Long-term (current) use of injectable non-insulin antidiabetic drugs; Z79.84 Long term (current) use of oral hypoglycemic drugs; Z95.818 Presence of other cardiac implants and grafts; Z80.9 Family history of malignant neoplasm, unspecified; Z87.891 Personal history of nicotine dependence; Z88.6 Allergy status to analgesic agent; Z95.5 Presence of coronary angioplasty implant and graft
CPT/HCPCS: 36415; 71045; 71046; 71275; 80048; 80053; 83605; 83690; 83735; 83880; 84436; 84443; 84484; 85007; 85014; 85018; 85025; 85048; 85049; 85378; 87636; 93005; 93306; 99291; J1940; J3475; Q9967

== ENCOUNTER 2024-05-01 11:47 | Outpatient (CLI) | payer MEDICARE, SELFPAY ==
[2024-05-01 12:08] LABS: Basophils # 0.1 K/mm3 (0-0.2); Basophils % 0.8 % (0.1-2.0); Eosinophils # 0.2 K/mm3 (0.0-0.4); Eosinophils % 2.6 % (0.1-12.0); Hematocrit 39.3 % (42.0-52.0); Lymphocytes # 1.7 K/mm3 (0.7-4.5); Lymphocytes % 19.7 % (10-50); Mean Corpuscular HGB Conc 30.5 g/dL (31.8-35.4); Mean Corpuscular Hemoglobin 24.1 pg (27.0-31.2); Mean Corpuscular Volume 79.1 fl (80-94); Mean Platelet Volume 10.3 fl (7.4-10.4); Monocytes # 0.8 K/mm3 (0.1-1.0); Neutrophils # 5.7 K/mm3 (1.8-7.8); Neutrophils % 67.3 % (37.0-80.0); Platelet Count 280 K/mm3 (142-424); Red Blood Count 4.97 M/mm3 (4.60-6.20); Red Cell Distribution Width 14.8 % (11.5-17.5); White Blood Count 8.5 K/mm3 (4.8-10.8)
[2024-05-01 12:52] LABS: Albumin Level 4.4 g/dl (3.5-5.0); Chloride 110 mmol/L (98-107)
[2024-05-01 12:53] LABS: Potassium 4.8 mmoL/L (3.5-5.1); Sodium 142 mmol/L (136-145)
[2024-05-01 12:55] LABS: Alanine Aminotransferase 23 U/L (12-78); Alkaline Phosphatase 99 U/L (38-126); Anion Gap 13.8 mEq/L (5-15); Aspartate Amino Transferase 23 U/L (17-59); Bilirubin,Direct 0.2 mg/dl (0.0-0.4); Bilirubin,Indirect 0.2 mg/dL (0.0-0.9); Bilirubin,Total 0.4 mg/dl (0.2-1.3); Bilirubin,Unconjugated 0.2 mg/dL (0.0-1.1); Blood Urea Nitrogen 13 mg/dl (9-20); Carbon Dioxide 23 mmol/L (22.0-30.0); Cholesterol 140 mg/dl (140-200); Estimated Glomerular Filt Rate 34 ml/min (>60); GFR (African American) 41 ML/MIN (>60); Total Protein,Serum 6.8 g/dl (6.3-8.2); Triglycerides 228 mg/dl (30-150); VLDL Cholesterol 46 mg/dL (0-40)
[2024-05-01 12:56] LABS: Calcium 9.2 mg/dl (8.4-10.2); Chol/HDL Ratio 3.9 (1-3.5); Glucose 158 mg/dl (74-100); HDL Cholesterol 36 mg/dl (40-60)
[2024-05-01 13:06] LABS: Direct LDL Cholesterol 72.63 mg/dL (100-129)
[2024-05-01 13:12] LABS: Free T4 (Free Thyroxine) 0.77 ng/dl (0.78-2.19)
[2024-05-01 13:26] LABS: Thyroid Stimulating Hormone 3.85 uIU/mL (0.465-4.68)
== END 2024-05-01 23:59 | disposition home or self-care (01) ==
LOC: LAB 11:48
PROVIDERS: PCP Family Medicine; Visit Provider Physician Assistant
DX: I11.0 Hypertensive heart disease with heart failure (principal); I50.21 Acute systolic (congestive) heart failure; I25.118 Atherosclerotic heart disease of native coronary artery with other forms of angina pectoris; E78.2 Mixed hyperlipidemia; I48.0 Paroxysmal atrial fibrillation
CPT/HCPCS: 36415; 80048; 80061; 80076; 80162; 84439; 84443; 85025

== ENCOUNTER 2024-05-14 13:49 | Outpatient (CLI) | payer MEDICARE, SELFPAY ==
[2024-05-14 14:34] LABS: Basophils # 0.1 K/mm3 (0-0.2); Basophils % 0.6 % (0.1-2.0); Eosinophils # 0.2 K/mm3 (0.0-0.4); Eosinophils % 2.1 % (0.1-12.0); Hematocrit 34.2 % (42.0-52.0); Hemoglobin 10.3 g/dL (14.1-18.0); Lymphocytes # 1.6 K/mm3 (0.7-4.5); Lymphocytes % 20.4 % (10-50); Mean Corpuscular HGB Conc 30.1 g/dL (31.8-35.4); Mean Corpuscular Volume 79.5 fl (80-94); Mean Platelet Volume 10.4 fl (7.4-10.4); Monocytes # 0.9 K/mm3 (0.1-1.0); Monocytes % 11.5 % (1.7-9.3); Neutrophils # 5.2 K/mm3 (1.8-7.8); Neutrophils % 64.9 % (37.0-80.0); Platelet Count 254 K/mm3 (142-424); Red Cell Distribution Width 15.7 % (11.5-17.5)
[2024-05-14 14:57] LABS: Albumin Level 4.8 g/dl (3.5-5.0); Chloride 106 mmol/L (98-107)
[2024-05-14 14:58] LABS: Potassium 4.3 mmoL/L (3.5-5.1); Sodium 139 mmol/L (136-145)
[2024-05-14 15:00] LABS: Alanine Aminotransferase 25 U/L (12-78); Alkaline Phosphatase 89 U/L (38-126); Anion Gap 12.3 mEq/L (5-15); Aspartate Amino Transferase 26 U/L (17-59); Bilirubin,Direct 0.1 mg/dl (0.0-0.4); Bilirubin,Indirect 0.7 mg/dL (0.0-0.9); Bilirubin,Total 0.8 mg/dl (0.2-1.3); Bilirubin,Unconjugated 0.8 mg/dL (0.0-1.1); Blood Urea Nitrogen 16 mg/dl (9-20); Carbon Dioxide 25 mmol/L (22.0-30.0); Cholesterol 155 mg/dl (140-200); Estimated Glomerular Filt Rate 42 ml/min (>60); GFR (African American) 51 ML/MIN (>60); Total Protein,Serum 7.2 g/dl (6.3-8.2); Triglycerides 131 mg/dl (30-150); VLDL Cholesterol 26 mg/dL (0-40)
[2024-05-14 15:01] LABS: Chol/HDL Ratio 3.3 (1-3.5); Glucose 79 mg/dl (74-100); HDL Cholesterol 47 mg/dl (40-60)
[2024-05-14 15:12] LABS: Direct LDL Cholesterol 90.63 mg/dL (100-129)
[2024-05-14 15:22] LABS: Free T4 (Free Thyroxine) 1.07 ng/dl (0.78-2.19)
[2024-05-14 15:31] LABS: Thyroid Stimulating Hormone 7.47 uIU/mL (0.465-4.68)
== END 2024-05-14 23:59 | disposition home or self-care (01) ==
LOC: LAB 13:50
PROVIDERS: PCP Family Medicine; Visit Provider Nurse Practitioner
DX: I25.10 Atherosclerotic heart disease of native coronary artery without angina pectoris (principal); E78.2 Mixed hyperlipidemia; I10 Essential (primary) hypertension; I25.118 Atherosclerotic heart disease of native coronary artery with other forms of angina pectoris; E78.5 Hyperlipidemia, unspecified; R42 Dizziness and giddiness
CPT/HCPCS: 36415; 80048; 80061; 80076; 84439; 84443; 85025

== ENCOUNTER 2024-05-23 13:22 | Outpatient (CLI) | payer MEDICARE, SELFPAY ==
[2024-05-23] MEDS: IOPAMIDOL-370 (76%);100ML BOTTLE 75 ML IV (13:47)
[2024-05-23] MEDS: SODIUM CHLORIDE 0.9% 10ML SYR (RAD ONLY) 10 ML IV (13:47)
[2024-05-23] MEDS: 0.9 % SODIUM CHLORIDE 50 ML VIAL IV (13:47)
--- NOTE | 2024-05-23 14:00 | CT_ITS ---
PROCEDURE INFORMATION: Exam: CT Head Without And With Contrast Exam date and time: 05/23/2024 1:43 PM Age: 79 years old Clinical indication: Dizziness and visual disturbance; Additional info: Dizziness, vision changes TECHNIQUE: Imaging protocol: Computed tomography of the head without and with contrast. 3D rendering (Not supervised by radiologist): MIP and/or 3D reconstructed images were created by the technologist. Radiation optimization: All CT scans at this facility use at least one of these dose optimization techniques: automated exposure control; mA and/or kV adjustment per patient size (includes targeted exams where dose is matched to clinical indication); or iterative reconstruction. Contrast material: ISOVUE; Contrast volume: 75 ml; Contrast route: IV; COMPARISON: CT HEAD/BRAIN WO/W CON 05/23/2024 1:41 PM FINDINGS: Brain: There is no evidence of acute intracranial hemorrhage, extra-axial collection or locoregional mass effect. There are scattered hypodensities in the periventricular and subcortical white matter. The appearance is nonspecific, but most likely represents chronic small vessel disease in a person of this age. No abnormal parenchymal or meningeal enhancement. Cerebral ventricles: The ventricles, sulci and cisterns are normal in size and configuration for patient's age. No hydrocephalus or midline structure shift Pituitary gland and sella: Sellar/parasellar structures, craniocervical junction and orbits are unremarkable Paranasal sinuses: Visualized sinuses are unremarkable. No fluid levels. Mastoid air cells: Visualized mastoid air cells are well aerated. Bones: No calvarial fracture Soft tissues: Unremarkable. Vasculature: There are calcifications in vertebral arteries and carotid siphons. IMPRESSION: 1. No acute intracranial abnormality. No calvarial fracture. If focal neurological symptoms persist brain MRI can be obtained for better evaluation 2. No abnormal parenchymal or meningeal enhancement.
--- NOTE | 2024-05-23 14:00 | CT_ITS ---
PROCEDURE INFORMATION: Exam: CTA Neck With Contrast Exam date and time: 05/23/2024 1:43 PM Age: 79 years old Clinical indication: Dizziness and giddiness and visual disturbance; Additional info: Dizziness, vision changes TECHNIQUE: Imaging protocol: Computed tomographic angiography of the neck with contrast. Exam focused on the cervical segments of the vasculature. 3D rendering (Not supervised by radiologist): MIP and/or 3D reconstructed images were created by the technologist. Radiation optimization: All CT scans at this facility use at least one of these dose optimization techniques: automated exposure control; mA and/or kV adjustment per patient size (includes targeted exams where dose is matched to clinical indication); or iterative reconstruction. Contrast material: ISO 370; Contrast volume: 75 ml; Contrast route: INTRAVENOUS (IV); COMPARISON: CT ANGIO CHEST PE PROTOCOL 04/14/2024 5:58 PM FINDINGS: Right common carotid artery: No stenosis. No dissection or occlusion. Right internal carotid artery: No stenosis of the extracranial segment. No dissection or occlusion. Right external carotid artery: No occlusion or stenosis of the origin. Left common carotid artery: No stenosis. No dissection or occlusion. Left internal carotid artery: Moderate atherosclerotic changes contribute to 50-69% stenosis per NASCET criteria at the origin of left internal carotid artery. Left external carotid artery: No occlusion or stenosis of the origin. Right vertebral artery: Vwqn-ao-egftumss narrowing of the right vertebral artery origin. Left vertebral artery: Multifocal stenoses along the V1 and V2 segments of left vertebral artery. Soft tissues: Normal. No significant soft tissue swelling. Bones/joints: No acute fracture. IMPRESSION: 1. Moderate atherosclerotic changes contribute to 50-69% stenosis per NASCET criteria at the origin of left internal carotid artery. 2. Multifocal stenoses along the V1 and V2 segments of left vertebral artery. 3. Hkrl-nx-hptrrxzt narrowing of the right vertebral artery origin. REFERENCES: NASCET CRITERIA. The degree of stenosis in the cervical segment of the internal carotid artery is based on NASCET criteria. Normal is no stenosis. Mild is less than 50% stenosis. Moderate is 50-69% stenosis. Severe is 70% to 99% stenosis. Total occlusion is no detectable patent lumen.
== END 2024-05-23 23:59 | disposition home or self-care (01) ==
LOC: RAD 13:22
PROVIDERS: PCP Family Medicine; Visit Provider Nurse Practitioner
DX: R42 Dizziness and giddiness (principal); H53.8 Other visual disturbances; E78.5 Hyperlipidemia, unspecified
CPT/HCPCS: 70470; 70498; Q9967

== ENCOUNTER 2024-06-06 07:42 | Outpatient (CLI) | payer MEDICARE, SELFPAY ==
--- OUTSIDE RECORDS SUMMARY | 2024-06-06 07:47 | XMS_ITS ---
Author Organization Unknown Medications Date Medication Dosage DosageUnit StartDate StopDate StopReason Active DoseQuantity DoseUnit Dispense DispenseUnit Refills NdcCode DrugCode PharmacyId IsPrescription MappedMedication Srcstatus 05/30 00:00 :00 Amiodarone HCl 400 MG Tablet 1 681847 05 700 Taking 05/30 00:00 :00 Aspirin 81 81 MG Tablet Delayed Release 1 30 30359000 650 P Taking 01/27 00:00 :00 Aspirin 81 81 MG Tablet Delayed Release 0 30 64394496 650 P Not Taking 01/09 00:00 :00 Aspirin 81 81 MG Tablet Delayed Release 0 30 93836022 650 P Not Taking 10/25 00:00 :00 Aspirin 81 81 MG Tablet Delayed Release 0 30 35393933 650 Not Taking 05/30 00:00 :00 Atorvastati n Calcium 40 MG Tablet 1 000 14079 810 Taking 01/27 00:00 :00 Atorvastati n Calcium 40 MG Tablet 0 000 08600 810 Not Taking 01/09 00:00 :00 Atorvastati n Calcium 40 MG Tablet 0 000 72553 810 Not Taking 05/30 00:00 :00 Bisoprolol Fumarate 10 MG Tablet 0 1671 4053 001 Not Taking 04/24 00:00 :00 Bisoprolol Fumarate 10 MG Tablet 0 1671 4053 001 Not Taking 04/07 00:00 :00 Bisoprolol Fumarate 10 MG Tablet 0 1671 4053 001 Not Taking 01/27 00:00 :00 Bisoprolol Fumarate 10 MG Tablet 0 1671 4053 001 Not Taking 01/09 00:00 :00 Bisoprolol Fumarate 10 MG Tablet 0 1671 4053 001 Not Taking 05/30 00:00 :00 Clopidogrel Bisulfate 75 MG Tablet 1 30 009 70349 461 Taking 01/27 00:00 :00 Clopidogrel Bisulfate 75 MG Tablet 0 30 009 75505 461 Not Taking 01/09 00:00 :00 Clopidogrel Bisulfate 75 MG Tablet 0 30 009 52751 461 Not Taking 12/23 00:00 :00 Clopidogrel Bisulfate 75 MG Tablet 0 30 009 15419 461 Not Taking 10/25 00:00 :00 Clopidogrel Bisulfate 75 MG Tablet 0 30 009 37947 461 Not Taking 05/30 00:00 :00 Digoxin 125 MCG Tablet 1 15 2752502 4 001 Taking 05/30 00:00 :00 Entresto 24-26 MG Tablet 0 60 14590833 920 Discontinu ed 05/30 00:00 :00 Ferrous Gluconate 324 (38 Fe) MG Tablet 1 16316945 801 Taking 05/30 00:00 :00 Furosemide 40 MG Tablet 1 573248 29 925 Taking 05/30 00:00 :00 Jardiance 10 MG Tablet 0 1648798 5 207 Discontinu ed 04/24 00:00 :00 Jardiance 10 MG Tablet 1 8476772 5 207 Taking 05/30 00:00 :00 Losartan Potassium 25 MG Tablet 1 009 59617 761 Taking 05/30 00:00 :00 Midodrine HCl 5 MG Tablet 0 60 5214667 1 201 Not Taking 04/24 00:00 :00 Midodrine HCl 5 MG Tablet 0 60 9195448 1 201 Not Taking 05/30 00:00 :00 oxyCODONE HCl 5 MG Tablet 01/10/2024 00:00:00 0 60 0 6328867 5 201 P Not Taking 04/24 00:00 :00 oxyCODONE HCl 5 MG Tablet 01/10/2024 00:00:00 0 60 0 4072032 5 201 P Not Taking 04/07 00:00 :00 oxyCODONE HCl 5 MG Tablet 01/10/2024 00:00:00 0 60 0 3419262 5 201 P Not Taking 05/30 00:00 :00 Pantoprazol e Sodium 40 MG Tablet Delayed Release 1 30 86477104 910 Taking 05/30 00:00 :00 Pregabalin 75 MG Capsule 01/10/2024 00:00:00 0 60 3 9228979 0 061 P Not Taking 04/24 00:00 :00 Pregabalin 75 MG Capsule 01/10/2024 00:00:00 0 60 3 4394910 0 061 P Not Taking 04/07 00:00 :00 Pregabalin 75 MG Capsule 01/10/2024 00:00:00 0 60 3 3431529 0 061 P Not Taking 05/30 00:00 :00 traMADol HCl 50 MG Tablet 03/01/2022 00:00:00 0 90 2 9887428 5 801 P Not Taking 04/24 00:00 :00 traMADol HCl 50 MG Tablet 03/01/2022 00:00:00 0 90 2 3519118 5 801 P Not Taking 04/07 00:00 :00 traMADol HCl 50 MG Tablet 03/01/2022 00:00:00 0 90 2 4533829 5 801 P Not Taking 01/27 00:00 :00 traMADol HCl 50 MG Tablet 03/01/2022 00:00:00 0 90 2 9425507 5 801 P Not Taking 01/09 00:00 :00 traMADol HCl 50 MG Tablet 03/01/2022 00:00:00 0 90 2 4879994 5 801 P Not Taking 05/30 00:00 :00 Warfarin Sodium 5 MG Tablet 0 30 000580 72 101 Not Taking 04/24 00:00 :00 Warfarin Sodium 5 MG Tablet 0 30 480123 72 101 Not Taking 04/07 00:00 :00 Warfarin Sodium 5 MG Tablet 0 30 142947 72 101 Not Taking 01/27 00:00 :00 Warfarin Sodium 5 MG Tablet 0 30 738309 72 101 Not Taking 01/09 00:00 :00 Warfarin Sodium 5 MG Tablet 0 30 930425 72 101 Not Taking
--- OUTSIDE RECORDS SUMMARY | 2024-06-06 07:47 | XMS_ITS | Encounter Summary ---
Author Name [facility] Organization [facility] Address [address] [place] [address] Support Name Relationship Address Phone SWATI CONNIE Next of Kin [address] [place] [address] CONNIE LONGORIA Emergency Contact [address] [facility] [place] [address] Amelie LONGORIA Next of Kin [address] [place] [address] HAYLEY LONGORIA [facility] [address] [facility] [place] [address] Insurance Providers: All historical and current Section Date Range: From patient's date of to the date document was created. This section includes the names of all active insurance providers for the patient. Insurance Provider Type of Coverage Plan Name Start of Policy Coverage End of Policy Coverage Group Number Member ID Insurance Provider's Telephone Number Policy Orr's Name Patient's Relationship to Policy Orr Selected Encounter This section includes the information on record at [place] for the Encounter. Date/Time Encounter Type Encounter Description Reason Pro vider Source Oct 10, 2023 09:38 AM Outpatient Encounter ADMIN PAT ACTIVTIES (MASNONCT) IHE Encounter Template Text not used by VA Encounter Notes: All associated encounter notes This section contains the clinical notes associated to the Encounter. Date/Time Encounter Note(s) Provider Source Oct 10, 2023 09:38 AM ADMINISTRATIVE NOT E: LOCAL TITLE: HEALTH BENEFITS ADMINISTRATIVE NOTE STANDARD TITLE: ADMINISTRATIVE NOTE DATE OF NOTE: OCT 10, 2023@09:38 ENTRY DATE: OCT 10, 2023@09:38:21 AUTHOR: KARLA MENDEZ EXP COSIGNER: URGENCY: STATUS: COMPLETED Eligible for enrollment: Yes Adrian has been enrolled and assigned to priority group 8C HBA enrolled Sep Adrian came in today for a replacement ID; DL was presented and he was proofed through [employer] and processed through [facility] after address was verified. /chong/ KARLA MENDEZ ADVANCE MSA Signed: 10/10/2023 09:38 KARLA MENDEZ-VIRGEN [facility]
--- OUTSIDE RECORDS SUMMARY | 2024-06-06 07:47 | XMS_ITS | Continuity of Care Document ---
Author Name [facility] Organization [facility] Care Team Providers Care Media Center Specialist Name Role Phone [facility] Unavailable Unavailable Encounters Combined list of: 1) Encounters from [facility] facilities going backup to the last 18 months, not all VA inpatient encounters are included; 2) Encounters from the Department of [facility] facilities going backup to 280 months. Location Location Details Encounter Type Encounter Number Reason For Visit Attending Provider ADM Date DC Date Status Disposition Source [facility] Outpatient Encounter [id number] 10[facility] En[facility] [id number] 06/[address] [place] [facility] Outpatient Encounter [id number] 06/05 [place] [facility]
--- OUTSIDE RECORDS SUMMARY | 2024-06-06 07:48 | XMS_ITS | Data Portability ---
Author Organization [facility] HUNTER GastelumS BERTHA CLOSED Address [address] [place] [address] Care Team Providers Care Paper Tube Cutter Name Role Phone HORACIO BISHOP Primary Care Provider FERNANDO FOSTER Neurologist BRIANNE CASTELLANOS Orthopedic Surgeon SEPIDEH TREJO International Sales Manager MARINA ANNE Cloth Beamer Assessment No assessment recorded. Plan of Treatment Reminders Order Date Submit Date Provider Last Modified By Organization Details Last Modified Time Details Appointments FOLLOW UP DAK 2024 09:50A M BRUNO FERNANDES PA-C Not available Not available Not available MALE RECHECK 2024 09:30A M NIKKO BURLESON MD Not available Not available Not available Lab surgical pathology study 2023 024 [facility], [facility] [place], [address], 03/02/2023 13:52:02 Referral None recorded. Procedures None recorded. Surgeries None recorded. Imaging None recorded. Medication Orders acyclovir 400 mg tablet 2023 024 [facility], [address], [address], 01/21/2024 12:24:45 tadalafil 5 mg tablet 2023 024 tgriluz elena3 [facility] 591, [address], [address], 10/26/2023 07:28:01 tamsulosi n 0.4 mg capsule 2023 024 BRITTA [facility] 591, [address], [address], 10/26/2023 07:28:08 mupirocin 2 % topical ointment 2023 024 marlena [facility] 591, [address], [address], 03/01/2023 09:40:31 Patient TargetsNo targets recorded. Patient InstructionsNo instructions recorded. Reason for Referral None Reported. Results Created Date Observation Date Name Description Value Unit Range Abnormal Flag Note LastModifiedBy Organization Detail LastModifiedTime 09/17/1909/17/2023 XR, knee, 3 view [facility] [address] [facility] [place] [address] Patien t Name: NILSON jung : [birth year] 44 Patien t 9 Orderi ng Provid er: JOSE JUAN SEGURA EXAM DATE: 2023 EXAM: XR LT KNEE 3 VIEWS COMPAR NEERAJ: 022 HISTOR Y: Follow -up of prior surger jenniferFang SANTOS GS: Again seen is a left knee total arthro plasty . There is no eviden ce of loosen ing. No fractu re is identi fied. Contra latera l knee: There are mild to modera te degene rative change s. IMPRES TISH: 1. There is a left total knee arthro plasty in place withou t eviden ce of loosen ing. Interp reted By: Cindi whitney MD Electr onical ly Signed By: Cindi whitney MD on 10:54 AM [email or web address] [facility] [place] [address] , [place], [address], 09/17/2023 11:19:52 Result Notes None recorded. Problems Name Problem SNOMED Code Status Onset Date Resolution Date Notes Provider Name and Address Organization Details Recorded Time Impotence Active 2015 From Automated Load;Prov ider: Nikko Burleson; Status: Active Not Available [facility] 7 07:25:34 Pain in left knee Active 2019 Dede Johnson breezy [facility] 0 13:15:36 Left foot drop 44414512576 9105 Active 2020 MARLO DELACRUZ PA-C [address] [place], [address] , [facility] 1 09:46:35 Lumbar radiculop athy 946629218 Active 2020 MARLO DELACRUZ PA-C [address] [place], [address] , [facility] 1 12:47:24 Ureteric stone 42629144 Active 2014 Provider: Nikko Burleson; Status: Active Not Available [facility] 6 06:08:00 Problem Notes None recorded. Procedures Surgical History Date Name Laterality Status Provider Name and Address Organization Details Recorded Time 01/21/20 24 DAK - Cryo AK completed [facility] 01/21/2024 11:31:23 07/18/19 24 DAK - Cryo AK completed Jenn Morfin [facility] 07/18/2023 14:03:51 03/01/19 24 Blade Biopsy completed [facility] 03/01/2023 09:22:40 01/13/20 23 Destruction BN Lesions completed MARINA PLATT MD [address] [place], [address], [facility] 01/12/2023 17:41:56 01/17/20 22 Uroflowmetry; Complex completed NIKKO BURLESON MD [address] [place], [address], [facility] 01/16/2022 20:05:44 01/17/20 22 Post Void Residual; Ultrasound completed NIKKO BURLESON MD [address] [place], [address], [facility] 01/16/2022 20:05:57 03/19/19 21 Electromyography (EMG) with Nerve Conduction Study (NCV) completed Kavya Langford (Nicky) [facility] 03/19/2020 15:40:44 01/27/20 20 Synvisc One Injection completed Amelie ELMORE PA-C [address] [place], [address], [facility] 01/27/2020 11:11:40 10/20/19 20 Electromyography (EMG) with Nerve Conduction Study (NCV) completed FERNANDO FOSTER MD [address] [place], [address], [facility] 10/20/2019 18:51:18 08/13/19 20 Injection Joint/Bursa, Major completed Amelie ELMORE PA-C [address] [place], [address], [facility] 08/13/2019 13:55:19 Other completed NIKKO BURLESON MD [address] [place], [address], [facility] 10/19/2022 16:36:35 Other completed Elvia Oliva [facility] 06/08/2016 09:25:02 Other completed Elvia Oliva [facility] 06/08/2016 09:26:08 Other completed Sara Reyes [facility] 06/14/2017 09:49:15 colonoscopy completed NIKKO BURLESON MD [address] [place], [address], [facility] 06/26/2019 15:25:58 total knee replacement completed Elvia Oliva [facility] 07/06/2020 14:17:18 Imaging Results Imaging Date Name Status LastModified by Organiz ation Details LastModified Time 09/17/2023 XR, knee, 3 view completed [email or web address] [facility] [place] [address] , [place], [address], 09/17/2023 11:19:52 Procedure Notes None recorded. Medical Equipment None Reported. Allergies Allergen ID Allergen Name Allergen Category Reaction Reaction Severity Criticality Documentation Date Start Date Code Code System Note Provider Name and Address Organization Details Recorded Time 025667 Tylox medicatio n Not available Not available Not available 01/21/20162014 96184 5 RxNorm Comme nt: Cremarianne ed By: Neha morales Date: 2014 10:13 :00 AM; Not Available [facility] 6 05:15:09 Medications Name Sig Start Date Stop Date Status Note LastModified by Organization Details LastModified Time cyclobenz aprine 10 mg tablet Take 1 tablet 3 times a day by oral route as needed. 04/27 completed Not Available Not Available Not Available Percocet 7.5 mg-325 mg tablet Take 1 tablet every 6 hours by oral route as needed. 01/26 completed Not Available Not Available Not Available gabapenti n 600 mg tablet Take 1 tablet 3 times a day by oral route as needed. 07/06 completed Not Available Not Available Not Available lisinopri l 20 mg tablet Bedtime 12/07 completed Duration : 30 days;Eric quency: hs;Medic ation Descript ion: lisinopr il; Dosage:1 ; Route:or al; refills: 5; Quantity :30 tablet Not Available Not Available Not Available Medrol (Asif) 4 mg tablets in a dose pack Take 1 dose pk by oral route as directed . 07/06 completed Not Available Not Available Not Available methylpre dnisolone 4 mg tablet Take 1 tablet by oral route. 06/14 completed Not Available Not Available Not Available amlodipin e 5 mg tablet Take 1 tablet every day by oral route. active Not Available Not Available No t Available acyclovir 400 mg tablet Take 1 tablet 4 times a day by oral route for 5 days. 2023 active Not Available Not Available Not Avai lable tramadol 50 mg tablet Take 1 tablet every day by oral route. 03/01 completed Not Available Not Available Not Available tamsulosi n 0.4 mg capsule Take 1 capsule by mouth once daily 2024 active Not Available Not Available Not Avai lable allopurin ol 300 mg tablet Take 1 tablet every day by oral route. 12/07 completed Not Available Not Available Not Available mupirocin 2 % topical ointment APPLY A SMALL AMOUNT TO THE AFFECTED AREA BY TOPICAL ROUTE ONCE A DAY FOR 7 DAYS 2023 active Not Available Not Available Not Avai lable Keene 7.5 mg-325 mg tablet Take 1 tablet every 6 hours by oral route as needed. 07/06 completed Not Available Not Available Not Available losartan 50 mg-hydroc hlorothia zide 12.5 mg tablet Take 0.5 tablets every day by oral route. active Not Available Not Available No t Available Percocet 5 mg-325 mg tablet Take 1 tablet every 4 hours by oral route as needed. 07/06 completed Not Available Not Available Not Available tadalafil 5 mg tablet Take 1 tablet every day by oral route. 2023 active Not Available Not Available Not Avai lable tadalafil 20 mg tablet Take 1 tablet every day by oral route. 03/01 completed Not Available Not Available Not Available sildenafi l (pulmonar y hypertens ion) 20 mg tablet Take 2-5 tablets daily as needed. 07/06 completed Not Available Not Available Not Available Lyrica 50 mg capsule Take 1 capsule 3 times a day by oral route. 09/14 completed Not Available Not Available Not Available Lyrica 75 mg capsule Take 1 capsule twice a day by oral route. 09/14 completed Not Available Not Available Not Available acetamino phen 06/14 completed Not Available Not Available Not Available atorvasta tin active Not Available Not Available Not Available aspirin active Not Available Not Avail able Not Available amlodipin e 5 mg 10/18 completed Not Available Not Available Not Available simvastat in 06/08 completed Medicati on Descript ion: simvasta tin; Route:or al; refills: 0 Not Available Not Available Not Available losartan 07/06 completed Not Available Not Available Not Available allopurin ol 10/18 completed Not Available Not Available Not Available Vitamin D3 06/20 completed Not Available Not Available Not Available amlodipin e-benazep ril 06/08 completed Medicati on Descript ion: amlodipi ne; Route:or al; refills: 0 Not Available Not Available Not Available Zithromax Z-Asif 06/14 completed Not Available Not Available Not Available Colcrys 0.6 mg tablet Take 1 tablet every day by oral route. 03/01 completed Not Available Not Available Not Available Vitals Date Recorded Body height Body mass index (BMI) Body weight Provider Name and Address Organization Details Last Updated DateTime 09/17/2023 180.34 cm 25.8 kg/m2 74015.59 g Yanni Snell [facility] 09/17/2023 10:21:56 Date Recorded Body height Body mass index (BMI) Body weight Provider Name and Address Organization Details Last Updated DateTime 10/25/2023 180.34 cm 25.8 kg/m2 86625.59 g Anabel Manzo [facility] 10/25/2023 09:07:34 Social History Question Answer Notes LastModified by Organizat ion Details LastModified Time Tobacco Smoking Status Former [facility] 06/14/2017 09:48:42 What Is Your Level Of Alcohol Consumption? None Information not available 06/08/2016 What Is Your Occupation? Retired Information not available 06/14/2017 When Did You Quit Smoking? 15+yearssinc elastcigaret te Information not available 06/14/2017 Sunscreen Use? No Informatio n not available 01/21/2024 Tanning Bed Use No Information not available 01/21/2024 Marital Status Informatio n not available 06/08/2016 What Was The Date Of Your Most Recent Tobacco Screening? 01/21/2024 Information not available 01/21/2024 Sex: Unknown Functional Status None recorded. Mental Status None recorded. Family History Relationship Description Onset Age of this Age Resolved Age Notes LastModified by Organization Details LastModified Time Father Malignant tumor of prostate hstrang Not available 2016 09:21:49 Medical History Condition Response Allergies/Hayfever Y Gout Y Arthritis Y Kidney Stones Y Heart Arrhythmia Y Skin Cancer Y Hypertension Y Depression Y Past Encounters Encounter ID Performer Location Encounter Start Date Encounter Closed Date Diagnosis/Indication Diagnosis SNOMED-CT Code Diagnosis ICD10 Code Diagnosis Note [id number] NIKKO BURLESON MD UROLOGY [facility] [address] [place] [address] 06/08/2016 08:56:31 06/12/2016 08:52:30 Screening for malignant neoplasm of prostate 569284552 Z12.5 Renal colic 5647617 N23 fairly minimal [id number] NIKKO BURLESON MD UROLOGY [facility] [address] [place] [address] 12/07/2016 09:47:42 12/11/2016 08:56:36 Ureteric stone 00853188 N20.1 Body mass index 25-29 - overweight 604054985 Z68.28 Impotence of organic origin 346716611 N52.9 [id number] NIKKO BURLESON MD UROLOGY [facility] [address] [place] [address] 06/14/2017 09:06:55 06/15/2017 09:15:35 Screening for malignant neoplasm of prostate 514606435 Z12.5 Impotence of organic origin 920532752 N52.9 refill sildenafil mail order History of calculus of kidney 378308089 Z87.651 [id number] NIKKO BURLESON MD UROLOGY [facility] [address] [place] [address] 06/20/2018 09:24:11 06/24/2018 09:26:02 Impotence 157707879 N52.9 Screening for malignant neoplasm of prostate 482301071 Z12.5 History of calculus of kidney 369195684 Z87.214 [id number] NIKKO BURLESON MD UROLOGY [facility] [address] [place] [address] 06/26/2019 13:20:48 06/27/2019 12:26:10 Screening for malignant neoplasm of prostate 689656268 Z12.5 Impotence of organic origin 591854386 N52.9 [id number] SEPIDEH KUMAR MD [facility] [address] [place] [address] 08/04/2019 12:55:11 08/06/2019 08:57:46 Lumbar radiculopathy 896565542 M54.16 [id number] Amelie ELMORE PA-C [facility] [address] [address] 08/13/2019 12:55:25 08/13/2019 13:59:19 Osteoarthritis of knee 455808935 M17.9 severe arthritis radiograph ically. Patient is fairly functional . Diagnostic /therapeut ic intra-rosie cular CSI today. Patient will return in 6-10 weeks to evaluate overall benefit. At that time we can discuss conservati ve measures to potentiall y include lateral heel wedge, NSAID, serial CSI, CBD, mine motor engineer brace, physical therapy, et al [id number] OG SNOW PA-C [facility] [address] [place] [address] 09/22/2019 10:32:59 09/24/2019 10:07:02 Lumbar radiculopathy 811169945 M54.16 Mr. 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 He has a history of a L3-4 laminectom y with facet screws by Dr. Aguilar background 2007. Per Dr. Kumar's last note, he may of had a left-sided decompress ion at L4-5 as well. He reports 1 year of thoracic back pain. He also reports to 10 years of low back pain that radiates down the left L4 dermatome. MRI of the lumbar spine performed at [facility] on February 12, 2019 showed significan t stenosis at L2 to L3. He had a CT lumbar spine performed at [facility] on 08/13/18 which he brought with him on a CD. He also had flexion extension x-rays done at [facility] recently. The CT showed stable L4 facet screws and the x-ray showed no instabilit y. He could be a candidate MIS L2-3 laminectom y and MIS L3-4 TLIF with navigation . We'll have the patient undergo a nerve study of his bilateral lower extremitie s. We will call him with the results. He knows to call if he doesn't hear from us. The patient was seen and examined by Dr. Kumar and myself. He agrees with the plan as stated above. [id number] C ADALI ELMORE PA-C [facility] [address] [place] [address] 10/03/2019 07:56:43 10/03/2019 09:00:51 Osteoarthritis of knee 146511260 M17.9 Patient had excellent relief for approximat coretta 2 days and then benefit of intra-rosie cular CSI waned. Patient thinks knee replacemen t would be beneficial however he is also dealing with a pinched nerve in his lumbar spine. He has had a lumbar CT and has an EMG pending. He does not have a current follow-up with Dr. Sepideh Kumar scheduled. After fairly lengthy discussion regarding surgical priorities and timing between surgeries he elected to visit with Dr. Holden before making a decision which I felt was appropriat e. He can call to schedule a visit to discuss/sc hedule surgery or consider conservati ve options. We reviewed those options today to include genicular nerve ablation, hyaluronic acid, or on medial mine motor engineer brace 08/13/2019 severe arthritis radiograph ically. Patient is fairly functional . Diagnostic /therapeut ic intra-rosie cular CSI today. Patient will return in 6-10 weeks to evaluate overall benefit. At that time we can discuss conservati ve measures to potentiall y include lateral heel wedge, NSAID, serial CSI, CBD, mine motor engineer brace, physical therapy, et al [id number] FERNANDO FOSTER MD NEUROLOGY [facility] [address] [place] [address] 10/20/2019 08:37:31 10/20/2019 09:27:33 Pain in left lower limb 522194494 M79.263 [id number] Anabel Manny NEUROSURG [facility] [address] [place] [address] 11/17/2019 08:07:00 11/17/2019 10:54:46 Lumbar radiculopathy 422791176 M54.16 patient is a 74-year-ol d male who presents today with worsening lumbar and thoracic pain. Patient was last seen by us on 09/22/19 where he was told that based on MRIs performed last January that he did have disc stenosis at L2-L3. He was told at that time that he may be a good candidate for an MIS L2-3 laminectom y and MIS L3 to 4 TLIF procedure. he was sent to get an EMG and nerve conduction study before coming back for this visit. Patient presents today with the same symptoms. He describes a left lumbar pain that radiates down the posterior aspect of his left buttocks, hip, thigh, leg, and foot. The patient is on gabapentin , tramadol, celecoxib, naproxen, any Fentanyl patches. He reports minimal relief with any of these medication s. Patient does also note that he is increased with an orthopedic surgeon who told him that he needs a total knee replacemen t. He is trying to coordinate surgery with this possible spinal surgery.andrey kirk had a lumbar MRI without contrast performed at [facility] on 02/12/19. these MRIs did show disc stenosis at L2-L3 He had a CT lumbar spine without contrast performed on 08/13/18 at [facility]. CT confirm that there were L4 facet screws placed Patient had a nerve study completed on 10/20/19 at the [facility]. these studies did not show any radiculopa thy and yielded essentiall y normal results.at this time patient was told to follow back up with his orthopedic surgeon and that it would be best to continue with the knee replacemen t first. he does have some stenosis at multiple levels. Due to the amount of rehabilita tion needed for the knee we feel it is best that he proceed with that surgery first. He will also be scheduled for lumbar and thoracic MRIs without contrast to the performed today so that we have updated films if we do move forward with surgery. We will call the patient with the results. Patient was told to contact us with any further questions. The patient was agreeable to this plan. patient was seen by myself and Dr. Kumar who was part of the decision-m tamig as outlined above Addendum: Ordering an L0637 custom fitted back brace with anterior, lateral and posterior support to reduce pain by restrictin g mobility of the spine. Thoracic back pain 99668 8004 M54.6 [id number] Ana Lilia Ferguson SURGERY SCHEDULE [address] [place] [address] 12/19/2019 09:58:14 12/19/2019 13:43:35 [id number] [facility] [address] [place] [address] 12/25/2019 14:36:47 12/25/2019 15:51:31 [id number] MARLO DELACRUZ PA-C [facility] [address] [place] [address] 01/26/2020 11:15:33 01/29/2020 12:36:19 Postoperative care 451787287 Z48.89 74-year-ol d male status post L2 to iliac fusion with left leg pain and left foot weakness. Given that the patient is developed significan t left lower extremity weakness need updated lumbar MRI with and without contrast. This to look for any neural impingemen t or signs of infection. On passive Dr. Kumar we will refill the patient's gabapentin as it seems to be helping the patient's leg pain. Also try steroid taper to see if this helps with the left leg pain. [id number] Amelie ELMORE PA-C [facility] [address] [address] 01/27/2020 10:00:37 01/27/2020 11:37:41 Osteoarthritis of knee 182619041 M17.9 Left knee arthritis. We discussed conservati ve measures to include CBD oil, genicular nerve ablation, and hyaluronic acid treatment. Patient chose to proceed with intra-rosie cular hyaluronic acid which was performed today. Patient will follow-up as pain dictates. [id number] Kavya Langford (Nicky) NEUROLOGY [facility] [address] [place] [address] 03/19/2020 13:34:32 03/19/2020 15:44:52 Lumbar radiculopathy 039649674 M54.16 Skin sensa tion disturbance 26859937 R20.9 Pain in le ft lower limb 786152929 M79.605 Low back pain 830076657 M54.5 [id number] MARLO DELACRUZ PA-C [facility] [address] [place] [address] 03/29/2020 08:47:44 03/29/2020 15:04:53 Lumbar radiculopathy 568882050 M54.16 74-year-ol d male with history Of L2 to iliac fusion on 12/10/[address] Kumar with worsening left leg pain and left foot drop. MRI and CT scan do not show any obvious acute abnormalit ies. However the patient's EMG doesn't support a subacute significan t L5 radiculopa thy. Case and images reviewed by Dr. Kumar. He is recommendi ng a exploratio n of the left L5 nerve root With an intraopera tive microscope . We have high suspicion that the L5 nerve root is being compressed , given the significan t changes on the EMG, patients pain distributi on and focal weakness. The patient is not making any progress, he is over 3 months out of surgery. He did not respond to conservati ve measures. I discussed the procedure in detail including risks benefits and expected postoperat soha course. He agrees to proceed. We will have her veterinary surgery technician contact him over the phone. pt seen by myself and dr kumar [id number] Amelie ELMORE PA-C [facility] [address] [place] [address] 04/27/2020 09:37:16 04/27/2020 10:45:49 Osteoarthritis of knee 029297213 M17.9 End-stage arthritis medial compartmen t left knee. Patient is failed conservati ve measures. Pending clearance from Dr. Sepideh Kumar he would like to proceed with total knee arthroplas ty on May 19. He is amenable to an overnight stay and discharged home the following day. Should not meeting medical clearances or drug allergy testing. We discussed risks benefits and perioperat soha expectatio ns. All questions answered to his satisfacti on. He does note a history of postoperat soha urinary retention and constipati on. We spent some time discussing preoperati ve foods to avoid and postoperat soha management techniques . It was noted after he left that he was on Keene [address] Kumar and narcotic tolerance was not addressed at our visit. Long leg x-ray was obtained today. We will schedule his preop visit at the hospital on May 17 to coincide with his next scheduled follow-up with Sepideh amy as it is difficult for him to get to [place] [id number] [facility] SURGERY SCHEDULE [address] [place] [address] 04/28/2020 11:51:44 05/04/2020 09:54:42 [id number] [facility] NE[facility]G [facility] [address] [facility] [place] [address] 05/06/2020 14:07:47 05/06/2020 14:24:32 [id number] BRIANNE Calderón MD [facility] [address] [place] [address] 6 05/07/2020 08:12:08 05/07/2020 09:03:33 Osteoarthritis of knee [id number] M17.12 [id number] SEPIDEH KUMAR MD [facility]UROSURG [facility] [address] [facility] [place] [address] 05/17/2020 09:04:15 05/18/2020 10:12:21 Postoperative care [id number] Z48.89 [id number] BRIANNE Calderón MD SURGERY SCHEDULE [address] [place] [address] 05/19/2020 08:35:06 05/19/2020 15:47:32 [id number] C ADALI ELMORE PA-C [facility]I [facility] [address] [place] [address] 05/25/2020 14:58:55 05/25/2020 15:41:27 Postoperative care [id number] Z48.89 One week postop returning early for incisional concerns. I feel ecchymosis was misinterpr eted this erythema on part of the . Patient clinically seems to be doing very well. Even with low threshold for aspirate I did not feel compelled to follow-up with the procedure. Follow-up in 2 weeks for routine 3 week visit. Contact us immediatel y if there is any wound drainage. [id number] C ADALI ELMORE PA-C [facility]THOPEDI [facility] [address] [address] 06/09/2020 13:38:55 06/09/2020 14:17:24 Postoperative care [id number] Z48.89 3 status post left total knee arthroplas ty. Patient is doing exceptiona lly well. Unfortunat coretta, as predicted, knee replacemen t did not resolve his foot drop. Okay to get incision wet. Transfer PT to outpatient [facility]. Okay to use 0 turn lawnmower but avoid farm tractor. Okay to work in his basement but only visit 1 time a day until follow-up. Discussed slowly increasing activity levels and not doing too much at once. Some concern about him overdoing it creating effusion and not making acceptable gains. Pain med refill submitted. Follow-up in 3-4 weeks with TK for repeat three-view x-ray [id number] BRIANNE Calderón MD ORTHOPEDI [facility] [address] [place] [address] 07/06/2020 10:41:17 07/06/2020 11:18:22 History of total knee arthroplasty [id number] 105 Z96.123 [id number] NIKKO BURLESON MD UROLOGY [address] [place] [address] 07/06/2020 12:40:39 07/06/2020 15:47:41 Impotence [id number] N52.9 Screening for malignant neoplasm of prostate 821212422 Z12.5 Benign pro static hyperplasia with outflow obstruction 982079605 N40.1 [id number] MARLO DELACRUZ PA-C NEUROSURG [facility] [address] [place] [address] 08/23/2020 09:05:29 08/23/2020 12:05:10 Lumbar radiculopathy 116121284 M54.16 75-year-ol d male history of an L2 to iliac fusion November 2019 as well as a left reexplorat ion of the L5 nerve root on 04/21/[address] Kumar. Patient is having worsening left leg symptoms similar to his second operation. X-rays taken today at [facility] at the lumbar spine show expected postoperat soha changes from an altered iliac fusion, stable hardware placement without evidence of loosening. Case and images reviewed with Dr. Kumar. We will like to update the patient's lumbar CT scan and MRI given his worsening symptoms over the last 4-6 weeks. We will like to make sure that there is no interval developmen t of hardware loosening or new neural impingemen t. Should there not be anything obvious on the CT or MRI we would recommend referral to pain management for discussion of a spinal cord stimulator trial. We will also trial the patient on Lyrica as the patient is not tolerating the gabapentin . pt seen by myself and dr kumar [id number] BRIANNE Calderón MD [facility] [address] [address] 09/07/2020 10:05:44 09/07/2020 11:01:16 History of total knee arthroplasty [id number] 105 Z96.652 [id number] CATERINA ARCE PA-C [facility] [address] [place] [address] 09/14/2021 08:40:20 09/14/2021 09:52:41 History of total knee arthroplasty [id number] 105 Z96.652 Assessment : 16-month status post left knee arthroplas ty Plan: Doing great. Controvers ies surroundin g dental prophylaxi s reviewed. NSAIDs prn for residual pain/swell ing. Routine f/u at 2 years, or prn. [id number] NIKKO BURLESON MD [facility]Y [facility] [address] [address] [place] [address] 10/18/2021 10:17:27 10/18/2021 11:22:30 Benign prostatic hyperplasia with outflow obstruction 224741622 N40.1 Impotence 541227111 N52. 9 [id number] NIKKO BURLESON MD UROLOGY [facility] [address] [place] [address] 01/16/2022 08:52:16 01/16/2022 09:40:08 Benign prostatic hyperplasia with outflow obstruction 502537539 N40.1 improved on alpha pasha Low back pain 297263683 M54.50 will send for KUB today. [id number] NIKKO BURLESON MD UROLOGY [facility] [address] [place] [address] 04/20/2022 08:54:03 04/20/2022 09:35:28 Benign prostatic hyperplasia with outflow obstruction 839782247 N40.1 continue alpha pasha Primary er ectile dysfunction 662118808 N52.9 try daily PDE5 inhibitor. [id number] NIKKO BURLESON MD UROLOGY [facility] [address] [place] [address] 10/19/2022 08:57:40 10/19/2022 10:02:08 Screening for malignant neoplasm of prostate 002617368 Z12.5 Slowing of urinary stream 52233557 R39.12 continue alpha pasha [id number] MARINA PLATT MD [facility] [address] [place] [address] 01/12/2023 12:47:35 01/12/2023 14:07:48 Multiple benign melanocytic nevi 214352863 D22.5 D18.01 L82.1 L81.4 Benign appearing lesions present at today's visit.Sun protection and self examinatio ns discussed. Scar 855058067 L90.5 Z85.828 Scar(s) clear with no evidence recurrence . Continue to monitor for any changes. Herpes simplex 38566365 B00.9 No active disease. Controlled on medication s.Rx refilled for acyclovir 400mg BID PO. SE reviewed. Inflamed s eborrheic keratosis 611968744 L82.0 Benign.Jose Manuel l tx with LN2 since bothersome . [id number] ANDREY WILSON [facility] [address] [place] [address] 03/01/2023 09:01:16 03/01/2023 09:33:36 Neoplasm of uncertain behavior of skin 76569399 D48.5 Will take a bx of the lesion.Wou nd care instructio n given to pt. Pnt to keep his regular skin exam apt with Dr. anne already scheduled. [id number] MARINA PLATT MD [place] [address] [place] [address] 07/18/2023 13:21:33 07/18/2023 14:07:32 Multiple benign melanocytic nevi 743727466 D22.5 D18.01 L82.1 L81.4 Benign appearing lesions present at today's visit.Sun protection and self examinatio ns discussed. Scar 730201300 L90.5 Z85.828 Scar(s) clear with no evidence recurrence . Continue to monitor for any changes. Actinic keratosis 007 L57.0 The nature of the diagnosis was explained. Pre-cancer ous.Will treat with LN2.F/u if treated lesions persist. [id number] JOSE JUAN SEGURA PA-C [facility] [address] [place] [address] 09/17/2023 10:20:40 09/17/2023 11:22:44 History of total knee arthroplasty [id number] 105 Z96.652 Assessment : 3 years status post left knee arthroplas ty Plan: Mr. Figueroa is a pleasant 78-year-ol d gentleman is 3 years status post left TKA. Patient notes that he has continued to experience intermitte nt lateral and medial knee pain typically upon ambulation . Pain severity typically is a 3/10. He does report this is tolerable. We discussed today possible painful total joint workup going forward. However, patient has deferred doing this on today's encounter. He does report that if symptoms worsen he would be amenable to proceeding with this. Radiograph s obtained today reveal intact TKA implants in good positionin g andalignme nt. Physical exam reveals good ROM without pain and a well-heale d surgical incision.W e reviewed the expected progressio n of recovery and rehabilita tion. At this time,the patient is encouraged to continue all activities of daily living as comfortabl e. The patientsho uld continue maintainin g strength bilateral legs with HEP.Patien t will return to clinic in 1 year or sooner if symptoms warrant. [id number] NIKKO BURLESON MD UROLOGY [facility] [address] [place] [address] 10/25/2023 09:03:49 10/25/2023 10:06:35 Screening for malignant neoplasm of prostate 847117102 Z12.5 Slowing of urinary stream 65716586 R39.12 continue alpha pasha [id number] ANDREY WILSON [facility] [address] [place] [address] 01/21/2024 10:55:39 01/21/2024 11:44:40 Multiple benign melanocytic nevi 842358521 D22.5 L81.4 D18.01 L82.1 The benign nature of keratoses and lentigines was discussed with the patient. Sun protection with SPF 30 broad spectrum sunscreen and protective gear discussed. Look for physical pasha sunscreens with at least SPF 30 containing zinc oxide or titanium dioxide as active ingredient . Recommend monthly self examinatio ns and yearly full skin examinatio n with a dermatolog y provider. Recommend yearly eye exam. Recommend OTC Vitamin D supplement . Patient instructed to call if any suspicious lesions are noted. History of malignant neoplasm of skin 580048781 Z85.828 Per Pt: Pt's PCP Dr. Caterina Bishop MD treated his lesion on L Helical Rim. notes that the pathology indicated that the margins were clear. The scar is clear with no evidence of recurrence .Cont to monitor for any changes. Actinic keratosis 007 L57.0 The nature of the diagnosis was explained. Pre-cancer ous.Will treat with LN2.F/u if treated lesions persist. Herpes simplex 15161612 B00.89 The nature of the diagnosis was discussed. Rx refilled for Rx Acyclovir 400 mg, 1 tab po QID x 5 days with flare ups. SE reviewed. Health Concerns Section Related Observation LastModified by Organization Detai ls LastModified Time None Recorded Concern Status LastModified by Organization Details LastModified Time None Recorded Advance Directives Directive None Recorded Payers Encounter Date Sequence Insurance Name Policy Number Policy Orr Covered Member ID Orr Member ID Guarantor Name 03/01/2023 1 MEDICARE-[employer] (MEDICARE) Nilson Byrdin [id number] Nilson Figueroa 03/01/2023 2 [employer] OPTIONS (MEDICARE SUPPLEMENT) Nilson Figueroa [id number] Nilson Figueroa 07/18/2023 1 [place] Nilson Figueroa [id number] Nilson Figueroa 07/18/2023 2 [employer] OPTIONS (MEDICARE SUPPLEMENT) Nilson Figueroa [id number] Nilson Figueroa 09/17/2023 1 [place] Nilson Figueroa [id number] Nilson Figueroa 09/17/2023 2 [employer] OPTIONS (MEDICARE SUPPLEMENT) Nilson Figueroa [id number] Nilson Figueroa 10/25/2023 1 [place] Nilson Figueroa [id number] Nilson Figueroa 10/25/2023 2 [employer] OPTIONS (MEDICARE SUPPLEMENT) Nilson Figueroa [id number] Nilson Figueroa 01/21/2024 1 [place] Nilson Figueroa [id number] [id number] Nilson Figueroa 01/21/2024 2 [employer] OPTIONS (MEDICARE SUPPLEMENT) Nilson Figueroa [id number] Nilson Figueroa Notes Date Note Type Note Provider Name and Address Organization Details Recorded Time 03/01/2023 text/html 1. Follow up : [place]: L earprior tx: [id number]: Dr. Platt has froze it off but its still there and growing ANDREY WILSON [facility] [place], [address], [facility] 03/01/2023 12:35:18 07/18/2023 text/html waist up6 month examhx: nmscno concerns MARINA PLATT MD [address] [place] [address], [address], [facility] 07/18/2023 15:42:56 09/17/2023 text/html 09/17/23Patient i s here today for {{ 3#}} year post op visit from {{ L#}} TKA DOS 3/24/21Patient reports they are doing well.Any pain? {{ Yes#}}Ambulati ng with {{wheelchair walk er cane no assistive device*}}Any issues or concerns {{yes* no}}If yes, {{ soreness and pain#}}Denies fevers, chills, or wound drainage. 09-14-21: Nilson is S/P 16 months L TKA (05/19/20). Patient does voice medial and lateral pain at random. He averages pain 4/10 and is sharp in nature. He is taking tylenol 650 mg b.i.d along with tramadol 50 mg daily. 09-07-20: Patient is {{16# }} weeks s/p {{L* R B}} TKA 05/19/20. Pain is {{completely better improving* worse}} Currently taking {{no* <3 3-4 >4}} doses per day of narcotic. Ambulating with {{wheelchair walk er cane no assistive device*}} PT: {{SNF home health outpatient HEP*}} Denies fevers, chills, or wound drainage. They {{do do not*}} request a refill of pain medicine. 07-06-20: Patient is {{7# }} weeks s/p {{L* R B}} TKA 05/19/20. Pain is {{completely better improving* worse}} Currently taking {{no <3* 3-4 >4}} doses per day of narcotic. Ambulating with {{wheelchair walk er cane* no assistive device}} PT: {{outpatient ([facility])# SNF home health outpatient HEP}} Denies fevers, chills, or wound drainage. They {{do* do not}} request a refill of pain medicine. JOSE JUAN SEGURA PA-C [address] [place] [address], [address], [facility] 09/17/2023 11:50:19 10/25/2023 text/html Nilson is a 78 yo male returns for follow up of BPH. He remains on tamsulosin and voiding has improved. He is doing well.He would like to try tadalafil, which has been helpful to him previously. NIKKO BURLESON MD [address] [place], [address], [facility] 10/26/2023 07:28:04 01/21/2024 text/html Waist up skin exam6 monthhx: SCC- L Helical Rimreport: scalppt would like a refil of acyclovir 400 mg tablet ANDREY WILSON [address] [place], [address], [facility] 01/21/2024 12:24:58
--- OUTSIDE RECORDS SUMMARY | 2024-06-06 07:48 | XMS_ITS | Encounter Summary ---
Author Name [facility] [place] Organization [facility] [place] Address [address] [place] [address] Support Name Relationship Address Phone SWATI CONNIE Next of Kin [address] [facility] [place] [address] [place] Emergency Contact [address] [facility] [place] [address] Am[place] Next of Kin [address] [place] [address] HAYLEY [place] Emergency Contact [address] [facility] [place] [address] Insurance Providers: All historical [...] section includes the information on record at [place] for the Encounter. Date/Time Encounter Type Encounter Description Reason Pro vider Source Jun 05, 2024 12:00 AM Outpatient Encounter EVENT (HISTORICAL) I[facility] Encounter Template Text not used by [place]
--- OUTSIDE RECORDS SUMMARY | 2024-06-06 07:48 | XMS_ITS | Encounter Summary ---
Author Name [facility] [facility] [place] [facility] [place] Address [address] [place] [address] Support Name Relationship Address Phone SWATIDELMISAN Next of Kin [address] [address] CON[place] Emergency Contact [address] [address] [place] Next of Kin [address] [place] [address] HAYLEY [place] Emergency Contact [address] [facility] [place] [address] Insurance Providers: All historical and current [...] section includes the information on record at [place] for the Encounter. Date/Time Encounter Type Encounter Description Reason Pro vider Source Jun 05, 2024 11:56 AM Outpatient Encounter TELEPHONE/MEDICINE [facility] Encounter Template Text not used by [place] Encounter Notes: All associated encounter notes This section contains the clinical notes associated to the Encounter. Date/Time Encounter Note(s) Provider Source Jun 05, 2024 11:56 AM ADMINISTRATIVE NOT E: LOCAL TITLE: V9 [facility] ADMINISTRATIVE NOTE STANDARD TITLE: ADMINISTRATIVE NOTE DATE OF NOTE: JUN 05, 2024@11:56 ENTRY DATE: JUN 05, 2024@11:56:16 AUTHOR: SARKIS SCHNEIDER COSIGNER: URGENCY: STATUS: COMPLETED Toxic Exposure Screening: Attempts to contact /caregiver to perform AP: Contact type attempted: Telephone, unable to leave message -No answer after several rings. /chong/ ALLA Trejo, KURT VISN [facility] Physician Drill Press Operator For Metal Signed: 06/05/2024 11:58 SARKIS SCHNEIDER-VIRGEN [facility]
--- NOTE | 2024-06-06 08:00 | MR_ITS ---
FINAL REPORT TECHNIQUE: Multiplanar MR, without and with gadolinium enhancement CLINICAL HISTORY: dizziness, blurred vision FINDINGS: Diffusion sequences show no signal abnormality to indicate acute infarct. There is mild generalized atrophy. Few scattered punctate white matter signal changes are seen in the frontal lobes. No mass, hemorrhage or edema is seen. Ventricles are normal. Major vascular flow voids are intact. Following contrast administration, no mass or abnormal enhancement is seen. IMPRESSION: No acute infarct or mass. Minimal chronic ischemic white matter signal changes with age-appropriate atrophy. Reviewed, Interpreted and Dictated by Ta Rubio MD Transcribed by Yumiko Cantu Authenticated and [facility]
[2024-06-06] MEDS: SODIUM CHLORIDE 0.9% 10ML SYR (RAD ONLY) 10 ML IV (08:37)
[2024-06-06] MEDS: GADOTERIDOL INJ 20ML SYRINGE 19 ML IV (08:38)
== END 2024-06-06 23:59 | disposition home or self-care (01) ==
LOC: RAD 07:45
PROVIDERS: Visit Provider Nurse Practitioner
DX: R42 Dizziness and giddiness (principal); H53.8 Other visual disturbances
CPT/HCPCS: 70553; A9576

== ENCOUNTER 2024-06-19 09:34 | Outpatient (CLI) | payer MEDICARE, SELFPAY ==
--- OUTSIDE RECORDS SUMMARY | 2024-06-19 09:38 | XMS_ITS | Continuity of Care Document ---
Author Name [facility] Organization [facility] Care Team Providers Care Laundry Technician Name Role Phone [facility] Unavailable Unavailable Encounters [...] ADM Date DC Date Status Disposition Source [facility] Outpatient Encounter [id number] 10/09 [place] [facility] Outpatient Encounter [id number] 06/05 [place] [facility] Outpatient Encounter [id number] 06/05 [place] [facility]
[2024-06-19 09:59] LABS: Basophils # 0.1 K/mm3 (0-0.2); Basophils % 0.6 % (0.1-2.0); Eosinophils # 0.2 Kmm3 (0.0-0.4); Eosinophils % 2.3 % (0.1-12.0); Hematocrit 29.5 % (42.0-52.0); Hemoglobin 8.8 g/dL (14.1-18.0); Lymphocytes # 1.3 K/mm3 (0.7-4.5); Lymphocytes % 14.3 % (10-50); Mean Corpuscular HGB Conc 29.8 g/dL (31.8-35.4); Mean Corpuscular Hemoglobin 23.8 pg (27.0-31.2); Mean Corpuscular Volume 79.7 fl (80-94); Monocytes # 0.8 K/mm3 (0.1-1.0); Monocytes % 9.3 % (1.7-9.3); Neutrophils # 6.6 K/mm3 (1.8-7.8); Neutrophils % 73.2 % (37.0-80.0); Nucleated Red Blood Cells # 0 10^3/uL; Nucleated Red Blood Cells % 0 %; Platelet Count 247 K/mm3 (142-424); Red Cell Distribution Width 17.1 % (11.5-17.5); Red Cell Distribution Width-SD 49.7 fL
[2024-06-19 10:46] LABS: Alanine Aminotransferase 20 U/L (12-78); Alkaline Phosphatase 89 U/L (38-126); Anion Gap 15.5 mEq/L (5-15); Aspartate Amino Transferase 21 U/L (17-59); Bilirubin,Direct 0.1 mg/dl (0.0-0.4); Bilirubin,Indirect 0.6 mg/dL (0.0-0.9); Bilirubin,Total 0.7 mg/dl (0.2-1.3); Bilirubin,Unconjugated 0.6 mg/dL (0.0-1.1); Blood Urea Nitrogen 21 mg/dl (9-20); Calcium 8.5 mg/dl (8.4-10.2); Carbon Dioxide 25 mmol/L (22.0-30.0); Chloride 105 mmol/L (98-107); Chol/HDL Ratio 2.8 (1-3.5); Cholesterol 120 mg/dl (140-200); Estimated Glomerular Filt Rate 36 ml/min (>60); GFR (African American) 44 ML/MIN (>60); Glucose 93 mg/dl (74-100); HDL Cholesterol 43 mg/dl (40-60); Potassium 4.5 mmoL/L (3.5-5.1); Sodium 141 mmol/L (136-145); Total Protein,Serum 6.8 g/dl (6.3-8.2); Triglycerides 99 mg/dl (30-150); VLDL Cholesterol 20 mg/dL (0-40)
[2024-06-19 10:57] LABS: Direct LDL Cholesterol 50.35 mg/dL (100-129)
[2024-06-19 11:04] LABS: Free T4 (Free Thyroxine) 1.16 ng/dl (0.78-2.19)
[2024-06-19 11:18] LABS: Thyroid Stimulating Hormone 4.08 uIU/mL (0.465-4.68)
== END 2024-06-19 23:59 | disposition home or self-care (01) ==
LOC: LAB 14:51
PROVIDERS: PCP Family Medicine; Visit Provider Internal Medicine
DX: I65.23 Occlusion and stenosis of bilateral carotid arteries (principal); I11.0 Hypertensive heart disease with heart failure; I50.21 Acute systolic (congestive) heart failure; E78.2 Mixed hyperlipidemia; R63.5 Abnormal weight gain; R42 Dizziness and giddiness; I25.118 Atherosclerotic heart disease of native coronary artery with other forms of angina pectoris
CPT/HCPCS: 36415; 80048; 80061; 80076; 84439; 84443; 85025

== ENCOUNTER 2024-07-04 09:31 | Outpatient (CLI) | payer MEDICARE, SELFPAY ==
--- NOTE | 2024-07-04 09:30 | CA_ITS ---
APPROVED REPORT EXAM: Limited 2D Echocardiogram Gis Application Developer: Holly Olson, RCS, RVS Ht: 5 ft 10 in Wt: 208lbs BSA: 2.12 BP: 121/39 mmHg Indications: HFrEF, CAD. Afib-Watchman device, Dizziness, HTN, HLD 2D Dimensions IVSd 1.00 cm LVEF (Visual) 65.80 % PWd 1.12 cm LA Volume 124.00 mL LVDd 5.77 cm LA Volume Index 57.10 mL/m2 (M/F) 16-34 LVDs 3.65 cm M-Mode Dimensions LVDd 5.31 cm (3.5-5.7) LVDs 3.77 cm (3.5-5.7) EF (Teich) 55.30% EPSs 1.29 cm FS 29.00% EDV (Teich) 135.90 mL ESV (Teich) 60.80 mL LV Diastology E Decel Time 150 (160-240 msec) E/A Ratio 1.09 Mitral Valve MV A Velocity 95.0 (40-130 cm/s) E/A Ratio 1.09 Other Information Study Quality: Fair Conclusion This is a limited TTE to evaluate for LV systolic function. Limited windows are obtained. The left ventricle is normal in size. There is increased LV wall thickness. There is normal global LV systolic function. There are no regional wall motion abnormalities present. LVEF is 55-60%. Compared to prior study from 04/14/2024, the LV systolic function has improved and is now in the normal range. Electronically signed by : Swapna Fitzpatrick MD 07/06/2024 20:35:08
--- OUTSIDE RECORDS SUMMARY | 2024-07-04 09:34 | XMS_ITS | Data Portability ---
Author Organization [facility] H[place]TER [employer] [place] CLOSED Address [address] [place] [address] Care Team Providers Care Investment Analyst Name Role Phone HORACIO BISHOP Primary Care Provider FERNANDO FOSTER Neurologist [phone] BRIANNE CASTELLANOS Orthopedic Surgeon [phone] SEPIDEH TREJO Reed Or Wind Instrument Repairer MARINA ANNE Supervisor Fabrication And Assembly Assessment No assessment recorded. Plan of Treatment Reminders Order Date Submit Date Provider Last Modified By Organization Details Last Modified Time Details Appointments FOLLOW UP DAK 2024 09:50A M BRUNO FERNANDES PA-C Not available Not available Not available MALE RECHECK 2024 09:30A M NIKKO BURLESON MD Not available Not available Not available Lab surgical pathology study 2023 024 [facility], [facility] [place], [address], 03/02/2023 13:52:02 Referral None recorded. Procedures None recorded. Surgeries None recorded. Imaging None recorded. Medication Orders acyclovir 400 mg tablet 2023 024 [facility], [address], [address], 01/21/2024 12:24:45 tadalafil 5 mg tablet 2023 024 [email or web address] [facility], [address], [address], 10/26/2023 07:28:01 tamsulosi n 0.4 mg capsule 2023 024 BRITTA [facility] 591, [address], [address], 10/26/2023 07:28:08 mupirocin 2 % topical ointment 2023 024 marlena [facility] 591, [address], [address], 03/01/2023 09:40:31 Patient TargetsNo targets recorded. Patient InstructionsNo instructions recorded. Reason for Referral None Reported. Results Created Date Observation Date Name Description Value Unit Range Abnormal Flag Note LastModifiedBy Organization Detail LastModifiedTime 09/17/1909/17/2023 XR, knee, 3 view [facility] [place] [address] [facility] [place] [address] Patien t Name: NILSON jung : 04[birth year]/18 [...] Cindi whitney MD on 10:54 AM [email or web address] [facility] [place] [address] , [place], [address], 09/17/2023 11:19:52 Result Notes None recorded. Problems Name Problem SNOMED Code Status Onset Date Resolution Date Notes Provider Name and Address Organization Details Recorded Time Impotence Active 2015 From Automated Load;Prov ider: Nikko Burleson; Status: Active Not Available [facility] 7 07:25:34 Pain in left knee Active 2019 Dede Johnson breezy [facility] 0 13:15:36 Left foot drop 83623787637 9105 Active 2020 MARLO DELACRUZ PA-C [address] [place], [address] , [facility] 1 09:46:35 Lumbar radiculop athy 786718227 Active 2020 MARLO DELACRUZ PA-C [address] [place], [address] , [facility] 1 12:47:24 Ureteric stone 28865610 Active 2014 Provider: Nikko Burleson; Status: Active Not Available [facility] 6 06:08:00 Problem Notes None recorded. Procedures Surgical History Date Name Laterality Status Provider Name and Address Organization Details Recorded Time 01/21/20 24 DAK - Cryo AK completed [facility] 01/21/2024 11:31:23 07/18/19 24 DAK - Cryo AK completed Jenn Morfin [facility] 07/18/2023 14:03:51 03/01/19 24 Blade Biopsy completed [facility] 03/01/2023 09:22:40 01/13/20 23 Destruction BN Lesions completed MARINA PLATT MD [address] [place], [address], [facility] 01/12/2023 17:41:56 01/17/20 22 Uroflowmetry; Complex completed NIKKO BURLESON MD [address] [place], [address], [facility] 01/16/2022 20:05:44 01/17/20 22 Post Void Residual; Ultrasound completed NIKKO BURLESON MD [address] [place], [address], [facility] 01/16/2022 20:05:57 03/19/19 21 Electromyography (EMG) with Nerve Conduction Study (NCV) completed Kavya Langford (Nicky) [facility] 03/19/2020 15:40:44 01/27/20 20 Synvisc One Injection completed Amelie ELMORE PA-C [address] [place], [address], [facility] 01/27/2020 11:11:40 10/20/19 20 Electromyography (EMG) with Nerve Conduction Study (NCV) completed FERNANDO FOTSER MD [address] [place], [address], [facility] 10/20/2019 18:51:18 08/13/19 20 Injection Joint/Bursa, Major completed Amelie ELMORE PA-C [address] [place], [address], [facility] 08/13/2019 13:55:19 Other completed NIKKO BURLESON MD [address] [place], [address], [facility] 10/19/2022 16:36:35 Other completed Elvia Oliva [facility] 06/08/2016 09:25:02 Other completed Elvia Oliva [facility] 06/08/2016 09:26:08 Other completed Sara Reyes [facility] 06/14/2017 09:49:15 colonoscopy completed NIKKO BURLESON MD [address] [place], [address], [facility] 06/26/2019 15:25:58 total knee replacement completed Elvia Oliva [facility] 07/06/2020 14:17:18 Imaging Results Imaging Date Name Status LastModified by Organiz ation Details LastModified Time 09/17/2023 XR, knee, 3 view completed [email or web address] [facility] [place] [address] , [place], [address], 09/17/2023 11:19:52 Procedure Notes None recorded. Medical Equipment None Reported. Allergies Allergen ID Allergen Name Allergen Category Reaction Reaction Severity Criticality Documentation Date Start Date Code Code System Note Provider Name and Address Organization Details Recorded Time 930944 Tylox medicatio n Not available Not available Not available 01/21/20162014 82961 5 RxNorm Comme nt: Cremarianne ed By: Neha morales Date: 2014 10:13 :00 AM; Not Available [facility] 6 05:15:09 Medications Name Sig Start [...] Available acyclovir 400 mg tablet Take 1 tablet(s ) twice a day by oral route. 2024 active Not Available Not Available Not [...] Not Available Not Available Not Avai lable [place] 7.5 mg-325 mg tablet Take 1 tablet [...] Updated DateTime 09/17/2023 180.34 cm 25.8 kg/m2 32048.59 g Yanni Snell [facility] 09/17/2023 10:21:56 Date Recorded Body height Body mass index (BMI) Body weight Provider Name and Address Organization Details Last Updated DateTime 10/25/2023 180.34 cm 25.8 kg/m2 80493.59 g Anabel Manzo [facility] 10/25/2023 09:07:34 Social History Question Answer Notes LastModified by Organizat ion Details LastModified Time Tobacco Smoking Status Former [facility]oker [facility] 1987 [facility] 06/14/2017 09:48:42 What Is Your Level [...] by Organization Details LastModified Time Father Malignant neoplasm of prostate hstrang Not available 2016 09:21:49 Medical History Condition Response Allergies/Hayfever Y Gout Y Arthritis Y Kidney Stones Y Heart Arrhythmia Y Skin Cancer Y Hypertension Y Depression Y Past Encounters Encounter ID Performer Location Encounter Start Date Encounter Closed Date Diagnosis/Indication Diagnosis SNOMED-CT Code Diagnosis ICD10 Code Diagnosis Note [id number] NIKKO BURLESON MD UROLOGY [facility] [address] [place] [address] 06/08/2016 08:56:31 06/12/2016 08:52:30 Screening for malignant neoplasm of prostate 445354723 Z12.5 Renal colic 2593311 N23 fairly minimal [id number] NIKKO BURLESON MD UROLOGY [facility] [address] [place] [address] 12/07/2016 09:47:42 12/11/2016 08:56:36 Ureteric stone 55521061 N20.1 Body mass index 25-29 - overweight 632047186 Z68.28 Impotence of organic origin 427491853 N52.9 [id number] NIKKO BURLESON MD UROLOGY [facility] [address] [place] [address] 06/14/2017 09:06:55 06/15/2017 09:15:35 Screening for malignant neoplasm of prostate 915909305 Z12.5 Impotence of organic origin 219558919 N52.9 refill sildenafil mail order History of calculus of kidney 090177103 Z87.231 [id number] NIKKO BURLESON MD UROLOGY [facility] [address] [address] 06/20/2018 09:24:11 06/24/2018 09:26:02 Impotence 739645168 N52.9 Screening for malignant neoplasm of prostate 530917944 Z12.5 History of calculus of kidney 596279505 Z87.134 [id number] NIKKO BURLESON MD UROLOGY [facility] [address] [place] [address] 06/26/2019 13:20:48 06/27/2019 12:26:10 Screening for malignant neoplasm of prostate 473480354 Z12.5 Impotence of organic origin 366622095 N52.9 [id number] SEPIDEH KUMAR MD NEUROSURG [facility] [address] [place] [address] 08/04/2019 12:55:11 08/06/2019 08:57:46 Lumbar radiculopathy 373409059 M54.16 [id number] Amelie ELMORE PA-C [facility] [address] [address] 08/13/2019 12:55:25 08/13/2019 13:59:19 Osteoarthritis of knee 060626378 M17.9 severe arthritis radiograph ically. Patient is fairly functional . Diagnostic /therapeut ic intra-rosie cular CSI today. Patient will return in 6-10 weeks to evaluate overall benefit. At that time we can discuss conservati ve measures to potentiall y include lateral heel wedge, NSAID, serial CSI, CBD, production dispatcher brace, physical therapy, et al [id number] OG SNOW PA-C NEUROSURG [facility] [address] [place] [address] 09/22/2019 10:32:59 09/24/2019 10:07:02 Lumbar radiculopathy 009548381 M54.16 Mr. Nilson Khalil is a 74-year-ol [...] MRI of the lumbar spine performed at [facility] on February 12, 2019 showed significan t stenosis at L2 to L3. He had a CT lumbar spine performed at [facility] on 08/13/18 which he brought with him on a CD. He also had flexion extension x-rays done at [facility] recently. The CT showed stable L4 facet [...] agrees with the plan as stated above. [id number] C ADALI ELMORE PA-C [facility] [address] [address] 10/03/2019 07:56:43 10/03/2019 09:00:51 Osteoarthritis of knee 610803037 M17.9 Patient had excellent relief for approximat [...] nerve ablation, hyaluronic acid, or on medial production dispatcher brace 08/13/2019 severe arthritis radiograph ically. Patient is fairly functional . Diagnostic /therapeut ic intra-rosie cular CSI today. Patient will return in 6-10 weeks to evaluate overall benefit. At that time we can discuss conservati ve measures to potentiall y include lateral heel wedge, NSAID, serial CSI, CBD, production dispatcher brace, physical therapy, et al [id number] FERNANDO FOSTER MD NEUROLOGY [facility] CLOSED [address] [place] [address] 10/20/2019 08:37:31 10/20/2019 09:27:33 Pain in left lower limb 014235298 M79.276 [id number] SEPIDEH KUMAR MD NEUROSURG [facility] [address] [place] [address] 11/17/2019 08:07:00 11/17/2019 10:54:46 Lumbar radiculopathy 617316132 M54.16 patient is a 74-year-ol d male [...] a lumbar MRI without contrast performed at [facility] on 02/12/19. these MRIs did show disc stenosis at L2-L3 He had a CT lumbar spine without contrast performed on 08/13/18 [address] [facility]. CT confirm that there were L4 facet screws placed Patient had a nerve study completed on 10/20/19 at the [facility]. these studies did not show any radiculopa [...] mobility of the spine. Thoracic back pain 29851 8004 M54.6 [id number] SEPIDEH KUMAR MD SURGERY SCHEDULE [address] [place] [address] 12/19/2019 09:58:14 12/19/2019 13:43:35 [id number] SEPIDEH KMUAR [facility] [address] [place] [address] 12/25/2019 14:36:47 12/25/2019 15:51:31 [id number] MARLO DELACRUZ [facility]-C [facility] [address] [place] [address] 01/26/2020 11:15:33 01/29/2020 12:36:19 Postoperative care 350315155 Z48.89 74-year-ol d male status post L2 [...] this helps with the left leg pain. [id number] Amelie ELMORE PA-C [facility] [address] [address] 01/27/2020 10:00:37 01/27/2020 11:37:41 Osteoarthritis of knee 085984985 M17.9 Left knee arthritis. We discussed conservati ve measures to include CBD oil, genicular nerve ablation, and hyaluronic acid treatment. Patient chose to proceed with intra-rosie cular hyaluronic acid which was performed today. Patient will follow-up as pain dictates. [id number] FERNANDO FOSTER MD NEUROLOGY [facility] CLOSED [address] [place] [address] 03/19/2020 13:34:32 03/19/2020 15:44:52 Lumbar radiculopathy 424024512 M54.16 Skin sensa tion disturbance 80800762 R20.9 Pain in le ft lower limb 752909548 M79.605 Low back pain 079467980 M54.5 [id number] MARLO DELACRUZ PA-C NE[facility]G [facility] [address] [place] [address] 03/29/2020 08:47:44 03/29/2020 15:04:53 Lumbar radiculopathy 863959265 M54.16 74-year-ol d male with history Of [...] agrees to proceed. We will have her oil distributor contact him over the phone. pt seen by myself and dr kumar [id number] Amelie ELMORE PA-C [facility] [address] [place] [address] 04/27/2020 09:37:16 04/27/2020 10:45:49 Osteoarthritis of knee 182689873 M17.9 End-stage arthritis medial compartmen t left [...] after he left that he was on [place] [address] Kumar and narcotic tolerance was not addressed at our visit. Long leg x-ray was obtained today. We will schedule his preop visit at the hospital on May 17 to coincide with his next scheduled follow-up with Sepideh amy as it is difficult for him to get to [place] [id number] SEPIDEH KUMAR MD SURGERY SCHEDULE [address] [place] [address] 04/28/2020 11:51:44 05/04/2020 09:54:42 [id number] SEPIDEH KUMAR MD NEUROSURG [facility] [address] [facility] [place] [address] 05/06/2020 14:07:47 05/06/2020 14:24:32 [id number] BRIANNE Calderón MD [facility]I [facility] [address] [place] [address] 05/07/2020 08:12:08 05/07/2020 09:03:33 Osteoarthritis of knee 693381360 M17.12 [id number] SEPIDEH KUMAR MD NEUROSURG [facility] [address] [facility] [place] [address] 05/17/2020 09:04:15 05/18/2020 10:12:21 Postoperative care 234244447 Z48.89 [id number] BRIANNE Calderón MD SURGERY SCHEDULE [address] [place] [address] 05/19/2020 08:35:06 05/19/2020 15:47:32 [id number] C ADALI ELMORE PA-C [facility] [address] [place] [address] 05/25/2020 14:58:55 05/25/2020 15:41:27 Postoperative care 048232311 Z48.89 One week postop returning early for [...] y if there is any wound drainage. [id number] C ADALI ELMORE PA-C [facility] [address] [place] [address] 06/09/2020 13:38:55 06/09/2020 14:17:24 Postoperative care 036623112 Z48.89 3 status post left total knee arthroplas ty. Patient is doing exceptiona lly well. Unfortunat coretta, as predicted, knee replacemen t did not resolve his foot drop. Okay to get incision wet. Transfer PT to outpatient [facility]. Okay to use 0 turn lawnmower but [...] weeks with TK for repeat three-view x-ray [id number] BRIANNE Calderón MD [facility]THOPEDI [facility] [address] [place] [address] 07/06/2020 10:41:17 07/06/2020 11:18:22 History of total knee arthroplasty 1940106155 105 Z96.455 [id number] NIKKO BURLESON MD UROLOGY [address] [place] [address] 07/06/2020 12:40:39 07/06/2020 15:47:41 Impotence 022076092 N52.9 Screening for malignant neoplasm of prostate 280789871 Z12.5 Benign pro static hyperplasia with outflow obstruction 110155698 N40.1 [id number] MARLO DELACRUZ PA-C [facility] [address] [place] [address] 08/23/2020 09:05:29 08/23/2020 12:05:10 Lumbar radiculopathy 679218056 M54.16 75-year-ol d male history of an L2 to iliac fusion November 2019 as well as a left reexplorat ion of the L5 nerve root on 04/21/[address] Kumar. Patient is having worsening left leg symptoms similar to his second operation. X-rays taken today at [facility] at the lumbar spine show expected postoperat [...] pt seen by myself and dr kumar [id number] BRIANNE Calderón MD [facility]THOPEDI [facility] [address] [place] [address] 09/07/2020 10:05:44 09/07/2020 11:01:16 History of total knee arthroplasty 7226086005 105 Z96.652 [id number] CATERINA ARCE PA-C [facility]TH[facility]EDI [facility] [address] [place] [address] 09/14/2021 08:40:20 09/14/2021 09:52:41 History of total knee arthroplasty 3255694095 105 Z96.652 Assessment : 16-month status post left knee arthroplas ty Plan: Doing great. Controvers ies surroundin g dental prophylaxi s reviewed. NSAIDs prn for residual pain/swell ing. Routine f/u at 2 years, or prn. [id number] NIKKO BURLESON MD [facility] [address] [place] [place] [address] 10/18/2021 10:17:27 10/18/2021 11:22:30 Benign prostatic hyperplasia with outflow obstruction 213977433 N40.1 Impotence 740624821 N52. 9 [id number] NIKKO BURLESON MD UROLOGY [facility] [address] [place] [address] 01/16/2022 08:52:16 01/16/2022 09:40:08 Benign prostatic hyperplasia with outflow obstruction 562945047 N40.1 improved on alpha pasha Low back pain 411895122 M54.50 will send for KUB today. [id number] NIKKO BURLESON MD UROLOGY [facility] [address] [place] [address] 04/20/2022 08:54:03 04/20/2022 09:35:28 Benign prostatic hyperplasia with outflow obstruction 821166549 N40.1 continue alpha pasha Primary er ectile dysfunction 961194984 N52.9 try daily PDE5 inhibitor. [id number] NIKKO BURLESON MD UROLOGY [facility] [address] [place] [address] 10/19/2022 08:57:40 10/19/2022 10:02:08 Screening for malignant neoplasm of prostate 837598963 Z12.5 Slowing of urinary stream 60531137 R39.12 continue alpha pasha [id number] MARINA PLATT MD [facility] [address] [place] [address] 01/12/2023 12:47:35 01/12/2023 14:07:48 Multiple benign melanocytic nevi 437508725 D22.5 D18.01 L82.1 L81.4 Benign appearing lesions present at today's visit.Sun protection and self examinatio ns discussed. Scar 028014855 L90.5 Z85.828 Scar(s) clear with no evidence recurrence . Continue to monitor for any changes. 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 Controlled on medication s.Rx refilled for acyclovir 400mg BID PO. SE reviewed. Inflamed s eborrheic keratosis 257541094 L82.0 Benign.Jose Manuel l tx with LN2 since bothersome . [id number] ANDREY WILSON [facility] [address] [place] [address] 03/01/2023 09:01:16 03/01/2023 09:33:36 Neoplasm of uncertain behavior of skin 53674037 D48.5 Will take a bx of the lesion.Wou nd care instructio n given to pt. Pnt to keep his regular skin exam apt with Dr. anne already scheduled. [id number] MARINA PLATT MD [address] [place] [address] 07/18/2023 13:21:33 07/18/2023 14:07:32 Multiple benign melanocytic nevi 809518412 D22.5 D18.01 L82.1 L81.4 Benign appearing lesions present at today's visit.Sun protection and self examinatio ns discussed. Scar 654248268 L90.5 Z85.828 Scar(s) clear with no evidence recurrence . Continue to monitor for any changes. Actinic keratosis 007 L57.0 The nature of the diagnosis was explained. Pre-cancer ous.Will treat with LN2.F/u if treated lesions persist. [id number] JOSE JUAN SEGURA PA-C [facility] [address] [place] [address] 09/17/2023 10:20:40 09/17/2023 11:22:44 History of total knee arthroplasty 8057973880 105 Z96.652 Assessment : 3 years status [...] 1 year or sooner if symptoms warrant. [id number] NIKKO BURLESON MD UROLOGY [facility] [address] [facility] [place] [address] 10/25/2023 09:03:49 10/25/2023 10:06:35 Screening for malignant neoplasm of prostate 007968757 Z12.5 Slowing of urinary stream 29869097 R39.12 continue alpha pasha [id number] ANDREY WILSON [facility] [place] [address] [place] [address] 01/21/2024 10:55:39 01/21/2024 11:44:40 Multiple benign melanocytic nevi 851189791 D22.5 L81.4 D18.01 L82.1 The benign nature [...] noted. History of malignant neoplasm of skin 948386384 Z85.828 Per Pt: Pt's PCP Dr. Caterina Bishop MD treated his lesion on L Helical Rim. notes that the pathology indicated that the margins were clear. The scar is clear with no evidence of recurrence .Cont to monitor for any changes. Actinic keratosis 007 L57.0 The nature of the diagnosis was explained. Pre-cancer ous.Will treat with LN2.F/u if treated lesions persist. Herpes simplex 36281760 B00.89 The nature of the diagnosis was discussed. Rx refilled for Rx Acyclovir 400 mg, 1 tab po QID x 5 days with flare ups. SE reviewed. Health Concerns Section Related Observation LastModified by Organization Detai ls LastModified Time None Recorded Concern Status LastModified by Organization Details LastModified Time None Recorded Advance Directives Directive None Recorded Payers Insurance Date Sequence Insurance Name Policy Number Policy Orr Covered Member ID Orr Member ID Guarantor Name 01/18/2024 2 [employer] OPTIONS (MEDICARE SUPPLEMENT) Nilson Figueroa [id number] Nilson Figueroa 01/18/2024 1 [place] Nilson Figueroa [id number] Nilson Figueroa 07/18/2023 2 [facility] HE[facility] OPTIONS (MEDICARE SUPPLEMENT) Nilson Figueroa [id number] Nilson Figueroa Notes Date Note Type Note Provider Name and Address Organization Details Recorded Time 03/01/2023 text/html 1. Follow up : [place]location: L earprior tx: [id number]: Dr. Platt has froze it off but its still there and growing ANDREY WILSON [address] [place], [address], [facility] 03/01/2023 12:35:18 07/18/2023 text/html waist up6 month examhx: nmscno concerns MARINA PLATT MD [address] [place], [address], [facility] 07/18/2023 15:42:56 09/17/2023 text/html 09/17/23Patient i s here today for {{ 3#}} year post op visit from {{ L#}} [facility] DOS 05/19/20Patient reports they are doing well.Any pain? {{ [...] er cane* no assistive device}} PT: {{outpatient ([facility])# [facility] home health outpatient HEP}} Denies fevers, chills, or wound drainage. They {{do* do not}} request a refill of pain medicine. JOSE JUAN SEGURA PA-C [address] [place] [address], [phone], [facility] 09/17/2023 11:50:19 10/25/2023 text/html Nilson is a 78 yo male returns for follow up of BPH. He remains on tamsulosin and voiding has improved. He is doing well.He would like to try tadalafil, which has been helpful to him previously. NIKKO BURLESON MD [address] [place] [address], [phone], [facility] 10/26/2023 07:28:04 01/21/2024 text/html Waist up skin exam6 monthhx: SCC- L Helical Rimreport: scalppt would like a refil of acyclovir 400 mg tablet ANDREY WILSON [address] [place] [address], [phone], [facility] 01/21/2024 12:24:58
--- OUTSIDE RECORDS SUMMARY | 2024-07-04 09:34 | XMS_ITS | Continuity of Care Document ---
Author Name [facility] Organization [facility] Care Team Providers Care Clinical Education Consultant Name Role Phone [facility] Unavailable Unavailable Encounters Combined list of: 1) Encounters from [facility] of [facility] Affairs facilities going backup to the last 18 months, not all VA inpatient encounters are included; 2) Encounters from the Department of [facility] facilities going backup to 280 months. Location Location Details Encounter Type Encounter Number Reason For Visit Attending Provider ADM Date DC Date Status Disposition Source [facility] Outpatient Encounter [id number] 10/09 [place] [facility] Out[facility] Encounter [id number] 06/05 [place] [facility] Outpatient Encounter [id number] 06/05 [place] [facility]
== END 2024-07-04 23:59 | disposition home or self-care (01) ==
LOC: RT 09:32
PROVIDERS: PCP Family Medicine; Visit Provider Internal Medicine
DX: I25.10 Atherosclerotic heart disease of native coronary artery without angina pectoris (principal); I65.29 Occlusion and stenosis of unspecified carotid artery; E78.5 Hyperlipidemia, unspecified; I11.0 Hypertensive heart disease with heart failure; I50.21 Acute systolic (congestive) heart failure; R42 Dizziness and giddiness; Z95.818 Presence of other cardiac implants and grafts
CPT/HCPCS: 93308

== ENCOUNTER 2024-07-16 07:46 | Outpatient (CLI) | payer MEDICARE, SELFPAY ==
--- OUTSIDE RECORDS SUMMARY | 2024-07-16 07:49 | XMS_ITS | Continuity of Care Document ---
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 Location Location Details Encounter Type Encounter Number Reason For Visit Attending Provider ADM Date DC Date Status Disposition Source [facility] Outpatient Encounter [id number] 10/09 [place] [facility] Outpatient Encounter [id number] 06/05 [place] [facility] [place] Outpatient Encounter [id number] 06/05 [place] [facility]
--- NOTE | 2024-07-16 08:00 | US_ITS ---
PROCEDURE INFORMATION: Exam: US Right Breast, Complete Exam date and time: 07/16/2024 7:58 AM Age: 79 years old Clinical indication: Mass, lump, or swelling; Right; Additional info: Tenderness, palpable mass TECHNIQUE: Imaging protocol: Complete ultrasound of all four quadrants of the right breast and the retroareolar regions, including ultrasound of the axilla when performed. COMPARISON: No relevant prior studies available. FINDINGS: ULTRASOUND: Breast ultrasound findings: In the right breast in the palpable area of concern, retroareolar region, there is what appears to be benign retroareolar glandular breast tissue. No discrete mass, shadowing, or distortion are seen. IMPRESSION: Ultrasound findings are suggestive of benign male breast tissue in the right retroareolar region. However, correlation with a diagnostic right breast mammogram is recommended. ASSESSMENT: BI-RADS Category 0: Incomplete- Need Additional Imaging Evaluation.
== END 2024-07-16 23:59 | disposition home or self-care (01) ==
LOC: RAD 07:47
PROVIDERS: PCP Family Medicine; Visit Provider Nurse Practitioner
DX: N64.4 Mastodynia (principal); N63.0 Unspecified lump in unspecified breast
CPT/HCPCS: 76641

== ENCOUNTER 2024-08-05 10:37 | Outpatient (CLI) | payer MEDICARE, SELFPAY ==
--- OUTSIDE RECORDS SUMMARY | 2024-04-24 11:45 | XMS_ITS ---
[facility] Address [address] [place] [id number] Care Team Providers Care Client Advocate Name Role Phone Maikol Santiago Primary Care Provider Allergies Allergen (clinical drug ingredient) Drug/Non Drug Allergy documented on EMR Reaction Allergy Type Onset Date Status tolmetin Tolmetin rash, itchy Drug Allergy Activ e REASON FOR VISIT f/u [facility] D/C Medications Medication SIG (Take, Route, Frequency, Duration) Notes Start Date End Date Status Pantoprazole Sodium 40 MG 1 tablet 1/2 to 1 hour before morning meal Orally Once a day for 30 day(s) Active Ferrous Gluconate 324 (38 Fe) MG 1 tablet Orally once a day Active Jardiance 10 MG 1 tablet Orally twice a day Active Midodrine HCl 5 MG 1 tablet Orally Twice a day for 30 day(s) Not-Taking traMADol HCl 50 MG 1 tab(s) orally three times a day as needed 03/01/2022 Not-Taking Digoxin 125 MCG 1 tablet Orally for 30 day(s) Active Entresto 24-26 MG 1 tablet Orally Twice a day for 30 day(s) Active Clopidogrel Bisulfate 75 MG 1 tablet Orally Once a day for 30 day(s) Active Pregabalin 75 MG 1 capsule Orally Two times a day 01/10/2024 Not-Taking oxyCODONE HCl 5 MG 1 tablet as needed Orally two times a day as needed 01/10/2024 Not-Taking Warfarin Sodium 5 MG 1 tablet Orally Once a day for 30 day(s) 2.5 MWF, 5 AOD Not-Taking Bisoprolol Fumarate 10 MG 1 tablet Orally Once a day Not-Taking Atorvastatin Calcium 40 MG 1 tab(s) Orally once a day Active Aspirin 81 81 MG 1 tablet Orally Once a day for 30 day(s) Active Problems Problem Type SNOMED Code ICD Code Onset Dates Problem Status W/U Status Risk Notes Problem [id number] Persistent atria l fibrillation (I48.19) Active confirmed Problem 959149111 Ischemic cardiomyopathy (I25.5) Active confirmed Vital Signs Blood pressure systolic 150 mm Hg 04/24/19 25 Blood pressure diastolic 76 mm Hg 025 Heart Rate 64 /min 04/24/2024 Height 71 in 04/24/2024 Weight 204.3 lbs 04/24/2024 BMI 28.49 kg/m2 04/24/2024 Encounters Encounter Location Date Provider Diagnosis [facility] [address] [place] [address] [address] [facility] [address] [place] [id number] 04/24/2024 Maikol Santiago Persistent atrial fibrillation I48.19 ; Ischemic cardiomyopathy I25.5 and Ulcer of esophagus with bleeding K22.11 Assessments Encounter Date Diagnosis (ICD Code) Assessment Notes Treatment Notes Treatment Clinical Notes Section Notes 04/24/2024 Persistent atrial fibrillation (ICD-10 - I48.19) continue current therapy 04/24/2024 Ischemic cardiomyopathy (ICD-10 - I25.5) 04/24/2024 Ulcer of esophagus with bleeding (ICD-10 - K22.11) Plan Of Treatment Treatment Notes Assessment Notes Persistent atrial fibrillation continue current therapy Next Appt Details Follow Up: 4 Weeks, Reason: Provider Name:Maikol Meyer er, 08/25/2024 10:15:00 AM, [address] [place] [address] [address] [facility], [address], [place], [id number], Progress Notes * Derick LONGORIADOB:1945 (79 yo M)Acc No.[id number]:04/24/2024 Patient: Derick MASTERS Provider: Maikol Santiago M.D. :1945 A ge:79 Y S ex:Male Date:04/24/2024 Address:[address] [place], [place] [id number] Subjective: * Chief Complaints: * 1 . f/u [facility] D/C. * HPI: H PI: wants rx for fever blisters. Has taken Acyclovir. 79 year old male presents with c/o Here for follow up on: h ospitalization. Pt states he is feeling better. Pt states he has had a hard time urinating with the Midodrine so he stopped it. * ROS: D ERMATOLOGY: no R suzy. n o H tru. G ASTROENTEROLOGY: no N ausea. n o V omiting. n o D iarrhea.? U ROLOGY: no D ifficulty urinating. n o B lood in urine. * Medical History: E sophageal reflux, 06/28/17 Cardiolyte GXT, neg, Hepatitis A, 06/2017 [employer], Gout, COVID #1 vaccine 03/30/2020, Covid vaccine x2 - april 2020, < 20% carotid stenosis bilaterally, 09/01/2020 < 20% bilateral carotid stenosis, 09/01/2020 No renal artery stenosis, COVID 19 Booster, Pfizer 2020, Flu shot 12/02/2020. * Surgical History: n flor surgery- disc , right ear drum , back surgery 01/29/08, knee surgery 11/09/10, Carpal tunnel release - R wrist - Dr. Shakila Neff 05/2016, kidney stone removal - Dr. Damian Burleson 10/20/14, Carpal tunnel release, left, Dr. Milligan 08/30/2017, Colonoscopy, Dr. Arita. Tubular adenoma 07/05/2018, back surgery - 11/2019, back surgery- scar tissue removed 03/2020, Left Knee replacement 04/2020, Irridectomy OD, Dr Munroe 05/17/2021, Irridectomy, OS 06/22/2022, Right Eye Cataract/Lens Removal 06/08/2022, EGD, Dr. Arita 06/05/22, Watchman 03/11/24, EGD Dr. Arita 03/20/24. * Hospitalization/Major Diagno stic Procedure: n flor surgery , [facility] scalp laceration 08-20-07, [facility] dehydration 03/24 to 03/25/08, L2 to iliac fusion, Dr. Mark Kumar 12/10/2019. * Family History: F ather: , cancer. M other: . P aternal Grand Father: . P aternal Grand Mother: . M aternal Grand Father: . M aternal Grand Mother: . 1 brother(s) , 1 sister(s) . 2 son(s) . . * Social History: C URRENT TOBACCO USE: No . C affeine: yes, frequency: one to two glasses of tea. Home smoke detector use: yes. Marital Status: . Past smoking status: no, Smoking status: Does not smoke. * Medications: T aking Digoxin 125 MCG Tablet 1 tablet Orally , Taking Entresto 24-26 MG Tablet 1 tablet Orally Twice a day , Taking Jardiance 10 MG Tablet 1 tablet Orally twice a day , Taking Pantoprazole Sodium 40 MG Tablet Delayed Release 1 tablet 1/2 to 1 hour before morning meal Orally Once a day , Taking Ferrous Gluconate 324 (38 Fe) MG Tablet 1 tablet Orally once a day , Taking Atorvastatin Calcium 40 MG Tablet 1 tab(s) Orally once a day , Taking Aspirin 81 81 MG Tablet Delayed Release 1 tablet Orally Once a day , Taking Clopidogrel Bisulfate 75 MG Tablet 1 tablet Orally Once a day , Not-Taking Midodrine HCl 5 MG Tablet 1 tablet Orally Twice a day , Not-Taking Pregabalin 75 MG Capsule 1 capsule Orally Two times a day , Not-Taking oxyCODONE HCl 5 MG Tablet 1 tablet as needed Orally two times a day as needed , Not-Taking Warfarin Sodium 5 MG Tablet 1 tablet Orally Once a day , Notes to Pharmacist: 2.5 MWF, 5 AOD, Not-Taking Bisoprolol Fumarate 10 MG Tablet 1 tablet Orally Once a day , Not- Taking traMADol HCl 50 MG Tablet 1 tab(s) orally three times a day as needed , Discontinued Metoprolol Succinate 100 MG Capsule ER 24 Hour Sprinkle 1 capsule Orally Once a day , Discontinued Metoprolol Succinate 50 MG Capsule ER 24 Hour Sprinkle 1 capsule Orally Once a day , Discontinued Tamsulosin HCl 0.4 MG Capsule 1 cap(s) orally once a day , Medication List reviewed and reconciled with the patient * Allergies: T olmetin: rash, itchy. Objective: * Vitals: W t:204.3, Temp:97.7, BP:150/76, HR:64, O2 Sat:96% on RA, Nurse:ABHIJIT, Ht: 71, BMI:28.49. Assessment: * Assessment: 1. P ersistent atrial fibrillation - I48.19 (Primary) 2 . I schemic cardiomyopathy - I25.5 3 . U lcer of esophagus with bleeding - K22.11 Plan: * Treatment: * Procedure Codes: G 2211 Complex e/[place], [address] P[place]SE [place], 3077F SYST BP = 140 MM HG6 IT, 3078F DIAST BP < 80 MM HG * Follow Up: 4 Weeks * Billing Information: * Visit Code: 04003 Office Visit, Est Pt., Level 3. * Procedure Codes: G2211 Complex e/[place]. [address] P[place]SE OX. 3077F SYST BP = 140 MM HG6 IT. 3078F DIAST BP < 80 MM HG. * Electronic signature of Maikol Santiago MD on 08/05/2024 at 10:41 AM EDT Sign off status: Pending * Provider: Maikol Santiago M.D. Date: 0 04/24/2024 Generated for Rodríguez cuevas/Morris/eTransmitting on: 0 08/05/2024 10:41 AM EDT History and Physical Notes * HPI (History of Present Illness) Category Sub-Category Detail Notes Category Not es HPI Here for follow up on: iraj casey. Pt states he is feeling better. Pt states he has had a hard time urinating with the Midodrine so he stopped it
--- OUTSIDE RECORDS SUMMARY | 2024-05-30 05:45 | XMS_ITS ---
Author Organization [facility] Address [address] [place] [id number] Care Team Providers Care Landscape Architect Name Role Phone Maikol Santiago Primary Care Provider Allergies Allergen (clinical drug ingredient) Drug/Non Drug Allergy documented on EMR Reaction Allergy Type Onset Date Status tolmetin Tolmetin rash, itchy Drug Allergy Activ e REASON FOR VISIT 2 month ckup Medications Medication SIG (Take, Route, Frequency, Duration) Notes Start Date End Date Status Digoxin 125 MCG 1 tablet Orally for 30 day(s) Active Pantoprazole Sodium 40 MG 1 tablet 1/2 to 1 hour before morning meal Orally Once a day for 30 day(s) Active Furosemide 40 MG 1 tablet Orally Once a day Active Amiodarone HCl 400 MG 1 tablet Orally Once a day Active Losartan Potassium 25 MG 1 tablet Orally Once a day Active traMADol HCl 50 MG 1 tab(s) orally three times a day as needed 03/01/2022 Not-Taking Warfarin Sodium 5 MG 1 tablet Orally Once a day for 30 day(s) 2.5 MWF, 5 AOD Not-Taking Bisoprolol Fumarate 10 MG 1 tablet Orally Once a day Not-Taking Pregabalin 75 MG 1 capsule Orally Two times a day 01/10/2024 Not-Taking oxyCODONE HCl 5 MG 1 tablet as needed Orally two times a day as needed 01/10/2024 Not-Taking Clopidogrel Bisulfate 75 MG 1 tablet Orally Once a day for 30 day(s) Active Midodrine HCl 5 MG 1 tablet Orally Twice a day for 30 day(s) Not-Taking Aspirin 81 81 MG 1 tablet Orally Once a day for 30 day(s) Active Atorvastatin Calcium 40 MG 1 tab(s) Orally once a day Active Ferrous Gluconate 324 (38 Fe) MG 1 tablet Orally once a day Active Vital Signs Blood pressure systolic 130 mm Hg 05/31/19 25 Blood pressure diastolic 60 mm Hg 025 Heart Rate 79 /min 05/30/2024 Height 71 in 05/30/2024 Weight 211.4 lbs 05/30/2024 BMI 29.48 kg/m2 05/30/2024 Encounters Encounter Location Date Provider Diagnosis [facility] [address] [facility] [address] [facility] [address] [place] [id number] 05/30/2024 Maikol Santiago Ischemic cardiomyopa thy I25.5 ; Stented coronary artery Z95.5 ; Essential (primary) hypertension I10 ; Arteriosclerotic cardiovascular disease I25.10 ; Acute HFrEF (heart failure with reduced ejection fraction) I50.21 and Low back pain, unspecified M54.50 Assessments Encounter Date Diagnosis (ICD Code) Assessment Notes Treatment Notes Treatment Clinical Notes Section Notes 05/30/2024 Ischemic cardiomyopathy (ICD-10 - I25.5) continue present treatment 05/30/2024 Stented coronary artery (ICD-10 - Z95.5) 05/30/2024 Essential (primary) hypertension (ICD-10 - I10) 05/30/2024 Arteriosclerotic cardiovascular disease (ICD-10 - I25.10) 05/30/2024 Acute HFrEF (heart failure with reduced ejection fraction) (ICD-10 - I50.21) 05/30/2024 Low back pain, unspecified (ICD-10 - M54.50) Plan Of Treatment Treatment Notes Assessment Notes Ischemic cardiomyopathy continue present treatment Next Appt Details Follow Up: 2 Months, Reason: Provider Name:Maikol Meyer er, 08/25/2024 10:15:00 AM, [address] [facility] [address] [facility], [address], [place], [phone], Progress Notes * Derick LONGORIADOB:1945 (79 yo M)Acc No.[id number]:05/30/2024 Progress Notes Patient: Derick MASTERS Provider: Maikol Santiago M.D. DOB:1945 A ge:79 Y S ex:Male Date:05/30/2024 Address:[address] [place] [address] [place] [id number] Subjective: * Chief Complaints: * 1 . 2 month ckup. * HPI: H PI: 79 year old male presents with c/o Patient is here today for?Pt is here today for a 2 month check up. Pt sts he is doing well and has no concerns at this time. Pt is not fasting . C ardiology: See 05/26/2024 Cardiology. EKG at that point showed NSR (Seems sinus bradycardia today). Still with reduced EF 30% and wearing life vest. * ROS: D ERMATOLOGY: no R suzy. [...] Diagno stic Procedure: n [place] surgery , [facility] scalp laceration 08-20-07, [facility] dehydration 03/24 to 03/25/08, L2 [...] Does not smoke. * Medications: T aking Losartan Potassium 25 MG Tablet 1 tablet Orally Once a day , Taking Furosemide 40 MG Tablet 1 tablet Orally Once a day , Taking Amiodarone HCl 400 MG Tablet 1 tablet Orally Once a day , Taking Digoxin 125 MCG Tablet 1 tablet Orally , Taking Pantoprazole Sodium 40 MG Tablet [...] times a day as needed , Discontinued Entresto 24-26 MG Tablet 1 tablet Orally Twice a day , Discontinued Jardiance 10 MG Tablet 1 tablet Orally twice a day , Medication List reviewed and reconciled with the patient * Allergies: T olmetin: rash, itchy. Objective: * Vitals: W t: 211.4, Temp: 97.9, BP: 130/60, HR: 79, Nurse: mmbenjamin, Ht: 71, BMI:29.48. * Examination: G eneral Examination: General Appearance: N AD. HEENT: u nremarkable. Oral cavity: n o lesions, mucosa moist and WNL, no erythema. Neck: s upple, no lymphadenopathy. Chest: n ormal shape and expansion. Heart: s inus bradycardia. Lungs: c lear to auscultation. Abdomen: soft and nontender, no organomegaly or masses.? Neurologic Exam: N o change in exam. Skin: n ormal, no rash. Peripheral pulses: n ormal. Back: mild dorsal kyphosis, surgical scar LS. Extremities: m inimal l eg edema. ? Assessment: * Assessment: 1. I schemic cardiomyopathy - I25.5 (Primary) 2 . S tented coronary artery - Z95.5 3 . E ssential (primary) hypertension - I10 4 . A rteriosclerotic cardiovascular disease - I25.10 5 . A cute HFrEF (heart failure with reduced ejection fraction) - I50.21 6 . L ow back pain, unspecified - M54.50? Plan: * Treatment: * Procedure Codes: G 2211 Complex e/m visit add on, 3075F SYST BP GE 130 - 139MM HG, 3078F DIAST BP < 80 MM HG * Follow Up: 2 Months * Billing Information: * Visit Code: 06852 Office Visit, Est Pt., Level 4. * Procedure Codes: G2211 Complex e/m visit add on. 3075F SYST BP GE 130 - 139MM HG. 3078F DIAST BP < 80 MM HG. * Electronic signature of Maikol Santiago MD on 08/05/2024 at 10:42 AM EDT Sign off status: Pending * Provider: Maikol Santiago M.D. Date: 0 05/30/2024 Generated for Rodírguez cuevas/Morris/eTransmitting on: 0 08/05/2024 10:42 AM EDT History and Physical Notes * HPI (History of Present Illness) Category Sub-Category Detail Notes Category Not es Cardiology See 05/26/2024 Cardiology. EKG at that point showed NSR (Seems sinus bradycardia today). Still with reduced EF 30% and wearing life vest. HPI Patient is here toda y for Pt is here today for a 2 month check up. Pt sts he is doing well and has no concerns at this time. Pt is not fasting Examination Category Sub-Category Detail Notes Category Not es General Examination HEENT: unremarkable Heart: sinus bradycardia Lungs: clear to auscultatio n Abdomen: soft and nontender, no organomegaly or masses Extremities: minimal leg edema General Appearance: NAD Skin: normal, no rash Neurologic Exam: No change in exam Neck: supple, no lymphaden opathy Oral cavity: no lesions, mucosa m oist and WNL, no erythema Peripheral pulses: normal Back: mild dorsal kyphosis , surgical scar LS Chest: normal shape and exp ansion
--- OUTSIDE RECORDS SUMMARY | 2024-06-05 07:56 | XMS_ITS | Continuity of Care Document ---
Author Name [facility] Organization [facility] Care Team Providers Care Air Bag Stripper Name Role Phone [facility] Unavailable Unavailable Encounters Combined list of: 1) Encounters from [facility] facilities going backup to the last 18 months, not all VA inpatient encounters are included; 2) Encounters from the Department of [facility] facilities going backup to 280 months. Location Location Details Encounter Type Encounter Number Reason For Visit Attending Provider ADM Date DC Date Status Disposition Source [facility] Outpatient Encounter [id number] 10/09 [place] [facility] Out[facility] Encounter [id number] 06/05 [place] [facility] Outpatient Encounter [id number] 06/05 [place] [facility]
--- OUTSIDE RECORDS SUMMARY | 2024-07-15 07:15 | XMS_ITS ---
Author Organization [facility] Address [address] [facility] [address] [facility] [address] [place] [id number] Care Team Providers Care Decorator Hand Name Role Phone Maikol Santiago Primary Care Provider Jasvir Santos [phone] Allergies Allergen (clinical drug ingredient) Drug/Non Drug Allergy documented on EMR Reaction Allergy Type Onset Date Status tolmetin Tolmetin rash, itchy Drug Allergy Activ e REASON FOR VISIT coughing ,drainage Encounters Encounter Location Date Provider Diagnosis [facility] [address] [facility] [address] [facility] [address] [place] [id number] 07/15/2024 Jasvir Santos Plan Of Treatment Next Appt Details Provider Name:Maikol Meyer er, 08/25/2024 10:15:00 AM, [address] [facility] [address] [facility], [address], [place], [id number], Progress Notes * LONGORIADerickDOB:1945 (79 yo M)Acc No.[id number]:07/15/2024 Progress Notes Patient: Derick MASTERS Provider: Jaswant Santos M.D. :1945 A ge:79 Y S ex:Male Date:07/15/2024 Address:[address] [place] [address] [id number] Pcp:Maikol Santiago Subjective: * Chief Complaints: * 1 . Coughing ,drainage. * ROS: D ERMATOLOGY: no R suzy. [...] Diagno stic Procedure: n [place] surgery , [facility] scalp laceration 08-20-07, [facility] dehydration 03/24 to 03/25/08, L2 to iliac [...] no, Smoking status: Does not smoke. * Allergies: T olmetin: rash, itchy. Objective: * Vitals: Assessment: Plan: * Treatment: * Billing Information: * Visit Code: * Procedure Codes: * Electronic signature of Lillian Santos MD on 08/05/2024 at 10:42 AM EDT Sign off status: Pending * Provider: Jaswant Santos M.D. Date: 0 07/15/2024 Generated for Rodríguez cuevas/Morris/Michelle on: 0 08/05/2024 10:42 AM EDT
--- OUTSIDE RECORDS SUMMARY | 2024-08-05 10:41 | XMS_ITS | Clinical Summary ---
Author Organization [facility] Address [address] [place] [address] Care Team Providers Care Housing Inspectors Name Role Phone Juan Santiago MD Primary Care Provider [phone] Allergies Active Allergy Reactions Criticality Noted Date Comments Tolmetin Unknown - Patient st ates they do not know rxn details Low 01/11/2024 Medications amLODIPine Besylate (NORVASC PO) Take 5 mg by mouth 1 (one) time each day. Active tamsulosin (Flomax) 0.4 MG 24 hr capsule 1 capsule (0.4 mg) 1 (one) time each day. Active aspirin 81 MG EC tablet Take 1 tablet (81 mg) by mouth 1 (one) time each day. 30 tablet 03/11/2024 6 Active clopidogrel (Plavix) 75 MG tablet Take 1 tablet (75 mg) by mouth 1 (one) time each day. 30 tablet 03/12/2024 5 Active pantoprazole (Protonix) 40 MG EC tablet Take 1 tablet (40 mg) by mouth 1 (one) time each day before breakfast. Do not crush, chew, or split. 30 tablet 03/11/2024 5 Active atorvastatin (Lipitor) 40 MG tablet Take 1 tablet (40 mg) by mouth daily. Active sacubitril-vals montez (Entresto) 24-26 MG tablet Take 1 tablet by mouth daily. Active digoxin (Lanoxin) 125 MCG tablet Take by mouth. Active Empagliflozin (JARDIANCE PO) Take 10 mg by mouth daily. Active Active Problems Problem Noted Date Diagnosed Date Presence of Watchman left atrial appendage closu re device 04/30/2024 Atrial fibrillation, unspecified type 03/11/2024 Atrial fibrillation 01/18/2024 Anemia 01/11/2024 Paroxysmal atrial fibrillation 01/11/2024 Pneumonia 01/11/2024 Chest pain 01/11/2024 HLD (hyperlipidemia) 01/11/2024 Palpitations 01/11/2024 CAD (coronary artery disease) 01/11/2024 Dizziness 01/11/2024 Daytime somnolence 01/11/2024 Shortness of breath 01/11/2024 ROQUE (obstructive sleep apnea) 01/11/2024 Essential hypertension 01/11/2024 Lumbar radiculopathy 03/29/2020 Left foot drop 03/15/2020 Pain in left knee 08/13/2019 Gout 09/16/2018 Osteoarthritis, generalized 09/16/2018 Polyarthralgia 09/16/2018 Ureteric stone 11/28/2014 Family History Medical History Relation Name Comments Cancer Father Cancer Mother Liver disease Other 1 Other cancer Other 2 Relation Name Status Comments Father Mother Other 1 Other 2 Social History Tobacco Use Types Packs/Day Years Used Date Smoking Tobacco: Never Smokeless Tobacco: Never Tobacco Cessation:Counseling Given: Not Answered Alcohol Use Standard Drinks/Week Comments Not Currently 0 (1 standard drink = 0.6 oz pur e alcohol) PHQ-2 Answer Date Recorded Patient Health Questionnaire-2 Score 0 01/18/2024 PHQ-9 Answer Date Recorded Patient Health Questionnaire-9 Score 0 01/18/2024 Sex and Gender Information Value Date Recorded Sex Assigned at Not on file Legal Sex Male 7:28 PM EDT Gender Identity Not on file Sexual Orientation Not on file Last Filed Vital Signs Vital Sign Reading Time Taken Comments Blood Pressure 148/80 03/11/2024 3:00 PM EST Pulse 60 03/11/2024 3:30 PM EST Temperature 36.4 C (97.6 F) 03/11/2024 11:18 AM EST Respiratory Rate 13 03/11/2024 3:30 PM EST Oxygen Saturation 96% 03/11/2024 3:30 PM EST Inhaled Oxygen Concentration - - Weight 92.8 kg (204 lb 9.4 oz) 03/11/2024 7:55 A M EST Height 177.8 cm (5' 10 ) 03/11/2024 7:55 AM EST Body Mass Index 29.36 03/11/2024 7:55 AM EST Plan of Treatment Health Maintenance Due Date Last Done Comments [facility]-Medicare Annual Wellness (AWV) 1945 [facility]-Infant/Child/Adol SDOH Screenings 1945 [facility]- SDOH Screenings 1962 [facility]-Adult SDOH Screenings 1962 [facility]-DTaP,Tdap,and Td Vaccine s (1 - Tdap) 1963 [facility]-RSV Vaccine: 60+ Years o r (1 - 1-dose 75+ series) 2019 [facility]-Zoster Vaccines (2 of 3) 01/14/2020 11/19/2019 [id number]-GUTRH-15 Vaccine ( - 2023- season) 2023 [facility]-Influenza Vaccine (Seaso n Ended) 2024 11/11/2021, 12/02/2020, 11/19/2019 [facility]-Depression Screening 01/17/2025 024, 01/18/2024 [facility]-Pneumococcal Vaccine: 50 + Years Completed 06/18/2017, 12/21/2016, 12/16/2015 [facility]-Hepatitis A Vaccines Aged Out 07/05/2017 No longer eligible based on patient's age to complete this topic [facility]-Obesity Intervention Completed 025, 01/18/2024, 01/18/2024 HPV Vaccines Aged Out No longer eligi ble based on patient's age to complete this topic [facility]-HIB Vaccines Aged Out No longer e ligible based on patient's age to complete this topic [facility]-IPV Vaccines Aged Out No longer e ligible based on patient's age to complete this topic [facility]-Rotavirus Vaccines Aged Out No lo nger eligible based on patient's age to complete this topic Medical Devices Implanted Type Area Rubber Goods Tester Device Identifier Shelf Expiration Date Model / Serial / Lot Watchman Fxd Curve Dble 20mm - [id number] Implanted:Qty : 1 on 03/11/2024 by Juan Hogan MD at [facility] [employer]-[id number] 09/19/2026 [id number] / / [id number] Device Watchman Flx Pro Lori Closure 31mm - [id number] Implanted:Qty : 1 on 03/11/2024 by Juan Hogan MD at [facility] [employer]-[id number] 07/22/2026 [id number] / / [id number] Device Watchman Flx Pro Procedure - [id number] Implanted:Qty : 1 on 03/11/2024 by Juan Hogan MD at [facility] [employer]-[id number] / / Insurance [facility] MEDICARE Advance Directives * Full Code (Latest Code Status on File) Date Activated Date Inactivated Comments 03/11/2024 11:48 AM 03/11/2024 6:45 PM Question Answer Comments Patient has decision-making capacity? Yes Care Teams Housing Inspectors Relationship Specialty Start Date End Date Juan Santiago MD [address] [place] [address] PCP - General 07/09/20
--- OUTSIDE RECORDS SUMMARY | 2024-08-05 10:42 | XMS_ITS | Patient Health Record ---
Author Organization [facility] Address [address] [place] [id number] Care Team Providers Care Sql Architect Name Role Phone Maikol Santiago Primary Care Provider [phone] Jasvir Santos Unavailable [phone] Allergies Allergen (clinical drug ingredient) Drug/Non Drug Allergy documented on EMR Reaction Allergy Type Onset Date Status tolmetin Tolmetin rash, itchy Drug Allergy Activ e Results Component Value Reference Range Notes H-CBC Reviewed date:12/31/2023 11:26:50 AM Interpretation:rbc 2.99, hgb 7.5, hct 23.1, mcv 77.2, mch 25.1, rdw 18.8 Performing Lab: Notes/Report: WBC 8.9 4.8-10.8 K/mm3 RBC 2.99 4.60-6.20 M/mm3 HGB 7.5 14.1-18.0 g/dL HCT 23.1 42.0-52.0 % MCV 77.2 80-94 fl MCH 25.1 27.0-31.2 pg MCHC 32.5 31.8-35.4 g/dL RDW 18.8 11.5-17.5 % PLT 229 142-424 K/mm3 MPV 8.4 7.4-10.4 fl NE% 74.4 37.0-80.0 % LY% 16.9 10-50 % MO% 6.8 1.7-9.3 % EO% 1.3 0.1-12.0 % BA% 0.6 0.1-2.0 % NE# 6.6 1.8-7.8 K/mm3 LY# 1.5 0.7-4.5 K/mm3 MO# 0.6 0.1-1.0 K/mm3 EO# 0.1 0.0-0.4 K/mm3 BA# 0.1 0-0.2 K/mm3 H-CMP Reviewed date:12/31/2023 11:26:50 AM Interpretation:cl 112, co2 21, bun 29, creat 1.30, egfr 53, glu 89, ca 8.0, tp 5.4, alb 3.2 Performing Lab: Notes/Report: NA 138 136-145 mmol/L K 4.3 3.5-5.1 mmoL/L CL 112 98-107 mmol/L CO2 21 22.0-30.0 mmol/L GAP 9.3 5-15 mEq/L BUN 29 9-20 mg/dl CREATT 1.30 0.66-1.25 mg/dl CRCLE 59 50-200 mL/min GFRAA 64 >60 ML/MIN EGFR 53 >60 ml/min GLU 89 74-100 mg/dl Delta: 132 on 12/27/23-1103 CA 8.0 8.4-10.2 mg/dl BILIT 0.8 0.2-1.3 mg/dl AST 25 17-59 U/L ALT 22 12-78 U/L TP 5.4 6.3-8.2 g/dl ALB 3.2 3.5-5.0 g/dl GLOB 2.2 1.3-3.2 g/dL AGRATIO 1.5 1.1-1.8 ALP 48 38-126 U/L H-Hemoglobin/Hematocrit Reviewed date:12/31/2023 11:26:50 AM Interpretation:hcb, 22.6 Performing Lab: Notes/Report: HGB 7.3 14.1-18.0 g/dL Delta: 6.1 on 12/27/23 HCT 22.6 42.0-52.0 % H-CBC Reviewed date:04/17/2024 10:13:16 AM Interpretation: Performing Lab: Notes/Report: WBC 13.5 4.8-10.8 K/mm3 RBC 5.14 4.60-6.20 M/mm3 HGB 12.8 14.1-18.0 g/dL HCT 40.2 42.0-52.0 % MCV 78.2 80-94 fl MCH 24.9 27.0-31.2 pg MCHC 31.8 31.8-35.4 g/dL RDW 15.0 11.5-17.5 % PLT 398 142-424 K/mm3 MPV 10.2 7.4-10.4 fl NE% 77.0 37.0-80.0 % LY% 12.0 10-50 % MO% 8.3 1.7-9.3 % EO% 1.3 0.1-12.0 % BA% 0.6 0.1-2.0 % NE# 10.4 1.8-7.8 K/mm3 LY# 1.6 0.7-4.5 K/mm3 MO# 1.1 0.1-1.0 K/mm3 EO# 0.2 0.0-0.4 K/mm3 BA# 0.1 0-0.2 K/mm3 H-CMP Reviewed date:04/17/2024 10:13:16 AM Interpretation: Performing Lab: Notes/Report: NA 138 136-145 mmol/L K 4.1 3.5-5.1 mmoL/L CL 103 98-107 mmol/L CO2 25 22.0-30.0 mmol/L GAP 14.1 5-15 mEq/L BUN 44 9-20 mg/dl CREATT 2.30 0.66-1.25 mg/dl CRCLE 32 50-200 mL/min GFRAA 33 >60 ML/MIN EGFR 27 >60 ml/min GLU 163 74-100 mg/dl CA 8.4 8.4-10.2 mg/dl BILIT 0.8 0.2-1.3 mg/dl AST 27 17-59 U/L ALT 23 12-78 U/L TP 7.0 6.3-8.2 g/dl ALB 4.0 3.5-5.0 g/dl Delta: 4.6 on 04/16/24-0847 GLOB 3.0 1.3-3.2 g/dL AGRATIO 1.3 1.1-1.8 ALP 75 38-126 U/L H-CBC Reviewed date:04/18/2024 10:27:07 AM Interpretation: Performing Lab: Notes/Report: WBC 11.8 4.8-10.8 K/mm3 RBC 5.07 4.60-6.20 M/mm3 HGB 12.4 14.1-18.0 g/dL HCT 40.0 42.0-52.0 % MCV 78.9 80-94 fl MCH 24.5 27.0-31.2 pg MCHC 31.0 31.8-35.4 g/dL RDW 14.9 11.5-17.5 % PLT 362 142-424 K/mm3 MPV 10.0 7.4-10.4 fl NE% 68.8 37.0-80.0 % LY% 16.8 10-50 % MO% 10.0 1.7-9.3 % EO% 2.7 0.1-12.0 % BA% 0.9 0.1-2.0 % NE# 8.2 1.8-7.8 K/mm3 LY# 2.0 0.7-4.5 K/mm3 MO# 1.2 0.1-1.0 K/mm3 EO# 0.3 0.0-0.4 K/mm3 BA# 0.1 0-0.2 K/mm3 H-BMP Reviewed date:04/18/2024 10:27:07 AM Interpretation: Performing Lab: Notes/Report: NA 139 136-145 mmol/L K 4.5 3.5-5.1 mmoL/L CL 106 98-107 mmol/L CO2 23 22.0-30.0 mmol/L GAP 14.5 5-15 mEq/L BUN 37 9-20 mg/dl CREATT 1.90 0.66-1.25 mg/dl CRCLE 40 50-200 mL/min GFRAA 41 >60 ML/MIN Delta: 33 on 04/17/24-0850 EGFR 34 >60 ml/min GLU 153 74-100 mg/dl CA 8.2 8.4-10.2 mg/dl H-Magnesium Reviewed date:04/16/2024 11:23:23 AM Interpretation: Performing Lab: Notes/Report: MG 2.3 1.6-2.3 mg/dl H-CMP Reviewed date:04/16/2024 11:23:23 AM Interpretation: Performing Lab: Notes/Report: NA 141 136-145 mmol/L K 4.5 3.5-5.1 mmoL/L CL 100 98-107 mmol/L CO2 27 22.0-30.0 mmol/L GAP 18.5 5-15 mEq/L BUN 41 9-20 mg/dl Delta: 24 on 04/14/24 CREATT 2.30 0.66-1.25 mg/dl Delta: 1.60 on 04/14/24 CRCLE 32 50-200 mL/min GFRAA 33 >60 ML/MIN Delta: 51 on 04/14/24 EGFR 27 >60 ml/min GLU 152 74-100 mg/dl CA 8.8 8.4-10.2 mg/dl BILIT 0.9 0.2-1.3 mg/dl AST 30 17-59 U/L ALT 22 12-78 U/L TP 7.9 6.3-8.2 g/dl ALB 4.6 3.5-5.0 g/dl GLOB 3.3 1.3-3.2 g/dL AGRATIO 1.4 1.1-1.8 ALP 83 38-126 U/L H-BNP Reviewed date:04/16/2024 11:23:23 AM Interpretation: Performing Lab: Notes/Report: BNPNTP 4570 0-450 pg/mL H-CBC Reviewed date:04/16/2024 11:23:23 AM Interpretation: Performing Lab: Notes/Report: WBC 14.7 4.8-10.8 K/mm3 Delta: 10.7 o n 04/15/24 RBC 5.41 4.60-6.20 M/mm3 Delta: 4.32 on 04/15/24 HGB 13.3 14.1-18.0 g/dL Delta: 10.7 o n 04/15/24 HCT 42.2 42.0-52.0 % MCV 78.0 80-94 fl MCH 24.4 27.0-31.2 pg MCHC 31.3 31.8-35.4 g/dL RDW 15.2 11.5-17.5 % PLT 415 142-424 K/mm3 Delta: 298 on 04/15/24 MPV 10.0 7.4-10.4 fl NE% 73.2 37.0-80.0 % LY% 14.1 10-50 % MO% 9.4 1.7-9.3 % EO% 1.6 0.1-12.0 % BA% 0.7 0.1-2.0 % NE# 10.8 1.8-7.8 K/mm3 LY# 2.1 0.7-4.5 K/mm3 MO# 1.4 0.1-1.0 K/mm3 EO# 0.2 0.0-0.4 K/mm3 BA# 0.1 0-0.2 K/mm3 H-Magnesium Reviewed date:04/15/2024 07:37:33 PM Interpretation:2.4 Performing Lab: Notes/Report: MG 2.4 1.6-2.3 mg/dl Delta: 1.2 on 04/14/24 M-Complete Blood Count Man D if Reviewed date:04/16/2024 07:36:53 AM Interpretation: Performing Lab: Notes/Report: WBC 10.7 4.8-10.8 K/mm3 Delta: 15.9 o n 04/14/24 RBC 4.32 4.60-6.20 M/mm3 HGB 10.7 14.1-18.0 g/dL HCT 33.7 42.0-52.0 % MCV 78.0 80-94 fl MCH 24.8 27.0-31.2 pg MCHC 31.8 31.8-35.4 g/dL RDW 15.1 11.5-17.5 % PLT 298 142-424 K/mm3 MPV 10.1 7.4-10.4 fl NE% 71.7 37.0-80.0 % LY% 16.8 10-50 % MO% 8.4 1.7-9.3 % EO% 1.5 0.1-12.0 % BA% 0.7 0.1-2.0 % NE# 7.6 1.8-7.8 K/mm3 LY# 1.8 0.7-4.5 K/mm3 MO# 0.9 0.1-1.0 K/mm3 EO# 0.2 0.0-0.4 K/mm3 BA# 0.1 0-0.2 K/mm3 MDIFF MANUAL DIFFERENTIAL MANUAL DIFF TCC 100 NEUT%M 70 42-76 % LYMPH%M 19 10-50 % ELEAZAR% 1.0 MONO%M 6 2-9 % EOS%M 4 0-3 % PLTE Normal RM Normal H-PT/INR Reviewed date:12/31/2023 11:26:50 AM Interpretation: Performing Lab: Notes/Report: Patient on anticoagulants? Y List Anticoagulant(s) Warfarin PT 11.2 10.1-12.5 seconds INR 1.00 0.9-1.1 INDICATION INR RANGE Therapy for DVT, PE, Atrial Fib, 2.0-3.0 Prophylaxis for VTE. Therapy for Mechanical Heart Valve, 2.5-3.5 Prevention of Sytemic Emolism secondary to AMI. M-Hemoglobin and Hematocrit Reviewed date:12/31/2023 11:26:50 AM Interpretation:hgb 9.5, hct 29.5 Performing Lab: Notes/Report: HGB 9.5 14.1-18.0 g/dL HCT 29.5 42.0-52.0 % H-Hemoglobin/Hematocrit Reviewed date:12/31/2023 11:26:50 AM Interpretation:hcb 9.5, hct 28.3 Performing Lab: Notes/Report: HGB 9.5 14.1-18.0 g/dL Delta: 7.5 on 12/28/23-602 HCT 28.3 42.0-52.0 % CBC Fingerstick (in house) Reviewed date:01/10/2024 04:02:11 PM Interpretation: Performing Lab: Notes/Report: wbc 9.6 3.5 - 10 lym 14.8% 15 - 50 mid 3.9% 2 - 15 gran 81.3% 35 - 80 rbc 4.26 3.5 - 5.5 hgb 11.0 11.5 - 16.5 hct 34.9 35 - 55 mcv 82.0 75 - 100 mch 25.9 25 - 35 mchc 31.5 31 - 38 plat 235 100 - 400 CBC Fingerstick (in house) Reviewed date:01/28/2024 11:54:47 AM Interpretation: Performing Lab: Notes/Report: wbc 7.7 3.5 - 10 lym 22.2% 15 - 50 mid 6.0% 2 - 15 gran 71.8% 35 - 80 rbc 5.03 3.5 - 5.5 hgb 13.1 11.5 - 16.5 hct 41.3 35 - 55 mcv 82.0 75 - 100 mch 26.0 25 - 35 mchc 31.7 31 - 38 plat 258 100 - 400 P-Comprehensive Metabolic Pa nayeli (CMP) Reviewed date:11/12/2023 11:19:23 AM Interpretation:Cr 1.51, Ca 8.5, gfr 47 Performing Lab: Notes/Report: Test performed by [facility], [facility] [address] [place] [address] , [address], [place] [address] Sy Calderon MD, Product Picker CLIA: [id number] Sodium 139 135-145 mmol/L Potassium 4.5 3.5-5.3 [...] <0.2-1.2 mg/dL A/G Ratio 1.8 1.1-2.5 EKG Reviewed date:11/12/2023 11:19:23 AM Interpretation:sinus angela with sinus arrhythmia Performing Lab: Notes/Report: sinus angela with sinus arrhythmia Medications Medication SIG (Take, Route, Frequency, Duration) Notes Start Date End Date Status Clopidogrel Bisulfate 75 MG 1 tablet Orally Once a day for 30 day(s) Active Midodrine HCl 5 MG 1 tablet Orally Twice a day for 30 day(s) Not-Taking Atorvastatin Calcium 40 MG 1 tab(s) Orally once a day Active Aspirin 81 81 MG 1 tablet Orally Once a day for 30 day(s) Active Ferrous Gluconate 324 (38 Fe) MG 1 tablet Orally once a day Active Digoxin 125 MCG 1 tablet Orally for 30 day(s) Active traMADol HCl 50 MG 1 tab(s) orally three times a day as needed 03/01/2022 Not-Taking Pantoprazole Sodium 40 MG 1 tablet 1/2 to 1 hour before morning meal Orally Once a day for 30 day(s) Active Furosemide 40 MG 1 tablet Orally Once a day Active Warfarin Sodium 5 MG 1 tablet Orally Once a day for 30 day(s) 2.5 MWF, 5 AOD Not-Taking Amiodarone HCl 400 MG 1 tablet Orally Once a day Active Bisoprolol Fumarate 10 MG 1 tablet Orally Once a day Not-Taking Pregabalin 75 MG 1 capsule Orally Two times a day 01/10/2024 Not-Taking Losartan Potassium 25 MG 1 tablet Orally Once a day Active oxyCODONE HCl 5 MG 1 tablet as needed Orally two times a day as needed 01/10/2024 Not-Taking Immunizations Vaccine Route Administration Date Status Comme nts COVID 19 Pfizer IM Intramuscular 03/30/2020 Administered COVID 19 Pfizer IM Intramuscular 04/28/2020 Administered Fluzone High Dose (65yr and older) IM Intramuscular 11/19/2019 Administered Fluzone High Dose (65yr and older) Unknown 12/02/2020 Administered Fluzone High Dose (65yr and older) IM Intramuscular 11/16/2022 Administered Fluzone High Dose (65yr and older) IM Intramuscular 12/24/2023 Administered Fluzone PF Quad (6-35 months) Unknown [...] the office on 06-23-08 by the Arash Newsome will have scaned in pt. docs. xAdministration of injection Unknown 11/19/2019 Administered xFlu shot-36 months and older Unknown 12/27/2015 Administered Problems Problem Type SNOMED Code ICD Code Onset Dates Problem Status W/U Status Risk Notes Problem 13121544 Essential (primary) hypertension (I10) Active confirmed Problem 53398286 Essential hypertension (I10) Active confirmed Problem 29945079 Degenerative dis c disease, lumbar (M51.36) Active confirmed Problem 52797444 Hyperuricemia (E79.0) Active confirmed Problem 956247857 Paroxysmal atria l fibrillation (I48.0) Active confirmed Problem 724414274 Mixed hyperlipidemia (E78.2) Active confirmed Problem 81485046 Other chronic pa in (G89.29) Active confirmed Problem 134335899 Ischemic cardiomyopathy (I25.5) Active confirmed Problem 85157951 Ulcer of esophag us with bleeding (K22.11) Active confirmed Problem Arteriosclerotic vascular disease (16548517) Arteriosclerotic cardiovascular disease (I25.10) Active confirmed Problem 830054806 Renal insufficiency (N28.9) Active confirmed Problem 330151688 Chronic GERD (K21.9) Active confirmed Problem 29262534 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) Active confirmed Problem 428113622 PAF (paroxysmal atrial fibrillation) (I48.0) Active confirmed Problem 47816841 ROQUE (obstructive sleep apnea) (G47.33) Active confirmed Problem 468418146 PVC (premature ventricular contraction) (I49.3) Active confirmed Problem 04219781703002 Status post lumb ar spinal fusion (Z98.1) Active confirmed Problem 055963490 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) Active confirmed Problem 870253566 Cardiac dysrhythmia, unspecified (I49.9) Active confirmed Problem 769019159 Atherosclerosis of sycuan coronary artery without angina pectoris, unspecified whether sycuan or transplanted heart (I25.10) Active confirmed Problem 681336619 Benign prostatic hyperplasia with lower urinary tract symptoms (N40.1) Active confirmed Problem 7339687753937 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) Active confirmed Problem 77124342 Spinal stenosis of lumbar region, unspecified whether neurogenic claudication present (M48.061) Active confirmed Problem 093754186856859 Foot drop, left (M21.372) Active confirmed Problem 181846229 Persistent atria l fibrillation (I48.19) Active confirmed Problem 660527645 Chronic atrial fibrillation (I48.20) Active confirmed Problem 096030397054168 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) Active confirmed Problem 991832274 Gastroesophageal reflux disease with esophagitis without hemorrhage (K21.00) Active confirmed Problem Low back pain (604605036) Low back pain, unspecified (M54.50) Active confirmed Problem 517611417 Premature atrial contractions (I49.1) Active confirmed Problem 379989036 Acute anemia (D64.9) Active confirmed Problem 327576196 Basal cell carcinoma (BCC) of left pinna (C44.219) Active confirmed Problem 517745935 Cancer of skin o f left ear (C44.209) Active confirmed Problem Acute systolic heart failure (677454507) Acute HFrEF (heart failure with reduced ejection fraction) (I50.21) Active confirmed Problem 926144178 Esophageal erosions (K22.10) Active confirmed Vital Signs Heart Rate 79 /min 05/30/2024 Blood pressure diastolic 60 mm Hg 05/30/2024 Height 71 in 05/30/2024 Blood pressure systolic 130 mm Hg 05/30/2024 Weight 211.4 lbs 05/30/2024 BMI 29.48 kg/m2 05/30/2024 Encounters Encounter Location Date Provider Diagnosis [facility] [place] [address] [place] [id number] 10/26/2023 Maikol Santiago Cardiac dysrhythmia, unspecified I49.9 ; Benign prostatic hyperplasia with lower urinary tract symptoms N40.1 and Coronary artery disease involving sycuan coronary artery of sycuan heart without angina pectoris I25.10 [facility] [place] [address] [id number] 12/24/2023 Maikol Santiago Paroxysmal atrial fibrillation I48.0 ; Low back pain, unspecified M54.50 ; Coronary artery disease involving sycuan coronary artery of sycuan heart without angina pectoris I25.10 ; Status post left knee replacement Z96.652 ; Status post lumbar spinal fusion Z98.1 ; Degenerative disc disease, lumbar M51.36 ; Stented coronary artery Z95.5 and Encounter for immunization Z23 [facility] [address] [facility] [address] [place] [id number] 01/10/2024 Maikol Santiago Acute anemia D64.9 ; Ulcer of esophagus with bleeding K22.11 ; Esophageal erosions K22.10 ; PAF (paroxysmal atrial fibrillation) I48.0 and Lumbar back pain M54.50 [facility] [address] [place] [id number] 01/28/2024 Maikol Santiago Esophageal erosions K22.10 ; Acute anemia D64.9 and Essential (primary) hypertension I10 [facility] [address] [place] [id number] 04/07/2024 Maikol Santiago Chronic atrial fibrillation I48.20 ; Essential hypertension I10 ; Renal insufficiency N28.9 ; Stented coronary artery Z95.5 and Acute anemia D64.9 [facility] [address] [place] [id number] 04/24/2024 Maikol Santiago Persistent atrial fibrillation I48.19 ; Ischemic cardiomyopathy I25.5 and Ulcer of esophagus with bleeding K22.11 [facility] [address] [place] [id number] 05/30/2024 Maikol Santiago Ischemic cardiomyopa thy I25.5 ; Stented coronary artery Z95.5 ; Essential (primary) hypertension I10 ; Arteriosclerotic cardiovascular disease I25.10 ; Acute HFrEF (heart failure with reduced ejection fraction) I50.21 and Low back pain, unspecified M54.50 [facility] [address] [place] [address] [place] [id number] 11/12/2023 Maikol Santiago [facility] [address] [place] [address] [place] [id number] 01/11/2024 Maikol Santiago Assessments Encounter Date Diagnosis (ICD Code) Assessment Notes Treatment Notes Treatment Clinical Notes Section Notes 12/24/2023 Low back pain, unspecified (ICD-10 - M54.50) 05/30/2024 Ischemic cardiomyopathy (ICD-10 - I25.5) continue present treatment 05/30/2024 Stented coronary artery (ICD-10 - Z95.5) 12/24/2023 Paroxysmal atrial fibrillation (ICD-10 - I48.0) 10/26/2023 Cardiac dysrhythmia, unspecified (ICD-10 - I49.9) 10/26/2023 Benign prostatic hyperplasia with lower urinary tract symptoms (ICD-10 - N40.1) 01/10/2024 Ulcer of esophagus with bleeding (ICD-10 - K22.11) Will see Juan J in March 20 for repeat EGD and biopsy. Will follow with cardiology to schedule Watchman. 01/28/2024 Acute anemia (ICD-10 - D64.9) 01/28/2024 Esophageal erosions (ICD-10 - K22.10) continue current therapy 04/07/2024 Essential hypertension (ICD-10 - I10) 01/10/2024 Acute anemia (ICD-10 - D64.9) 04/07/2024 Chronic atrial fibrillation (ICD-10 - I48.20) continue current therapy 04/24/2024 Ischemic cardiomyopathy (ICD-10 - I25.5) 04/24/2024 Persistent atrial fibrillation (ICD-10 - I48.19) continue current therapy 10/26/2023 Coronary artery disease involving sycuan coronary artery of sycuan heart without angina pectoris (ICD-10 - I25.10) 05/30/2024 Essential (primary) hypertension (ICD-10 - I10) 04/24/2024 Ulcer of esophagus with bleeding (ICD-10 - K22.11) 01/10/2024 Esophageal erosions (ICD-10 - K22.10) 01/28/2024 Essential (primary) hypertension (ICD-10 - I10) 04/07/2024 Renal insufficiency (ICD-10 - N28.9) 12/24/2023 Coronary artery disease involving sycuan coronary artery of sycuan heart without angina pectoris (ICD-10 - I25.10) 05/30/2024 Arteriosclerotic cardiovascular disease (ICD-10 - I25.10) 04/07/2024 Stented coronary artery (ICD-10 - Z95.5) 01/10/2024 PAF (paroxysmal atrial fibrillation) (ICD-10 - I48.0) 12/24/2023 Status post left knee replacement (ICD-10 - Z96.652) 01/10/2024 Lumbar back pain (ICD-10 - M54.50) 04/07/2024 Acute anemia (ICD-10 - D64.9) 05/30/2024 Acute HFrEF (heart failure with reduced ejection fraction) (ICD-10 - I50.21) 12/24/2023 Status post lumbar spinal fusion (ICD-10 - Z98.1) 12/24/2023 Degenerative disc disease, lumbar (ICD-10 - M51.36) 05/30/2024 Low back pain, unspecified (ICD-10 - M54.50) 12/24/2023 Stented coronary artery (ICD-10 - Z95.5) 12/24/2023 Encounter for immunization (ICD-10 - Z23) Plan Of Treatment Next Appt Details Provider Name:Maikol Mendezash er, 08/25/2024 10:15:00 AM, [address], [address], [place], [place], [id number], Insurance Providers Payer Name Payer Address Payer Phone Subscriber Number Group Number Insured Name Patient Relationship to Insured Coverage Start Date Coverage End Date MEDICARE PART B [address] [address] [place] [address] [phone] [id number] Derick LONGORIA Self - patient is the insured [facility] [address] [place] [id number] Derick LONGORIA Self - patient is the insured Medications Administered Medication Instructions Date of Administration Dosage Notes Dexamethasone 08/16/2016 1 mL Medical (General) History Medical History History ICD Code Esophageal reflux 06/28/17 Cardiolyte GXT, neg Hepatitis A, 06/2017 [employer] Gout COVID #1 vaccine 03/30/2020 covid vaccine x2 - april 2020 < 20% carotid stenosis bilaterally 09/01/2020 < 20% bilateral carotid stenosi s 09/01/2020 No renal artery stenosis COVID 19 Booster, Pfizer 2020 Flu shot 12/02/2020 Surgical History Surgery Date(Month/Year) neck surgery- disc right ear drum back surgery 01/29/08 knee surgery 11/09/10 Carpal tunnel release - R wrist - Dr. Milly Neff 05/2016 kidney stone removal - Dr. Damian cook 10/20/14 Carpal tunnel release, left, Dr. Jayde roque 08/30/2017 Colonoscopy, Dr. Arita. Tubular adenom a 07/05/2018 back surgery - 11/2019 back surgery- scar tissue removed 03/2020 Left Knee replacement 04/2020 Irridectomy OD, Dr Munroe 05/17/2021 Irridectomy, OS 06/22/2022 Right Eye Cataract/Lens Removal 06/09/19 EGD, Dr. Arita 06/05/22 Watchman 03/11/[address] Arita 03/20/24 Hospitalization History Reason Date(Month/Year) L2 to iliac fusion, Dr. Mark Kumar [facility] dehydration 03/24 to 03/25/08 [facility] scalp laceration 08-20-07 neck surgery
--- OUTSIDE RECORDS SUMMARY | 2024-08-05 10:42 | XMS_ITS | Data Portability ---
Author Organization RACHELL ILANA Gonzales [place] [facility] Address [address] [facility] [facility] [place] [address] Care Team Providers Care Wine Bottle Inspector Name Role Phone HORACIO BISHOP Primary Care Provider FERNANDO FOSTER Neurologist [phone] BRIANNE CASTELLANOS Orthopedic Surgeon SEPIDEH TREJO Technology Training Associate [phone] MARINA ANNE Insurance Solicitor Assessment No assessment recorded. Plan of Treatment Reminders Order Date Submit Date Provider Last Modified By Organization Details Last Modified Time Details Appointments MALE RECHECK 2024 09:30A M NIKKO BURLESON MD Not available Not available Not available FOLLOW UP DAK 2024 09:50A M BRUNO FERNANDES PA-C Not available Not available Not available Lab None recorded. Referral None recorded. Procedures None recorded. Surgeries None recorded. Imaging None recorded. Medication Orders acyclovir 400 mg tablet 2023 024 marlena [facility] [address] [place], [address], 01/21/2024 12:24:45 tadalafil 5 mg tablet 2023 024 [email or web address] [facility] [address] [place], [address], 10/26/2023 07:28:01 tamsulosi n 0.4 mg capsule 2023 024 [facility] [address], [place], [address], 10/26/2023 07:28:08 Patient TargetsNo targets recorded. Patient InstructionsNo instructions recorded. Reason for Referral None Reported. Results Created Date Observation Date Name Description Value Unit Range Abnormal Flag Note LastModifiedBy Organization Detail LastModifiedTime 09/17/19 24 09/17/2023 XR, knee, 3 view [facility] [place] [address] [place] [place] [address] Patien t Name: NILSON jung : [birth year] 44 Patien t 9 Orderi ng Provid er: JOSE JUAN SEGURA EXAM DATE: 2023 EXAM: XR LT KNEE 3 VIEWS COMPAR NEERAJ: 022 HISTOR Y: Follow -up of prior surger y. FINDIN GS: Again seen is a left knee [...] ly Signed By: Cindi whitney MD on 024 10:54 AM [email or web address] [facility] [place] [address] , [place], [address], 09/17/2023 11:19:52 Result Notes None recorded. Problems Name Problem SNOMED Code Status Onset Date Resolution Date Notes Provider Name and Address Organization Details Recorded Time Impotence Active 2015 From Automated Load;Prov ider: Nikko Burleson; Status: Active Not Available [facility] 7 07:25:34 Pain in left knee Active 2019 RACHELL Farmer - [facility] 0 13:15:36 Left foot drop 03913695164 9105 Active 2020 MARLO DELACRUZ PA-C [address] [place], [address] , [facility] 09:46:35 Lumbar radiculop athy 710534334 Active 2020 AMRLO DELACRUZ PA-C [address] [place], [address] , [facility] 12:47:24 Ureteric stone 37005679 Active 2014 Provider: Nikko Burleson; Status: Active Not Available [facility] 6 06:08:00 Problem Notes None recorded. Procedures Surgical History Date Name Laterality Status Provider Name and Address Organization Details Recorded Time 07/15/19 DAK - Cryo AK completed [facility] 07/14/2024 10:19:10 07/15/19 25 Destruction BN Lesions completed [facility] 07/14/2024 10:18:07 01/21/20 24 DAK - Cryo AK completed [facility] 01/21/2024 11:31:23 07/18/19 24 DAK - Cryo AK completed Jenn Morfin [facility] 07/18/2023 14:03:51 03/01/19 24 Blade Biopsy completed [facility] 03/01/2023 09:22:40 01/13/20 23 Destruction BN Lesions completed MARINA PLATT MD [address] [place], [address], [facility] 01/12/2023 17:41:56 01/17/20 Uroflowmetry; Complex completed NIKKO BURLESON MD [address] [place], [address], [facility] 01/16/2022 20:05:44 01/17/20 22 Post Void Residual; Ultrasound completed NIKKO BURLESON MD [address] [place], [address], [facility] 01/16/2022 20:05:57 01/22/20 21 Electromyography (EMG) with Nerve Conduction Study (NCV) completed Kavya TuRama) Langford [facility] 03/19/2020 15:40:44 01/27/20 20 Synvisc One Injection completed Amelie ELMORE PA-C [address] [place], [address] [place] [address] 01/27/2020 11:11:40 10/20/19 20 Electromyography (EMG) with Nerve Conduction Study (NCV) completed FERNANDO FOSTER MD [address] [place], [address] [place] [address] 10/20/2019 18:51:18 08/13/19 20 Injection Joint/Bursa, Major completed Amelie ELMORE PA-C [address] [place], [place], [address] [place] [address] 08/13/2019 13:55:19 [place] [address] [place] [address], [address] [place] [address] 10/19/2022 16:36:35 Other completed Elvia [place] [facility] 06/08/2016 09:25:02 Other completed Elvia Hazel [facility] 06/08/2016 09:26:08 Other completed Sara Reyes [facility] 06/14/2017 09:49:15 colonoscopy completed NIKKO BURLESON MD [address] [place] [address], [address] [place] [address] 06/26/2019 15:25:58 total knee replacement [facility] 14:17:18 Imaging Results None recorded. Procedure Notes None recorded. Medical Equipment None Reported. Allergies Allergen ID Allergen Name Allergen Category Reaction Reaction Severity Criticality Documentation Date Start Date Code Code System Note Provider Name and Address Organization Details Recorded Time 123572 Tylox medicatio n Not available Not available Not available 01/21/20162014 79877 5 RxNorm Comme nt: Elba ed By: Neha morales Date: 2014 10:13 :00 AM; Not Available [facility] 05:15:09 Medications Name Sig Start Date Stop [...] tablet every day by oral route. active dc Not Available Not Available No t Available [...] Not Available Not Available Not Avai lable [place] 7.5 mg-325 mg tablet Take 1 tablet [...] Available Not Available Not Available aspirin active dc Not Available Not Avail able Not Available clopidogr el active Not Available Not Available Not Available amlodipin e 5 mg 10/18 [...] 0 Not Available Not Available Not Available pantopraz ole active Not Available Not Available Not Available Zithromax Z-Asif 06/14 completed Not Available Not Available Not Available Colcrys 0.6 mg tablet Take 1 tablet every day by oral route. 03/01 completed Not Available Not Available Not Available Vitals Date Recorded Body height Body mass index (BMI) Body weight Provider Name and Address Organization Details Last Updated DateTime 09/17/2023 180.34 cm 25.8 kg/m2 90242.59 g Yanni Snell [facility] 09/17/2023 10:21:56 Date Recorded Body height Body mass index (BMI) Body weight Provider Name and Address Organization Details Last Updated DateTime 10/25/2023 180.34 cm 25.8 kg/m2 05039.59 g Anabel Manzo [facility] 10/25/2023 09:07:34 Social History Question Answer Notes LastModified by Organizat ion Details LastModified Time Tobacco Smoking Status Former [facility]/14/2017 09:48:42 When Did You Quit Smoking? 16+yearssinc elastcigaret te Information not available 06/14/2017 Sunscreen Use? No Informatio n not available 01/21/2024 Tanning Bed Use No Information not available 01/21/2024 Marital Status Informatio n not available 06/08/2016 What Was The Date Of Your Most Recent Tobacco Screening? 07/14/2024 [email or web address] Information not available 07/14/2024 Sex: Unknown Functional Status Question Answer Note LastModified by Organization D etails LastModified Time What is your level of alcohol consumption? None Information not available 06/08/2016 What is your occupation? Retired Information not available 06/14/2017 Mental Status None recorded. Family History Relationship [...] SNOMED-CT Code Diagnosis ICD10 Code Diagnosis Note [id number] NIKOK BURLESON MD UROLOGY [address] [place] [address] 06/08/2016 08:56:31 06/12/2016 08:52:30 Screening for malignant neoplasm of prostate 217762666 Z12.5 Renal colic 3521744 N23 fairly minimal [id number] NIKKO BURLESON MD UROLOGY [facility] [address] [address] 12/07/2016 09:47:42 12/11/2016 08:56:36 Ureteric stone 26268914 N20.1 Body mass index 25-29 - overweight 185038026 Z68.28 Impotence of organic origin 520715255 N52.9 [id number] NIKKO BURLESON MD UROLOGY [facility] [address] [address] 06/14/2017 09:06:55 06/15/2017 09:15:35 Screening for malignant neoplasm of prostate 808009300 Z12.5 Impotence of organic origin 324836961 N52.9 refill sildenafil mail order History of calculus of kidney 178542469 Z87.321 [id number] NIKKO BURLESON MD UROLOGY [facility] [address] [address] 06/20/2018 09:24:11 06/24/2018 09:26:02 Impotence 493176824 N52.9 Screening for malignant neoplasm of prostate 107730693 Z12.5 History of calculus of kidney 794160603 Z87.684 [id number] NIKKO BURLESON MD UROLOGY [facility] [address] [place] [address] 06/26/2019 13:20:48 06/27/2019 12:26:10 Screening for malignant neoplasm of prostate 927753116 Z12.5 Impotence of organic origin 346040666 N52.9 [id number] SEPIDEH KUMAR MD NEUROSURG SHANNA[facility] CL[facility]ED [address] [facility] [place] [address] 08/04/2019 12:55:11 08/06/2019 08:57:46 Lumbar radiculopathy 126016207 M54.16 [id number] Amelie ELMORE PA-C [facility] [address] [place] [address] 08/13/2019 12:55:25 08/13/2019 13:59:19 Osteoarthritis of knee 465925876 M17.9 severe arthritis radiograph ically. Patient is fairly functional . Diagnostic /therapeut ic intra-rosie cular CSI today. Patient will return in 6-10 weeks to evaluate overall benefit. At that time we can discuss conservati ve measures to potentiall y include lateral heel wedge, NSAID, serial CSI, CBD, mechanical unit repairer brace, physical therapy, et al [id number] GO SNOW PA-C [facility] [address] [facility] [address] [place] [address] 09/22/2019 10:32:59 09/24/2019 10:07:02 Lumbar radiculopathy 990962861 M54.16 Mr. Nilson Khalil is a 74-year-ol [...] MRI of the lumbar spine performed at [facility] on February 12, 2019 showed significan t stenosis at L2 to L3. He had a CT lumbar spine performed at [facility] on 08/13/18 which he brought with him on a CD. He also had flexion extension x-rays done at [facility] recently. The CT showed stable L4 facet [...] agrees with the plan as stated above. [id number] Amelie ELMORE PA-C [facility] [address] [place] [address] 10/03/2019 07:56:43 10/03/2019 09:00:51 Osteoarthritis of knee 272948550 M17.9 Patient had excellent relief for approximat [...] nerve ablation, hyaluronic acid, or on medial mechanical unit repairer brace 08/13/2019 severe arthritis radiograph ically. Patient is fairly functional . Diagnostic /therapeut ic intra-rosie cular CSI today. Patient will return in 6-10 weeks to evaluate overall benefit. At that time we can discuss conservati ve measures to potentiall y include lateral heel wedge, NSAID, serial CSI, CBD, mechanical unit repairer brace, physical therapy, et al [id number] FERNANDO FOSTER MD NEUROLOGY [facility] CLOSED [address] [place] [address] 10/20/2019 08:37:31 10/20/2019 09:27:33 Pain in left lower limb 802358089 M79.183 [id number] SEPIDEH [facility]UMAR [facility] [address] [facility] [place] [address] 11/17/2019 08:07:00 11/17/2019 10:54:46 Lumbar radiculopathy 651684196 M54.16 patient is a 74-year-ol d male [...] a lumbar MRI without contrast performed at [facility] on 02/12/19. these MRIs did show disc stenosis at L2-L3 He had a [address] lumbar spine without contrast performed on 08/13/18 at [facility]. CT confirm that there were L4 facet screws placed Patient had a nerve study completed on 10/20/19 at the [facility]. these studies did not show any radiculopa [...] Kumar who was part of the decision-m aking as outlined above Addendum: Ordering an L0637 custom fitted back brace with anterior, lateral and posterior support to reduce pain by restrictin g mobility of the spine. Thoracic back pain 86766 8004 M54.6 [id number] SEPIDEH KUMAR MD SURGERY SCHEDULE [address] [place] [address] 12/19/2019 09:58:14 12/19/2019 13:43:35 [id number] SEPIDEH KUMAR [facility] [address] [facility] [address] [place] [address] 12/25/2019 14:36:47 12/25/2019 15:51:31 [id number] MARLO DELACRUZ PA-C [facility] [address] [facility] [address] [place] [address] 01/26/2020 11:15:33 01/29/2020 12:36:19 Postoperative care 085767264 Z48.89 74-year-ol d male status post L2 [...] this helps with the left leg pain. [id number] C ADALI ELMORE PA-C [facility] [address] [place] [address] 01/27/2020 10:00:37 01/27/2020 11:37:41 Osteoarthritis of knee 104575700 M17.9 Left knee arthritis. We discussed conservati ve measures to include CBD oil, genicular nerve ablation, and hyaluronic acid treatment. Patient chose to proceed with intra-rosie cular hyaluronic acid which was performed today. Patient will follow-up as pain dictates. [id number] FERNANDO FOSTER MD NEUROLOGY [facility] [address] [facility] [address] [place] [address] 03/19/2020 13:34:32 03/19/2020 15:44:52 Lumbar radiculopathy 312699053 M54.16 Skin sensa tion disturbance 64233711 R20.9 Pain in le ft lower limb 515728397 M79.605 Low back pain 254789359 M54.5 [id number] MARLO DELACRUZ PA-C NEUROSURG [facility] [address] [facility] [address] [place] [address] 03/29/2020 08:47:44 03/29/2020 15:04:53 Lumbar radiculopathy 007230448 M54.16 74-year-ol d male with history Of [...] agrees to proceed. We will have her reciprocating drill operator contact him over the phone. pt seen by myself and dr kumar [id number] Amelie ELMORE PA-C [facility] [address] [place] [address] 04/27/2020 09:37:16 04/27/2020 10:45:49 Osteoarthritis of knee 800063318 M17.9 End-stage arthritis medial compartmen t left [...] after he left that he was on [place] [address] Kumar and narcotic tolerance was not addressed at our visit. Long leg x-ray was obtained today. We will schedule his preop visit at the hospital on May 17 to coincide with his next scheduled follow-up with Sepideh reyes as it is difficult for him to get to [place] [id number] SEPIDEH KUMAR MD SURGERY SCHEDULE [address] [place] [address] 04/28/2020 11:51:44 05/04/2020 09:54:42 [id number] SEPIDEH KUMAR MD [facility]G [facility] [address] [facility] [address] [place] [address] 05/06/2020 14:07:47 05/06/2020 14:24:32 [id number] BRIANNE Calderón MD [facility] [address] [place] [address] 05/07/2020 08:12:08 05/07/2020 09:03:33 Osteoarthritis of knee 788999522 M17.12 [id number] SEPIDEH KUMAR MD NEUROSURG SHANNAN [facility] CLOSED [address] [facility] [address] [place] [address] 05/17/2020 09:04:15 05/18/2020 10:12:21 Postoperative care 635264413 Z48.89 [id number] BRIANNE Calderón MD SURGERY SCHEDULE [address] [place] [address] 05/19/2020 08:35:06 05/19/2020 15:47:32 [id number] Amelie ELMORE PA-C [facility] [address] [place] [address] 05/25/2020 14:58:55 05/25/2020 15:41:27 Postoperative care 656829791 Z48.89 One week postop returning early for [...] y if there is any wound drainage. [id number] Amelie ELMORE PA-C [facility] [address] [place] [address] 06/09/2020 13:38:55 06/09/2020 14:17:24 Postoperative care 497063081 Z48.89 3 status post left total knee arthroplas ty. Patient is doing exceptiona lly well. Unfortunat coretta, as predicted, knee replacemen t did not resolve his foot drop. Okay to get incision wet. Transfer PT to outpatient [facility]. Okay to use 0 turn lawnmower but [...] weeks with TK for repeat three-view x-ray [id number] BRIANNE Calderón MD [facility] [address] [address] 07/06/2020 10:41:17 07/06/2020 11:18:22 History of total knee arthroplasty 0841442216 105 Z96.178 [id number] NIKKO BURLESON MD UROLOGY [facility] [address] [facility] [place] [place] [address] 07/06/2020 12:40:39 07/06/2020 15:47:41 Impotence 743384060 N52.9 Screening for malignant neoplasm of prostate 300378551 Z12.5 Benign pro static hyperplasia with outflow obstruction 041801976 N40.1 [id number] MARLO DELACRUZ PA-C [facility] [address] [facility] [place] [address] 08/23/2020 09:05:29 08/23/2020 12:05:10 Lumbar radiculopathy 564362242 M54.16 75-year-ol d male history of an L2 to iliac fusion November 2019 as well as a left reexplorat ion of the L5 nerve root on 04/21/[address] Kumar. Patient is having worsening left leg symptoms similar to his second operation. X-rays taken today at [facility] at the lumbar spine show expected postoperat [...] pt seen by myself and dr kumar [id number] BRIANNE Calderón MD [facility] [address] [place] [address] 09/07/2020 10:05:44 09/07/2020 11:01:16 History of total knee arthroplasty 3370125638 105 Z96.652 [id number] CATERINA ARCE PA-C [facility] [address] [place] [address] 09/14/2021 08:40:20 09/14/2021 09:52:41 History of total knee arthroplasty 5516265269 105 Z96.652 Assessment : 16-month status post left knee arthroplas ty Plan: Doing great. Controvers ies surroundin g dental prophylaxi s reviewed. NSAIDs prn for residual pain/swell ing. Routine f/u at 2 years, or prn. [id number] NIKKO BURLESON MD UROLOGY [facility] [address] [facility] [place] [address] 10/18/2021 10:17:27 10/18/2021 11:22:30 Benign prostatic hyperplasia with outflow obstruction 765309118 N40.1 Impotence 022741972 N52. 9 [id number] NIKKO BURLESON MD [facility] [address] [facility] [place] [address] 01/16/2022 08:52:16 01/16/2022 09:40:08 Benign prostatic hyperplasia with outflow obstruction 091268596 N40.1 improved on alpha pasha Low back pain 110004191 M54.50 will send for KUB today. [id number] NIKKO BURLESON MD UROLOGY [facility] [address] [place] [address] 04/20/2022 08:54:03 04/20/2022 09:35:28 Benign prostatic hyperplasia with outflow obstruction 632516997 N40.1 continue alpha pasha Primary er ectile dysfunction 364844211 N52.9 try daily PDE5 inhibitor. [id number] NIKKO BURLESON MD UROLOGY [facility] [address] [place] [address] 10/19/2022 08:57:40 10/19/2022 10:02:08 Screening for malignant neoplasm of prostate 402325924 Z12.5 Slowing of urinary stream 21057962 R39.12 continue alpha pasha [id number] MARINA PLATT MD [facility] [address] [place] [address] 01/12/2023 12:47:35 01/12/2023 14:07:48 Multiple benign melanocytic nevi 350997632 D22.5 D18.01 L82.1 L81.4 Benign appearing lesions present at today's visit.Sun protection and self examinatio ns discussed. Scar 930842733 L90.5 Z85.828 Scar(s) clear with no evidence recurrence . Continue to monitor for any changes. 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 Controlled on medication s.Rx refilled for acyclovir 400mg BID PO. SE reviewed. Inflamed s eborrheic keratosis 169424050 L82.0 Benign.Jose Manuel l tx with LN2 since bothersome . [id number] ANDREY WILSON [facility] [address] [place] [address] 03/01/2023 09:01:16 03/01/2023 09:33:36 Neoplasm of uncertain behavior of skin 98663926 D48.5 Will take a bx of the lesion.Wou nd care instructio n given to pt. Pnt to keep his regular skin exam apt with Dr. anne already scheduled. [id number] MARINA PLATT MD [facility] [address] [place] [address] 07/18/2023 13:21:33 07/18/2023 14:07:32 Multiple benign melanocytic nevi 070723958 D22.5 D18.01 L82.1 L81.4 Benign appearing lesions present at today's visit.Sun protection and self examinatio ns discussed. Scar 425899742 L90.5 Z85.828 Scar(s) clear with no evidence recurrence . Continue to monitor for any changes. Actinic keratosis 007 L57.0 The nature of the diagnosis was explained. Pre-cancer ous.Will treat with LN2.F/u if treated lesions persist. [id number] JOSE JUAN SEGURA PA-C [facility] [address] [address] 09/17/2023 10:20:40 09/17/2023 11:22:44 History of total knee arthroplasty 6938205948 105 Z96.652 Assessment : 3 years status [...] 1 year or sooner if symptoms warrant. [id number] NIKKO BURLESON MD UROLOGY [address] [place] [place] [address] 10/25/2023 09:03:49 10/25/2023 10:06:35 Screening for malignant neoplasm of prostate 315326932 Z12.5 Slowing of urinary stream 33942229 R39.12 continue alpha pasha [id number] ANDREY WILSON [address] [address] 01/21/2024 10:55:39 01/21/2024 11:44:40 Multiple benign melanocytic nevi 562348515 D22.5 L81.4 D18.01 L82.1 The benign nature [...] noted. History of malignant neoplasm of skin 526388130 Z85.828 Per Pt: Pt's PCP Dr. Caterina Bishop MD treated his lesion on L Helical Rim. notes that the pathology indicated that the margins were clear. The scar is clear with no evidence of recurrence .Cont to monitor for any changes. Actinic keratosis 007 L57.0 The nature of the diagnosis was explained. Pre-cancer ous.Will treat with LN2.F/u if treated lesions persist. Herpes simplex 35395115 B00.89 The nature of the diagnosis was discussed. Rx refilled for Rx Acyclovir 400 mg, 1 tab po QID x 5 days with flare ups. SE reviewed. [id number] ANDREY WILSON [address] [address] 07/14/2024 09:25:17 07/14/2024 10:41:45 Multiple benign melanocytic nevi 650168119 D22.5 L81.4 D18.01 L82.1 The benign nature [...] noted. History of malignant neoplasm of skin 423275198 Z85.828 Per Pt: Pt's PCP Dr. Caterina Bishop MD treated his lesion on L Helical Rim. notes that the pathology indicated that the margins were clear. The scar is clear with no evidence of recurrence .Cont to monitor for any changes. Actinic keratosis 007 L57.0 The nature of the diagnosis was explained. Pre-cancer ous.Will treat with LN2.F/u if treated lesions persist. Seborrheic keratosis 394 539107 L82.1 L29.9 Benign appearing lesions.Si nce bothersome and itchy, will treat with LN2.Lesion s treated today may persist.F/ u if treated lesions persist. Health Concerns Section Related Observation LastModified by Organization Detai ls LastModified Time None Recorded Concern Status LastModified by Organization Details LastModified Time None Recorded Advance Directives Directive None Recorded Payers Insurance Date Sequence Insurance Name Policy Number Policy Orr Covered Member ID Orr Member ID Guarantor Name 07/14/2024 2 [employer] (MEDICARE SUPPLEMENT) Nilson Figueroa [id number] Nilson Figueroa 07/14/2024 1 [place] Nilson Figueroa [id number] Nilson Figueroa 07/14/2024 2 AARP (MEDICARE SUPPLEMENT) Nilson Figueroa [id number] Nilson Figueroa Notes Date Note Type Note Provider Name and Address Organization Details Recorded Time 07/18/2023 text/html waist up6 month examhx: nmscno concerns MARINA PLATT MD [address] [place], [address], [facility] 07/18/2023 15:42:56 09/17/2023 text/html 09/17/23Patient i s here today for 3 year post op visit from L TKA DOS 05/19/20Patient reports they are doing well.Any pain? YesAmbulating with no assistive deviceAny issues or concerns yesIf yes, soreness and painDenies fevers, chills, or wound drainage. 09-14-21: Nilson is S/P 16 months L TKA (05/19/20). Patient does voice medial and lateral pain at random. He averages pain 4/10 and is sharp in nature. He is taking tylenol 650 mg b.i.d along with tramadol 50 mg daily. 09-07-20: Patient is 16# weeks s/p L TKA 05/19/20. Pain is improving Currently taking no doses per day of narcotic. Ambulating with no assistive device PT: HEP Denies fevers, chills, or wound drainage. They do not request a refill of pain medicine. 07-06-20: Patient is 7# weeks s/p L TKA 05/19/20. Pain is improving Currently taking <3 doses per day of narcotic. Ambulating with cane PT: outpatient ([facility])# SNF home health outpatient H EP Denies fevers, chills, or wound drainage. They do request a refill of pain medicine. JOSE JUAN SEGURA PA-C [address] [place] [address], [phone], [facility] 09/17/2023 11:50:19 10/25/2023 text/html Nilson is a 78 yo male returns for follow up of BPH. He remains on tamsulosin and voiding has improved. He is doing well.He would like to try tadalafil, which has been helpful to him previously. NIKKO BURLESON MD [address] [place] [address], [phone], [facility] 10/26/2023 07:28:04 01/21/2024 text/html Waist up skin ex am6 monthhx: SCC- L Helical Rimreport: scalppt would like a refil of acyclovir 400 mg tablet ANDREY WILSON [address] [place] [address], [phone], [facility] 01/21/2024 12:24:58 07/14/2024 text/html Waist up skin ex am6 monthhx: SCC- L Helical Rimspots of concern: bilateral ears, bilateral hands.pt would like a refil of acyclovir 400 mg tablet ANDREY WILSON [address] [place] [address], [phone], [facility] 07/14/2024 12:20:49
--- OUTSIDE RECORDS SUMMARY | 2024-08-05 10:42 | XMS_ITS | Continuity of Care Document ---
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 Plan of Treatment Reminders Order Date Submit Date Provider Last Modified By Organization Details Last Modified Time Details Appointments MALE RECHECK 2024 09:30A M NIKKO BURLESON MD Not available Not available Not available FOLLOW UP [facility] 2024 09:50A M BRUNO FERNANDES PA-C Not available Not available Not available Lab None recorded . Referral None recorded . Procedures None recorded . Surgeries None recorded . Imaging None recorded . Medication Orders None recorded . Patient TargetsNo targets recorded. Patient InstructionsNo instructions recorded. Reason for Referral None Reported. Problems Name Problem SNOMED Code Status Onset Date Resolution Date Notes Provider Name and Address Organization Details Recorded Time Impotence Active 2015 From Automated Load;Prov ider: Nikko Burleson; Status: Active Not Available [facility] 7 07:25:34 Pain in left knee Active 2019 Dede tijerina [facility] 0 13:15:36 Left foot drop [id number] 9105 Active 2020 MARLO DELACRUZ PA-C [facility] [place], [address] , [facility] 09:46:35 Lumbar radiculop athy 028061016 Active 2020 MARLO DELACRUZ PA-C [address] [place], [address] , [facility] 12:47:24 Ureteric stone 67059680 Active 2014 Provider: Nikko Burleson; Status: Active Not Available [facility] 06:08:00 Problem Notes None recorded. Procedures Surgical History Date Name Laterality Status Provider Name and Address Organization Details Recorded Time 07/15/19 DAK - Cryo [place] completed [facility] 07/14/2024 10:19:10 07/15/19 Destruction BN Lesions completed [facility] 07/14/2024 10:18:07 01/21/20 24 DAK - Cryo AK completed [facility] 01/21/2024 11:31:23 07/18/19 24 DAK - Cryo AK completed Jenn Mor[facility] 07/18/2023 14:03:51 03/01/19 24 Blade Biopsy completed [facility] 03/01/2023 09:22:40 01/13/20 23 Destruction BN Lesions completed MARINA PLATT MD [address] [place], [address], [facility] 01/12/2023 17:41:56 01/17/20 Uroflowmetry; Complex completed NIKKO BURLESON MD [address] [place], [address], [facility] 01/16/2022 20:05:44 01/17/20 Post Void Residual; Ultrasound completed NIKKO BURLESON MD [address] [place], [address], [facility] 01/16/2022 20:05:57 03/19/19 Electromyography (EMG) with Nerve Conduction Study (NCV) completed Kavya (Rama) [facility] 03/19/2020 15:40:44 01/27/20 20 Synvisc One Injection completed Amelie ELMORE PA-C [address] [place], [address], [facility] 01/27/2020 11:11:40 10/20/19 20 Electromyography (EMG) with Nerve Conduction Study (NCV) [place] [address] [place] [address], [phone], [facility] 10/20/2019 18:51:18 08/13/19 20 Injection Joint/Bursa, Major completed Amelie ELMORE PA-C [address] [place], [address], [facility] 08/13/2019 13:55:19 Other completed NIKKO BURLESON MD [address] [place], [address], [facility] 10/19/2022 16:36:35 Other completed Elvia [facility] 06/08/2016 09:25:02 Other completed Elvia [facility] 06/08/2016 09:26:08 Other completed Sara Amy [facility] 06/14/2017 09:49:15 colonoscopy completed NIKKO BURLESON MD [address] [place] [address], [phone], [facility] 06/26/2019 15:25:58 total knee replacement completed Elvia [facility] 07/06/2020 14:17:18 Imaging Results None recorded. Procedure Notes None recorded. Medical Equipment None Reported. Allergies Allergen ID Allergen Name Allergen Category Reaction Reaction Severity Criticality Documentation Date Start Date Code Code System Note Provider Name and Address Organization Details Recorded Time 697555 Tylox medicatio n Not available Not available Not available 01/21/20162014 02923 5 RxNorm Comme nt: Elba ed By: Neha morales Date: 2014 10:13 :00 AM; Not Available [facility] 05:15:09 Medications Name Sig Start Date Stop [...] Not Available Not Available Not Avai lable [place] 7.5 mg-325 mg tablet Take 1 tablet [...] Not Available Not Available Not Available Vitals None Recorded Social History Question Answer Notes LastModified by Organizat ion Details LastModified Time Tobacco Smoking Status Former Smoker Quit in 1987 Sara tijerina [facility] 06/14/2017 09:48:42 When Did You Quit Smoking? [...] SNOMED-CT Code Diagnosis ICD10 Code Diagnosis Note [id number] MARIA DE JESUS WILSON [place] [address] [place] [address] 07/14/2024 09:25:17 07/14/2024 10:41:45 Multiple benign melanocytic nevi 488794416 D22.5 L81.4 D18.01 L82.1 The benign nature [...] noted. History of malignant neoplasm of skin 585060245 Z85.828 Per Pt: Pt's PCP Dr. Juan Bishop MD treated his lesion on L Helical Rim. notes that the pathology indicated that the margins were clear. The scar is clear with no evidence of recurrence .Cont to monitor for any changes. Actinic keratosis 007 L57.0 The nature of the diagnosis was explained. Pre-cancer ous.Will treat with LN2.F/u if treated lesions persist. Seborrheic keratosis 394 [id number] L82.1 L29.9 Benign appearing lesions.Si nce bothersome and itchy, will treat with LN2.Lesion s treated today may persist.F/ u if treated lesions persist. Health Concerns Section Related Observation LastModified by Organization Detai ls LastModified Time None Recorded Concern Status LastModified by Organization Details LastModified Time None Recorded Payers Encounter Date Sequence Insurance Name Policy Number Policy Orr Covered Member ID Orr Member ID Guarantor Name 07/14/2024 1 [place] Derick Figueroa [id number] Derick Figueroa 07/14/2024 2 AARP (MEDICARE SUPPLEMENT) Derickioana Byrdin [id number] Derick Figueroa Notes Date Note Type Note Provider Name and Address Organization Details Recorded Time 07/14/2024 text/html Waist up skin exam6 monthhx: 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
--- NOTE | 2024-08-05 11:03 | MM_ITS ---
PROCEDURE INFORMATION: Exam: MG Right Diagnostic Breast Tomosynthesis MG Bilateral Diagnostic Mammography Exam date and time: 08/05/2024 10:40 AM Age: 79 years old Clinical indication: Male patient, palpable right breast lump. TECHNIQUE: Imaging protocol: Right Diagnostic tomosynthesis and 2D mammography including computer-aided detection (CAD) when performed. Unilateral or bilateral exam. Diagnostic mammography of the bilateral breasts including computer-aided detection (CAD) when performed. Bilateral exam. COMPARISON: US BREAST RT COMPLETE 07/16/2024 7:58 AM FINDINGS: MAMMOGRAPHY: Breast composition: There are scattered areas of fibroglandular density. Breast mammogram findings: In the palpable area of concern, there is glandular breast tissue in the retroareolar region which is consistent with benign male gynecomastia. No suspicious mass or calcifications are seen. IMPRESSION: No mammographic evidence of malignancy. Benign male gynecomastia. Clinical follow-up as needed is recommended. ASSESSMENT: BI-RADS Category 2: Benign.
== END 2024-08-05 23:59 | disposition home or self-care (01) ==
LOC: RAD 10:38
PROVIDERS: PCP Family Medicine; Visit Provider Physician Assistant
DX: N62 Hypertrophy of breast (principal); R92.323 Mammographic fibroglandular density, bilateral breasts
CPT/HCPCS: 77062; 77066; G0279

== ENCOUNTER 2025-02-05 09:34 | Outpatient (CLI) | payer MEDICARE, SELFPAY ==
--- NOTE | 2025-02-05 09:38 | MR_ITS ---
FINAL REPORT CLINICAL HISTORY: ACUTE PAIN OF LEFT SHOULDER/RODS BACK/NECK/STENTS fall November throbbing pain , liming rom COMPARISON: None FINDINGS: Multi planar MR imaging of the left shoulder was performed. Images are degraded by motion which limits diagnostic sensitivity. No fracture identified. There is complete disruption and proximal retraction of the supraspinatus tendon. A partial insertional tear is noted of the infraspinatus tendon. There is thickening of the distal subscapularis tendon. There is no abnormal fluid in the subacromial/subdeltoid bursa. The anterior and posterior glenoid tin appear intact. Thinning of the biceps tendon may be related to partial tear. There are mild hypertrophic changes of the acromioclavicular joint. IMPRESSION: Complete disruption proximal retraction supraspinatus tendon. Partial tear distal infraspinatus tendon. Partial tear biceps tendon. Reviewed, Interpreted and Dictated by Daniel Castro MD Transcribed by Melissa Wall Authenticated and [facility]
== END 2025-02-05 23:59 | disposition home or self-care (01) ==
LOC: RAD 09:35
PROVIDERS: PCP Family Medicine; Visit Provider Family Medicine
DX: S46.012A Strain of muscle(s) and tendon(s) of the rotator cuff of left shoulder, initial encounter (principal); S46.212A Strain of muscle, fascia and tendon of other parts of biceps, left arm, initial encounter; W19.XXXA Unspecified fall, initial encounter
CPT/HCPCS: 73221